=== PATIENT | male | born 1930 | race Caucasian/White ===

== ENCOUNTER 2018-09-15 14:40 | Outpatient (CLI) | payer OTHER | END 2018-09-15 14:41 | disposition home or self-care (01) | LOC: AMBL 14:40 | PROVIDERS: ATTEND Emergency Medicine | DX: R06.02 Shortness of breath (principal); R50.9 Fever, unspecified; R00.0 Tachycardia, unspecified; R09.89 Other specified symptoms and signs involving the circulatory and respiratory systems ==

== ENCOUNTER 2018-09-24 20:18 | Outpatient (CLI) | payer OTHER | END 2018-09-24 20:39 | disposition short-term general hospital (02) | LOC: AMBL 20:18 | PROVIDERS: ATTEND Emergency Medicine | DX: R53.1 Weakness (principal); R41.0 Disorientation, unspecified; Z99.81 Dependence on supplemental oxygen ==

== ENCOUNTER 2019-04-20 15:58 | Outpatient (CLI) | payer OTHER ==
--- NOTE | 2019-04-20 17:01 | DI ---
EXAM: Chest two views HISTORY: Shortness of breath COMPARISON: 08/15/2012 TECHNIQUE: Two views of the chest were performed FINDINGS: Lungs are hyperexpanded with flattening hemidiaphragms. The lungs are clear. There is no pleural effusion or pneumothorax. The heart is normal in size. The mediastinal contour is normal. There are no acute abnormalities of the bones. IMPRESSION: Chronic obstructive pulmonary disease without acute airspace disease.
--- NOTE | 2019-04-20 17:02 | DI ---
EXAM: Three views of the right shoulder. History: Right shoulder pain. Findings: No acute fracture or dislocation. Severe narrowing of the right AC joint and mild narrowi ng of the right glenohumeral joint. There is sclerosis and cystic change within the superior lateral aspect of the humeral head. Impression: 1. No acute osseous abnormality. 2. 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 3. Rotator cuff disease
== END 2019-04-20 15:59 | disposition home or self-care (01) ==
LOC: RAD 15:58
PROVIDERS: ATTEND Internal Medicine
DX: M25.511 Pain in right shoulder (principal); R06.02 Shortness of breath; J44.9 Chronic obstructive pulmonary disease, unspecified

== ENCOUNTER 2019-06-16 19:33 | Inpatient (IN) ==
[2019-06-16] MEDS ORDERED: SOLU-MEDROL 40 MG IVP STA (19:59)
[2019-06-16] MEDS ORDERED: DUONEB NEB STA (20:00)
--- NOTE | 2019-06-16 20:35 | CT ---
Exam: CT chest without contrast Date: 06/16/2019 Comparison: Chest x-ray 04/20/2019 History: COUGH / LEFT CHEST WALL PAIN Started feeling bad approx 3pm this afternoon. Increasingly f eeling worse. Pain left lung. Productive cough, clear phlegm. Hx COPD. Smokes approx 1 pack cigar ettes dly. / TECHNIQUE: Axial CT images through the chest were obtained without IV contrast. MPR images obtained . FINDINGS: No consolidation, pleural effusion, or pneumothorax. There are atheromatous changes of th e thoracic aorta and coronary arteries. No pericardial effusion. No thoracic aortic aneurysm or int ramural hematoma. No mediastinal or hilar lymphadenopathy. There are calcified mediastinal and bila teral hilar lymph nodes. There is bilateral gynecomastia. Impression: 1. No consolidation, pleural effusion, or pneumothorax. 2. No thoracic aortic aneurysm or intramural hematoma. 3. Bilateral gynecomastia.
[2019-06-16] MEDS ORDERED: LEVAQUIN 500 MG/100 ML D5W 500 MG/100 ML BAG IV STA (20:44)
--- NOTE | 2019-06-16 20:54 | ED.PDOC ---
General ED Provider: Dr. MOUNIKA MARTINEZ-ER Chief Complaint: Respiratory Complaint Stated Complaint: hes been sick and coughing Time Seen by Physician: 20:53 Mode of Arrival: Walk-In Information Source: Patient and Other Primary Care Provider: DARY CAROLINA Nursing and Triage Documentation Reviewed and Agree: Yes Does patient meet sepsis criteria?: No System Inflammatory Response Syndrome: Not Applicable Sepsis Protocol: For patient's 13 years and over: Temp is 96.8 and below OR 101 and greater Pulse >90 BPM Resp >20/minute Acutely Altered Mental Status Are patient's symptoms suggestive of a new infection, such as: -Pneumonia -Skin, Soft Tissue -Endocarditis -UTI -Bone, Joint Infection -Implantable Device -Acute Abdominal Infection -Wound Infection -Meningitis -Blood Stream Catheter Infection -Unknown Respiratory Complaint Exam Respiratory Complaint/Exam Onset/Duration: 3-4 days Symptoms Are: Still present Timing: Constant Initial Severity: Mild Current Severity: Mild Location: Chest Character: Reports Productive cough Aggravating: Reports URI Alleviating: Reports Bronchodilators Associated Signs and Symptoms: Reports Wheezing, URI and Nasal congestion History of Healthcare-Acquired Pneumonia: No Related Surgical History: Reports None Pulmonary Embolism Risk Factors: None Home Oxygen Use: Yes Recent Stress Test: No Recent Echo/LV Function: No Current Antibiotic Use: No Current Asthma Medication Use: No Respiratory Distress: None Inadequate Respiratory Effort: No Dysphagia Present: No Stridor Present: No JVD Present: No Accessory Muscle Use: No Retractions: Not Present Diminished Breath Sounds: No Prolonged Respiration: Expiratory phase Sinus Tenderness: None Grunting Respirations: No Kussmaul Respirations: No Differential Diagnoses: COPD Exacerbation and Pneumonia Review of Systems Review Of Systems Constitutional: Reports No symptoms Eyes: Reports No symptoms Ears, Nose, Mouth, Throat: Reports No symptoms Respiratory: Reports Cough, Short of air and Wheezing Cardiac: Reports No symptoms GI: Reports No symptoms : Reports No symptoms Musculoskeletal: Reports No symptoms Skin: Reports No symptoms Neurological: Reports No symptoms Endocrine: Reports No symptoms Hematologic/Lymphatic: Reports No symptoms All Other Systems: Reviewed and Negative Physical Exam Physical Exam Appearance: Well-appearing Ill-appearing: None Pain Distress: Mild Eyes: CLAUDIA, EOMI and Conjunctiva clear ENT: Ears normal, Nose normal and Oropharynx normal Neck: Supple Respiratory: Airway patent, Rhonchi and Wheezes Cardiovascular: RRR GI/: Soft Musculoskeletal: Normal strength Skin: Warm and Dry Psychiatric: Affect appropriate, Mood appropriate and Anxious Interpretation Radiology Interpretation Radiology Interpretation By: Radiologist Radiology Results: Negative Exam Interpreted: CT Scan EKG Interpretation Time of EKG #1: 20:52 Rate: Normal Rhythm: Sinus Ectopy: None [place]: NL ST Segment: Normal Interpretation: nsr Critical Care Note Critical Care Note Total Time (mins): 0 Course Course Hematology/Chemistry: 06/16/19 20:19 06/16/19 20:19 Orders, Labs, Meds: Lab Review 06/16/19 06/16/19 06/16/19 19:57 20:19 20:19 WBC 8.27 RBC 3.83 L Hgb 11.6 L Hct 35.2 L MCV 91.9 MCH 30.3 MCHC 33.0 RDW Coeff of Shira 15.5 H Plt Count 179 Immature Gran % (Auto) 0.2 Neut % (Auto) 55.0 Lymph % (Auto) 30.5 [place] % (Auto) 8.7 Eos % (Auto) 4.6 Baso % (Auto) 1.0 Immature Gran # (Auto) 0.0 Neut # (Auto) 4.6 Lymph # (Auto) 2.5 [place] # (Auto) 0.7 Eos # (Auto) 0.4 Baso # (Auto) 0.1 Puncture Site Lb O2 Saturation 98.0 ABG pH 7.455 H ABG pCO2 36.6 ABG pO2 108.0 H ABG HCO3 25.7 ABG Total CO2 27 ABG Base Excess 2 Anish Test + O2 Delivery Device Bnc Oxygen Liter Flow 2.00 FiO2 % 28.0 Sodium 139.7 Potassium 4.49 Chloride 103.8 Carbon Dioxide 29.3 Anion Gap 11.09 BUN 26.9 H Creatinine 1.73 H Estimated GFR (MDRD) 38.00 BUN/Creatinine Ratio 15.54 Glucose 119.9 H Lactic Acid Calcium 9.36 Total Bilirubin 0.33 AST 27.3 ALT 18.0 Alkaline Phosphatase 67.6 Total Creatine Kinase 148.4 CK-MB (CK-2) Pending CK-MB (CK-2) % Pending Troponin I Pending Total Protein 7.19 Albumin 4.06 Globulin 3.13 Albumin/Globulin Ratio 1.29 06/16/19 20:19 WBC RBC Hgb Hct MCV MCH MCHC RDW Coeff of Shira Plt Count Immature Gran % (Auto) Neut % (Auto) Lymph % (Auto) [place] % (Auto) Eos % (Auto) Baso % (Auto) Immature Gran # (Auto) Neut # (Auto) Lymph # (Auto) [place] # (Auto) Eos # (Auto) Baso # (Auto) Puncture Site O2 Saturation ABG pH ABG pCO2 ABG pO2 ABG HCO3 ABG Total CO2 ABG Base Excess Anish Test O2 Delivery Device Oxygen Liter Flow FiO2 % Sodium Potassium Chloride Carbon Dioxide Anion Gap BUN Creatinine Estimated GFR (MDRD) BUN/Creatinine Ratio Glucose Lactic Acid 1.57 Calcium Total Bilirubin AST ALT Alkaline Phosphatase Total Creatine Kinase CK-MB (CK-2) CK-MB (CK-2) % Troponin I Total Protein Albumin Globulin Albumin/Globulin Ratio Orders Category Date Time Status ABG DRAW REQUEST Routine CARDIO 06/16/19 19:58 Ordered ABG DRAW REQUEST Stat CARDIO 06/16/19 19:57 Ordered EKG-(ED ONLY) Stat CARDIO 06/16/19 19:57 Ordered NEBULIZER TREATMENT Stat CARDIO 06/16/19 20:00 Ordered ED BONDERIZER APPLIED .ONCE EMERGENCY 06/16/19 19:57 Active ED IV/MEDIPORT/POWERPORT .ONCE EMERGENCY 06/16/19 19:59 Active ABG Stat LAB 06/16/19 19:57 Completed BLOOD CULTURE (ED ONLY) Stat LAB 06/16/19 20:19 Received CBC W/ AUTO DIFF Stat LAB 06/16/19 20:19 Completed COMPREHENSIVE METABOLIC PANEL Stat LAB 06/16/19 20:19 Results CREATINE KINASE Stat LAB 06/16/19 20:19 Results LACTIC ACID Stat LAB 06/16/19 20:19 Completed PROCALCITONIN Stat LAB 06/16/19 20:19 Received SPUTUM CULTURE Stat LAB 06/16/19 20:44 Ordered TROPONIN I Stat LAB 06/16/19 20:19 Results 0.9 % Sodium Chloride [Saline Flush] MEDS 06/16/19 19:59 Active 1 syr IVF PRN PRN Ipratropium/Albuterol Neb [Duoneb] MEDS 06/16/19 20:00 Discontinued 3 ml NEB ONCE STA Levofloxacin/D5w [Levaquin 500 mg/100 ml D5w] MEDS 06/16/19 20:44 Active 500 mg in 100 ml IV ONCE Methylprednisolone Sod Succ/Pf [Solu-Medrol 40 mg] MEDS 06/16/19 19:59 Discontinued 40 [address] IVP ONCE STA CT CHEST W/O CONTRAST Stat RADS 06/16/19 19:58 Completed Medications Generic Name Dose Route Start Last Admin Trade Name Freq PRN Reason Stop Dose Admin Levofloxacin/Dextrose 500 mg in 100 mls @ 100 mls/hr 06/16/19 20:44 Levaquin 500 Mg/100 Ml D5w IV 06/16/19 21:43 ONCE STA Sodium Chloride 1 syr 06/16/19 19:59 06/16/19 20:48 Saline Flush IVF 1 syr PRN PRN Administration To flush IV Discontinued Medications Generic Name Dose Route Start Last Admin Trade Name Freq PRN Reason Stop Dose Admin Albuterol/Ipratropium 3 ml 06/16/19 20:00 Duoneb NEB 06/16/19 20:01 ONCE STA Methylprednisolone Sodium Succinate 40 mg 06/16/19 19:59 06/16/19 20:46 Solu-Medrol 40 Mg IVP 06/16/19 20:00 40 mg ONCE STA Administration Vital Signs: Temp Pulse Resp BP Pulse Ox 06/16/19 19:38 98.5 F 88 22 131/80 97 Discharge Plan Discharge Patient Disposition: ADMITTED INPATIENT Discharge Problem: Acute exacerbation of chronic obstructive pulmonary disease (COPD) Prescriptions: No Action gabapentin 600 mg Tablet 600 mg PO DAILY RF: 0 ipratropium-albuterol 0.5 mg-3 mg(2.5 mg base)/3 mL Solution For Nebulization 3 ml INHALATION Q6H PRN (Reason: Shortness Of Breath) RF: 0 tramadol 50 mg Tablet 50 mg PO BID RF: 0 potassium 99 mg Tablet 2.5 meq PO DAILY RF: 0 terazosin 2 mg Capsule 2 mg PO DAILY RF: 0 tamsulosin 0.4 mg Capsule 0.4 mg PO DAILY RF: 0 simvastatin 20 mg Tablet 20 mg PO DAILY RF: 0 allopurinol 300 mg Tablet 300 mg PO DAILY RF: 0 furosemide 20 mg Tablet 20 mg PO DAILY RF: 0 albuterol sulfate [ProAir HFA] 90 mcg/actuation Hfa Aerosol Inhaler 2 puff INHALATION Q4HR PRN (Reason: Shortness Of Breath) RF: 0 fluticasone propionate 50 mcg/actuation [place],Suspension 1 spray INTRANASAL DAILY RF: 0 colestipol 1 gram Tablet 1 g PO DAILY RF: 0 omeprazole 20 mg Tablet,Delayed Release (Dr/Ec) 20 mg PO BID RF: 0 azelastine 0.15 % (205.5 mcg) [place],Non-Aerosol 1 spray INTRANASAL BID RF: 0 Systane Balance 0.6 % Drops 1 drp BOTHEYES BID PRN (Reason: Dry Eye(S)) RF: 0 Daliresp 500 mcg Tablet 500 mcg PO DAILY RF: 0 Dramamine 25 mg Tablet,Chewable 50 mg PO Q4-6H PRN (Reason: Nausea) RF: 0 ED Provider: MOUNIKA MILLER Condition: Stable
[2019-06-16] MEDS ORDERED: PROAIR HFA IH PRN (20:58)
[2019-06-16] MEDS ORDERED: PROPYLENE GLYCOL EACHEYE PRN (20:58)
[2019-06-16] MEDS ORDERED: DIMENHYDRINATE 50 MG PO PRN (20:58)
[2019-06-16] MEDS ORDERED: NORCO 5-325 PO PRN (21:03)
[2019-06-16 22:13] VITALS: BMI 29.4
[2019-06-17] MEDS ORDERED: LEVAQUIN 500 MG/100 ML D5W 500 MG/100 ML BAG IV ONE (00:03)
[2019-06-17] MEDS: PRILOSEC PO SCH ×3 (00:17→20:22)
[2019-06-17] MEDS: LOVENOX SUBCUT SCH ×2 (00:28→09:20)
[2019-06-17] MEDS: NICODERM 14 MG TD SCH ×2 (01:04→09:19)
[2019-06-17] MEDS: ULTRAM PO SCH ×3 (01:05→20:23)
[2019-06-17] MEDS: DUONEB NEB SCH ×4 (04:48→19:33)
[2019-06-17] MEDS: LASIX TAB PO SCH (06:28)
[2019-06-17] MEDS: HYTRIN PO SCH (09:15)
[2019-06-17] MEDS: COLESTID PO SCH (09:15)
[2019-06-17] MEDS: DALIRESP PO SCH (09:16)
[2019-06-17] MEDS: NEURONTIN PO SCH (09:16)
[2019-06-17] MEDS: MUCINEX PO SCH ×2 (09:16→20:22)
[2019-06-17] MEDS: FLOMAX PO SCH (09:17)
[2019-06-17] MEDS: ZYLOPRIM PO SCH (09:17)
[2019-06-17] MEDS: POTASSIUM PO SCH (09:19)
[2019-06-17] MEDS: ZOCOR PO SCH (17:25)
[2019-06-17] MEDS: LEVAQUIN PO SCH (20:23)
[2019-06-18] MEDS: DUONEB NEB SCH ×4 (05:03→19:33)
[2019-06-18] MEDS: LASIX TAB PO SCH (05:43)
[2019-06-18] MEDS: POTASSIUM PO SCH (08:59)
[2019-06-18] MEDS: ZYLOPRIM PO SCH (08:59)
[2019-06-18] MEDS: DALIRESP PO SCH (08:59)
[2019-06-18] MEDS: HYTRIN PO SCH (08:59)
[2019-06-18] MEDS: NEURONTIN PO SCH (09:00)
[2019-06-18] MEDS: ULTRAM PO SCH ×2 (09:00→20:32)
[2019-06-18] MEDS: PRILOSEC PO SCH ×2 (09:00→20:31)
[2019-06-18] MEDS: MUCINEX PO SCH ×2 (09:00→20:31)
[2019-06-18] MEDS: FLOMAX PO SCH (09:00)
[2019-06-18] MEDS: COLESTID PO SCH (09:00)
[2019-06-18] MEDS: NICODERM 14 MG TD SCH (09:01)
[2019-06-18] MEDS: LOVENOX SUBCUT SCH (09:01)
[2019-06-18] MEDS: ZOCOR PO SCH (17:24)
[2019-06-18] MEDS: LEVAQUIN PO SCH (20:30)
[2019-06-19] MEDS: DUONEB NEB SCH ×4 (04:40→19:15)
[2019-06-19] MEDS: LASIX TAB PO SCH (05:43)
[2019-06-19] MEDS: POTASSIUM PO SCH (08:42)
[2019-06-19] MEDS: ULTRAM PO SCH ×2 (08:42→20:56)
[2019-06-19] MEDS: ZYLOPRIM PO SCH (08:42)
[2019-06-19] MEDS: NEURONTIN PO SCH (08:42)
[2019-06-19] MEDS: DALIRESP PO SCH (08:43)
[2019-06-19] MEDS: MUCINEX PO SCH ×2 (08:43→20:56)
[2019-06-19] MEDS: HYTRIN PO SCH (08:43)
[2019-06-19] MEDS: FLOMAX PO SCH (08:43)
[2019-06-19] MEDS: LOVENOX SUBCUT SCH (08:44)
[2019-06-19] MEDS: NICODERM 14 MG TD SCH (08:44)
[2019-06-19] MEDS: PRILOSEC PO SCH ×2 (08:44→20:56)
[2019-06-19] MEDS: COLESTID PO SCH (09:00)
[2019-06-19] MEDS: ZOCOR PO SCH (16:52)
[2019-06-19] MEDS ORDERED: SOLU-CORTEF 250 MG IVP SCH (17:02)
[2019-06-19] MEDS ORDERED: XANAX PO STA (17:06)
[2019-06-19] MEDS: XANAX PO SCH (20:55)
[2019-06-19] MEDS: LEVAQUIN PO SCH (20:55)
[2019-06-19] MEDS: SOLU-CORTEF 250 MG IVP SCH (20:57)
[2019-06-20] MEDS: DUONEB NEB SCH (04:55)
[2019-06-20 04:59] VITALS: BP 149/84; TEMP 97.5
[2019-06-20] MEDS: LASIX TAB PO SCH (05:48)
[2019-06-20] MEDS: SOLU-CORTEF 250 MG IVP SCH (05:51)
[2019-06-20] MEDS: MUCINEX PO SCH (08:02)
[2019-06-20] MEDS: POTASSIUM PO SCH (08:02)
[2019-06-20] MEDS: HYTRIN PO SCH (08:03)
[2019-06-20] MEDS: DALIRESP PO SCH (08:03)
[2019-06-20] MEDS: FLOMAX PO SCH (08:03)
[2019-06-20] MEDS: PRILOSEC PO SCH (08:03)
[2019-06-20] MEDS: XANAX PO SCH (08:03)
[2019-06-20] MEDS: ULTRAM PO SCH (08:03)
[2019-06-20] MEDS: LOVENOX SUBCUT SCH (08:04)
[2019-06-20] MEDS: NEURONTIN PO SCH (08:04)
[2019-06-20] MEDS: ZYLOPRIM PO SCH (08:04)
[2019-06-20] MEDS: NICODERM 14 MG TD SCH (08:05)
--- NOTE | 2019-06-27 09:41 | HP ---
CHIEF COMPLAINT/DISCUSSION: This is an 88-year-old patient of Dr. Donohue with history of COPD presented to the Emergency Department with his family with several days of cough, cough productive of mucoid sputum associated with wheezing, shortness of breath with exertion. He was seen in the Emergency Department with the above symptoms. Chest CT did not confirm any infiltrate. He was thought to have exacerbation of COPD and was admitted for pulmonary updraft and steroids. PAST MEDICAL HISTORY: MEDICATIONS: Gabapentin Ipratropium nebs Tramadol Potassium Terazosin Tamsulosin Simvastatin Allopurinol Lasix Albuterol inhaler Flonase nasal spray Colestipol Omeprazole Azelastine nasal spray Systane eyedrops Daliresp Dramamine ALLERGIES: PENICILLIN AND FLU VACCINE PAST MEDICAL HISTORY: History of COPD History of neuropathy History of BPH Hyperlipidemia SOCIAL HISTORY: He is a one pack per day smoker. Denies any alcohol use. FAMILY HISTORY: Reviewed and thought not to be pertinent to discussion. REVIEW OF SYSTEMS: No headaches, visual changes, tinnitus, chest pain, hemoptysis, abdominal pain, blood in the stool, urinary symptoms or seizures. PHYSICAL EXAMINATION: V/S: Temperature 97.5, pulse 83, respiratory rate 23, blood pressure 149/85, oxygen saturation 91%. HEENT: Pupils are round. NECK: Supple. CHEST: Coarse rhonchi and expiratory wheezes. CARDIOVASCULAR: Regular rate and rhythm. ABDOMEN: Soft, nontender. EXTREMITIES: Distal extremities without cyanosis or edema. ASSESSMENT: 1. EXACERBATION OF COPD. PLAN: 1. IV steroids, antibiotics. 2. Please see orders. MTDD
--- NOTE | 2019-06-27 09:44 | DS ---
PRINCIPAL DIAGNOSIS: 1. EXACERBATION OF COPD DISCUSSION: This is an 88-year-old patient of Dr. Donohue who is a smoker with history of COPD who presented to the Emergency Department with cough, wheezing and shortness of breath with any exertion. He was admitted to my services in Dr. Donohue's absence for treatment of such. CLINICAL COURSE: The patient was admitted with steroids, antibiotics. His wheezing markedly improved. His steroids were weaned. At time of discharge, he felt to be back to baseline in terms of breathing. He was discharged on antibiotics and steroids and will followup with Dr. Donohue in one week. KAYLEY
== END 2019-06-20 08:10 | disposition home or self-care (01) | DRG 192 ==
LOC: ED 19:37 → MEDSURG B 20:54
PROVIDERS: ADMIT Family Medicine; ATTEND Family Medicine
DX: R06.2 Wheezing; R09.81 Nasal congestion; R05 Cough; J06.9 Acute upper respiratory infection, unspecified; J44.1 Chronic obstructive pulmonary disease with (acute) exacerbation; R06.02 Shortness of breath

== ENCOUNTER 2020-03-07 10:42 | Inpatient (IN) ==
--- NOTE | 2020-03-07 11:24 | ED.PDOC ---
General ED Provider: Dr. MOUNIKA COCHRAN Chief Complaint: Fall Stated Complaint: Patients daughter states he has fallen twice in past 2 days, both times being in the eventime after ambulating to bathroom. His niece assisted him yesterday morning but this morning he managed to phone his daughter Time Seen by Physician: 10:55 Mode of Arrival: Ambulance Information Source: Patient Exam Limitations: No limitations Primary Care Provider: DARY CAROLINA Nursing and Triage Documentation Reviewed and Agree: Yes Does patient meet sepsis criteria?: No System Inflammatory Response Syndrome: Not Applicable Sepsis Protocol: For patient's 13 years and over: Temp is 96.8 and below OR 101 and greater Pulse >90 BPM Resp >20/minute Acutely Altered Mental Status Are patient's symptoms suggestive of a new infection, such as: -Pneumonia -Skin, Soft Tissue -Endocarditis -UTI -Bone, Joint Infection -Implantable Device -Acute Abdominal Infection -Wound Infection -Meningitis -Blood Stream Catheter Infection -Unknown Musculoskeletal Complaint Exam Hip/Pelvis Complaint/Exam Location of Pain: Reports Right, Left, Hip and Pelvis Mechanism of Injury: Reports Trauma Onset/Duration: 48 hrs Symptoms Are: Still present Initial Severity: Moderate Current Severity: Mild Location: Reports Diffuse Character: Reports Sharp, Dull and Aching Aggravating: Reports Movement and Weight bearing Alleviating: Reports Rest and Position Associated Signs and Symptoms: Denies Swelling, Redness, Bruising, Fever, Weakness, Dizziness, Syncope, Abdominal pain and Knee pain Related History: Reports Similar episode Able to Bear Weight: Yes Septic Arthritis Risk Factors: Reports None Related Surgical History: Reports None Rotation: External (Lt foot) Pelvis Palpation: Stable Tenderness: Present Right, Left, Greater Trochanter and Pubis Range of Motion Limited In: Present Internal rotation NV Bundle Intact Distal to Injury: No Differential Diagnoses: Arthritis, Bursitis, Fracture and Strain Review of Systems Review Of Systems Constitutional: Reports No symptoms Eyes: Reports No symptoms Ears, Nose, Mouth, Throat: Reports No symptoms Respiratory: Reports No symptoms Cardiac: Reports No symptoms GI: Reports No symptoms : Reports No symptoms Musculoskeletal: Reports Back pain and Joint pain Skin: Reports No symptoms Neurological: Reports No symptoms Endocrine: Reports No symptoms Hematologic/Lymphatic: Reports No symptoms All Other Systems: Reviewed and Negative [facility] Medical History Arthritis Arthritis associated with foreign body Chronic obstructive airway disease Gastro-esophageal reflux Gout History of nephrectomy Hyperlipemia Hypertension Nerve pain Pain Sinusitis Urinary bladder disorder Vertigo Family History FATHER Diabetes Coronary artery arteriosclerosis Social History Smoking and tobacco status: Current every day smoker Tobacco: How many years used: 80 Passive smoking exposure: Yes Quit status: not considering quitting Physical Exam Physical Exam Appearance: Reports Well-appearing Ill-appearing: Mild Pain Distress: Mild Eyes: Reports CLAUDIA, EOMI and Conjunctiva clear ENT: Reports Ears normal, Nose normal and Oropharynx normal Neck: Supple Respiratory: Reports Airway patent, Breath sounds clear, Breath sounds equal and Respirations nonlabored Cardiovascular: Reports RRR, Pulses normal, No rub and No murmur GI/: Reports Soft, Nontender, No masses, Bowel sounds normal and No Organomegaly Musculoskeletal: Reports Normal strength, ROM intact, No edema, No calf tenderness and Limited strength Skin: Reports Warm, Dry and Normal color Neurological: Reports Sensation intact, Motor intact, Reflexes intact, Cranial nerves intact, Alert and Oriented Psychiatric: Reports Affect appropriate and Mood appropriate Interpretation Radiology Interpretation Radiology Interpretation By: Radiologist Exam Interpreted: CT Scan ( Lumbar Spine :Diffuse demineralization and degenerative disc/facet disease. Postop changes of the mid spine. No acute fracture or subluxation is seen. ) and Other (CT PELVIS:No fracture or dislocation. 2. Right lateral thigh subcutaneous hematoma. 3. Degenerative changes as described. 4. Infrarenal abdominal aortic aneurysm, incompletely imaged. Refer to same day lumbar spine CT report for further details. ) Physician Notification Case Discussed Physician Notified: [place]/ wished for patient Time of Notification: 12:57 Critical Care Note Critical Care Note Total Time (mins): 0 Course Course Hematology/Chemistry: 03/07/20 11:25 03/07/20 11:25 Orders, Labs, Meds: Lab Review 03/07/20 03/07/20 03/07/20 11:25 11:25 11:25 WBC 8.33 RBC 3.84 L Hgb 11.5 L Hct 35.6 L MCV 92.7 MCH 29.9 MCHC 32.3 RDW Coeff of Shira 14.7 Plt Count 194 Immature Gran % (Auto) 0.2 Neut % (Auto) 59.1 Lymph % (Auto) 23.9 [place] % (Auto) 11.8 H Eos % (Auto) 4.2 Baso % (Auto) 0.8 Neut # (Auto) 4.9 Lymph # (Auto) 2.0 [place] # (Auto) 1.0 Eos # (Auto) 0.4 Baso # (Auto) 0.1 Immature Gran # (Auto) 0.0 Sodium 139.8 Potassium 4.21 Chloride 102.8 Carbon Dioxide 32.1 H Anion Gap 9.11 BUN 21.2 H Creatinine 1.32 H Estimated GFR (MDRD) 51.00 BUN/Creatinine Ratio 16.06 Glucose 96.8 Calcium 9.30 Total Bilirubin 0.34 AST 49.2 ALT 21.3 Alkaline Phosphatase 73.5 Total Creatine Kinase 942.5 H CK-MB (CK-2) 9.700 H* CK-MB (CK-2) % 1.0200 Troponin I 0.017 Total Protein 6.87 Albumin 3.92 Globulin 2.95 Albumin/Globulin Ratio 1.32 Orders Category Date Time Status EKG-(ED ONLY) Stat CARDIO 03/07/20 11:07 Completed CBC W/ AUTO DIFF Stat LAB 03/07/20 11:25 Completed CMP [COMPREHENSIVE METABOLIC PANEL] Stat LAB 03/07/20 11:25 Completed CPK [CREATINE KINASE] Stat LAB 03/07/20 11:25 Completed TROPONIN I Stat LAB 03/07/20 11:25 Completed UA [URINALYSIS C & S IF INDICATED] Stat LAB 03/07/20 11:18 Uncollected CHEST, 1V AP ONLY Stat RADS 03/07/20 11:[address] HEAD W/O CONTRAST Stat RADS 03/07/20 11:[address] LUMBAR SPINE W/O CONTRAST Stat RADS 03/07/20 11:[address] PELVIS W/O CONTRAST Stat RADS 03/07/20 11:07 Completed Medications Generic Name Dose Route Start Last Admin Trade Name Freq PRN Reason Stop Dose Admin Albuterol Sulfate 2 puff 03/07/20 17:00 Ventolin Hfa (Per Puff-With Spacer) IH Q4HR AR Allopurinol 300 mg 03/08/20 09:00 Zyloprim PO DAILY AR Gabapentin 600 mg 03/07/20 13:30 Neurontin PO DAILY AR Dextrose/Sodium Chloride 1,000 mls @ 125 mls/hr 03/07/20 13:12 Dextrose 5%-Ns Iv Solution IV 03/07/20 21:11 .Q8H STA Non-Formulary Medication 20 mg 03/07/20 21:00 Omeprazole PO BID AR Non-Formulary Medication 99 mg 03/08/20 09:00 Potassium PO DAILY AR Roflumilast 500 mcg 03/08/20 09:00 Daliresp PO DAILY AR Simvastatin 20 mg 03/08/20 09:00 Zocor PO DAILY AR Sodium Chloride 1 syr 03/07/20 13:10 Saline Flush IVF PRN PRN To flush IV Vital Signs: Temp Pulse Resp BP Pulse Ox 03/07/20 10:42 97.6 F 95 H 20 154/74 H 97 Discharge Plan Discharge Patient Disposition: ADMITTED INPATIENT Discharge Problem: Acute bilateral low back pain, Contusion of hip, right, Rhabdomyolysis, Acute kidney injury ED Provider: MOUNIKA COCHRAN Condition: Stable
[2020-03-07 11:33] LABS: HEMATOCRIT 35.6 % (42.0-52.0)
--- NOTE | 2020-03-07 12:18 | DI ---
EXAM: CHEST FRONTAL VIEW HISTORY: Chronic obstructive pulmonary disease. COMPARISON: 09/26/2019 FINDINGS: Heart size is mildly prominent. There is ectasia and atherosclerotic disease of the aorta . There is diffuse, chronic appearing interstitial accentuation. No acute infiltrates are seen. No vascular congestion. There is no consolidation, visible pleural fluid or pneumothorax. Bones revea l no acute fracture. IMPRESSION: No acute cardiopulmonary process.
--- NOTE | 2020-03-07 12:29 | CT ---
EXAM: CT BRAIN HISTORY: Fall, head injury TECHNIQUE: CT brain without intravenous contrast. 5-mm axial sections with Reformations. COMPARISON: 02/28/2020 FINDINGS: There is generalized atrophy. There is moderate periventricular and deep white matter low attenuatio n which although nonspecific is suggestive of chronic microvascular ischemic change. Bilateral basal ganglia calcification. These findings are stable. Brain otherwise was unremarkable without evidence of hemorrhage or large vessel distribution recent i schemic infarction. There is no suggestion of acute hydrocephalus or subdural fluid collection. No mass or mass effect. Cranium has no acute finding. Mastoid processes are poorly aerated. The visualized paranasal sinuse s are clear. IMPRESSION: No acute intracranial process or injury. No skull fracture.
--- NOTE | 2020-03-07 12:31 | CT ---
EXAM: CT Pelvis without contrast. HISTORY: Bilateral hip pain following trauma. COMPARISON: Left hip radiograph 02/28/2020. TECHNIQUE: Multiple axial images of the pelvis were obtained without intravenous contrast. Images w ere reformatted in the coronal and sagittal plane. FINDINGS: Please note that evaluation of the pelvic soft tissue structures is limited due to lack of intravenous contrast. Atherosclerotic calcifications noted. There is some fusiform dilatation of the distal infrarenal aor ta up to 3.4 cm transverse on coronal image 45 although this is incompletely imaged. Visualized syeda l is normal in caliber. Diverticulosis noted. Urinary bladder is normal. No free fluid or free air seen within the pelvis. Laminectomy changes of the lower lumbar spine are incompletely imaged. 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 Mild to moderate bilateral hip joint space narrowing with marginal o steophyte formation noted. No acute fracture or dislocation identified. A 3 x 1.8 x 2.7 cm high density lateral subcutaneous right thigh collection present on axial image 65 and coronal image 54 with some adjacent subcutaneous edema present. Mild lateral left thigh subcuta neous edema noted as well. IMPRESSION: 1. No fracture or dislocation. 2. Right lateral thigh subcutaneous hematoma. 3. Degenerative changes as described. 4. Infrarenal abdominal aortic aneurysm, incompletely imaged. Refer to same day lumbar spine CT repo rt for further details.
--- NOTE | 2020-03-07 12:40 | CT ---
EXAM: CT LUMBAR SPINE HISTORY: Fall, pain TECHNIQUE: CT lumbar spine without contrast. 3-mm axial sections. Coronal and sagittal reformation s. COMPARISON: None FINDINGS: Bones are demineralized. Postop changes are noted at L2/L3 and L3/L4. There is diffuse severe degen erative disc and facet disease. Mild scoliosis is seen convex to the right. Sacroiliac joints are i ntact with moderate arthropathy. There has been laminectomy of the lower spine. The degenerative ch anges lead to multilevel central and neural foraminal stenosis similar to that described on prior MRI . No traumatic central canal stenosis is suggested. There is no paraspinal hematoma. Atherosclerot ic disease is incidentally noted with aneurysmal caliber of the lower aorta. IMPRESSION: Diffuse demineralization and degenerative disc/facet disease. Postop changes of the mid spine. No acute fracture or subluxation is seen.
[2020-03-07] MEDS ORDERED: DEXTROSE 5%-NS IV SOLUTION 1,000 ML IV STA (13:12)
[2020-03-07 14:13] VITALS: BMI 29.5
[2020-03-07] MEDS: VENTOLIN HFA (PER PUFF-WITH SPACER) IH SCH ×3 (14:33→23:15)
[2020-03-07] MEDS: NEURONTIN PO SCH (16:27)
[2020-03-07] MEDS: PRILOSEC PO SCH (16:59)
[2020-03-07] MEDS ORDERED: VENTOLIN HFA (PER PUFF-WITH SPACER) IH SCH (17:00)
[2020-03-07] MEDS ORDERED: NON-FORMULARY MEDICATION (Omeprazole 20 MG) PO SCH (21:00)
[2020-03-08] MEDS: VENTOLIN HFA (PER PUFF-WITH SPACER) IH SCH ×6 (00:38→21:31)
[2020-03-08] MEDS: [UNRECOGNIZED DRUG - OTHER] PO PRN (01:36)
[2020-03-08 03:54] LABS: HEMATOCRIT 34.3 % (42.0-52.0)
[2020-03-08] MEDS: PRILOSEC PO SCH ×2 (05:30→16:47)
--- NOTE | 2020-03-08 08:05 | HP ---
DATE OF SERVICE: 03/07/20 HISTORY OF PRESENT ILLNESS: This is an 89-year-old white male who presented to the Emergency Room after he had fallen at home twice in the past two days. Both times in the evening after getting up and going to the bathroom. He did hit his head. PAST MEDICAL HISTORY: Neuropathy GERD Hypertension COPD, oxygen dependent Chronic respiratory failure - he has refused a pulmonology consultation Smoker, heavy History of pleuritic pains Skin tag on right neck Bilateral shoulder bursitis History of left kidney cancer - he refuses to see urology. He had a nephrectomy 20 years ago Bilateral sciatica Dizziness Hand tremors CHF Dyslipidemia Recurrent gout PAST SURGICAL HISTORY: Cholecystectomy Appendectomy Left nephrectomy Spine surgery times three Noncompliance with medications, diet, lifestyle, followup Most recently on 02/28/20 he had bilateral carotid scan which was normal. His L- spine x-ray showed severe degenerative changes REVIEW OF SYSTEMS: CONSTITUTIONAL: No night sweats. No fatigue, malaise, lethargy. No fever or chills. HEENT: Eyes: No visual changes. No eye pain. No eye discharge. ENT: No runny nose. No epistaxis. No sinus pain. No sore throat. No odynophagia. No ear pain. No congestion. RESPIRATORY: Shortness of breath. No cough, no congestion. No hemoptysis. CARDIOVASCULAR: No angina symptoms. No CHF symptoms. No atypical chest pain for CAD. No palpitations. No PND. No orthopnea. GASTROINTESTINAL: No abdominal pain. No nausea or vomiting. No diarrhea or constipation. No hematemesis. No hematochezia. GENITOURINARY: No urgency. No frequency. No dysuria. No hematuria. No obstructive symptoms. No discharge. No pain. No significant abnormal bleeding. MUSCULOSKELETAL: Back pain, sciatica. NEUROLOGICAL: No headache. No neck pain. No syncope. No seizures. No dizziness. PSYCHIATRIC: Not anxious. No depression. No suicidal thoughts. No homicidal thoughts. SKIN: No rash. No lesions. No wounds. ENDOCRINE: No unexplained weight loss. No weight gain. HEMATOLOGIC/LYMPHATIC: No anemia. No purpura. No petechiae. No prolonged or excessive bleeding. No palpable lymph nodes. PERSONAL/FAMILY/SOCIAL HISTORY: He is a , lives at home by himself. His daughter and neice help take care of him. He is a heavy smoker. No alcohol or ilicit drug use. MEDICATIONS: Systane one drop both eyes b.i.d. p.r.n. Daliresp 500 mcg p.o. daily Potassium 99 mg p.o. daily Ipratropium-albuterol 0.5 mg-3mg 3 mL inhalation q.6h Albuterol Sulfate two puff INH q.4hr Tramadol 50 mg p.o. b.i.d. Allopurinol 300 mg p.o. daily Simvastatin 20 mg p.o. daily Tamsulosin 0.4 mg p.o. daily Omeprazole 20 mg p.o. b.i.d. Dramamine 50 mg p.o. q.4-6hr p.r.n. Azelastine 0.15% one spray intranasal b.i.d. Fluticasone Proprionate 50 mct/actuation spray suspension one spray intranasal daily Terazosin 2 mg p.o. daily Furosemide 20 mg p.o. daily Gabapentin 600 mg p.o. daily Colestipol 1 gm p.o. daily Hydrocodone-acetaminophen 5-325 mg p.o. one tab daily Hemp Gummy Bear 50 - 100 mg p.o. q.i.d. p.r.n. Prevagen Extra Strength one cap p.o. daily Ferrous Sulfate 325 mg p.o. daily [place] Q Plus one cap p.o. daily ALLERGIES: PENICILLINS (FLU VACCINE) PHYSICAL EXAMINATION: VITAL SIGNS: Temperature 97.6, heart rate 95, respirations 20, blood pressure 150/74, pulse ox 97%. HEENT: Head normocephalic, atraumatic. Eyes: Extraocular muscles are intact. Pupils are equal, round and reactive to light and accommodation. Ears: No lesions. Nose appeared normal. Throat: No exudate or erythema. NECK: Supple. No JVD, no carotid bruit. No lymphadenopathy or thyromegaly. LUNGS: Clear to auscultation. Percussion note normal. Chest symmetrical. HEART: S1, S2, no S3. No murmur. No cyanosis or clubbing. No ascites. Pulses: Dorsalis pedis and posterior tibial pulses +1 to +2 bilaterally. ABDOMEN: Soft. Nontender. Bowel sounds active. No CVA tenderness. No mass felt. EXTREMITIES: No edema. Full range of motion of all extremities, equal. NEUROLOGIC: No focal deficit. Cranial nerves II through XII are grossly intact. No headache, no double vision or headache. SKIN: Not dry. Intact. Turgor - normal. LYMPHATIC: No palpable lymph nodes/no lymphedema. MUSCULOSKELETAL: Normal joints with no swelling. Muscle tone is normal. LABS/IMAGING: White count 8.33, hemoglobin 11.5, hematocrit 35.6, platelets 194. Sodium 139, potassium 4.2, BUN 21, creatinine 1.32, glucose 96.8. AST 49, ALT 21.3. Total CK 942. CK-MB 9.7, CK-MB percentage 1.02. Troponin less than 0.02. Total protein 6.87. Chest x-ray shows no acute process. CT of the pelvis shows no fracture or dislocation. Right lateral thigh subcutaneous hematoma, degenerative changes, infrarenal abdominal aortic aneurysm incompletely imaged. CT of the L-spine shows diffuse demineralization, degeneration of disc/facet and disease. No acute fracture or postop changes. Head CT shows no acute intracranial process. No skull fracture. ASSESSMENT: 1. ACUTE BILATERAL LOW BACK PAIN 2. RECENT FALL 3. RIGHT HIP CONTUSION 4. ACUTE KIDNEY INJURY 5. SEVERE COPD, OXYGEN DEPENDENT 6. CHRONIC KIDNEY DISEASE, STAGE 2 TO 3 7. GENERALIZED WEAKNESS PLAN: 1. We will admit. 2. Routine telemetry orders. 3. CBC, CMP daily. 4. Continue home medications. 5. Hold cholesterol medication. 6. NS IV at 75 cc/hr. 7. 1 cc Decadron IM. 8. [place] 5 mg b.i.d. p.r.n. for pain. 9. Toradol 30 mg IV q.8hr p.r.n. for pain. 10. Oxygen at 1 to 2L as needed. 11. Regular diet. 12. Follow closely. TIME SPENT: More than 70 minutes. MTDD
[2020-03-08] MEDS ORDERED: DECADRON 4 MG/ML SDV IM STA (08:10)
[2020-03-08] MEDS: TORADOL IVP STA ×2 (09:08→09:28)
--- NOTE | 2020-03-08 09:51 | PCM.PROG ---
Attending Provider: ATTENDING PROVIDER: Dr. DARY CAROLINA DATE OF SERVICE: 03/08/20 SUBJECTIVE: This 89 year old /WHITE M was hospitalized 03/07/20 with fall. The patient has increased CK level from muscle injury. Troponin is negative. Cardiovascular status is stable. He is feeling better with some pain in left hip. Pain is a 1-2 on scale of 1-10. He knows that family wants him to go to the senior living and he is agreeable. REVIEW OF SYSTEMS: CONSTITUTIONAL: No night sweats. No fatigue, malaise, lethargy. No fever or chills. HEENT: Eyes: No visual changes. No eye pain. No eye discharge. ENT: No runny nose. No epistaxis. No sinus pain. No odynophagia. No congestion. RESPIRATORY: No cough, no congestion. No hemoptysis. No shortness of breath. CARDIOVASCULAR: No angina symptoms. No CHF symptoms. No atypical chest pain for CAD. No palpitations. No orthopnea.. GASTROINTESTINAL: No abdominal pain. No nausea or vomiting. No diarrhea or constipation. No hematemesis. No hematochezia. GENITOURINARY: No urgency. No frequency. No dysuria. No hematuria. No obstructiv e symptoms. No discharge. No pain. No significant abnormal bleeding. MUSCULOSKELETAL: No musculoskeletal pain; no joint swelling. NEUROLOGICAL: Awake, alert, oriented to time, place and person. No headache. No neck pain. No syncope. No seizures. No dizziness. PSYCHIATRIC: Not anxious. No depression. No suicidal thoughts. No homicidal thoughts. SKIN: No rash. No lesions. No wounds. ENDOCRINE: No unexplained weight loss. No weight gain. HEMATOLOGIC/LYMPHATIC: No anemia. No purpura. No petechiae. No prolonged or excessive bleeding. No palpable lymph nodes. PHYSICAL EXAMINATION: GENERAL: The patient is awake, alert and oriented, sitting in bed in no distress. VITAL SIGNS: Temperature 97.9 F, Pulse 73, Respiratory Rate 18, BP 140/73, Pulse Ox 95% HEENT: Head normocephalic, atraumatic. Eyes: Extraocular muscles are intact. Pupils are equal, round and reactive to light and accommodation. Ears: No lesions. Nose appeared normal. Throat: No exudate or erythema. NECK: Supple. No JVD, no carotid bruit. No lymphadenopathy or thyromegaly. LUNGS: Clear to auscultation. Percussion note normal. Chest symmetrical. HEART: S1, S2, no S3. No murmurs. No cyanosis or clubbing. No ascites. Pulses: Dorsalis pedis and posterior tibial pulses +1 to +2 both sides. ABDOMEN: Soft. Non-tender. Bowel sounds active. No CVA tenderness. No mass felt. EXTREMITIES: No edema. Full range of motion of all extremities, equal. NEUROLOGIC: No focal deficit. Cranial nerves II through XII are grossly intact. No headache, no double vision or headache. SKIN: Warm and dry. Intact. Turgor-normal. LYMPHATIC: No palpable lymph nodes/no lymphedema. MUSCULOSKELETAL: Normal joints with no swelling. Muscle tone is normal. LAB REVIEW: 03/08/20 03:47 03/08/20 03:47 03/08/20 03:47: Sodium 138.6, Potassium 4.40, Chloride 105.1, Carbon Dioxide 31.4 H, Anion Gap 6.50, BUN 18.9, Creatinine 1.26 H, Estimated GFR (MDRD) 54.00, BUN/Creatinine Ratio 15.00, Glucose 116.9 H, Calcium 8.86, Total Bilirubin 0.30, AST 46.2, ALT 21.0, Alkaline Phosphatase 66.1, Total Protein 6.11 L, Albumin 3.29 L, Globulin 2.82, Albumin/Globulin Ratio 1.16 03/08/20 03:47: WBC 7.54, RBC 3.65 L, Hgb 11.2 L, Hct 34.3 L, MCV 94.0, MCH 30.7, MCHC 32.7, RDW Coeff of [place] 14.9 H, Plt Count 185, Immature Gran % (Auto) 0.3, Neut % (Auto) 57.9, Lymph % (Auto) 23.5, [place] % (Auto) 11.4 H, Eos % (Auto) 5.8, Baso % (Auto) 1.1, Neut # (Auto) 4.4, Lymph # (Auto) 1.8, [place] # (Auto) 0.9, Eos # (Auto) 0.4, Baso # (Auto) 0.1, Immature Gran # (Auto) 0.0 03/08/20 03:47: Total Creatine Kinase 752.8 H, CK-MB (CK-2) 6.200 H*, CK-MB (CK- 2) % 0.8200 03/07/20 19:40: Total Creatine Kinase 832.8 H, CK-MB (CK-2) 7.830 H*, CK-MB (CK- 2) % 0.9400 03/07/20 17:20: Urine Color Yellow, Urine Clarity Clear, Urine pH 6.0, Ur Specific [place] 1.020, Urine Protein Negative, Urine Glucose (UA) Negative, Urine Ketones Negative, Urine Blood Negative, Urine Nitrite Negative, Urine Bilirubin Negative, Urine Urobilinogen 0.2, Ur Leukocyte Esterase Negative 03/07/20 11:25: Troponin I 0.017 03/07/20 11:25: Sodium 139.8, Potassium 4.21, Chloride 102.8, Carbon Dioxide 32.1 H, Anion Gap 9.11, BUN 21.2 H, Creatinine 1.32 H, Estimated GFR (MDRD) 51.00, BUN/Creatinine Ratio 16.06, Glucose 96.8, Calcium 9.30, Total Bilirubin 0.34, AST 49.2, ALT 21.3, Alkaline Phosphatase 73.5, Total Creatine Kinase 942.5 H, CK-MB (CK-2) 9.700 H*, CK-MB (CK-2) % 1.0200, Total Protein 6.87, Albumin 3.92, Globulin 2.95, Albumin/Globulin Ratio 1.32 03/07/20 11:25: WBC 8.33, RBC 3.84 L, Hgb 11.5 L, Hct 35.6 L, MCV 92.7, MCH 29.9, MCHC 32.3, RDW Coeff of [place] 14.7, Plt Count 194, Immature Gran % (Auto) 0.2, Neut % (Auto) 59.1, Lymph % (Auto) 23.9, [place] % (Auto) 11.8 H, Eos % (Auto) 4.2, Baso % (Auto) 0.8, Neut # (Auto) 4.9, Lymph # (Auto) 2.0, [place] # (Auto) 1.0, Eos # (Auto) 0.4, Baso # (Auto) 0.1, Immature Gran # (Auto) 0.0 ASSESSMENT: Please see below. 1. Dehydration, resolved with improvement in kidney function 2. History of fall with no obvious fracture or acute injury 3. Cardiovascular status is stable. CK level increase because of fall. Troponin is negative. PLAN: 1. Continue home medications 2. IV fluids were given in the beginning 3. Monitor kidney function Plan and coordination of the patient's care discussed in the presence of Automotive Starter Repairer and nurse. CONDITION: STABLE SCRIBED BY: Antonio DUBON scribed while in presence of service performed by Dr. DARY ACROLINA on 03/08/20 ([id number])
--- NOTE | 2020-03-08 10:03 | HP ---
DATE OF SERVICE: 03/07/2020 REASON FOR HOSPITALIZATION/HISTORY OF PRESENT ILLNESS: This 89 year old /WHITE M was hospitalized 03/07/20 with history of fall. The patient laid on the floor all night prior to coming to the ER. The patient was oriented to time, place and person. Family wants the patient to go to the skilled nursing because he is living by himself and high risk for falls. The patient is agreeable. PAST MEDICAL HISTORY/PAST SURGICAL HISTORY: Severe Chronic lung disease GOUT Neuropathy Severe DJD of L spine Dyslipidemia BPH Generalized osteoarthritis Chronic kidney disease. Anemia REVIEW OF SYSTEMS: CONSTITUTIONAL: No night sweats. No fatigue, malaise, lethargy. No fever or chills. HEENT: Eyes: No visual changes. No eye pain. No eye discharge. ENT: No runny nose. No epistaxis. No sinus pain. No sore throat. No odynophagia. No ear pain. No congestion. RESPIRATORY: No cough, no congestion. No hemoptysis. No shortness of breath. CARDIOVASCULAR: No angina symptoms. No CHF symptoms. No atypical chest pain for CAD. No palpitations. No PND. No orthopnea. GASTROINTESTINAL: No abdominal pain. No nausea or vomiting. No diarrhea or constipation. No hematemesis. No hematochezia. GENITOURINARY: No urgency. No frequency. No dysuria. No hematuria. No obstructive symptoms. No discharge. No pain. No significant abnormal bleeding. MUSCULOSKELETAL: No musculoskeletal pain. No joint swelling. No arthritis. Soreness in both hips more on left than right. Back soreness. NEUROLOGICAL: No headache. No neck pain. No syncope. No seizures. No dizziness. PSYCHIATRIC: Not anxious. No depression. No suicidal thoughts. No homicidal thoughts. SKIN: No rash. No lesions. No wounds. ENDOCRINE: No unexplained weight loss. No weight gain. HEMATOLOGIC/LYMPHATIC: No anemia. No purpura. No petechiae. No prolonged or excessive bleeding. No palpable lymph nodes. PERSONAL/FAMILY/SOCIAL HISTORY: The patient is living by himself with help of daughters. He is a heavy smoker. No alcohol abuse. MEDICATIONS: Systane Balance 0.6% one drop both eyes BID PRN Daliresp 500mcg PO daily Potassium 99mg PO daily Ipratropium-albuterol 3ml inhalation Q 6 hours Albuterol sulfate 2 puff inhalation Q4 hours Tramadol 50mg PO BID Allopurinol 300mg PO daily Simvastatin 20mg PO daily Tamsulosin 0.4mg PO daily Omeprazole 20mg PO BID Dramamine 50mg PO Q 4-6 hours PRN Azelastine 0.15% one spray INTRANASAL daily Fluticasone 50mcg one spray INTRANASAL daily Terazosin 2mg PO daily Furosemide 20mg PO daily Gabapentin 600mg PO daily Colestipol 1 gram PO daily [place] 5-325 one tablet PO daily Hemp Gummy bear 50-100mg PO QID PRN Prevagen Extra Strength one capsule PO daily Ferrous sulfate 325mg PO daily [place] Q plus one capsule daily ALLERGIES: Penicillin Flu vaccine PHYSICAL EXAMINATION: GENERAL: The patient is oriented to time, place and person. VITAL SIGNS: Temperature 97.8, Pulse 80, respiratory rate 16, blood pressure 123/72 and pulse ox 95%. HEENT: Head normocephalic, atraumatic. Eyes: Extraocular muscles are intact. Pupils are equal, round and reactive to light and accommodation. Ears: No lesions. Nose appeared normal. Throat: No exudate or erythema. NECK: Supple. No JVD, no carotid bruit. No lymphadenopathy or thyromegaly. LUNGS: Diminished breath sounds bilaterally with mild expiratory wheeze. Clear to auscultation. Percussion note normal. Chest symmetrical. HEART: S1, S2, no S3. No murmur. No cyanosis or clubbing. No ascites. Pulses: Dorsalis pedis and posterior tibial pulses +1 to +2 bilaterally. ABDOMEN: Soft. Nontender. Bowel sounds active. No CVA tenderness. No mass felt. EXTREMITIES: Spine is nontender. No edema. Full range of motion of all extremities, equal. NEUROLOGIC: No focal deficit. Cranial nerves II through XII are grossly intact. No headache, no double vision or headache. SKIN: Not dry. Intact. Turgor - normal. LYMPHATIC: No palpable lymph nodes/no lymphedema. MUSCULOSKELETAL: Normal joints with no swelling. Muscle tone is normal. ASSESSMENT: 1. Frequent falls but patient says he has fallen for first time 2. Sever DJD of spine, sciatica 3. Generalized osteoarthritis 4. Severe chronic lung disease 5. Gouty Arthritis 6. Dyslipidemia 7. Chronic anemia 8. Chronic kidney disease. PLAN: 1. Continue all medications 2. IV fluids were given 3. Monitor kidney functions 4. CK level high because of fall 5. Tropoinin negative 6. Cardiovascular status is stable. CONDITION: Stable. TIME SPENT: More than 70 minutes. MTDD
--- NOTE | 2020-03-08 13:34 | RS.PTINEVL ---
Subjective - Patient information Date of Evaluation: 03/08/20 Date of Arrival on Unit: 03/07/20 Admitted From:: Home Diagnosis: acute LBP, recent fall, and R hip contusion Usual Living Arrangement: Alone Home Environment: House, Stairs (few), Rail Medical History: Hypertension, COPD, CHF, Arthritis (OA and gout), Cancer (kidney) Medical History Comments:: neuropathy, DDD, GERD, B sciatica LATEX ALLERGY?: No Surgical History: Cholecystectomy Surgical History Comments:: L nephrectomy, spine sx x 3 Medications: see chart Subjective Information/ Patient Comments:: pt states that he is not sure how or why he fell. pt states he has falled a few times lately. - Level of function Prior to this admission, the patient could do the following:: Independent ADL's, Independent Ambulation Abilities prior to this admission: pt has had multiple falls recently Current Level of Function: Partially Dependent Current Equipment Used at Home: oxygen, nebulizer, shower chair, walker, scooter Pain Assessement - Location low back pain Description: Sharp, Aching Intensity: 10 Pain Behavior: Rubbing Site, Facial Grimacing Pain Aggravating Factors: Changing Position, Standing, Walking Effects of Pain: pt refused pain meds per nursing, pt also refused ice pack. Interventions - Objective Patient Orientation: Person, Place, Situation Current Interventions: IV's, Oxygen (2 liters), Telemetry Observation: pt with non pitting edema BLE Range of Motion - ROM Right Upper Extremity AROM: WFL's Left Upper Extremity AROM: WFL's Right Lower Extremity AROM: WFL's Left Lower Extremity AROM: WFL's Comments:: pt c/o pain in low back with LE hip ROM Muscle Strength - Muscle Strength Right Upper Extremity Strength: Mild Weakness (grossly 4/5) Left Upper Extremity Strength: Mild Weakness (grossly 4/5) Right Lower Extremity Strength: Mild Weakness (hip flex 4-/5, knee flex/ext 4/5, ankle DF/PF 4/5) Left Lower Extremity Strength: Mild Weakness (hip flex 4-/5, knee flex/ext 4/5, ankle DF/PF 4/5) Sensation - Sensation Right Upper Extremity Sensation: Intact/Normal Left Upper Extremity Sensation: Intact/Normal Right Lower Extremity Sensation: Impaired Left Lower Extremity Sensation: Impaired (n/t in BLE) Palpation Palpation Findings: Tenderness, Muscle Guarding Comments:: in mid lumbar area Balance - Sitting Balance and Reactions Static Sitting Balance: Fair Dynamic Sitting Balance: Fair - Standing Balance and Reactions Static Standing Balance: Poor Dynamic Standing Balance: Poor Standing Equilibrium Reactions: Delayed Left, Delayed Right Standing Protective Reactions: Delayed Left, Delayed Right - Comments Balance Assessment Comments: pt with significant forward flexed posture Functional Mobility - Bed Mobility Rolling R/L: Min Assist Sit to Supine: Min Assist - Transfers Sit to Stand: Min Assist Stand to Sit: Min Assist - Safety Awareness Safety Awareness: Fair AVSILIY INDEX SCORE: n/a Ambulation - Ambulation Assistive Device Used: Rolling Walker Orthotic/Prosthetic Device: No Distance: 12ft x 2 Assistance needed with Ambulation: Min Assist Gait Deviations: Forward posture, Short stride, Deviates from path Ambulation Comments: pt states he is unable to stand tall due to back pain. pt amb with 2 liters O2 Factors Affecting Ambulation: Breathing/O2 Saturation, Pain, Weakness, Decreased Safety, Limited Endurance Treatment time - Time with patient Length of Evaluation: 19 Total treatment time: 24 Patient Education - Education Patient Education: Home Exercise Program, Education of Plan of Care Teaching Recipient: Patient Teaching Methods: Discussion Comments: discussion regarding POC Assessment - Assessment Problem List:: Decreased level of function, Requires training/education, Decreased safety/Risk of falls, Weakness, Pain limits previous level of function Rehab Potential: Good Further Therapy Indicated?: Yes Candidate for Swing Bed for Therapy Services?: would need to assess at a later time to assess if pt able to tolerate amount of therapy required for swing bed. Evaluation Complexity: HISTORY: Medium, EXAM OF BODY SYSTEMS: Medium, CLINICAL PRESENTATION: Medium, CLINICAL DECISION MAKING: Medium Patient's Goal(s): go home Short Term Goals GOAL #1: pt demonstrate rolling/scooting independently Goal to be met by: 03/11/20 GOAL #2: Transfer sup to/from sit CGA Goal to be met by: 03/11/20 GOAL #3: Sit to/from stand CGA Goal to be met by: 03/11/20 GOAL #4: pt amb with rwx 75ft with CGA with O2. Goal to be met by: 03/11/20 GOAL #5: Improve BLE strength to 4 to 4+/5 Goal to be met by: 03/11/20 Radar Technician Goals GOAL #1: pt transfer sup to/from sit to/from stand independently Goal to be met by: 03/13/20 GOAL #2: pt amb with rwx functional household distances independently Goal to be met by: 03/13/20 GOAL #3: Improve dyn stand balance fair+ Plan Plan of Care: Therapeutic EX, Therapeutic Activity Other:: gait training Frequency of Treatment: 1-2 X day, as tolerated Duration of Treatment: 5-6 days Anticipated Discharge Destination: Home Treatment Diagnosis (ICD 10 Codes): impaired balance R 26.81. difficulty walking R 26.2. LBP M54.5 Has the Physician been added for Co-signature?: Yes
--- NOTE | 2020-03-08 14:11 | RS.OTINEVL ---
Subjective - Patient information Date of Evaluation: 03/08/20 Date of Arrival on Unit: 03/07/20 Admitted From:: Home Diagnosis: Low back pain, fall, Right hip contusion PRECAUTIONS: Weakness, falls, Contusions Usual Living Arrangement: Alone Living Arrangement Comments: lives alone Home Environment: House, Stairs (few), Rail Medical History: Hypertension, COPD, CHF, Arthritis (OA and gout), Cancer (kidney) Medical History Comments:: neuropathy, DDD, GERD, B sciatica LATEX ALLERGY?: No Surgical History: Cholecystectomy Surgical History Comments:: L nephrectomy, spine sx x 3 Medications: see chart Subjective Information/ Patient Comments:: "Let me tell you, I do not take pain medication." 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 - Level of function Prior to this admission, the patient could do the following:: Independent ADL's, Independent Ambulation Abilities prior to this admission: Pt lives alone and uses a RW and a Cane when he wants to. Pt Current Level of Function: Partially Dependent Comments: Pt has his own plan during the evaluation. Current Equipment Used at Home: oxygen, nebulizer, shower chair, walker, scooter Pain Assessment - Pain Pain Score: 10 Side: bilateral Pain Location Body Site: Back Pain Aggravating Factors: ADL's, Changing Position, Standing, Sitting, Walking Pain Alleviating Factors: Position Change Interventions - Objective Patient Orientation: Person, Place, Situation Current Interventions: IV's, Oxygen, Telemetry Observation: Pt is Min Assist for sit to stand. Pt is Min Assist for transfers. Pt requires cues to stand up straight. Pt has pain and weakness that is limiting his functional mobility and safety during transfers and ambulation. Interventions - ROM Right Upper Extremity AROM: Slight limitation Left Upper Extremity AROM: Slight limitation - Strength Right Upper Extremity Strength: Mild Weakness Left Upper Extremity Strength: Mild Weakness - Sensation Right Upper Extremity Sensation: Intact/Normal Left Upper Extremity Sensation: Intact/Normal Balance - Sitting Balance Static Sitting Balance: Good Dynamic Sitting Balance: Good - Standing Balance Static Standing Balance: Poor Dynamic Standing Balance: Poor ADL Skills - Self Feeding Self Feeding: Independent - Grooming Grooming: Min Assist - Dressing Dressing UE: CGA Dressing LE: CGA - Toilet Management Toileting Management: Min Assist Functional Mobility - Bed Mobility Sit to Supine: Min Assist - Transfers Sit to Stand: Min Assist Stand to Sit: Min Assist Stand Pivot Transfers: Min Assist - Ambulation Weight Bearing Status: FWB Assistive Device Used: Rolling Walker Assistance needed with Ambulation: Min Assist, 1 person assist - Safety Awareness Safety Awareness: Fair VASILIY INDEX SCORE: . Additional Treatment Performed - Time with patient Length of Evaluation: 23 Total treatment time: 23 Activities Would you enjoy group activities?: No Do you have difficulty with your vision?: Yes (wears glasses) What types of things do you enjoy doing? Any Hobbies?: Television Patient Interests:: Watching Television, Visiting/Socializing Patient Education Patient Education: Education of diagnosis, Home Exercise Program, Home Safety, Education of Plan of Care Teaching Recipient: Patient Teaching Methods: Discussion Assessment Problem List:: Decreased level of function, Requires training/education, Decreased safety/Risk of falls, Weakness, Pain limits previous level of function Rehab Potential: Fair Further Therapy Indicated?: Yes Evaluation Complexity: HISTORY: Medium, EXAM OF BODY SYSTEMS: Medium, CLINICAL DECISION MAKING: Medium Patient's Goal(s): To be able to return home independently. Short Term Goals - Goals GOAL 1: To tolerate 10 minutes of standing activity to increase safety of transfes. Goal to be met by: 03/13/20 GOAL 2: To increase dyn. std. balance to Fair+ to increase sink level ADLS. Goal to be met by: 03/13/20 GOAL 3: To increase BUE strength to 4/5 to increase I of dressing. Goal to be met by: 03/13/20 GOAL 4: To increase I of toilet transfers to CGA. Senior Living Goals GOAL 1: Pt to be Mod-I with sink level ADLS. Goal to be met by: 03/21/20 GOAL 2: Pt to increase BUE strength to 4+/5 to increase function in the home. Goal to be met by: 03/21/20 GOAL 3: To increase [place] of dressing to be Mod-I. Goal to be met by: 03/21/20 Plan Plan of Care: Therapeutic EX, Therapeutic Activity, Self-Care/Home Management Modalities: Cold Pack/Cryotherapy Frequency of Treatment: 1-2 X day, as tolerated Duration of Treatment: 2 Weeks Anticipated Discharge Destination: Home Treatment Diagnosis (ICD 10 Codes): M62.81 Muscle weakness, Z74.1 Need for assistance with personal care Has the Physician been added for Co-signature?: Yes
--- NOTE | 2020-03-08 14:36 | MRI ---
EXAM: Brain MRI with without contrast HISTORY: Dizziness and fall striking head with no loss of consciousness. COMPARISON: Head CT 03/07/[address] 02/28/2020. TECHNIQUE: Multiplanar, multisequence MR images were acquired of the brain without contrast. FINDINGS: The midline structures are central and the craniocervical junction is unremarkable. The v entricles and sulci are mildly enlarged the ventricles and sulci are mild to moderately enlarged. Th ere is a localized 3 cm AP by 2.2 cm TX by 2.2 cm CC extra-axial fluid collection in the main minor p osterior fossa that follows cerebrospinal fluid on all pulse sequences consistent with an arachnoid c yst. The brain parenchyma has no diffusion restriction to suggest acute hypoperfusion or infarction. Ther e is a small ovoid 1.9 cm AP by 1.5 cm TX by 1.0 cm CC cystic lesion with minor peripheral gliosis in the left posterior cerebellum most consistent with a small focal area of post-infarctive cystic ence phalomalacia. There is a band of periventricular T2 hyperintensity and a small T2 hyperintensities a re present in the supratentorial white matter and deep white matter tracts compatible with mild leuko malacia. There are chronic lacunes in the left posterior ross radiata external capsule and mid rig ht basal ganglia. Dilated perivascular spaces are present in both basal ganglia. There is no MR roxei dence of intracranial hemorrhage. After administration of gadolinium, no enhancing lesions are ident ified. The corpus callosum is normal in configuration. The pituitary gland is normal in size and en hancement. There are no intraorbital masses. There has been previous lens surgery bilaterally. Minor leftward nasal septal deviation is present. The paranasal sinuses and middle ear cavities are clear. There i s under pneumatization of the inferior mastoid air cells bilaterally. There is membrane thickening i n the residual left mastoid air cells and on the right, there is mucosal thickening in a majority of the residual air cells which may represent granulation tissue. This extends into the aditus ad antru m and right middle ear cavity. Expected flow voids are present in the major intracranial arteries and dural venous sinuses. There i s hypertrophy of the transverse ligament which mildly effaces the ventral thecal sac without spinal s tenosis. Degenerative spondylosis and bilateral facet arthropathy is present at C2-3. IMPRESSION: 1. No intracranial mass, hemorrhage or acute cerebral infarct. No acute intracranial injury. 2. Mild to moderate diffuse cerebral volume loss and mild chronic ischemic small vessel disease. 3. Chronic lacunes left ross radiata/basal ganglia, mid right basal ganglia and probable small chr onic infarct left cerebellum with cystic encephalomalacia.
[2020-03-08] MEDS: OMEGA Q PLUS PO SCH (14:38)
[2020-03-08] MEDS: NON-FORMULARY MEDICATION (Potassium 99 MG) PO SCH (14:38)
[2020-03-08] MEDS: PREVAGEN EXTRA STRENGTH PO SCH (14:39)
[2020-03-08] MEDS: NEURONTIN PO SCH (14:39)
[2020-03-08] MEDS ORDERED: NICODERM 21 MG TD STA (14:40)
[2020-03-08] MEDS: FLOMAX PO SCH (14:40)
[2020-03-08] MEDS: ZYLOPRIM PO SCH (14:40)
[2020-03-08] MEDS: DALIRESP PO SCH (14:41)
--- NOTE | 2020-03-08 15:14 | US ---
Exam: Gracia-scale and color ultrasonographic evaluation of the aorta with spectral waveform analysis. Comparison: CT of the lumbar spine performed at seven, 23, 20 Reason for exam: Aortic aneurysm. FINDINGS: Proximal portion of the aorta is not seen on the exam secondary to overlying bowel gas. The aorta measures 3.8 x 4.6 cm Distal aorta 2.2 x 2.2 cm The iliacs are not well seen secondary to overlying bowel gas. Impression: Limited evaluation of the abdominal aorta with the mid aorta measuring up to 3.8 x 4.6 cm. Consider f brandon evaluation.
[2020-03-08] MEDS: ZOCOR PO SCH (20:13)
[2020-03-09] MEDS: VENTOLIN HFA (PER PUFF-WITH SPACER) IH SCH ×6 (02:01→21:01)
[2020-03-09 05:09] LABS: HEMATOCRIT 33.9 % (42.0-52.0)
[2020-03-09] MEDS: PRILOSEC PO SCH ×2 (05:42→16:48)
[2020-03-09] MEDS: DALIRESP PO SCH (10:01)
[2020-03-09] MEDS: ZYLOPRIM PO SCH (10:02)
[2020-03-09] MEDS: FLOMAX PO SCH (10:02)
[2020-03-09] MEDS: NEURONTIN PO SCH (10:02)
[2020-03-09] MEDS: OMEGA Q PLUS PO SCH (10:03)
[2020-03-09] MEDS: NON-FORMULARY MEDICATION (Potassium 99 MG) PO SCH (10:04)
[2020-03-09] MEDS: PREVAGEN EXTRA STRENGTH PO SCH (10:04)
[2020-03-09] MEDS ORDERED: XANAX ONE (11:13)
[2020-03-09] MEDS: [UNRECOGNIZED DRUG - OTHER] PO PRN (11:18)
[2020-03-09] MEDS: XANAX PO PRN ×3 (11:18→20:30)
[2020-03-09] MEDS: NICODERM 21 MG TD SCH (16:48)
[2020-03-09] MEDS: ZOCOR PO SCH (20:30)
[2020-03-10] MEDS: VENTOLIN HFA (PER PUFF-WITH SPACER) IH SCH ×6 (02:00→21:21)
[2020-03-10 04:43] LABS: HEMATOCRIT 32.5 % (42.0-52.0)
[2020-03-10] MEDS: PRILOSEC PO SCH ×2 (05:40→17:35)
[2020-03-10] MEDS: ZYLOPRIM PO SCH (09:23)
[2020-03-10] MEDS: OMEGA Q PLUS PO SCH (09:24)
[2020-03-10] MEDS: FLOMAX PO SCH (09:24)
[2020-03-10] MEDS: NEURONTIN PO SCH (09:24)
[2020-03-10] MEDS: DALIRESP PO SCH (09:24)
[2020-03-10] MEDS: NON-FORMULARY MEDICATION (Potassium 99 MG) PO SCH (09:25)
[2020-03-10] MEDS: NICODERM 21 MG TD SCH (09:25)
[2020-03-10] MEDS: PREVAGEN EXTRA STRENGTH PO SCH (09:25)
[2020-03-10] MEDS: ZOCOR PO SCH (20:02)
[2020-03-11] MEDS: VENTOLIN HFA (PER PUFF-WITH SPACER) IH SCH ×3 (02:02→09:45)
[2020-03-11 04:33] LABS: HEMATOCRIT 34.2 % (42.0-52.0)
[2020-03-11] MEDS: PRILOSEC PO SCH (05:33)
[2020-03-11 05:58] VITALS: BP 127/70; TEMP 98.2
[2020-03-11] MEDS ORDERED: ASPIRIN EC PO SCH (08:30)
[2020-03-11] MEDS: OMEGA Q PLUS PO SCH (08:39)
[2020-03-11] MEDS: PREVAGEN EXTRA STRENGTH PO SCH (08:39)
[2020-03-11] MEDS: NON-FORMULARY MEDICATION (Potassium 99 MG) PO SCH (08:40)
[2020-03-11] MEDS: DALIRESP PO SCH (08:40)
[2020-03-11] MEDS: NEURONTIN PO SCH (08:41)
[2020-03-11] MEDS: ZYLOPRIM PO SCH (08:41)
[2020-03-11] MEDS: FLOMAX PO SCH (08:41)
--- NOTE | 2020-03-11 08:44 | PCM.PROG ---
Attending Provider: ATTENDING PROVIDER: Dr. DARY CAROLINA This patient is seen with Winsome Licea, Nurse Practitioner. DATE OF SERVICE: 03/11/20 SUBJECTIVE: This 89 year old /WHITE M was hospitalized 03/07/20. The patient is resting comfortably. he has been up and about. No pain in back or legs. Ready to be discharged. REVIEW OF SYSTEMS: CONSTITUTIONAL: No night sweats. No fatigue, malaise, lethargy. No fever or chills. HEENT: Eyes: No visual changes. No eye pain. No eye discharge. ENT: No runny nose. No epistaxis. No sinus pain. No odynophagia. No congestion. RESPIRATORY: No cough, no congestion. No hemoptysis. No shortness of breath. CARDIOVASCULAR: No angina symptoms. No CHF symptoms. No atypical chest pain for CAD. No palpitations. No orthopnea.. GASTROINTESTINAL: No abdominal pain. No nausea or vomiting. No diarrhea or constipation. No hematemesis. No hematochezia. GENITOURINARY: No urgency. No frequency. No dysuria. No hematuria. No obstructive symptoms. No discharge. No pain. No significant abnormal bleeding. MUSCULOSKELETAL: No musculoskeletal pain; no joint swelling. NEUROLOGICAL: Awake, alert, oriented to time, place and person. No headache. No neck pain. No syncope. No seizures. No dizziness. PSYCHIATRIC: Not anxious. No depression. No suicidal thoughts. No homicidal thoughts. SKIN: No rash. No lesions. No wounds. ENDOCRINE: No unexplained weight loss. No weight gain. HEMATOLOGIC/LYMPHATIC: No anemia. No purpura. No petechiae. No prolonged or excessive bleeding. No palpable lymph nodes. PHYSICAL EXAMINATION: GENERAL: The patient is awake, alert and oriented, sitting in bed in no distress. VITAL SIGNS: Temperature 98.2 F, Pulse 61, Respiratory Rate 18, BP 127/70, Pulse Ox 96% HEENT: Head normocephalic, atraumatic. Eyes: Extraocular muscles are intact. Pupils are equal, round and reactive to light and accommodation. Ears: No lesions. Nose appeared normal. Throat: No exudate or erythema. NECK: Supple. No JVD, no carotid bruit. No lymphadenopathy or thyromegaly. LUNGS: Diminished breath sounds bilaterally. Clear to auscultation. Percussion note normal. Chest symmetrical. HEART: S1, S2, no S3. No murmurs. No cyanosis or clubbing. No ascites. Pulses: Dorsalis pedis and posterior tibial pulses +1 to +2 both sides. ABDOMEN: Soft. Non-tender. Bowel sounds active. No CVA tenderness. No mass felt. EXTREMITIES: No edema. Full range of motion of all extremities, equal. NEUROLOGIC: No focal deficit. Cranial nerves II through XII are grossly intact. No headache, no double vision or headache. SKIN: Not dry. Intact. Turgor-normal. LYMPHATIC: No palpable lymph nodes/no lymphedema. MUSCULOSKELETAL: Normal joints with no swelling. Muscle tone is normal. LAB REVIEW: 03/11/20 04:25 03/11/20 04:25 03/11/20 04:25: Sodium 137.8, Potassium 4.27, Chloride 103.3, Carbon Dioxide 32.1 H, Anion Gap 6.67, BUN 23.1 H, Creatinine 1.30 H, Estimated GFR (MDRD) 52.00, BUN/Creatinine Ratio 17.76, Glucose 108.8 H, Calcium 9.13, Total Bilirubin 0.31, AST 32.3, ALT 22.2, Alkaline Phosphatase 67.5, Total Protein 6.18 L, Albumin 3.33 L, Globulin 2.85, Albumin/Globulin Ratio 1.16 03/11/20 04:25: WBC 8.41, RBC 3.71 L, Hgb 11.2 L, Hct 34.2 L, MCV 92.2, MCH 30.2, MCHC 32.7, RDW Coeff of Shira 15.0 H, Plt Count 198, Immature Gran % (Auto) 0.2, Neut % (Auto) 56.9, Lymph % (Auto) 24.9, [place] % (Auto) 12.1 H, Eos % (Auto) 4.8, Baso % (Auto) 1.1, Neut # (Auto) 4.8, Lymph # (Auto) 2.1, [place] # (Auto) 1.0, Eos # (Auto) 0.4, Baso # (Auto) 0.1, Immature Gran # (Auto) 0.0 ASSESSMENT: Please see below. 1. Dehydration, resolved with improvement in kidney function 2. History of fall with no obvious fracture or acute injury 3. Cardiovascular status is stable. CK level increase because of fall. Troponin is negative. PLAN: 1. Resume Tramadol 2. Discharge home. The patient refuses usp placement. 3. He would benefit from Home Health PT/OT and nursing. 4. Fall precautions discussed. Plan and coordination of the patient's care discussed in the presence of Doorperson and nurse. SCRIBED BY: Farhana DUBONist scribed while in presence of service performed by Dr. Carolina/Winsome Licea APRN on 03/11/20 ([id number])
[2020-03-11] MEDS: NICODERM 21 MG TD SCH (09:29)
--- NOTE | 2020-03-11 11:40 | CM.DICTOOL ---
ADMISSION: 03/07/20 13:09 DISCHARGE: MARCH 11, 2020 DATE OF SERVICE: 03/11/20 FINAL DIAGNOSIS DEHYDRATION, RESOLVED WITH IMPROVEMENT IN KIDNEY FUNCTION RECENT FALL WITH NO OBVIOUS FRACTURE OR ACUTE INJURY CARDIOVASCULAR STATUS IS STABLE. CK LEVEL INCREASE BECAUSE OF FALL. TROPONIN IS NEGATIVE HISTORY: CHF DYSLIPIDEMIA NEUROPATHY GERD COPD, OXYGEN DEPENDENT CHRONIC RESPIRATORY FAILURE HEAVY SMOKER PLEURITIC PAINS BILATERAL SHOULDER BURSITIS LEFT KIDNEY CANCER- REFUSES TO SEE UROLOGY BILATERAL SCIATICA DIZZINESS HAND TREMORS RECURRENT GOUT NON- COMPLIANCE WITH MEDICATIONS, DIET, LIFESTYLKE AND FOLLOW CKD - 2 SURGICAL HISTORY: CHOLECYSTECTOMY APPENDECTOMY LEFT NEPHRECTOMY SPINAL SURGERY X 3 LAST VITALS Temp Pulse Resp BP Pulse Ox 98.2 F 61 18 127/70 96 03/11/20 05:57 03/11/20 05:57 03/11/20 05:57 03/11/20 05:57 03/11/20 05:57 TAKE THESE MEDICATIONS AT HOME Albuterol Sulfate (Ventolin Hfa (Per Puff-With Spacer)) 2 puff IH RTQ4H [facility] Last Admin: 03/11/20 05:32 Dose: 2 puff Documented by: Allopurinol (Zyloprim) 300 mg PO DAILY [facility] Last Admin: 03/11/20 08:41 Dose: 300 mg Documented by: Aspirin (Aspirin Ec) 81 mg PO DAILYWM [facility] --- (NEW) Last Admin: 03/11/20 08:40 Dose: 81 mg Documented by: Gabapentin (Neurontin) 600 mg PO DAILY [facility] Last Admin: 03/11/20 08:41 Dose: 600 mg Documented by: Non-Formulary Medication (Potassium) 99 mg PO DAILY [facility] Last Admin: 03/11/20 08:40 Dose: 99 mg Documented by: (Hemp Gummy Bear 50 (Mg Each)) 50 - 100 mg PO QID PRN PRN Reason: Pain Last Admin: 03/09/20 11:18 Dose: 100 mg Documented by: Non-Formulary Medication (Pearce Q Plus) 1 cap PO DAILY [facility] Last Admin: 03/11/20 08:39 Dose: 1 cap Documented by: Non-Formulary Medication (Prevagen Extra Strength) 1 cap PO DAILY [facility] Last Admin: 03/11/20 08:39 Dose: 1 cap Documented by: Omeprazole (Prilosec) 20 mg PO BIDAC [facility] Last Admin: 03/11/20 05:33 Dose: 20 mg Documented by: Roflumilast (Daliresp) 500 mcg PO DAILY [facility] Last Admin: 03/11/20 08:40 Dose: 500 mcg Documented by: Simvastatin (Zocor) 20 mg PO BEDTIME [facility] Last Admin: 03/10/20 20:02 Dose: 20 mg Documented by: Tamsulosin HCl (Flomax) 0.4 mg PO DAILY [facility] Last Admin: 03/11/20 08:41 Dose: 0.4 mg Documented by: SYSTANE BALANCE EYE DROPS BOTH EYES BID PRN TRAMADOL 50 MG PO BID PRN LASIX 20 MG PO DAILY DUONEB 3 ML INHALATION Q 6 HRS ALLERGIES Penicillins Adverse Reaction (Verified 03/07/20 11:13) flu Vaccine Adverse Reaction (Uncoded 06/16/19 20:05) DISCONTINUED MEDICATIONS FLUTICOZONE PROPROINATE NASAL SPRAY AZELASTINE FERROUS SULFATE NORCO TERAZOSIN COLESTIPOL DRAMAMINE NEW PRESCRIPTIONS: NEW PRESCRIPTIONS ASPIRIN 81 MG PO DAILY SMOKING: SMOKING CESSATION DISEASE SPECIFIC EDUCATION: FALLS SMOKING ASPIRIN COVID OXYGEN LAB REVIEW: 03/11/20 04:25 03/11/20 04:25 03/11/20 04:25: Sodium 137.8, Potassium 4.27, Chloride 103.3, Carbon Dioxide 32.1 H, Anion Gap 6.67, BUN 23.1 H, Creatinine 1.30 H, Estimated GFR (MDRD) 52.00, BUN/Creatinine Ratio 17.76, Glucose 108.8 H, Calcium 9.13, Total Bilirubin 0.31, AST 32.3, ALT 22.2, Alkaline Phosphatase 67.5, Total Protein 6.18 L, Albumin 3.33 L, Globulin 2.85, Albumin/Globulin Ratio 1.16 03/11/20 04:25: WBC 8.41, RBC 3.71 L, Hgb 11.2 L, Hct 34.2 L, MCV 92.2, MCH 30.2, MCHC 32.7, RDW Coeff of Shira 15.0 H, Plt Count 198, Immature Gran % (Auto) 0.2, Neut % (Auto) 56.9, Lymph % (Auto) 24.9, [place] % (Auto) 12.1 H, Eos % (Auto) 4.8, Baso % (Auto) 1.1, Neut # (Auto) 4.8, Lymph # (Auto) 2.1, [place] # (Auto) 1.0, Eos # (Auto) 0.4, Baso # (Auto) 0.1, Immature Gran # (Auto) 0.0 PLAN: DISCHARGE: HOME TODAY ALONE WITH [facility], SN,PT AND OT , February ACTIVITY: UP WITH WALKER IN HOME, STAY IN DOORS AND AWAY FROM CROWDS UP THROUGHOUT THE DAY WITH FREQUENT REST PERIODS CONTINUE OXYGEN AT 2 L/M PER NASAL CANNULA CONTINUOS, AND PROPER PRECAUTIONS, NO SMOKING WHILE USING OXYGEN, RISK OF FIRE AND/OR EXPLOSION ABRASION TO RT KNEE: CLEANSE WITH SOAP AND WATER, PAT DRY, COVER WITH A BANDAID TWICE DAILY UNTIL CLOSED ABRASION TO RT HIP: CLEANSE WITH SOAP AND WATER, PAT DRY, LEAVE OPEN TO AIR, UNTIL HEALED DIET: REGULAR WITH ADEQUATE FLUIDS FOLLOW UP: SEE DR CAROLINA/ ALIA KING APRN / MONICA AVILA APRN IN THE OFFICE ON THURSDAY, MARCH 19, 2020 @ 1115 AM CALL OFFICE IF ANY CONCERNS [phone] [id number] CODE STATUS : FULL CODE MR MACK REMAINS ALERT AND ORIENTED X 4. DOES HAVE SLIGHT FORGETFULNESS AT TIMES. FELL AT HOME AFTER LOSING BALANCE AFTER GETTING UP FROM TOILET. ABRASION TO RT KNEE AND RT HIP FROM FALL. RT KNEE WITH SOME CLEAR DRAINAGE, TOP LAYER SKIN WAS MACERATED WITH SLIGHT PERIMETER REDNESS, NO SHARP PAINS, ONLY SORENESS. RT HIP ABRASION DRY AND NO REDNESS. CHRONIC BACK PAIN WITH NO REPORTS OF PAIN RECENTLY. USES HEMP GUMMIES, AND STATES EFFECTIVE.HAS HAD PT AND OT AND MAKING PROGRESS WITH USE OF WALKER. SN, PT AND OT TO FOLLOW UP AT HOME. NUTRITIONAL AND FLUID INTAKE GOOD. CONTINENT OF BOWEL AND BLADDER. INITIALLY HE WAS DESIRING TO BE ADMITTED TO A ASSISTED NURSING FACILTIY AND HAD DECIDED ON MN AND REFERRAL WAS SENT. NOW HE WANTS TO GO HOME. INSTRUCTED ON RISK OF LIVING ALONE AND EXPERIENCING FALLS AND HE VERBALIZED UNDERSTANDING. LAST BM 03/10. MD ALIA CHARLES, CAROLE AVILA, CAROLE
--- NOTE | 2020-03-11 13:03 | PN ---
DATE OF SERVICE: 03/10/2020 SUBJECTIVE: 89 year old white male hospitalized with fall. The patient's CK was elevated because of the fall and muscle injury. Troponin was negative. He also has the low back pain. Entire survey of the bone from pictures were negative. His MRI of the brain showed chronic lacunar infarct involving the cerebellum. He is confused at times. This morning he was somewhat drowsy from Xanax. REVIEW OF SYSTEMS: CONSTITUTIONAL: No night sweats. No fatigue, malaise, lethargy. No fever or chills. HEENT: Eyes: No visual changes. No eye pain. No eye discharge. ENT: No runny nose. No epistaxis. No sinus pain. No sore throat. No odynophagia. No congestion. RESPIRATORY: No cough, no congestion. No hemoptysis. No shortness of breath. Still wants to smoke. CARDIOVASCULAR: No angina symptoms. No CHF symptoms. No atypical chest pain for CAD. No palpitations. No PND. No orthopnea. GASTROINTESTINAL: No abdominal pain. No nausea or vomiting. No diarrhea or constipation. No hematemesis. No hematochezia. GENITOURINARY: No urgency. No frequency. No dysuria. No hematuria. No obstructive symptoms. No discharge. No pain. No significant abnormal bleeding. MUSCULOSKELETAL: No musculoskeletal pain; no joint swelling. NEUROLOGICAL: No headache. No neck pain. No syncope. No seizures. No dizziness. PSYCHIATRIC: Not anxious. No depression. No suicidal thoughts. No homicidal thoughts. SKIN: No rash. No lesions. No wounds. ENDOCRINE: No unexplained weight loss. No weight gain. HEMATOLOGIC/LYMPHATIC: No anemia. No purpura. No petechiae. No prolonged or excessive bleeding. No palpable lymph nodes. PHYSICAL EXAMINATION: VITAL SIGNS: Temperature 97.5, pulse 60, respiratory rate 16, blood pressure 118/63 and pulse ox 96%. HEENT: Head normocephalic, atraumatic. Eyes: Extraocular muscles are intact. Pupils are equal, round and reactive to light and accommodation. Ears: No lesions. Nose appeared normal. Throat: No exudate or erythema. NECK: Supple. No JVD, no carotid bruit. No lymphadenopathy or thyromegaly. LUNGS:Decreased breath sounds but clear with mild wheeze. Percussion note normal. Chest symmetrical. HEART: S1, S2, no S3. No murmurs. No cyanosis or clubbing. No ascites. Pulses: Dorsalis pedis and posterior tibial pulses +1 to +2 bilaterally. ABDOMEN: Soft. Nontender. Bowel sounds active. No CVA tenderness. No mass felt. EXTREMITIES: No edema. Full range of motion of all extremities, equal. NEUROLOGIC: No focal deficit. Cranial nerves II through XII are grossly intact. No headache, no double vision or headache. SKIN: Not dry. Intact. Turgor - normal. LYMPHATIC: No palpable lymph nodes/no lymphedema. MUSCULOSKELETAL: Normal joints with no swelling. Muscle tone is normal. LABS: hgb 10.4, hct 32, WBC 7,800 normal differential, creatinine 1.4, BUN 23, potassium 4. ASSESSMENT: 1. Frequent falls. The patient is going to be going to the [facility] and he is agreeable. He is oriented to time, place and person still continues to say that the best thing would be to go to [facility] for the family and for himself. 2. Severe DJD of the spine, Back pain under control 3. 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 Ataxia 5. Severe chronic lung disease with heavy smoking 6. Dyslipidemia 7. Anemia, chronic 8. Chronic kidney disease PLAN: 1. Give supportive measure 2. Counseling for smoking done 3. PT/OT will be carried out at the [facility] CONDITION: Stable. PROGNOSIS: Poor TIME SPENT: More than 30 minutes. Plan and coordination of the patient's care discussed in the presence of nurse. ADDENDUM: MRI showed mild to moderate defused cerebellum volume loss, chronic ischemic small vessel disease besides that the patient also shows chronic lacunes left ross radiate/basal ganglia with mid right basal ganglia and probable small chronic infarct left cerebellum with cystic encephalomalacia indicting that patient has this for long time with loss of vein volume and cells. The patient has mild to moderate ataxia and also has confusion with loss of memory for short term. The patient's daughter is present in the room. They all have agreed to go to the [facility]. The patient at the present time is oriented to place and person. All these findings discussed with the family in detail. MTDD
--- NOTE | 2020-03-11 14:23 | PN ---
DATE OF SERVICE: 03/09/2020 SUBJECTIVE: 89 year old white male, heavy smoker hospitalized with acute low back pain which seems to have resolved. He is feeling better and having history of fall which he laid on the floor couldn't get up. He is waiting for the group home placement. His dehydration seems to have resolved. Kidney functions are somewhat better. Yesterday he was found to be smoking in the bathroom. REVIEW OF SYSTEMS: CONSTITUTIONAL: No night sweats. No fatigue, malaise, lethargy. No fever or chills. HEENT: Eyes: No visual changes. No eye pain. No eye discharge. ENT: No runny nose. No epistaxis. No sinus pain. No sore throat. No odynophagia. No congestion. RESPIRATORY: No cough, no congestion. No hemoptysis. Shortness of breath on exertion but less than before. CARDIOVASCULAR: No angina symptoms. No CHF symptoms. No atypical chest pain for CAD. No palpitations. No PND. No orthopnea. GASTROINTESTINAL: No abdominal pain. No nausea or vomiting. No diarrhea or constipation. No hematemesis. No hematochezia. GENITOURINARY: No urgency. No frequency. No dysuria. No hematuria. No obstructive symptoms. No discharge. No pain. No significant abnormal bleeding. MUSCULOSKELETAL: No musculoskeletal pain; no joint swelling. Pain in the back is much less. The patient is up and about with help. NEUROLOGICAL: No headache. No neck pain. No syncope. No seizures. No dizziness. PSYCHIATRIC: Not anxious. No depression. No suicidal thoughts. No homicidal thoughts. SKIN: No rash. No lesions. No wounds. ENDOCRINE: No unexplained weight loss. No weight gain. HEMATOLOGIC/LYMPHATIC: No anemia. No purpura. No petechiae. No prolonged or excessive bleeding. No palpable lymph nodes. PHYSICAL EXAMINATION: VITAL SIGNS: Temperature 97.9, pulse 60, respiratory rate 16, blood pressure 143/77 and pulse ox 97%. HEENT: Head normocephalic, atraumatic. Eyes: Extraocular muscles are intact. Pupils are equal, round and reactive to light and accommodation. Ears: No lesions. Nose appeared normal. Throat: No exudate or erythema. NECK: Supple. No JVD, no carotid bruit. No lymphadenopathy or thyromegaly. LUNGS: Decreased breath sounds but clear to auscultation. Percussion note normal. Chest symmetrical. HEART: S1, S2, no S3. No murmurs. No cyanosis or clubbing. No ascites. Pulses: Dorsalis pedis and posterior tibial pulses +1 to +2 bilaterally. ABDOMEN: Soft. Nontender. Bowel sounds active. No CVA tenderness. No mass felt. EXTREMITIES: No edema. Full range of motion of all extremities, equal. NEUROLOGIC: No focal deficit. Cranial nerves II through XII are grossly intact. No headache, no double vision or headache. SKIN: Not dry. Intact. Turgor - normal. LYMPHATIC: No palpable lymph nodes/no lymphedema. MUSCULOSKELETAL: Normal joints with no swelling. Muscle tone is normal. LABS: Hgb 11, hct 33, WBC 9,100 normal differential, creatinine 1.3, BUN 21, potassium 4.2. T4 TSH normal. ASSESSMENT: 1. Severe chronic lung disease 2. Dehydration 3. History of fall recovering with elevated CK level. Normal Troponin 4. 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 Continue to encourage the patient to get up and walk 2. Advised to quit smoking, counseling done 3. The patient said the would sign out if he is not given a cigarette. 4. Hydration status has improved 5. Mental status stable. TIME SPENT: More than 30 minutes. Plan and coordination of the patient's care discussed in the presence of nurse. KAYLEY
--- NOTE | 2020-03-12 13:12 | PN ---
DATE OF SERVICE: 03/11/2020 SUBJECTIVE: The patient is doing well. He is up and about. Changed his mind. His daughter is in the room. He doesn't want to go to the group home. He is oriented to time, place and person. The patient's cardiovascular and respiratory status stable. The patient is going to be light headed and going to have problem with the balance considering the patient's MRI findings. The patient's prognosis is poor because the patient has continued to smoke, heavy smoker. In fact he wanted to sign out against medical advise because he wanted to smoke that bad. Nobody would allow him to smoke in the hospital. A lot of comorbidities. History of smoking, prognosis is poor. The patient is high risk for fall. Family understands it. Patient understands it. Fall risk prevention discussed with the family. CONDITION: Stable. TIME SPENT: More than 30 minutes. Plan and coordination of the patient's care discussed in the presence of nurse. KAYLEY
--- NOTE | 2020-03-12 13:13 | PN ---
03/07/2020: Level 5 03/08/2020: Intermediate 03/09/2020: Intermediate 03/10/2020: Intermediate 03/11/2020: D as in discharge MTDD
--- NOTE | 2020-03-12 14:11 | DS ---
DATE OF SERVICE: 03/11/2020 FINAL DIAGNOSIS: DEHYDRATION, RESOLVED WITH IMPROVEMENT IN KIDNEY FUNCTION RECENT FALL WITH NO OBVIOUS FRACTURE OR ACUTE INJURY CARDIOVASCULAR STATUS IS STABLE. CK LEVEL INCREASE BECAUSE OF FALL. TROPONIN IS NEGATIVE CHRONIC INFARCTS WITH ENCEPHALOMALACIA PER MRI HISTORY: CHF DYSLIPIDEMIA NEUROPATHY GERD COPD, OXYGEN DEPENDENT CHRONIC RESPIRATORY FAILURE HEAVY SMOKER PLEURITIC PAINS BILATERAL SHOULDER BURSITIS LEFT KIDNEY CANCER- REFUSES TO SEE UROLOGY BILATERAL SCIATICA DIZZINESS HAND TREMORS RECURRENT GOUT NON- COMPLIANCE WITH MEDICATIONS, DIET, LIFESTYLKE AND FOLLOW CKD - 2 SURGICAL HISTORY: CHOLECYSTECTOMY APPENDECTOMY LEFT NEPHRECTOMY SPINAL SURGERY X 3 LAST VITALS: Temp Pulse Resp BP Pulse Ox 98.2 F 61 18 127/70 96 03/11/20 05:57 03/11/20 05:57 03/11/20 05:57 03/11/20 05:57 03/11/20 05:57 DISCHARGE INSTRUCTIONS: DISCHARGE: HOME TODAY ALONE WITH HOME HEALTH, SN,PT AND OT , February. CONTINUE OXYGEN AT 2 L/M PER NASAL CANNULA CONTINUOS, AND PROPER PRECAUTIONS, NO SMOKING WHILE USING OXYGEN, RISK OF FIRE AND/OR EXPLOSION. ABRASION TO RT KNEE: CLEANSE WITH SOAP AND WATER, PAT DRY, COVER WITH A BANDAID TWICE DAILY UNTIL CLOSED. MD FOLLOW UP: SEE DR CAROLINA/ ALIA KING APRN / MONICA AVILA APRN IN THE OFFICE ON THURSDAY, MARCH 19, 2020 @ 1115 AM. CALL OFFICE IF ANY CONCERNS [phone]. CODE STATUS : FULL CODE. ABRASION TO RT HIP: CLEANSE WITH SOAP AND WATER, PAT DRY, LEAVE OPEN TO AIR, UNTIL HEALED. TAKE THESE MEDICATIONS AT HOME: Albuterol Sulfate (Ventolin Hfa (Per Puff-With Spacer)) 2 puff IH RTQ4H [facility] Last Admin: 03/11/20 05:32 Dose: 2 puff Documented by: Allopurinol (Zyloprim) 300 mg PO DAILY [facility] Last Admin: 03/11/20 08:41 Dose: 300 mg Documented by: Aspirin (Aspirin Ec) 81 mg PO DAILYWM [facility] --- (NEW) Last Admin: 03/11/20 08:40 Dose: 81 mg Documented by: Gabapentin (Neurontin) 600 mg PO DAILY [facility] Last Admin: 03/11/20 08:41 Dose: 600 mg Documented by: Non-Formulary Medication (Potassium) 99 mg PO DAILY [facility] Last Admin: 03/11/20 08:40 Dose: 99 mg Documented by: (Hemp Gummy Bear 50 (Mg Each)) 50 - 100 mg PO QID PRN PRN Reason: Pain Last Admin: 03/09/20 11:18 Dose: 100 mg Documented by: Non-Formulary Medication ([place] Q Plus) 1 cap PO DAILY [facility] Last Admin: 03/11/20 08:39 Dose: 1 cap Documented by: Non-Formulary Medication (Prevagen Extra Strength) 1 cap PO DAILY [facility] Last Admin: 03/11/20 08:39 Dose: 1 cap Documented by: Omeprazole (Prilosec) 20 mg PO BIDAC [facility] Last Admin: 03/11/20 05:33 Dose: 20 mg Documented by: Roflumilast (Daliresp) 500 mcg PO DAILY [facility] Last Admin: 03/11/20 08:40 Dose: 500 mcg Documented by: Simvastatin (Zocor) 20 mg PO BEDTIME [facility] Last Admin: 03/10/20 20:02 Dose: 20 mg Documented by: Tamsulosin HCl (Flomax) 0.4 mg PO DAILY [facility] Last Admin: 03/11/20 08:41 Dose: 0.4 mg Documented by: SYSTANE BALANCE EYE DROPS BOTH EYES BID PRN TRAMADOL 50 MG PO BID PRN LASIX 20 MG PO DAILY DUONEB 3 ML INHALATION Q 6 HRS ALLERGIES: Penicillins Adverse Reaction (Verified 03/07/20 11:13) flu Vaccine Adverse Reaction (Uncoded 06/16/19 20:05) DISCONTINUED MEDICATIONS: FLUTICASONE PROPIONATE NASAL SPRAY AZELASTINE FERROUS SULFATE NORCO TERAZOSIN COLESTIPOL DRAMAMINE NEW PRESCRIPTIONS: ASPIRIN 81 MG PO DAILY SMOKING: SMOKING CESSATION DISEASE SPECIFIC EDUCATION: FALLS SMOKING ASPIRIN COVID OXYGEN LAB REVIEW: 03/11/20 04:25 03/11/20 04:25 03/11/20 04:25: Sodium 137.8, Potassium 4.27, Chloride 103.3, Carbon Dioxide 32.1 H, Anion Gap 6.67, BUN 23.1 H, Creatinine 1.30 H, Estimated GFR (MDRD) 52.00, BUN/Creatinine Ratio 17.76, Glucose 108.8 H, Calcium 9.13, Total Bilirubin 0.31, AST 32.3, ALT 22.2, Alkaline Phosphatase 67.5, Total Protein 6.18 L, Albumin 3.33 L, Globulin 2.85, Albumin/Globulin Ratio 1.16 03/11/20 04:25: WBC 8.41, RBC 3.71 L, Hgb 11.2 L, Hct 34.2 L, MCV 92.2, MCH 30.2, MCHC 32.7, RDW Coeff of Shira 15.0 H, Plt Count 198, Immature Gran % (Auto) 0.2, Neut % (Auto) 56.9, Lymph % (Auto) 24.9, [place] % (Auto) 12.1 H, Eos % (Auto) 4.8, Baso % (Auto) 1.1, Neut # (Auto) 4.8, Lymph # (Auto) 2.1, [place]eker # (Auto) 1.0, Eos # (Auto) 0.4, Baso # (Auto) 0.1, Immature Gran # (Auto) 0.0 ACTIVITY: UP WITH WALKER IN HOME, STAY IN DOORS AND AWAY FROM CROWDS. UP THROUGHOUT THE DAY WITH FREQUENT REST PERIODS DIET: REGULAR WITH ADEQUATE FLUIDS HOSPITAL COURSE: THIS IS A WHITE MALE WHO WAS ADMITTED AFTER ARRIVING IN THE EMERGENCY ROOM. HE HAD FALLEN 2-3 TIMES OVER THE PAST SEVERAL DAYS. HIS DAUGHTER BROUGHT HIM TO THE EMERGENCY ROOM. HE WAS HAVING SOME DIZZINESS AND WORSENING WEAKNESS. CK LEVEL AND KIDNEY FUNCTION WAS SLIGHTLY ELEVATED DUE TO DEHYDRATION AND MUSCLE INJURY. X-RAY SHOWED NO ACUTE FRACTURES ALTHOUGH HE DID HAVE A LARGE HEMATOMA ON HIS LEG. HE HAS A HISTORY OF OXYGEN DEPENDENCY, COPD ALONG WITH CHRONIC RESPIRATORY FAILURE. HE CONTINUES TO BE A HEAVY SMOKER. HE DID GO OUT TO SMOKE ON AT LEAST ONE OCCASION WHILE WAS HOSPITALIZED. HE WAS INSTRUCTED REGARDING OUR POLICIES REGARDING SMOKING AN INPATIENT. INITIALLY HE WAS GIVEN PAIN MEDICATION FOR PAIN CONTROL. HE AND HIS DAUGHTER DID DISCUSS HIM POSSIBLY GOING TO THE ASSISTED HOWEVER HE ULTIMATELY DECIDED THAT HE DID NOT WANT TO GO. I HAD DONE A CAROTID SCAN AN OUTPATIENT PRIOR TO HIS FALLING WHICH WILL LESS THAN 50% STENOSIS OF THE CAROTID ARTERIES. HE HAD AN MRI WHICH DID SHOW THAT HE HAD SOME CHRONIC INFARCTS WITH SOME ENCEPHALOMALACIA WHICH THIS HAD BEEN ONGOING FOR SOME TIME. THIS WAS DISCUSSED WITH HIM. HE WAS STARTED ON ASPIRIN A RESULT OF THIS FINDING. HE HAS CONTROLLED DYSLIPIDEMIA. HE HAS A LONG HISTORY OF NONCOMPLIANCE WITH MEDICATIONS AND FOLLOWUP. HE HAS A HISTORY OF LEFT KIDNEY CANCER AND REFUSES TO SEE UROLOGY. ULTIMATELY DESPITE OUR RECOMMENDATION HE DECIDED TO AGAINST GOING TO THE ASSISTED BUT DID AGREE TO HAVE HOME HEALTH COME IN TO HELP WITH PT AND OT SO THEY WILL BE COMING IN HIS HOME. HE DAUGHTER DOES LIVE CLOSE BY. INFORMATION WAS GIVEN REGARDING SMOKING CESSATION. FALL PRECAUTIONS WERE DISCUSSED. KIDNEY FUNCTION HAS IMPROVED. ON DISCHARGE BUN 23, CREATININE 1.30. HIS ZOCOR WAS HELD DUE TO ELEVATED CK LEVEL WHILE HE WAS HERE THIS HAS SINCE RESOLVED. HE HAS NOT HAD ANY PAIN MEDICATION FOR THE PAST 36 HOURS. HE HAS BEEN UP AND ABOUT WALKING DOWN THE HALLWAY. HE HAS WALKER AT HOME. WE WILL FOLLOWUP WITH HIM IN THE OFFICE NEXT WEEK. PROGNOSIS: NOT GOOD CONSIDERING THE CHRONIC NATURE OF HIS INFARCTS, HIS MULTIPLE MEDICAL CONDITION, HIS AGE AND HE CONTINUES TO SMOKE. WE WILL SEE HIM IN THE OFFICE. TIME SPENT: More than 60 minutes. KAYLEY
--- NOTE | 2020-03-13 08:14 | PN ---
DATE OF SERVICE: 03/07/2020 SUBJECTIVE: The patient was hospitalized today through the emergency room, Dr. Dill. He is 89 found on the floor by the respiratory care specialist who comes in the mornings. He laid on the floor all night. The patient had fallen his entire series of x-rays that were done were negative for any fracture. His hips were surveyed along with CT scan of the lumbar spine. CT of the head also negative for anything. His electrolytes are acceptable. All lab tests are acceptable. He has mild anemia. Kidney functions are acceptable. The patient's CK level is elevated because of laying on the floor, muscle injury. Troponin was negative. He is going to be hospitalized for further observation neuro checks. Family desires for the patient to be placed in the [place] [facility]. CONDITION: Stable PROGNOSIS: Guarded. TIME SPENT: More than 30 minutes. Plan and coordination of the patient's care discussed in the presence of nurse. KAYLEY
== END 2020-03-11 11:57 | disposition home or self-care (01) | DRG 604 ==
LOC: ED 10:42 → MEDSURG B 13:09
PROVIDERS: ADMIT Internal Medicine; ATTEND Internal Medicine
DX: I67.82 Cerebral ischemia; M25.50 Pain in unspecified joint; F17.210 Nicotine dependence, cigarettes, uncomplicated; D63.1 Anemia in chronic kidney disease; M75.51 Bursitis of right shoulder; R25.1 Tremor, unspecified; D64.9 Anemia, unspecified; M54.31 Sciatica, right side; M51.36 Other intervertebral disc degeneration, lumbar region; N18.2 Chronic kidney disease, stage 2 (mild); M25.552 Pain in left hip; M75.52 Bursitis of left shoulder; Z91.19 Patient's noncompliance with other medical treatment and regimen; R27.0 Ataxia, unspecified; G93.89 Other specified disorders of brain; E86.0 Dehydration; Z99.81 Dependence on supplemental oxygen; M54.32 Sciatica, left side; Z90.5 Acquired absence of kidney; E78.5 Hyperlipidemia, unspecified; M62.82 Rhabdomyolysis; S09.90XA Unspecified injury of head, initial encounter; I63.9 Cerebral infarction, unspecified; M54.5 Low back pain; J44.9 Chronic obstructive pulmonary disease, unspecified; I50.9 Heart failure, unspecified; G62.9 Polyneuropathy, unspecified; N40.1 Benign prostatic hyperplasia with lower urinary tract symptoms; W19.XXXA Unspecified fall, initial encounter; M10.9 Gout, unspecified; R41.3 Other amnesia; S70.01XA Contusion of right hip, initial encounter; N17.9 Acute kidney failure, unspecified; Z85.528 Personal history of other malignant neoplasm of kidney; R29.6 Repeated falls; M15.0 Primary generalized (osteo)arthritis; Z91.81 History of falling; R74.8 Abnormal levels of other serum enzymes; K21.9 Gastro-esophageal reflux disease without esophagitis

== ENCOUNTER 2020-07-02 11:16 | Inpatient (IN) ==
[2020-07-02 12:57] VITALS: BMI 28.9
[2020-07-02] MEDS ORDERED: TYLENOL PO PRN (13:00)
[2020-07-02] MEDS ORDERED: ATROPINE SULFATE PFS IVP PRN (13:00)
[2020-07-02] MEDS ORDERED: NITROSTAT SL PRN (13:00)
[2020-07-02] MEDS ORDERED: VISTARIL INJ IM PRN (13:00)
[2020-07-02] MEDS ORDERED: LASIX IVP STA (13:06)
[2020-07-02 13:31] LABS: ABG PH 7.49 (7.35-7.45)
[2020-07-02 13:32] LABS: ABG BASE EXCESS 5.7 (-2.0-2.0); ABG OXYGEN SATURATION 96.5 % (95-100); ABG TCO2 30.2 (22.0-28.0)
[2020-07-02] MEDS: SODIUM CHLORIDE 1,000 ML IV SCH (13:39)
[2020-07-02 13:40] LABS: BASOPHILS % (AUTO) 0.2 % (0.0-3.0); EOSINOPHILS # (AUTO) 0.2 K/ul (0.0-0.7); EOSINOPHILS % (AUTO) 1.2 % (0.0-7.0); HEMOGLOBIN 12.5 g/dl (14.0-18.0); IMMATURE GRANULOCYTE # (AUTO) 0.1 (0.0-1.0); IMMATURE GRANULOCYTE % (AUTO) 0.7 % (0.0-5.0); LYMPHOCYTES # (AUTO) 2.4 K/uL (0.60-3.4); LYMPHOCYTES % (AUTO) 19.2 (10.0-50.0); MEAN CORPUSCULAR HEMOGLOBIN 30.3 pg (27.0-31.0); MEAN CORPUSCULAR HGB CONC 33.8 (31.8-35.4); MEAN CORPUSCULAR VOLUME 89.6 fl (80.0-94.0); MONOCYTES # (AUTO) 1.4 K/uL (0.4-2.0); NEUTROPHILS # (AUTO) 8.6 K/ul (2.0-6.9); NEUTROPHILS % (AUTO) 67.7 % (42.2-75.2); PLATELET COUNT 219 10^3/uL (140-440); RDW COEFFICIENT OF VARIATION 15.8 % (11.6-14.8); RED BLOOD COUNT 4.13 10^6/ul (4.70-6.10)
[2020-07-02 13:53] LABS: ALANINE AMINOTRANSFERASE 29.9 U/L (0-50); ALBUMIN 3.56 g/dL (3.5-5.0); ASPARTATE AMINO TRANSFERASE 27.9 U/L (17-59); BILIRUBIN,TOTAL 0.6 mg/dL (0.2-1.3); CALCIUM 8.65 mg/dL (8.4-10.2); CARBON DIOXIDE 30.9 mmol/L (22-30.0); CHLORIDE 98.5 mmol/L (98-107); CREATINE KINASE 31.8 U/L (55-170); CREATININE 1.62 mg/dL (0.60-1.10); GLUCOSE 102.6 mg/dL (74-106); POTASSIUM 3.8 mmol/L (3.5-5.1); SODIUM 134.6 mmol/L (134.5-145); TOTAL PROTEIN 6.45 g/dL (6.3-8.2)
[2020-07-02 14:05] LABS: TROPONIN I 0.018 ng/ml (0.0000-0.120)
[2020-07-02] MEDS ORDERED: VANCOMYCIN 1.5 GRAM/300 ML PREMIX 1.5 GM/300 ML BAG IV ONE (15:00)
--- NOTE | 2020-07-02 17:02 | CT ---
EXAM: CT Chest with and without contrast. HISTORY: Shortness of breath. COMPARISON: Radiograph 03/07/2020. CT 06/16/2019. TECHNIQUE: Multiple axial images of the chest were obtained prior to and following intravenous admin istration of 75 mL of Visipaque 320, low osmolar. Images were reformatted in the sagittal and ross l planes. FINDINGS: Probable sebaceous cyst at the level of the left scapula on series 5 image 12. Calcified mediastinal, hilar lymph nodes noted. No enlarged noncalcified lymph nodes are seen. Ther e is mild bilateral gynecomastia noted. Heart size is normal. Atherosclerotic calcifications are present. Ascending aorta measures approxim ately 4.7 cm maximum diameter. There is no aortic dissection. Mild emphysema noted. Calcified granulomatous changes present. No consolidation, pleural effusion o r pneumothorax detected. No acute abnormalities seen within the upper abdomen. Abdominal aortic aneurysm begins below the coni al arteries and measures at least 5 cm although is incomplete imaged. Degenerative changes seen throughout the spine. There has been previous lumbar spine surgery which i s incompletely imaged. IMPRESSION: 1. No acute cardiopulmonary process. 2. Mild emphysema. 3. Evidence of prior granulomatous disease. 4. Atherosclerosis. Ascending aorta measures up to 4.8 cm diameter. Infrarenal abdominal aortic an eurysm is incompletely imaged although measures at least 5 cm diameter. Refer to abdominal CT report dated 05/24/2020 for details.
[2020-07-02] MEDS ORDERED: NON-FORMULARY MEDICATION (Propylene Glycol [Systane Balance] 0.6 % Drops) EACHEYE PRN (17:29)
[2020-07-02] MEDS ORDERED: DIMENHYDRINATE PO PRN (17:29)
[2020-07-02] MEDS ORDERED: NORCO 5-325 PO PRN (17:29)
[2020-07-02] MEDS: VENTOLIN HFA (PER PUFF-WITH SPACER) IH SCH ×2 (17:38→19:55)
[2020-07-02] MEDS: SYMBICORT 160-4.5 MCG INHALER IH SCH ×2 (17:40→20:22)
[2020-07-02 19:18] LABS: BILIRUBIN,URINE Negative (NEGATIVE); CLARITY,URINE Clear (CLEAR); COLOR,URINE Yellow (YELLOW); GLUCOSE, URINE (UA) Negative (NEGATIVE); KETONES,URINE Negative (NEGATIVE); LEUKOCYTE ESTERASE ,URINE Negative (NEGATIVE); NITRITE,URINE Negative (NEGATIVE); PROTEIN,URINE Negative (NEGATIVE); URINE, BLOOD Negative (NEGATIVE); UROBILINOGEN,URINE 0.2 (0.2)
[2020-07-02] MEDS: ULTRAM PO SCH ×2 (20:16→20:24)
[2020-07-02 21:55] LABS: CREATINE KINASE 40.8 U/L (55-170)
[2020-07-02 22:08] LABS: TROPONIN I 0.025 ng/ml (0.0000-0.120)
[2020-07-03] MEDS: SODIUM CHLORIDE 1,000 ML IV SCH ×2 (04:49→19:12)
[2020-07-03] MEDS: VENTOLIN HFA (PER PUFF-WITH SPACER) IH SCH ×3 (05:00→19:35)
[2020-07-03 05:25] LABS: BASOPHILS % (AUTO) 0.3 % (0.0-3.0); EOSINOPHILS # (AUTO) 0.2 K/ul (0.0-0.7); EOSINOPHILS % (AUTO) 1.9 % (0.0-7.0); HEMATOCRIT 35.3 % (42.0-52.0); HEMOGLOBIN 12.1 g/dl (14.0-18.0); IMMATURE GRANULOCYTE # (AUTO) 0.1 (0.0-1.0); IMMATURE GRANULOCYTE % (AUTO) 0.8 % (0.0-5.0); LYMPHOCYTES # (AUTO) 2.6 K/uL (0.60-3.4); LYMPHOCYTES % (AUTO) 21.7 (10.0-50.0); MEAN CORPUSCULAR HEMOGLOBIN 30.3 pg (27.0-31.0); MEAN CORPUSCULAR HGB CONC 34.3 (31.8-35.4); MEAN CORPUSCULAR VOLUME 88.5 fl (80.0-94.0); MONOCYTES # (AUTO) 1.4 K/uL (0.4-2.0); MONOCYTES % (AUTO) 11.5 (0-10); NEUTROPHILS # (AUTO) 7.5 K/ul (2.0-6.9); NEUTROPHILS % (AUTO) 63.8 % (42.2-75.2); PLATELET COUNT 215 10^3/uL (140-440); RDW COEFFICIENT OF VARIATION 15.5 % (11.6-14.8); RED BLOOD COUNT 3.99 10^6/ul (4.70-6.10); WHITE BLOOD COUNT 11.82 K/ul (4.2-10.2)
[2020-07-03 05:42] LABS: ALANINE AMINOTRANSFERASE 26.1 U/L (0-50); ALBUMIN 3.31 g/dL (3.5-5.0); ALKALINE PHOSPHATASE 65.1 U/L (56-119); ASPARTATE AMINO TRANSFERASE 24.6 U/L (17-59); BILIRUBIN,TOTAL 0.75 mg/dL (0.2-1.3); BLOOD UREA NITROGEN 28.3 mg/dL (9-20); CALCIUM 8.49 mg/dL (8.4-10.2); CARBON DIOXIDE 30.2 mmol/L (22-30.0); CHLORIDE 98.5 mmol/L (98-107); CREATININE 1.58 mg/dL (0.60-1.10); GLUCOSE 99.2 mg/dL (74-106); POTASSIUM 3.82 mmol/L (3.5-5.1); SODIUM 134.7 mmol/L (134.5-145); TOTAL PROTEIN 6.02 g/dL (6.3-8.2)
[2020-07-03] MEDS ORDERED: [UNRECOGNIZED DRUG - OTHER] PO SCH (09:00)
[2020-07-03] MEDS ORDERED: GUM PO SCH (09:00)
[2020-07-03] MEDS: VANCOMYCIN 1 GM in SODIUM CHLORIDE 250 ML IV SCH ×2 (09:18→20:19)
[2020-07-03] MEDS: NICODERM 21 MG TD SCH (09:19)
[2020-07-03] MEDS: ASPIRIN EC PO SCH (09:20)
[2020-07-03] MEDS: DALIRESP PO SCH (09:20)
[2020-07-03] MEDS: PRILOSEC PO SCH ×2 (09:21→17:10)
[2020-07-03] MEDS: ZYLOPRIM PO SCH (09:21)
[2020-07-03] MEDS: ULTRAM PO SCH ×2 (09:21→20:19)
[2020-07-03] MEDS: MULTIVITAMIN TABLET PO SCH (09:21)
[2020-07-03] MEDS: FLOMAX PO SCH (09:21)
[2020-07-03] MEDS: NEURONTIN PO SCH (09:21)
[2020-07-03] MEDS: ZOCOR PO SCH (09:21)
[2020-07-03] MEDS: LASIX TAB PO SCH (09:21)
[2020-07-03] MEDS: SYMBICORT 160-4.5 MCG INHALER IH SCH ×2 (09:22→20:24)
[2020-07-03] MEDS: NON-FORMULARY MEDICATION (Potassium 99 mg Tablet) PO SCH (11:41)
--- NOTE | 2020-07-03 14:12 | HP ---
DATE OF SERVICE: 07/02/2020 REASON FOR HOSPITALIZATION/HISTORY OF PRESENT ILLNESS: Can't hardly walk. He was in [facility] in [place] and was discharged 06/26. The patient is complaining of weakness, fatigue, shortness of air, cough with white/brownish sputum, legs are swelling, blood tinged sputum. Positive blood culture for enterococcus. No signs or symptoms of CHF/CAD/COVID. 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 PAST SURGICAL HISTORY: Left nephrectomy 20 years ago Back times three Gallbladder Appendectomy Bilateral TKR REVIEW OF SYSTEMS: CONSTITUTIONAL: No fever, Fatigue. HEENT: No sinus drainage, no sore throat. RESPIRATORY: Cough, no congestion. CARDIOVASCULAR: No atypical chest pain for coronary artery disease. No angina, CHF symptoms, palpitations. More shortness of breath. GASTROINTESTINAL: No melena or abdominal pain. No GERD. GENITOURINARY: No hematuria, no prostatism, no polyuria. BUSINESS PERFORMANCE SPECIALIST: No blackout, no dizziness, no headache, no double vision. GAIT: Walker MUSCULOSKELETAL: Osteoarthritis pain, no joint swelling. ENDOCRINE: No weight loss, no weight gain. SKIN: Not dry, no rash. PSYCHIATRIC: Not anxious, no depression, no suicidal thoughts, no homicidal thoughts. SOCIAL HISTORY: Marital Status: . Alcohol Usage: No. Tobacco Usage: Yes. FAMILY HISTORY: Father CHF Mother CHF Brother 5 one alive poor health, unsure of health issues Sister none living, 4 , unsure of health issues. MEDICATIONS: DUO NEBS Q 6 hours PRN Levofloxacin 500mg daily Flomax 0.4mg daily Terazosin 2mg PO daily Colestipol HCL 1gram daily Gabapentin 600mg daily Omeprazole 20mg two a day Simvastatin 20mg daily Allopurinol 300mg daily Saliresp 500mg PO daily Lasix 20mg daily Flonase Proair HFA Q 4 hours PRN O2 24 hours Multivitamin CQ10 200mg daily Dramamine 50mg TID PRN Hemp gummy bear 5mg one daily Imodium 2mg PRN Potassium 99mg daily Simethrone 125mg WID Eye drops two daily Tramadol 50mg BID Beattie 5-325 half to one tablet Flagyl TID times 5 days Cipro BID times 5 days ALLERGIES: Penicillin Flu Shot PHYSICAL EXAMINATION: V/S: Pulse 102, blood pressure 128/64, temperature 97.5, oxygen saturation 96%. O2 2 liters nasal canula. GENERAL APPEARANCE: Oriented times three. HEENT: Yellow blood tinged sputum. NECK: No JVP, no bruits. RESPIRATORY: Decreased breath sounds. Bilateral rhonchi with inspiratory and expiratory wheezing. CARDIOVASCULAR: S1, S2, no S3, no murmur. No cyanosis, clubbing. No ascites. GI/ABDOMEN: No tenderness. Bowel sounds are active. EXTREMITIES: +2 bilateral lower extremity edema, pulses +1, equal. BUSINESS PERFORMANCE SPECIALIST: Deep tendon reflexes, sensory, motor and gait all normal. RECTAL: Refused repeat./PELVIC: Colocare refused. LABS: Sodium 134, potassium 3.8, BUN 27, creatinine 1.62, AST 27, ALT 29, Albumin 6.4, WBC 12.7, Hgb 12.5, hct 37.0, plt count 219. ABG on 2 liters pH 7.49, pCo2 38, pO2 79, base excess 5.7, bicarb 29, TCO2 30.2, O2 saturation 96.5. ASSESSMENT: 1. Shortness of breath 2. Generalized weakness 3. Sepsis- positive enterococcus 4. Acute COPD exacerbation 5. Left lower quadrant pain possible diverticulitis per CT 6. Infrarenal aorta 4.6cm CT 06/04 refuses vascular 7. Recurrent Dizziness-carotid MRI 03/04 8. COPD- O2 dependent 9. 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 Admit-Isolation- PUI 2. Routine telemetry orders 3. COVID 19 test [facility] 4. CBC and CMP now and daily 5. Blood cultures times [address] of chest with and without 7. IV Vancomycin to be dosed by pharmacy 8. ABG on 2 liters 9. U/A 10.Regular diet 11.Lasix 40mg IV times one dose 12.Normal saline at 75cc an hour 13.Nicotine patch if wants 14.Albuterol inhaler two puffs TID scheduled 15.Symbicort 160 two puffs BID scheduled. TIME SPENT: More than 70 minutes. MTDD
[2020-07-03] MEDS: [UNRECOGNIZED DRUG - OTHER] PO SCH (17:10)
[2020-07-03] MEDS: GUM PO SCH (17:10)
[2020-07-03] MEDS ORDERED: PRILOSEC PO SCH (17:30)
[2020-07-04] MEDS: VENTOLIN HFA (PER PUFF-WITH SPACER) IH SCH ×3 (04:51→19:20)
[2020-07-04 05:07] LABS: BASOPHILS % (AUTO) 0.4 % (0.0-3.0); EOSINOPHILS # (AUTO) 0.2 K/ul (0.0-0.7); EOSINOPHILS % (AUTO) 2.3 % (0.0-7.0); HEMATOCRIT 33.9 % (42.0-52.0); HEMOGLOBIN 11.4 g/dl (14.0-18.0); IMMATURE GRANULOCYTE # (AUTO) 0.1 (0.0-1.0); IMMATURE GRANULOCYTE % (AUTO) 0.6 % (0.0-5.0); MEAN CORPUSCULAR HEMOGLOBIN 30.2 pg (27.0-31.0); MEAN CORPUSCULAR HGB CONC 33.6 (31.8-35.4); MEAN CORPUSCULAR VOLUME 89.9 fl (80.0-94.0); MONOCYTES # (AUTO) 1.2 K/uL (0.4-2.0); MONOCYTES % (AUTO) 11.4 (0-10); NEUTROPHILS # (AUTO) 6.6 K/ul (2.0-6.9); NEUTROPHILS % (AUTO) 65.3 % (42.2-75.2); PLATELET COUNT 185 10^3/uL (140-440); RDW COEFFICIENT OF VARIATION 15.7 % (11.6-14.8); RED BLOOD COUNT 3.77 10^6/ul (4.70-6.10); WHITE BLOOD COUNT 10.15 K/ul (4.2-10.2)
[2020-07-04 05:18] LABS: ALANINE AMINOTRANSFERASE 24.8 U/L (0-50); ALBUMIN 2.98 g/dL (3.5-5.0); ALKALINE PHOSPHATASE 58.9 U/L (56-119); ASPARTATE AMINO TRANSFERASE 23.1 U/L (17-59); BILIRUBIN,TOTAL 0.42 mg/dL (0.2-1.3); BLOOD UREA NITROGEN 23.4 mg/dL (9-20); CALCIUM 8.12 mg/dL (8.4-10.2); CARBON DIOXIDE 29.3 mmol/L (22-30.0); CHLORIDE 103.7 mmol/L (98-107); CREATININE 1.2 mg/dL (0.60-1.10); GLUCOSE 124.7 mg/dL (74-106); POTASSIUM 3.94 mmol/L (3.5-5.1); SODIUM 135.4 mmol/L (134.5-145); TOTAL PROTEIN 5.67 g/dL (6.3-8.2)
[2020-07-04] MEDS: PRILOSEC PO SCH ×2 (06:29→17:48)
[2020-07-04] MEDS: LASIX TAB PO SCH (06:29)
[2020-07-04] MEDS: VANCOMYCIN 1 GM in SODIUM CHLORIDE 250 ML IV SCH ×2 (08:57→20:31)
[2020-07-04] MEDS: NICODERM 21 MG TD SCH (08:58)
[2020-07-04] MEDS: ZYLOPRIM PO SCH (08:59)
[2020-07-04] MEDS: ZOCOR PO SCH (08:59)
[2020-07-04] MEDS: FLOMAX PO SCH (08:59)
[2020-07-04] MEDS: ASPIRIN EC PO SCH (08:59)
[2020-07-04] MEDS: DALIRESP PO SCH (08:59)
[2020-07-04] MEDS: NEURONTIN PO SCH (08:59)
[2020-07-04] MEDS: ULTRAM PO SCH ×2 (09:00→20:31)
[2020-07-04] MEDS: NON-FORMULARY MEDICATION (Potassium 99 mg Tablet) PO SCH ×2 (09:00→09:27)
[2020-07-04] MEDS: MULTIVITAMIN TABLET PO SCH (09:00)
[2020-07-04] MEDS: GUM PO SCH ×2 (09:06→16:38)
[2020-07-04] MEDS: [UNRECOGNIZED DRUG - OTHER] PO SCH ×2 (09:06→16:38)
[2020-07-04] MEDS: SYMBICORT 160-4.5 MCG INHALER IH SCH ×2 (09:07→20:32)
--- NOTE | 2020-07-04 09:10 | PCM.PROG ---
Attending Provider: ATTENDING PROVIDER: Dr. DARY CAROLINA This patient is seen with Winsome Licea, Nurse Practitioner. DATE OF SERVICE: 07/04/20 SUBJECTIVE: This 89 year old /WHITE M was hospitalized 07/02/20. The patient is resting comfortably. He has been eating well. Still significantly short of breath. Leg edema has improved slightly today, non-pitting. COVID test still pending. REVIEW OF SYSTEMS: CONSTITUTIONAL: No night sweats. No fatigue, malaise, lethargy. No fever or chills. Weakness. HEENT: Eyes: No visual changes. No eye pain. No eye discharge. ENT: No runny nose. No epistaxis. No sinus pain. No odynophagia. No congestion. RESPIRATORY: Cough, no congestion. No hemoptysis. Shortness of breath. CARDIOVASCULAR: No angina symptoms. No CHF symptoms. No atypical chest pain for CAD. No palpitations. No orthopnea.. GASTROINTESTINAL: No abdominal pain. No nausea or vomiting. No diarrhea or constipation. No hematemesis. No hematochezia. GENITOURINARY: No urgency. No frequency. No dysuria. No hematuria. No obstructive symptoms. No discharge. No pain. No significant abnormal bleeding. MUSCULOSKELETAL: No musculoskeletal pain; no joint swelling. Leg edema. NEUROLOGICAL: Awake, alert, oriented to time, place and person. No headache. No neck pain. No syncope. No seizures. No dizziness. PSYCHIATRIC: Not anxious. No depression. No suicidal thoughts. No homicidal thoughts. SKIN: No rash. No lesions. No wounds. ENDOCRINE: No unexplained weight loss. No weight gain. HEMATOLOGIC/LYMPHATIC: No anemia. No purpura. No petechiae. No prolonged or excessive bleeding. No palpable lymph nodes. PHYSICAL EXAMINATION: GENERAL: The patient is awake, alert and oriented, lying in bed in no distress. VITAL SIGNS: Temperature 98.5 F, Pulse 65, Respiratory Rate 20, BP 117/72, Pulse Ox 95% HEENT: Head normocephalic, atraumatic. Eyes: Extraocular muscles are intact. Pupils are equal, round and reactive to light and accommodation. Ears: No lesions. Nose appeared normal. Throat: No exudate or erythema. NECK: Supple. No JVD, no carotid bruit. No lymphadenopathy or thyromegaly. LUNGS: Clear to auscultation. Percussion note normal. Chest symmetrical. HEART: S1, S2, no S3. No murmurs. No cyanosis or clubbing. No ascites. Pulses: Dorsalis pedis and posterior tibial pulses +1 to +2 both sides. ABDOMEN: Soft. Non-tender. Bowel sounds active. No CVA tenderness. No mass felt. EXTREMITIES: No edema. Full range of motion of all extremities, equal. Bilateral rhonchi. Bilateral inspiratory wheezing. NEUROLOGIC: No focal deficit. Cranial nerves II through XII are grossly intact. No headache, no double vision or headache. SKIN: Not dry. Intact. Turgor-normal. LYMPHATIC: No palpable lymph nodes/no lymphedema. MUSCULOSKELETAL: Normal joints with no swelling. Muscle tone is normal. LAB REVIEW: 07/04/20 04:50 07/04/20 04:50 07/04/20 04:50: Sodium 135.4, Potassium 3.94, Chloride 103.7, Carbon Dioxide 29.3, Anion Gap 6.34, BUN 23.4 H, Creatinine 1.20 H, Estimated GFR (MDRD) 57.00, BUN/Creatinine Ratio 19.50, Glucose 124.7 H, Calcium 8.12 L, Total Bilirubin 0.42, AST 23.1, ALT 24.8, Alkaline Phosphatase 58.9, Total Protein 5.67 L, Albumin 2.98 L, Globulin 2.69, Albumin/Globulin Ratio 1.10 07/04/20 04:50: WBC 10.15, RBC 3.77 L, Hgb 11.4 L, Hct 33.9 L, MCV 89.9, MCH 30.2, MCHC 33.6, RDW Coeff of Shira 15.7 H, Plt Count 185, Immature Gran % (Auto) 0.6, Neut % (Auto) 65.3, Lymph % (Auto) 20.0, Brule % (Auto) 11.4 H, Eos % (Auto) 2.3, Baso % (Auto) 0.4, Neut # (Auto) 6.6, Lymph # (Auto) 2.0, Brule # (Auto) 1.2, Eos # (Auto) 0.2, Baso # (Auto) 0.0, Immature Gran # (Auto) 0.1 ASSESSMENT: Please see below. 1. Acute COPD exacerbation 2. COVID test negative 3. Leg edema, improved 4. Chronic kidney disease 5. Recent sepsis 6. Positive blood cultures, preliminary only PLAN: 1. Solu-Cortef Q 8 hours 2. Sputum culture Plan and coordination of the patient's care discussed in the presence of Camera Repairman and nurse. SCRIBED BY: Farhana DUBONist scribed while in presence of service performed by Dr. Carolina/Winsome Licea APRN on 07/04/20 ([id number])
[2020-07-04] MEDS: SOLU-CORTEF 100 MG IVP SCH ×3 (09:12→20:43)
[2020-07-04] MEDS: SODIUM CHLORIDE 1,000 ML IV SCH ×2 (10:18→23:54)
--- NOTE | 2020-07-04 13:32 | PN ---
DATE OF SERVICE: 07/03/2020 SUBJECTIVE: The patient was seen and examined today. The patient's condition seems to be improving. He is doing a lot better. He is able to move around on his own. He was given Lasix so he has been going in and out to go to the bathroom. His COVID test still pending. REVIEW OF SYSTEMS: CONSTITUTIONAL: No night sweats. No fatigue, malaise, lethargy. No fever or chills. HEENT: Eyes: No visual changes. No eye pain. No eye discharge. ENT: No runny nose. No epistaxis. No sinus pain. No sore throat. No odynophagia. No congestion. RESPIRATORY: No cough, no congestion. No hemoptysis. No shortness of breath. CARDIOVASCULAR: No angina symptoms. No CHF symptoms. No atypical chest pain for CAD. No palpitations. No PND. No orthopnea. GASTROINTESTINAL: No abdominal pain. No nausea or vomiting. No diarrhea or constipation. No hematemesis. No hematochezia. GENITOURINARY: No urgency. No frequency. No dysuria. No hematuria. No obstructive symptoms. No discharge. No pain. No significant abnormal bleeding. MUSCULOSKELETAL: No musculoskeletal pain; no joint swelling. NEUROLOGICAL: No headache. No neck pain. No syncope. No seizures. No dizziness. PSYCHIATRIC: Not anxious. No depression. No suicidal thoughts. No homicidal thoughts. SKIN: No rash. No lesions. No wounds. ENDOCRINE: No unexplained weight loss. No weight gain. HEMATOLOGIC/LYMPHATIC: No anemia. No purpura. No petechiae. No prolonged or excessive bleeding. No palpable lymph nodes. PHYSICAL EXAMINATION: VITAL SIGNS: Temperature 97.8, pulse 70, respiratory rate 16, blood pressure 12/68 and pulse ox 95% on 1-2 liters. HEENT: Head normocephalic, atraumatic. Eyes: Extraocular muscles are intact. Pupils are equal, round and reactive to light and accommodation. Ears: No lesions. Nose appeared normal. Throat: No exudate or erythema. NECK: Supple. No JVD, no carotid bruit. No lymphadenopathy or thyromegaly. LUNGS: Decreased breath sounds but clear to auscultation. Percussion note normal. Chest symmetrical. HEART: S1, S2, no S3. No murmurs. No cyanosis or clubbing. No ascites. Pulses: Dorsalis pedis and posterior tibial pulses +1 to +2 bilaterally. ABDOMEN: Soft. Nontender. Bowel sounds active. No CVA tenderness. No mass felt. EXTREMITIES: No edema. Full range of motion of all extremities, equal. NEUROLOGIC: No focal deficit. Cranial nerves II through XII are grossly intact. No headache, no double vision or headache. SKIN: Not dry. Intact. Turgor - normal. LYMPHATIC: No palpable lymph nodes/no lymphedema. MUSCULOSKELETAL: Normal joints with no swelling. Muscle tone is normal. LABS: Hgb 12.1, hct 35, WBC 11,000 normal differential, creatinine 1.5, BUN 28, potassium 3.8 ASSESSMENT: 1. Shortness of breath 2. Generalized weakness 3. Acute COPD exacerbation 4. Severe chronic lung disease 5. Dementia 6. Chronic kidney disease PLAN: 1. Continue steroids, antibiotics and NEBS 2. Awaiting COVID 3. TIME SPENT: More than 30 minutes. Plan and coordination of the patient's care discussed in the presence of nurse. KAYLEY
[2020-07-04] MEDS ORDERED: DUONEB NEB SCH (14:00)
[2020-07-04] MEDS ORDERED: DULCOLAX PO ONE (17:00)
[2020-07-04] MEDS ORDERED: PULMICORT 1 MG/2 ML NEB SCH (18:00)
[2020-07-05] MEDS: VENTOLIN HFA (PER PUFF-WITH SPACER) IH SCH ×2 (04:50→14:11)
[2020-07-05] MEDS: SOLU-CORTEF 100 MG IVP SCH ×2 (05:19→13:14)
[2020-07-05] MEDS: PRILOSEC PO SCH (05:30)
[2020-07-05] MEDS: LASIX TAB PO SCH (05:30)
[2020-07-05 08:41] LABS: BASOPHILS % (AUTO) 0.2 % (0.0-3.0); EOSINOPHILS % (AUTO) 0.1 % (0.0-7.0); HEMATOCRIT 36.6 % (42.0-52.0); HEMOGLOBIN 12.5 g/dl (14.0-18.0); IMMATURE GRANULOCYTE # (AUTO) 0.1 (0.0-1.0); IMMATURE GRANULOCYTE % (AUTO) 0.4 % (0.0-5.0); LYMPHOCYTES % (AUTO) 7.7 (10.0-50.0); MEAN CORPUSCULAR HEMOGLOBIN 30.4 pg (27.0-31.0); MEAN CORPUSCULAR HGB CONC 34.2 (31.8-35.4); MEAN CORPUSCULAR VOLUME 89.1 fl (80.0-94.0); MONOCYTES # (AUTO) 0.5 K/uL (0.4-2.0); MONOCYTES % (AUTO) 3.9 (0-10); NEUTROPHILS # (AUTO) 11.6 K/ul (2.0-6.9); NEUTROPHILS % (AUTO) 87.7 % (42.2-75.2); PLATELET COUNT 210 10^3/uL (140-440); RDW COEFFICIENT OF VARIATION 15.6 % (11.6-14.8); RED BLOOD COUNT 4.11 10^6/ul (4.70-6.10); WHITE BLOOD COUNT 13.15 K/ul (4.2-10.2)
[2020-07-05 08:52] LABS: ALANINE AMINOTRANSFERASE 24.5 U/L (0-50); ALBUMIN 3.39 g/dL (3.5-5.0); ALKALINE PHOSPHATASE 69.4 U/L (56-119); ASPARTATE AMINO TRANSFERASE 20.3 U/L (17-59); BILIRUBIN,TOTAL 0.41 mg/dL (0.2-1.3); BLOOD UREA NITROGEN 19.3 mg/dL (9-20); CALCIUM 8.86 mg/dL (8.4-10.2); CARBON DIOXIDE 27.1 mmol/L (22-30.0); CHLORIDE 104.8 mmol/L (98-107); CREATININE 1.12 mg/dL (0.60-1.10); GLUCOSE 131.2 mg/dL (74-106); POTASSIUM 4.23 mmol/L (3.5-5.1); SODIUM 137.2 mmol/L (134.5-145); TOTAL PROTEIN 6.33 g/dL (6.3-8.2)
[2020-07-05] MEDS: ZYLOPRIM PO SCH (09:20)
[2020-07-05] MEDS: FLOMAX PO SCH (09:20)
[2020-07-05] MEDS: ZOCOR PO SCH (09:20)
[2020-07-05] MEDS: NEURONTIN PO SCH (09:20)
[2020-07-05] MEDS: MULTIVITAMIN TABLET PO SCH (09:20)
[2020-07-05] MEDS: ASPIRIN EC PO SCH (09:20)
[2020-07-05] MEDS: NICODERM 21 MG TD SCH (09:20)
[2020-07-05] MEDS: NON-FORMULARY MEDICATION (Potassium 99 mg Tablet) PO SCH (09:21)
[2020-07-05] MEDS: DALIRESP PO SCH (09:21)
[2020-07-05] MEDS: SYMBICORT 160-4.5 MCG INHALER IH SCH (09:22)
--- NOTE | 2020-07-05 09:32 | PCM.PROG ---
Attending Provider: ATTENDING PROVIDER: Dr. DARY CAROLINA DATE OF SERVICE: 07/05/20 SUBJECTIVE: This 89 year old /WHITE M was hospitalized 07/02/20 with acute bronchitis and COPD. The patient has positive blood culture. Negative COVID. REVIEW OF SYSTEMS: CONSTITUTIONAL: No night sweats. No fatigue, malaise, lethargy. No fever or chills. HEENT: Eyes: No visual changes. No eye pain. No eye discharge. ENT: No runny nose. No epistaxis. No sinus pain. No odynophagia. No congestion. RESPIRATORY: No cough, no congestion. No hemoptysis. No shortness of breath. CARDIOVASCULAR: No angina symptoms. No CHF symptoms. No atypical chest pain for CAD. No palpitations. No orthopnea.. GASTROINTESTINAL: No abdominal pain. No nausea or vomiting. Constipation. No hematemesis. No hematochezia. Appetite improved. GENITOURINARY: No urgency. No frequency. No dysuria. No hematuria. No obstructive symptoms. No discharge. No pain. No significant abnormal bleeding. MUSCULOSKELETAL: No musculoskeletal pain; no joint swelling. NEUROLOGICAL: Awake, alert, oriented to time, place and person. No headache. No neck pain. No syncope. No seizures. No dizziness. PSYCHIATRIC: Not anxious. No depression. No suicidal thoughts. No homicidal thoughts. SKIN: No rash. No lesions. No wounds. ENDOCRINE: No unexplained weight loss. No weight gain. HEMATOLOGIC/LYMPHATIC: No anemia. No purpura. No petechiae. No prolonged or excessive bleeding. No palpable lymph nodes. PHYSICAL EXAMINATION: GENERAL: The patient is awake, alert and oriented, lying in bed in no distress. VITAL SIGNS: Temperature 97.1 F, Pulse 63, Respiratory Rate 17, BP 112/61, Pulse Ox 93% HEENT: Head normocephalic, atraumatic. Eyes: Extraocular muscles are intact. Pupils are equal, round and reactive to light and accommodation. Ears: No lesions. Nose appeared normal. Throat: No exudate or erythema. NECK: Supple. No JVD, no carotid bruit. No lymphadenopathy or thyromegaly. LUNGS: Decreased breath sounds. Clear to auscultation. Percussion note normal. Chest symmetrical. HEART: S1, S2, no S3. No murmurs. No cyanosis or clubbing. No ascites. Pulses: Dorsalis pedis and posterior tibial pulses +1 to +2 both sides. ABDOMEN: Soft. Protuberant. Non-tender. Bowel sounds active. No CVA tenderness. No mass felt. EXTREMITIES: No edema. Full range of motion of all extremities, equal. NEUROLOGIC: No focal deficit. Cranial nerves II through XII are grossly intact. No headache, no double vision or headache. SKIN: Warm and dry. Intact. Turgor-normal. LYMPHATIC: No palpable lymph nodes/no lymphedema. MUSCULOSKELETAL: Normal joints with no swelling. Muscle tone is normal. LAB REVIEW: 07/04/20 04:50 07/04/20 04:50 ASSESSMENT: Please see below. 1. Acute bronchitis with COPD resolving 2. Blood culture positive. PLAN: 1. The patient is being treated with antibiotic Vancomycin. Plan and coordination of the patient's care discussed in the presence of Core Stripper and nurse. CONDITION: IMPROVING. SCRIBED BY: TOBI WADSWORTH Concrete Pipe Maker scribed while in presence of service performed by Dr. DARY CAROLINA on 07/05/20 ([id number])
[2020-07-05] MEDS ORDERED: CITRATE OF MAGNESIA PO ONE (10:14)
[2020-07-05] MEDS: VANCOMYCIN 1 GM in SODIUM CHLORIDE 250 ML IV SCH (10:38)
[2020-07-05] MEDS: ULTRAM PO SCH (10:45)
[2020-07-05] MEDS: GUM PO SCH (10:59)
[2020-07-05] MEDS: [UNRECOGNIZED DRUG - OTHER] PO SCH (10:59)
[2020-07-05] MEDS: SODIUM CHLORIDE 1,000 ML IV SCH (13:14)
[2020-07-05 13:33] VITALS: BP 105/54; TEMP 97
--- NOTE | 2020-07-05 14:08 | RS.PTINEVL ---
Subjective - Patient information Date of Evaluation: 07/05/20 Date of Arrival on Unit: 07/02/20 Admitted From:: Home Diagnosis: acute COPD, falls, impaired balance, gait difficulty Usual Living Arrangement: Alone Home Environment: House, Ramp Medical History: Hypertension, COPD, CHF, Arthritis Medical History Comments:: chronic kidney disease, neuropathy, gout, GERD, infrarenal AAA LATEX ALLERGY?: No Surgical History: Knee Replacement (BTKR), Lumbar Spine, Cholecystectomy Surgical History Comments:: Adrianne taylor nephrectomy, shoulder sx, Medications: see chart Subjective Information/ Patient Comments:: pt states that he feels weak but would like to try to walk. - Level of function Prior to this admission, the patient could do the following:: Independent ADL's, Independent Ambulation Current Level of Function: Partially Dependent Current Equipment Used at Home: Oxygen, rolling walker Interventions - Objective Patient Orientation: Person, Place, Time, Situation Current Interventions: IV's, Oxygen (2 liters), Telemetry Observation: pitting edema BLE Range of Motion - ROM Right Upper Extremity AROM: WFL's Left Upper Extremity AROM: WFL's Right Lower Extremity AROM: WFL's Left Lower Extremity AROM: WFL's Muscle Strength - Muscle Strength Right Upper Extremity Strength: Mild Weakness (shld flex 3+/5, elbow flex/ext 4- /5,) Left Upper Extremity Strength: Mild Weakness (shld flex 3+/5, elbow flex/ext 4- /5) Right Lower Extremity Strength: Mild Weakness (hip flex 4-/5, knee flex/ext 4- /5, ankle DF/PF 4/5) Left Lower Extremity Strength: Mild Weakness (hip flex 4-/5, knee flex/ext 4-/5, ankle DF/PF 4/5) Sensation - Sensation Right Upper Extremity Sensation: Intact/Normal Left Upper Extremity Sensation: Intact/Normal Right Lower Extremity Sensation: Intact/Normal Left Lower Extremity Sensation: Intact/Normal Palpation Palpation Findings: Tenderness Comments:: tenderness to palpation B LE Balance - Sitting Balance and Reactions Static Sitting Balance: Good Dynamic Sitting Balance: Fair Sitting Equilibrium Reactions: Delayed Left, Delayed Right Sitting Protective Reactions: Delayed Left, Delayed Right - Standing Balance and Reactions Static Standing Balance: Poor Dynamic Standing Balance: Poor Standing Equilibrium Reactions: Delayed Left, Delayed Right Standing Protective Reactions: Delayed Left, Delayed Right Functional Mobility - Bed Mobility Comments:: pt seen sitting up in bedside chair - Transfers Sit to Stand: Min Assist Stand to Sit: Min Assist - Safety Awareness Safety Awareness: Fair VASILIY INDEX SCORE: n/a Ambulation - Ambulation Assistive Device Used: Rolling Walker Orthotic/Prosthetic Device: No Distance: 35ft Assistance needed with Ambulation: Min Assist Gait Deviations: Forward posture, Short stride, Deviates from path Factors Affecting Ambulation: Decreased Balance, Breathing/O2 Saturation, Weakness, Decreased Safety, Limited Endurance Treatment time - Time with patient Length of Evaluation: 23 Total treatment time: 29 Patient Education - Education Patient Education: Activity Modification, Education of Plan of Care Teaching Recipient: Patient Teaching Methods: Discussion, Demonstration Comments: discussion regarding POC and safety with transfers and gait. Assessment - Assessment Problem List:: Decreased level of function, Requires training/education, Decreased safety/Risk of falls, Weakness Rehab Potential: Fair Further Therapy Indicated?: Yes Candidate for Swing Bed for Therapy Services?: Feel pt would be a candidate for swing bed for PT/OT. Evaluation Complexity: HISTORY: Medium, EXAM OF BODY SYSTEMS: Medium, CLINICAL PRESENTATION: Medium, CLINICAL DECISION MAKING: Medium Patient's Goal(s): walk better and get stronger Short Term Goals GOAL #1: pt demonstrate rolling/scooting CGA Goal to be met by: 07/09/20 GOAL #2: Transfer sup to/from sit CGA Goal to be met by: 07/09/20 GOAL #3: Sit to/from stand CGA Goal to be met by: 07/09/20 GOAL #4: pt amb with rwx 75ft with CGA with O2. Goal to be met by: 07/09/20 GOAL #5: Improve BLE strength to 4 to 4+/5 Goal to be met by: 07/09/20 Chief Of Staff Doctor Goals GOAL #1: pt transfer sup to/from sit to/from stand independently Goal to be met by: 07/12/20 GOAL #2: pt amb with rwx functional household distances independently Goal to be met by: 07/12/20 GOAL #3: Improve dyn stand balance fair Goal to be met by: 07/12/20 Plan Plan of Care: Therapeutic EX, Therapeutic Activity Other:: gait training Frequency of Treatment: 1-2 X day, as tolerated Duration of Treatment: 1 Week Anticipated Discharge Destination: Home Treatment Diagnosis (ICD 10 Codes): impaired balance R26.81. gait difficulty R 26.2. weakness M62.81 Has the Physician been added for Co-signature?: Yes
--- NOTE | 2020-07-09 08:54 | CM.DICTOOL ---
ADMISSION: 07/02/20 11:16 DISCHARGE: JULY 05, 2020 TO [facility] SWING BED DATE OF SERVICE: 07/05/20 FINAL DIAGNOSIS SHORTNESS OF BREATH GENERALIZED WEAKNESS SEPSIS - POSITIVE ENTEROCCOCUS ACUTE COPD EXACERBATION ACUTE BRONCHITIS WITH COPD RESOLING BLOOD CULTURE POSITIVE GAIT DIFFICULTY IMPAIRED SAFETY AWARENESS HX: LLQ PAIN - POSSIBLE DIVERTICULITIS PER CT INFRARENAL AORTA - 4.6 CM - CT 05/2020 - REFUSES VASCULAR REFERRAL RECURRENT DIZZINESS- CAROTID/MRI 02/2020 COPD - O2 DEPENDENT HEAVY SMOKER CHRONIC RESPIRATORY FAILURE HTN NEUROPATHY GOUT GERD CKD STAGE 2-3 BILATERAL SHOULDER S/P SPINE SURGERY X 3 LT RENAL CA - REFUSES FURTHER CONSULTATION LT SCIATICA HAND TREMORS CHF DYSLIPIDEMIA FALLS NON- COMPLIANCE WITH LIFESTYLE, MEDICATIONS, DIET AND FOLLOW-UP PROCEDURES: BILATERAL TKR LT NEPHRECTOMY BACK SURGERY X 3 APPENDECTOMY CHOLECYSTECTOMY LAST VITALS Temp Pulse Resp BP Pulse Ox 97.1 F L 63 17 112/61 96 07/05/20 06:08 07/05/20 05:34 07/05/20 05:34 07/05/20 05:34 07/05/20 10:00 TAKE THESE MEDICATIONS AT HOME Acetaminophen (Acetaminophen 325 Mg Tablet) 650 mg PO Q4H PRN PRN Reason: Headache Hydrocodone Bitart/Acetaminophen (Hydrocodone Bit/Acetaminophen 5/325 Mg Tablet) 0.5 - 1 tab PO Q6HR PRN PRN Reason: Pain Albuterol Sulfate (Albuterol Sulfate (Ventolin Hfa) 18 Gm 1 Puff With Spacer) 2 puff IH RTTID [facility] Last Admin: 07/05/20 04:50 Dose: 2 puff Documented by: Allopurinol (Allopurinol 100 Mg Tablet) 300 mg PO DAILY [facility] Last Admin: 07/05/20 09:20 Dose: 300 mg Documented by: Aspirin (Aspirin 81 Mg Tablet.) 81 mg PO DAILYWM [facility] Last Admin: 07/05/20 09:20 Dose: 81 mg Documented by: Atropine Sulfate (Atropine Sulfate Inj 1 Mg/10 Ml Disp.Syrin) 0.5 mg IVP ONCE PRN PRN Reason: Symptomatic Bradycardia Budesonide/Formoterol Fumarate (Budesonide/Formoterol Fumarate 160/4.5 Mcg Inhaler) 2 puff IH BID [facility] Last Admin: 07/05/20 09:22 Dose: 2 puff Documented by: Furosemide (Furosemide 20 Mg Tablet) 20 mg PO QDAC [facility] Last Admin: 07/05/20 05:30 Dose: 20 mg Documented by: Gabapentin (Gabapentin 300 Mg Capsule) 600 mg PO DAILY [facility] Last Admin: 07/05/20 09:20 Dose: 600 mg Documented by: Hydrocortisone Sodium Succinate (Hydrocortisone Sod Succ/Pf 100 Mg/2 Ml Vial) 100 mg IVP Q8HR [facility] Last Admin: 07/05/20 13:14 Dose: 100 mg Documented by: Hydroxyzine HCl (Hydroxyzine Hcl 25 Mg/Ml Vial) 25 mg IM Q4H PRN PRN Reason: Nausea/Vomiting/Restlessness Sodium Chloride (Sodium Chloride) 1,000 mls @ 75 mls/hr IV .[id number] [facility] Last Admin: 07/05/20 13:14 Dose: 75 mls/hr Documented by: Vancomycin HCl 1 gm/ Sodium (Chloride) 250 mls @ 250 mls/hr IV Q12HR [facility] Stop: 07/09/20 08:59 Last Admin: 07/05/20 10:38 Dose: 250 mls/hr Documented by: Multivitamins (Multivitamin 1 Tab) 1 tab PO DAILY [facility] Last Admin: 07/05/20 09:20 Dose: 1 tab Documented by: Nicotine (Nicotine 21 Mg Patch.Td24) 1 patch TD DAILY [facility] Last Admin: 07/05/20 09:20 Dose: 1 patch Documented by: Nitroglycerin (Nitroglycerin 0.4 Mg Tab.Subl) 0.4 mg SL Q5MIN X 3 DOSES PRN PRN Reason: Chest Pain Non-Formulary Medication (Dimenhydrinate) 50 mg PO TID PRN PRN Reason: Dizziness Non-Formulary Medication (Potassium) 99 mg PO DAILY [facility] Last Admin: 07/05/20 09:21 Dose: 99 mg Documented by: Non-Formulary Medication (Propylene Glycol [Systane Balance]) 1 drop EACHEYE BID PRN PRN Reason: Dry Eye Non-Formulary Medication (Hemp Gummy Bear) 50 mg PO DAILY [facility] Last Admin: 07/05/20 10:59 Dose: Not Given Documented by: Omeprazole (Omeprazole 20 Mg Capsule.Dr) 20 mg PO BIDAC [facility] Last Admin: 07/05/20 05:30 Dose: 20 mg Documented by: Roflumilast (Roflumilast 500 Mcg Tablet) 500 mcg PO DAILY [facility] Last Admin: 07/05/20 09:21 Dose: 500 mcg Documented by: Simvastatin (Simvastatin 10 Mg Tablet) 20 mg PO DAILY [facility] Last Admin: 07/05/20 09:20 Dose: 20 mg Documented by: Sodium Chloride (0.9% Sodium Chloride 10 Ml Disp.Syrin) 1 syr IVF Q8HR PRN PRN Reason: PATENCY Tamsulosin HCl (Tamsulosin Hcl 0.4 Mg Cap.Er.24h) 0.4 mg PO DAILY [facility] Last Admin: 07/05/20 09:20 Dose: 0.4 mg Documented by: Tramadol HCl (Tramadol Hcl 50 Mg Tablet) 50 mg PO BID [facility] Last Admin: 07/05/20 10:45 Dose: Not Given Documented by: ALLERGIES Penicillins Adverse Reaction (Verified 03/07/20 11:13) flu Vaccine Adverse Reaction (Uncoded 06/16/19 20:05) DISCONTINUED MEDICATIONS NONE NEW PRESCRIPTIONS: CONTINUE SAME INPATIENT MEDICATIONS SMOKING: SMOKING CESSATION LAB REVIEW: 07/05/20 08:33 07/05/20 08:33 07/05/20 08:33: Sodium 137.2, Potassium 4.23, Chloride 104.8, Carbon Dioxide 27.1, Anion Gap 9.53, BUN 19.3, Creatinine 1.12 H, Estimated GFR (MDRD) 62.00, BUN/Creatinine Ratio 17.23, Glucose 131.2 H, Calcium 8.86, Total Bilirubin 0.41, AST 20.3, ALT 24.5, Alkaline Phosphatase 69.4, Total Protein 6.33, Albumin 3.39 L, Globulin 2.94, Albumin/Globulin Ratio 1.15 07/05/20 08:33: WBC 13.15 H, RBC 4.11 L, Hgb 12.5 L, Hct 36.6 L, MCV 89.1, MCH 30.4, MCHC 34.2, RDW Coeff of Shira 15.6 H, Plt Count 210, Immature Gran % (Auto) 0.4, Neut % (Auto) 87.7 H, Lymph % (Auto) 7.7 L, Jack % (Auto) 3.9, Eos % (Auto) 0.1, Baso % (Auto) 0.2, Neut # (Auto) 11.6 H, Lymph # (Auto) 1.0, Jack # (Auto) 0.5, Eos # (Auto) 0.0, Baso # (Auto) 0.0, Immature Gran # (Auto) 0.1 07/05/20 08:33: Vancomycin Trough 13.936 PLAN: DISCHARGE: JULY 05, 2020 FROM INPATIENT TO SWING BED ACTIVITY: UP WITH ASSIST OF ONE AND WALKER. PROGRESS DIRECTED PER THERAPY DEPARTMENT. FALL PRECAUTIONS. DIET: REGULAR DIET AND COFFEE WITH ALL MEALS BOOST PLUS 240 ML BID ( 1000 AND 1400) TC OPERATOR CONSULT - LOW TP AND ALBUMIN MD FOLLOW UP: DR. CAROLINA/ ALIA KING APRN/ MONICA AVILA APRN TO SEE ON ROUNDS. LABS: CBC AND CMP IN THE AM OF 07/06/2020 THEN EVERY 3 DAYS VANCOMYCIN TROUGH 07/08/2020 @ 830 AM VITAL SIGNS: EVERY 12 HOURS AND PRN PT AND OT EVAL CODE STATUS: DO NOT RESUSCITATE MR. MACK IS ALERT AND ORIENTED X 4. HE IS PLEASANT AND TALKATIVE. USUALLY A SMOKER, BUT HAS UTILIZED A NICOTINE PATCH DURING INPATIENT STAY. VERY [facility] AND USES HEARING AIDS THAT ARE EFFECTIVE. LUNG SOUNDS SLIGHTLY COURSE AND DIMINISHED WITH FAINT WHEEZES. SKIN WARM DRY AND INTACT. +2 PITTING EDEMA TO LEGS, CONTINUE TO ELEVATE. NUTRITIONAL AND FLUID INTAKE ARE APPROPRIATE. URGENCY BUT CONTINENT OF BLADDER. CONTINENT OF BOWELS WITH LAST BM TODAY AFTER 1/2 BOTTLE OF MAG CITRATE. HE LIVES AT HOME ALONE WITH DTR LIVING NEARBY. HAS BEEN UNSTEADY AND WEAK ON HIS FEET. UP WITH ASSIST OF ONE AND WALKER. PT EVALUATED FOR SWING BED AND DID QUALIFY. MR. MACK AND DTR, SINDI BROOKS DID DESIRE SING BED FOR CONTINUATION OF IV ANTIBIOTICS FOR SEPSIS AND PT FOR IMPAIRED BALANCE,GAIT DIFFICULTY AND IMPAIRED SAFETY AWARENESS DUE TO PROLONGED MEDICAL ILLNESS. MD ALIA CHARLES APRN ALYCE HANNAN, APRN
--- NOTE | 2020-07-09 11:10 | PN ---
DATE OF SERVICE: 07/04/20 SUBJECTIVE: The patient was seen and examined with the nurse practitioner. The patient's condition has improved. He is feeling better. He is sitting up in the chair. He says his appetite has improved. He is not that short of breath like he was on admission. He has positive blood cultures but negative for Covid. The daughter is in the room. The daughter came out eventually outside, the patient was in the room. The daughter agreed that the patient needs to go to the skilled nursing because he is very difficult to handle at home, requires a lot of help in caring, pushing and pulling. The patient is very stubborn, difficult personality. TIME SPENT: More than 30 minutes. Plan and coordination of the patient's care discussed in the presence of nurse. KAYLEY
--- NOTE | 2020-07-15 09:27 | DS ---
DATE OF SERVICE: 07/05/20 - TO SWING BED FINAL DIAGNOSIS: 1. ACUTE COPD EXACERBATION 2. SEPSIS - POSITIVE ENTEROCCOCUS - IT WAS THE SAME ORGANISMS IN [facility] A FEW WEEKS AGO. 4. ATAXIA - GAIT DIFFICULTY FROM GENERALIZED OSTEOARTHRITIS. 5. IMPAIRED SAFETY AWARENESS. 6. EARLY DEMENTIA. 7. FAIRLY NEW AORTIC ANEURYSM 4.6 CM 05/2020, REFUSES VASCULAR REFERRAL OR ANY OTHER FURTHER EVALUATION 8. C02 DEPENDENCE 9. COPD 10. HEAVY SMOKER 11. CHRONIC RESPIRATORY FAILURE 12. HYPERTENSION 13. NEUROPATHY 14. HISTORY OF GOUT 15. REFLUX DISEASE 16. CHRONIC KIDNEY DISEASE 17. BILATERAL SHOULDER PAIN STATUS POST SHOULDER SURGERY 18. RENAL CELL CARCINOMA - REFUSES CONSULTATION 19. LEFT SCIATICA AND TREMORS 20. CHF 21. DYSLIPIDEMIA 22. HISTORY OF FALLS 23. NONCOMPLIANCE WITH LIFESTYLE, MEDICATIONS, DIET AND FOLLOWUP 24. BILATERAL TOTAL KNEE REPLACEMENT 25. LEFT NEPHRECTOMY 26. STATUS POST BACK SURGERY THREE TIMES 27. THE PATIENT IS DNR. LAST VITALS Temp Pulse Resp BP Pulse Ox 97.1 F L 63 17 112/61 96 07/05/20 06:08 07/05/20 05:34 07/05/20 05:34 07/05/20 05:34 07/05/20 10:00 DISCHARGE INSTRUCTIONS: 1. DISCHARGE: JULY 05, 2020 FROM INPATIENT TO SWING BED 2. MD FOLLOW UP: DR. CAROLINA/ ALIA KING APRN/ MONICA AVILA APRN TO SEE ON ROUNDS. 3. VITAL SIGNS: EVERY 12 HOURS AND PRN 4. PT AND OT EVALUATION 5. CODE STATUS: DO NOT RESUSCITATE 6. LABS: CBC AND CMP IN THE AM OF 07/06/2020 THEN EVERY 3 DAYS; VANCOMYCIN TROUGH 07/08/2020 @ 830 AM. MEDICATIONS AT DISCHARGE: Acetaminophen (Acetaminophen 325 Mg Tablet) 650 mg PO Q4H PRN PRN Reason: Headache Hydrocodone Bitart/Acetaminophen (Hydrocodone Bit/Acetaminophen 5/325 Mg Tablet) 0.5 - 1 tab PO Q6HR PRN PRN Reason: Pain Albuterol Sulfate (Albuterol Sulfate (Ventolin Hfa) 18 Gm 1 Puff With Spacer) 2 puff IH RTTID [facility] Last Admin: 07/05/20 04:50 Dose: 2 puff Documented by: Allopurinol (Allopurinol 100 Mg Tablet) 300 mg PO DAILY [facility] Last Admin: 07/05/20 09:20 Dose: 300 mg Documented by: Aspirin (Aspirin 81 Mg Tablet.Dr) 81 mg PO DAILYWM [facility] Last Admin: 07/05/20 09:20 Dose: 81 mg Documented by: Atropine Sulfate (Atropine Sulfate Inj 1 Mg/10 Ml Disp.Syrin) 0.5 mg IVP ONCE PRN PRN Reason: Symptomatic Bradycardia Budesonide/Formoterol Fumarate (Budesonide/Formoterol Fumarate 160/4.5 Mcg Inhaler) 2 puff IH BID [facility] Last Admin: 07/05/20 09:22 Dose: 2 puff Documented by: Furosemide (Furosemide 20 Mg Tablet) 20 mg PO QDAC [facility] Last Admin: 07/05/20 05:30 Dose: 20 mg Documented by: Gabapentin (Gabapentin 300 Mg Capsule) 600 mg PO DAILY [facility] Last Admin: 07/05/20 09:20 Dose: 600 mg Documented by: Hydrocortisone Sodium Succinate (Hydrocortisone Sod Succ/Pf 100 Mg/2 Ml Vial) 100 mg IVP Q8HR [facility] Last Admin: 07/05/20 13:14 Dose: 100 mg Documented by: Hydroxyzine HCl (Hydroxyzine Hcl 25 Mg/Ml Vial) 25 mg IM Q4H PRN PRN Reason: Nausea/Vomiting/Restlessness Sodium Chloride (Sodium Chloride) 1,000 mls @ 75 mls/hr IV .[id number] [facility] Last Admin: 07/05/20 13:14 Dose: 75 mls/hr Documented by: Vancomycin HCl 1 gm/ Sodium (Chloride) 250 mls @ 250 mls/hr IV Q12HR [facility] Stop: 07/09/20 08:59 Last Admin: 07/05/20 10:38 Dose: 250 mls/hr Documented by: Multivitamins (Multivitamin 1 Tab) 1 tab PO DAILY [facility] Last Admin: 07/05/20 09:20 Dose: 1 tab Documented by: Nicotine (Nicotine 21 Mg Patch.Td24) 1 patch TD DAILY [facility] Last Admin: 07/05/20 09:20 Dose: 1 patch Documented by: Nitroglycerin (Nitroglycerin 0.4 Mg Tab.Subl) 0.4 mg SL Q5MIN X 3 DOSES PRN PRN Reason: Chest Pain Non-Formulary Medication (Dimenhydrinate) 50 mg PO TID PRN PRN Reason: Dizziness Non-Formulary Medication (Potassium) 99 mg PO DAILY [facility] Last Admin: 07/05/20 09:21 Dose: 99 mg Documented by: Non-Formulary Medication (Propylene Glycol ) 1 drop EACHEYE BID PRN PRN Reason: Dry Eye Non-Formulary Medication (Hemp Gummy Bear) 50 mg PO DAILY [facility] Last Admin: 07/05/20 10:59 Dose: Not Given Documented by: Omeprazole (Omeprazole 20 Mg Capsule.) 20 mg PO BIDAC [facility] Last Admin: 07/05/20 05:30 Dose: 20 mg Documented by: Roflumilast (Roflumilast 500 Mcg Tablet) 500 mcg PO DAILY [facility] Last Admin: 07/05/20 09:21 Dose: 500 mcg Documented by: Simvastatin (Simvastatin 10 Mg Tablet) 20 mg PO DAILY [facility] Last Admin: 07/05/20 09:20 Dose: 20 mg Documented by: Sodium Chloride (0.9% Sodium Chloride 10 Ml Disp.Syrin) 1 syr IVF Q8HR PRN PRN Reason: PATENCY Tamsulosin HCl (Tamsulosin Hcl 0.4 Mg Cap.Er.24h) 0.4 mg PO DAILY [facility] Last Admin: 07/05/20 09:20 Dose: 0.4 mg Documented by: Tramadol HCl (Tramadol Hcl 50 Mg Tablet) 50 mg PO BID [facility] Last Admin: 07/05/20 10:45 Dose: Not Given Documented by: NEW PRESCRIPTIONS: CONTINUE SAME INPATIENT MEDICATIONS DISCONTINUED MEDICATIONS: NONE DIET INSTRUCTIONS: REGULAR DIET AND COFFEE WITH ALL MEALS; BOOST PLUS 240 ML BID ( 1000 AND 1400) CONSTRUCTION SAFETY CONSULTANT CONSULT - LOW TP AND ALBUMIN ACTIVITY: UP WITH ASSIST OF ONE AND WALKER. PROGRESS DIRECTED PER THERAPY DEPARTMENT. FALL PRECAUTIONS. SMOKING: SMOKING CESSATION HOSPITAL COURSE: This 89-year-old male patient was hospitalized with shortness of breath, weakness, cough and congestion. The patient was Covid negative. The patient was treated in the hospital with IV antibiotics. Now he is on Vancomycin IV along with steroids and nebs treatment. His overall condition has improved remarkably every day. The daughter was present in the room. He is oriented to time, place and person most of the time with confusion at times regarding the date and the time. The patient has multiple medical problems as listed. He doesn't want any further evaluation of infrarenal aorta or left renal carcinoma. He has generalized osteoarthritis which is severe. He is practically unable to walk. He walks with a walker. Condition [facility] is [facility]. The patient is for physical therapy to improve his strength and for ataxia. TIME SPENT: More than 60 minutes. MTDD
--- NOTE | 2020-07-15 10:17 | PN ---
BILLING 07/02/20 ADMISSION DAY LEVEL 5 07/03/20 INTERMEDIATE 07/04/20 INTERMEDIATE 07/05/20 DISCHARGE MTDD
== END 2020-07-05 15:23 | disposition swing bed (61) | DRG 872 ==
LOC: MEDSURG B 11:16 → SCU 16:35 → MEDSURG A 07-04 09:28
PROVIDERS: ADMIT Internal Medicine; ATTEND Internal Medicine

== ENCOUNTER 2020-09-10 20:01 | Inpatient (IN) ==
--- NOTE | 2020-09-10 20:47 | ED.PDOC ---
General ED Provider: Dr. MICHELLE FRAZIER Chief Complaint: Fall Stated Complaint: Patient is an 89 year old male who lives at home with family comes to the ER by EMS with a fall with no injuries. Family states he has been feeling weak hence fell but was a controlled fall. His only complaint is chronic back pain and bilateral lower extremity pain the later has been going on for two weeks. Time Seen by Physician: 20:30 Mode of Arrival: Ambulance Information Source: Patient and EMT Primary Care Provider: DARY CAROLINA Nursing and Triage Documentation Reviewed and Agree: Yes Does patient meet sepsis criteria?: No System Inflammatory Response Syndrome: Not Applicable Sepsis Protocol: For patient's 13 years and over: Temp is 96.8 and below OR 101 and greater Pulse >90 BPM Resp >20/minute Acutely Altered Mental Status Are patient's symptoms suggestive of a new infection, such as: -Pneumonia -Skin, Soft Tissue -Endocarditis -UTI -Bone, Joint Infection -Implantable Device -Acute Abdominal Infection -Wound Infection -Meningitis -Blood Stream Catheter Infection -Unknown Review of Systems Review Of Systems Constitutional: Reports Weakness Eyes: Reports No symptoms and Other (Hard of hearing ) Ears, Nose, Mouth, Throat: Reports No symptoms Respiratory: Reports Wheezing (Chronic ) Cardiac: Reports Edema; Denies Chest pain GI: Reports No symptoms : Reports No symptoms Musculoskeletal: Reports Back pain and Muscle pain (Bilateral chronic lower extremity swelling ) Skin: Reports No symptoms Neurological: Reports Anxiety All Other Systems: Reviewed and Negative [facility] Medical History (Updated 09/10/20 @ 23:47 by MICHELLE FRAZIER MD) Arthritis Arthritis associated with foreign body Chronic obstructive airway disease Chronic otitis media Dysfunction of both eustachian tubes Gastro-esophageal reflux Gout Hyperlipemia Hypertension Nerve pain Pain Sensorineural hearing loss (SNHL) of both ears Sinusitis Urinary bladder disorder Vertigo Family History FATHER Diabetes Coronary artery arteriosclerosis Social History Smoking and tobacco status: Current every day smoker Tobacco: How many years used: 80 Passive smoking exposure: Yes Quit status: not considering quitting Surgical History History of bilateral knee replacement History of hip replacement History of nephrectomy Physical Exam Physical Exam Appearance: Reports Well-nourished and Other (weak appearing unable to stand without assitance. ) Ill-appearing: Mild Pain Distress: Mild Eyes: Reports Conjunctiva clear ENT: Reports Oropharynx normal Neck: Supple Respiratory: Reports Airway patent and Wheezes ( scattared ) Cardiovascular: Reports RRR and Pulses normal GI/: Reports Soft, Nontender and No masses Musculoskeletal: Reports Normal strength, ROM intact and Edema (3 + pitting edema on the lower extremites bilatearlly ) Skin: Reports Warm and Dry Neurological: Reports Sensation intact and Motor intact Psychiatric: Reports Anxious Interpretation EKG Interpretation Time of EKG #1: 20:56 Rate: Tachy Rhythm: Sinus Ectopy: None [place]: [place] ST Segment: Normal Interpretation: sinus Tachycardia rate 101 Physician Notification Case Discussed Physician Notified: [place] Time of Notification: 23:20 Critical Care Note Critical Care Note Total Critical Care Time (mins): 40 Course Course Hematology/Chemistry: 09/10/20 21:02 09/10/20 21:02 Orders, Labs, Meds: Lab Review 09/10/20 09/10/20 09/10/20 20:40 21:02 21:02 WBC 10.44 H RBC 3.26 L Hgb 9.6 L Hct 28.8 L MCV 88.3 MCH 29.4 MCHC 33.3 RDW Coeff of Shira 14.3 Plt Count 252 Immature Gran % (Auto) 0.4 Neut % (Auto) 82.1 H Lymph % (Auto) 8.2 L Barber % (Auto) 8.4 Eos % (Auto) 0.4 Baso % (Auto) 0.5 Neut # (Auto) 8.6 H Lymph # (Auto) 0.9 Barber # (Auto) 0.9 Eos # (Auto) 0.0 Baso # (Auto) 0.1 Immature Gran # (Auto) 0.0 Puncture Site Rrad Base Excess 10.2 H O2 Saturation 97.9 ABG pH 7.49 H ABG pCO2 44.0 ABG pO2 94.0 ABG HCO3 33.5 H ABG Total CO2 34.9 H Anish Test + Hemoglobin 1.0 Oxyhemoglobin 94.5 L Carboxyhemoglobin 2.4 H Total Hemoglobin 9.8 L O2 Delivery Device Nc Oxygen Liter Flow 2.00 FiO2 % 28.0 Sodium 136.6 Potassium 3.74 Chloride 99.0 Carbon Dioxide 31.8 H Anion Gap 9.54 BUN 19.4 Creatinine 1.59 H Estimated GFR (MDRD) 41.00 BUN/Creatinine Ratio 12.20 Glucose 107.3 H Lactic Acid Calcium 8.77 Total Bilirubin 0.54 AST 45.5 ALT 28.7 Alkaline Phosphatase 80.9 Total Creatine Kinase 265.3 H CK-MB (CK-2) 2.880 H CK-MB (CK-2) % 1.0800 Troponin I 0.356 H Total Protein 7.73 Albumin 3.69 Globulin 4.04 Albumin/Globulin Ratio 0.91 Procalcitonin Adenovirus (PCR) B. pertussis DNA (PCR) B.parapertussis DNA PCR C. pneumoniae DNA (PCR) Coronavirus OC43 (PCR) Coronavirus HKU1 (PCR) Coronavirus 229E (PCR) Coronavirus NL63 (PCR) Human Metapneumovir PCR Influenza Type A (PCR) Influenza B (RT-PCR) M. pneumoniae (PCR) Parainfluenza 1 (PCR) Parainfluenza 2 (PCR) Parainfluenza 3 (PCR) Parainfluenza 4 (PCR) RSV (PCR) Entero/Rhino (PCR) SARS-CoV-2 (PCR) 09/10/20 09/10/20 09/10/20 21:02 21:02 21:02 WBC RBC Hgb Hct MCV MCH MCHC RDW Coeff of Shira Plt Count Immature Gran % (Auto) Neut % (Auto) Lymph % (Auto) Barber % (Auto) Eos % (Auto) Baso % (Auto) Neut # (Auto) Lymph # (Auto) Barber # (Auto) Eos # (Auto) Baso # (Auto) Immature Gran # (Auto) Puncture Site Base Excess O2 Saturation ABG pH ABG pCO2 ABG pO2 ABG HCO3 ABG Total CO2 Anish Test Hemoglobin Oxyhemoglobin Carboxyhemoglobin Total Hemoglobin O2 Delivery Device Oxygen Liter Flow FiO2 % Sodium Potassium Chloride Carbon Dioxide Anion Gap BUN Creatinine Estimated GFR (MDRD) BUN/Creatinine Ratio Glucose Lactic Acid 1.24 Calcium Total Bilirubin AST ALT Alkaline Phosphatase Total Creatine Kinase CK-MB (CK-2) CK-MB (CK-2) % Troponin I Total Protein Albumin Globulin Albumin/Globulin Ratio Procalcitonin 0.30 Adenovirus (PCR) Not detected B. pertussis DNA (PCR) Not detected B.parapertussis DNA PCR Not detected C. pneumoniae DNA (PCR) Not detected Coronavirus OC43 (PCR) Not detected Coronavirus HKU1 (PCR) Not detected Coronavirus 229E (PCR) Not detected Coronavirus NL63 (PCR) Not detected Human Metapneumovir PCR Not detected Influenza Type A (PCR) Not detected Influenza B (RT-PCR) Not detected M. pneumoniae (PCR) Not detected Parainfluenza 1 (PCR) Not detected Parainfluenza 2 (PCR) Not detected Parainfluenza 3 (PCR) Not detected Parainfluenza 4 (PCR) Not detected RSV (PCR) Not detected Entero/Rhino (PCR) Not detected SARS-CoV-2 (PCR) Not detected Orders Category Date Time Status ABG DRAW REQUEST Stat CARDIO 09/10/20 20:36 Ordered EKG-(ED ONLY) Stat CARDIO 09/10/20 20:35 Ordered EKG-(IP & OP ONLY) Routine CARDIO 09/10/20 07:00 Ordered METERED DOSE INHALATION Routine CARDIO 09/10/20 22:16 Ordered OXYGEN Routine CARDIO 09/10/20 23:39 Ordered ACTIVITY .Early Mobilization for VTE Prevention CARE 09/10/20 23:40 Ordered INTAKE & OUTPUT Q8HR CARE 09/10/20 23:39 Ordered VITAL SIGNS Q4HR CARE 09/10/20 23:39 Ordered 2 GRAM SODIUM DIET DIETARY 09/10/20 Breakfast Ordered ED ORTHOSTATIC VITAL SIGNS .ONCE EMERGENCY 09/10/20 20:38 Active ABG COOX Stat LAB 09/10/20 20:40 Completed CBC W/ AUTO DIFF DAILY@0600 LAB 09/11/20 06:00 Ordered CBC W/ AUTO DIFF DAILY@0600 LAB 09/12/20 06:00 Ordered CBC W/ AUTO DIFF Stat LAB 09/10/20 21:02 Completed COMPREHENSIVE METABOLIC PANEL DAILY@0600 LAB 09/11/20 06:00 Ordered COMPREHENSIVE METABOLIC PANEL DAILY@0600 LAB 09/12/20 06:00 Ordered COMPREHENSIVE METABOLIC PANEL Stat LAB 09/10/20 21:02 Completed CREATINE KINASE Q8H LAB 09/11/20 07:00 Ordered CREATINE KINASE Stat LAB 09/10/20 21:02 Completed LACTIC ACID Stat LAB 09/10/20 21:02 Completed PROCALCITONIN Stat LAB 09/10/20 21:02 Completed RESPIRATORY PANEL 2.1 (PCR) Stat LAB 09/10/20 21:02 Completed TROPONIN I Q8H LAB 09/11/20 07:00 Ordered TROPONIN I Stat LAB 09/10/20 21:02 Completed Albuterol Inhaler (Single Pt) [Proair Hfa (Single MEDS 09/10/20 22:16 Discontinued Patient Use)] 2 puff IH ONCE STA Enoxaparin Sodium [Lovenox] MEDS 09/11/20 09:00 Ordered 30 mg SUBCUT DAILY Ipratropium Inhaler(Spacer) [Atrovent Hfa Inhaler (Per MEDS 09/10/20 22:16 Discontinued Puff-with Spacer)] 2 puff IH ONCE STA RESUSCITATION STATUS Routine OTHERS 09/10/20 23:39 Ordered CHEST, 1V AP ONLY Stat RADS 09/10/20 20:35 Completed Medications Generic Name Dose Route Start Last Admin Trade Name Freq PRN Reason Stop Dose Admin Hydrocodone Bitart/Acetaminophen 1 tab 09/11/20 09:00 Hydrocodone Bit/Acetaminophen 5/325 Mg Tablet PO DAILY AR Albuterol Sulfate 2 puff 09/10/20 23:42 Albuterol Sulfate (Ventolin Hfa) 18 Gm 1 Puff With Spacer IH Q4H PRN wheezing Allopurinol 300 mg 09/11/20 09:00 Allopurinol 100 Mg Tablet PO DAILY AR Colestipol HCl 1 gm 09/10/20 23:42 Colestipol Hcl 1 Gm Tablet PO DAILY PRN diarrhea Enoxaparin Sodium 30 mg 09/11/20 09:00 Enoxaparin Sodium 30 Mg/0.3 Ml Syr SUBCUT DAILY AR Furosemide 20 mg 09/11/20 09:00 Furosemide 20 Mg Tablet PO DAILY AR Gabapentin 600 mg 09/11/20 09:00 Gabapentin 300 Mg Capsule PO DAILY AR Non-Formulary Medication 1 spray 09/11/20 09:00 Azelastine-Fluticasone SOPHIA BID AR Non-Formulary Medication 50 mg 09/10/20 23:42 Dimenhydrinate [Dramamine] PO DAILY PRN dizziness or vertigo Non-Formulary Medication 325 mg 09/11/20 09:00 Ferrous Sulfate PO DAILY AR Non-Formulary Medication 50 mg 09/10/20 23:42 Hemp Gummy Bear PO QID PRN Pain Non-Formulary Medication 20 mg 09/11/20 09:00 Omeprazole PO BID AR Non-Formulary Medication 99 mg 09/11/20 09:00 Potassium PO DAILY AR Non-Formulary Medication 1 drop 09/10/20 23:42 Propylene Glycol [Systane Balance] OP BID PRN Dry eyes Roflumilast 500 mcg 09/11/20 09:00 Roflumilast 500 Mcg Tablet PO DAILY AR Simvastatin 20 mg 09/11/20 09:00 Simvastatin 10 Mg Tablet PO DAILY AR Tamsulosin HCl 0.4 mg 09/11/20 09:00 Tamsulosin Hcl 0.4 Mg Cap.Er.24h PO DAILY AR Tramadol HCl 50 mg 09/11/20 09:00 Tramadol Hcl 50 Mg Tablet PO BID AR Discontinued Medications Generic Name Dose Route Start Last Admin Trade Name Freq PRN Reason Stop Dose Admin Albuterol Sulfate 2 puff 09/10/20 22:16 09/10/20 22:35 Albuterol Sulfate 8.5 Gm Inhaler (Single Patient Use) 09/10/20 22:17 2 puff ONCE STA Administration Ipratropium [employer] 2 puff 09/10/20 22:16 09/10/20 22:35 Ipratropium [employer] 12.9 Gm Hfa Inhaler Per Puff With Spacer 09/10/20 22:17 2 puff ONCE STA Administration Vital Signs: Temp Pulse Resp BP Pulse Ox 09/10/20 23:36 96.7 F L 101 H 28 H 106/61 95 09/10/20 20:51 112 H 152/96 H 09/10/20 20:02 97.7 F 98 H 24 132/82 99 Discharge Plan Discharge Patient Disposition: ADMITTED INPATIENT Discharge Problem: Falls, Weakness ED Provider: MICHELLE FRAZIER Condition: Stable Physician Progress Note: []
[2020-09-10 21:09] LABS: BASOPHILS # (AUTO) 0.1 K/uL (0-0.2); BASOPHILS % (AUTO) 0.5 % (0.0-3.0); EOSINOPHILS % (AUTO) 0.4 % (0.0-7.0); HEMATOCRIT 28.8 % (42.0-52.0); HEMOGLOBIN 9.6 g/dl (14.0-18.0); IMMATURE GRANULOCYTE % (AUTO) 0.4 % (0.0-5.0); LYMPHOCYTES # (AUTO) 0.9 K/uL (0.60-3.4); LYMPHOCYTES % (AUTO) 8.2 (10.0-50.0); MEAN CORPUSCULAR HEMOGLOBIN 29.4 pg (27.0-31.0); MEAN CORPUSCULAR HGB CONC 33.3 (31.8-35.4); MEAN CORPUSCULAR VOLUME 88.3 fl (80.0-94.0); MONOCYTES # (AUTO) 0.9 K/uL (0.4-2.0); MONOCYTES % (AUTO) 8.4 (0-10); NEUTROPHILS # (AUTO) 8.6 K/ul (2.0-6.9); NEUTROPHILS % (AUTO) 82.1 % (42.2-75.2); PLATELET COUNT 252 10^3/uL (140-440); RDW COEFFICIENT OF VARIATION 14.3 % (11.6-14.8); RED BLOOD COUNT 3.26 10^6/ul (4.70-6.10); WHITE BLOOD COUNT 10.44 K/ul (4.2-10.2)
[2020-09-10 21:22] LABS: ALANINE AMINOTRANSFERASE 28.7 U/L (0-50); ALBUMIN 3.69 g/dL (3.5-5.0); ALKALINE PHOSPHATASE 80.9 U/L (56-119); ASPARTATE AMINO TRANSFERASE 45.5 U/L (17-59); BILIRUBIN,TOTAL 0.54 mg/dL (0.2-1.3); BLOOD UREA NITROGEN 19.4 mg/dL (9-20); CALCIUM 8.77 mg/dL (8.4-10.2); CARBON DIOXIDE 31.8 mmol/L (22-30.0); CREATINE KINASE 265.3 U/L (55-170); CREATININE 1.59 mg/dL (0.60-1.10); GLUCOSE 107.3 mg/dL (74-106); POTASSIUM 3.74 mmol/L (3.5-5.1); SODIUM 136.6 mmol/L (134.5-145); TOTAL PROTEIN 7.73 g/dL (6.3-8.2)
--- NOTE | 2020-09-10 21:26 | DI ---
EXAM: Chest, single view COMPARISON: Chest radiographs 08/30/2020. CT chest 07/02/2020. HISTORY: Cough. FINDINGS: Images are somewhat limited by patient rotation. There is tortuosity and prominence of th e thoracic aorta at the level of the ascending aorta and aortic arch. 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 Cardiac silhouette is stable i n appearance. Emphysematous changes of the lungs. Patchy airspace opacities left lower lobe may rep resent atelectasis versus evolving infiltrate/pneumonia. No definite pleural effusion or pneumothora x. The final report was faxed to the radiology department and emergency room at 9:20 p.m. on 09/10/2020. IMPRESSION: 1. Increasing airspace opacities left lung base which may represent atelectasis versus early pneumon ia. Consider follow-up radiographs with PA and lateral views. 2. Emphysema. 3. Prominence and tortuosity of the ascending aorta/aortic arch with aneurysmal dilation of the asce nding aorta noted on CT 07/02/2020. Consider follow-up imaging with postcontrast CT as clinically wa rranted.
[2020-09-10 21:31] LABS: ABG PH 7.49 (7.35-7.45)
[2020-09-10 21:34] LABS: TROPONIN I 0.356 ng/ml (0.0000-0.120)
[2020-09-10 21:37] LABS: CREATINE KINASE MB 2.88 ng/ml (0.0-2.38)
[2020-09-10] MEDS ORDERED: PROAIR HFA (SINGLE PATIENT USE) IH STA (22:16)
[2020-09-10] MEDS ORDERED: ATROVENT HFA INHALER (PER PUFF-WITH SPACER) IH STA (22:16)
[2020-09-10] MEDS ORDERED: VENTOLIN HFA (PER PUFF-WITH SPACER) IH ONE (22:35)
[2020-09-10] MEDS ORDERED: DIMENHYDRINATE 50 MG PO PRN (23:42)
[2020-09-10] MEDS ORDERED: COLESTID PO PRN (23:42)
[2020-09-10] MEDS ORDERED: NON-FORMULARY MEDICATION (Propylene Glycol [Systane Balance] 0.6 % Drops) EACHEYE PRN (23:42)
[2020-09-10] MEDS ORDERED: VENTOLIN HFA (PER PUFF-WITH SPACER) IH PRN (23:42)
[2020-09-11 01:22] VITALS: BMI 28.9
[2020-09-11 07:23] LABS: BASOPHILS # (AUTO) 0.1 K/uL (0-0.2); BASOPHILS % (AUTO) 0.6 % (0.0-3.0); EOSINOPHILS # (AUTO) 0.1 K/ul (0.0-0.7); EOSINOPHILS % (AUTO) 0.9 % (0.0-7.0); HEMATOCRIT 26.6 % (42.0-52.0); HEMOGLOBIN 8.9 g/dl (14.0-18.0); IMMATURE GRANULOCYTE % (AUTO) 0.4 % (0.0-5.0); LYMPHOCYTES # (AUTO) 0.9 K/uL (0.60-3.4); MEAN CORPUSCULAR HEMOGLOBIN 29.5 pg (27.0-31.0); MEAN CORPUSCULAR HGB CONC 33.5 (31.8-35.4); MEAN CORPUSCULAR VOLUME 88.1 fl (80.0-94.0); MONOCYTES # (AUTO) 0.9 K/uL (0.4-2.0); MONOCYTES % (AUTO) 9.9 (0-10); NEUTROPHILS # (AUTO) 6.6 K/ul (2.0-6.9); NEUTROPHILS % (AUTO) 77.2 % (42.2-75.2); PLATELET COUNT 244 10^3/uL (140-440); RDW COEFFICIENT OF VARIATION 14.4 % (11.6-14.8); RED BLOOD COUNT 3.02 10^6/ul (4.70-6.10); WHITE BLOOD COUNT 8.55 K/ul (4.2-10.2)
[2020-09-11 07:40] LABS: ALBUMIN 3.16 g/dL (3.5-5.0); ALKALINE PHOSPHATASE 70.8 U/L (56-119); ASPARTATE AMINO TRANSFERASE 61.5 U/L (17-59); BILIRUBIN,TOTAL 0.62 mg/dL (0.2-1.3); BLOOD UREA NITROGEN 17.6 mg/dL (9-20); CALCIUM 8.58 mg/dL (8.4-10.2); CARBON DIOXIDE 31.2 mmol/L (22-30.0); CREATINE KINASE 763.3 U/L (55-170); CREATININE 1.4 mg/dL (0.60-1.10); GLUCOSE 120.6 mg/dL (74-106); POTASSIUM 3.54 mmol/L (3.5-5.1); SODIUM 135.2 mmol/L (134.5-145); TOTAL PROTEIN 6.91 g/dL (6.3-8.2)
[2020-09-11] MEDS: ULTRAM PO SCH ×2 (08:05→20:47)
[2020-09-11] MEDS: NEURONTIN PO SCH (08:05)
[2020-09-11] MEDS: PRILOSEC PO SCH ×2 (08:06→20:48)
[2020-09-11] MEDS: DALIRESP PO SCH (08:06)
[2020-09-11] MEDS: NORCO 5-325 PO SCH (08:06)
[2020-09-11] MEDS: ZYLOPRIM PO SCH (08:06)
[2020-09-11] MEDS: ZOCOR PO SCH (08:07)
[2020-09-11] MEDS: FERROUS SULFATE PO SCH (08:07)
[2020-09-11] MEDS: LASIX TAB PO SCH (08:07)
[2020-09-11] MEDS: FLOMAX PO SCH (08:07)
[2020-09-11] MEDS: LOVENOX SUBCUT SCH (08:08)
[2020-09-11 08:18] LABS: CREATINE KINASE MB 4.37 ng/ml (0.0-2.38); TROPONIN I 0.959 ng/ml (0.0000-0.120)
[2020-09-11] MEDS: ASTELIN 0.1% NAS SCH ×2 (08:26→20:48)
[2020-09-11] MEDS: FLONASE NAS SCH ×2 (08:26→20:48)
[2020-09-11] MEDS ORDERED: NON-FORMULARY MEDICATION (Azelastine-Fluticasone 137-50 mcg/spray Spray,Non-Aerosol) NAS SCH (09:00)
[2020-09-11] MEDS: NON-FORMULARY MEDICATION (Potassium 99 mg Tablet) PO SCH (09:29)
--- NOTE | 2020-09-11 11:26 | RS.OTINEVL ---
Subjective - Patient information Date of Evaluation: 09/11/20 Date of Arrival on Unit: 09/11/20 Admitted From:: Home Diagnosis: weakness and falls PRECAUTIONS: Weakness, falls, pitting edema of BLE Usual Living Arrangement: Alone Living Arrangement Comments: pt has 3 ladies that come in to help him at home. Home Environment: House, Ramp Medical History: Hypertension, COPD, CHF, Arthritis Medical History Comments:: neuropathy, gout, GERD, chronic kidney disease, infrarenal AAA, falls LATEX ALLERGY?: No Surgical History: Knee Replacement (BTKR), Lumbar Spine, Cholecystectomy Surgical History Comments:: Adrianne taylor nephrectomy, shoulder surgery Medications: see chart Subjective Information/ Patient Comments:: Pt reported that he his feet were tangled up in the bathroom which made him fall. The caregiver helped him to the floor. - Level of function Prior to this admission, the patient could do the following:: Independent ADL's, Independent Ambulation Abilities prior to this admission: Pt was living at home with caregivers and family members coming to help him at different times. Pt had help with cooking, cleaning, bathing, and toileting. Current Level of Function: Partially Dependent Current Equipment Used at Home: Rolling Walker Pain Assessment - Pain Pain Score: 7 (Pt moaned when socks were donned.) Side: bilateral Pain Location Body Site: Foot Pain Aggravating Factors: ADL's, Changing Position, Standing, Sitting, Walking Pain Alleviating Factors: Medication, Position Change Interventions - Objective Patient Orientation: Person, Place, Situation Current Interventions: IV's, Oxygen Observation: Pt is weak and in pain. Pt able to scoot to sit EOB independently. Pt then stood from EOB with 2 people minimal assistance. Pt stood to RW minimal assistance and tries to walk in a flexed position and hand placement on the front of the walker. Pt is not always accepting to advice regarding safety of tranfers. Interventions - ROM Right Upper Extremity AROM: Slight limitation Left Upper Extremity AROM: Slight limitation - Strength Right Upper Extremity Strength: Mild Weakness Left Upper Extremity Strength: Mild Weakness - Sensation Right Upper Extremity Sensation: Intact/Normal Left Upper Extremity Sensation: Intact/Normal Balance - Sitting Balance Static Sitting Balance: Fair Dynamic Sitting Balance: Fair - Standing Balance Static Standing Balance: Poor Dynamic Standing Balance: Poor ADL Skills - Self Feeding Self Feeding: Independent - Grooming Grooming: Min Assist - Bathing Bathing UE: Not Tested Bathing LE: Not Tested - Dressing Dressing UE: Min Assist Dressing LE: Max Assist - Toilet Management Toileting Management: Mod Assist Functional Mobility - Bed Mobility Rolling R/L: Independent Scooting: Independent Supine to Sit: Independent Sit to Supine: Independent - Transfers Sit to Stand: Min Assist Stand to Sit: Min Assist Stand Pivot Transfers: Min Assist, 2 person assist - Ambulation Weight Bearing Status: FWB Assistive Device Used: Rolling Walker Assistance needed with Ambulation: Min Assist, 2 person assist - Safety Awareness Safety Awareness: Fair VASILIY INDEX SCORE: . Additional Treatment Performed - Time with patient Length of Evaluation: 19 Total treatment time: 24 Activities Do you enjoy playing games?: No Would you be interested in leaving your room for activities?: Yes Would you enjoy group activities?: Yes Do you have difficulty with your vision?: Yes Patient Interests:: Watching Television Comments:: Watches the news Patient Education Patient Education: Education of diagnosis, Body/Joint mechanics, Home Safety, Education of Plan of Care Teaching Recipient: Patient Teaching Methods: Discussion Assessment Problem List:: Decreased level of function, Requires training/education, Decreased safety/Risk of falls, Weakness, Pain limits previous level of function Rehab Potential: Fair Further Therapy Indicated?: Yes Evaluation Complexity: HISTORY: Medium, EXAM OF BODY SYSTEMS: Medium, CLINICAL DECISION MAKING: Medium Patient's Goal(s): To go back home. Short Term Goals - Goals GOAL 1: Pt to tolerate 10 mins of standing activity to increase safety of TF's Goal to be met by: 09/17/20 GOAL 2: Increase Dyn standing bal to F+ to increase ss ADL's Goal to be met by: 09/17/20 GOAL 3: Increase BUE strength to 4/5 to increase I of drsg Goal to be met by: 09/17/20 GOAL 4: To increase I of toilet transfers to SBA. Goal to be met by: 07/12/20 Integrated Logistics Programs Director Goals GOAL 1: Pt to increase activity tolerance to 15 minutes for ADLS. Goal to be met by: 09/20/20 GOAL 2: Pt to increase independence of ADLS to Mod-I. Goal to be met by: 09/20/20 GOAL 3: Pt to increase strength of BUE to 4+/5. Goal to be met by: 09/20/20 Plan Plan of Care: Therapeutic EX, Therapeutic Activity, Self-Care/Home Management Frequency of Treatment: 1-2 X day, as tolerated Duration of Treatment: 1 Week Anticipated Discharge Destination: [facility] Treatment Diagnosis (ICD 10 Codes): Muscle weakness M62.81, Z74.1 Need for personal care. Has the Physician been added for Co-signature?: Yes
--- NOTE | 2020-09-11 11:55 | RS.PTINEVL ---
Subjective - Patient information Date of Evaluation: 09/11/20 Date of Arrival on Unit: 09/10/20 Admitted From:: Home Diagnosis: weakness, s/p fall at home, difficulty walking Usual Living Arrangement: Alone Home Environment: House, Stairs (few), Rail Medical History: Hypertension, COPD, Arthritis Medical History Comments:: GERD, gout, vertigo, nerve pain, chronic [place] media LATEX ALLERGY?: No Surgical History: Knee Replacement (B TKR), Hip Replacement Surgical History Comments:: nephrectomy Medications: see chart Subjective Information/ Patient Comments:: pt states that he hurts all over. pt gets agitated with instructions. - Level of function Prior to this admission, the patient could do the following:: Independent ADL's, Independent Ambulation Current Level of Function: Partially Dependent Current Equipment Used at Home: Rolling Walker Pain Assessement - Location all over Description: Aching Pain Behavior: Irritability Pain Alleviating Factors: Inactivity Interventions - Objective Patient Orientation: Person, Place, Time Current Interventions: Oxygen (2 liters), Telemetry Observation: pt with pitting edema BLE Range of Motion - ROM Right Upper Extremity AROM: Slight limitation (decreased shld flex) Left Upper Extremity AROM: WFL's Right Lower Extremity AROM: WFL's Left Lower Extremity AROM: WFL's Muscle Strength - Muscle Strength Right Upper Extremity Strength: Mild Weakness (shld flex 3-/5, elbow flex/ext 4/5,) Left Upper Extremity Strength: Mild Weakness (shld flex 4-/5, elbow flex/ext 4/5,) Right Lower Extremity Strength: Mild Weakness (hip flex 3+/5, knee flex/ext 4- /5, ankle DF/PF 4-/5) Left Lower Extremity Strength: Mild Weakness (hip flex 3+/5, knee flex/ext 4-/5, ankle DF/PF 4-/5) Sensation - Sensation Right Upper Extremity Sensation: Intact/Normal Left Upper Extremity Sensation: Intact/Normal Right Lower Extremity Sensation: Intact/Normal Left Lower Extremity Sensation: Intact/Normal Palpation Palpation Findings: Tenderness Comments:: BLE Balance - Sitting Balance and Reactions Static Sitting Balance: Fair (fair+) Dynamic Sitting Balance: Poor Sitting Equilibrium Reactions: Delayed Left, Delayed Right Sitting Protective Reactions: Delayed Left, Delayed Right - Standing Balance and Reactions Static Standing Balance: Poor Dynamic Standing Balance: Poor Standing Equilibrium Reactions: Delayed Left, Delayed Right Standing Protective Reactions: Delayed Left, Delayed Right Functional Mobility - Bed Mobility Rolling R/L: Min Assist Supine to Sit: CGA - Transfers Sit to Stand: Min Assist, Mod Assist, 2 person assist Stand to Sit: Min Assist, Mod Assist, 2 person assist - Safety Awareness Safety Awareness: Fair VASILIY INDEX SCORE: n/a Ambulation - Ambulation Assistive Device Used: Rolling Walker Orthotic/Prosthetic Device: No Distance: 10ft Assistance needed with Ambulation: Min Assist, Mod Assist, 2 person assist Gait Deviations: Forward posture, Short stride Ambulation Comments: pt required cues for hand placement on rwx. pt held on to front of walker, pt became somewhat agitated with cues to put his hand on composition teacher of walker. pt with significantly flexed posture and decreased step length. Factors Affecting Ambulation: Decreased Balance, Breathing/O2 Saturation, Pain, Weakness, Decreased Safety, Cognitive Status, Limited Endurance Treatment time - Time with patient Length of Evaluation: 19 Total treatment time: 32 Patient Education - Education Patient Education: Activity Modification, Education of Plan of Care Teaching Recipient: Patient Teaching Methods: Discussion Comments: pt is not very receptive to education, becomes agitated with instruction Assessment - Assessment Problem List:: Decreased level of function, Requires training/education, Decreased safety/Risk of falls, Weakness, Pain limits previous level of function, Cognitive status limits abilities Rehab Potential: Fair Further Therapy Indicated?: Yes Candidate for Swing Bed for Therapy Services?: pt plan to for senior care placement Evaluation Complexity: HISTORY: Medium (OA, COPD, gout, fall, HTN), EXAM OF BODY SYSTEMS: Medium (posture, strength, balance, gait, transfer), CLINICAL PRESENTATION: Medium, CLINICAL DECISION MAKING: Medium Patient's Goal(s): pt did not express goals. Short Term Goals GOAL #1: pt demonstrate rolling/scooting SBA Goal to be met by: 09/14/20 GOAL #2: Transfer sup to/from sit SBA Goal to be met by: 09/14/20 GOAL #3: Sit to/from stand min x 1 Goal to be met by: 09/14/20 GOAL #4: pt amb with rwx 50ft with min with O2. Goal to be met by: 09/14/20 GOAL #5: Improve BLE strength to 4 to 4+ / 5 Goal to be met by: 09/14/20 Senior Developer Goals GOAL #1: Patient transfer sup to /from sit to /from stand independently Goal to be met by: 09/16/20 GOAL #2: Patient amb. with rwx functional household distances independently Goal to be met by: 09/16/20 GOAL #3: Improve dyn stand balance fair Goal to be met by: 09/16/20 Plan Plan of Care: Therapeutic EX, Therapeutic Activity Other:: gait training Frequency of Treatment: 1-2 X day, as tolerated Duration of Treatment: 5 days Anticipated Discharge Destination: [facility] Treatment Diagnosis (ICD 10 Codes): gait difficulty R 26.2. impaired balance R 26.81. falls z91.81 Has the Physician been added for Co-signature?: Yes
--- NOTE | 2020-09-11 15:23 | CT ---
EXAM: CT Head HISTORY: Dizziness, lightheadedness COMPARISON: 03/07/2020 TECHNIQUE: CT head performed without contrast FINDINGS: There is no mass effect, midline shift, or intracranial hemmorhage. Simmons white differenti ation is preserved. There is no extra-axial collection. The ventricles, sulci, and basal cisterns a re patent and symmetric. There is chronic ischemic disease of the white matter and cerebral volume l oss. There is no depressed calvarial fracture. The mastoid air cells are clear. The visualized para nasal sinuses are clear. There are intracranial atherosclerotic calcifications. IMPRESSION: 1. No acute intracranial abnormality. 2. Chronic ischemic disease of the white matter and cerebral volume loss. All CT scans are performed using dose optimization techniques as appropriate to the performed exam an d include at least one of the following: Automated exposure control, adjustment of the mA and/or kV according t o size, and the use of iterative reconstruction technique.
--- NOTE | 2020-09-11 17:09 | US ---
EXAM: ULTRASOUND CAROTID DUPLEX, BILATERAL HISTORY: Weakness, dizziness, syncope FINDINGS: Gracia-scale ultrasound, color Doppler and spectral analysis was performed. Velocities are in meters per second. By gracia scale and color Doppler imaging, there were regions of heterogeneous plaque formation identif ied within the carotid bulbs and internal carotid arteries. These regions of plaque appeared to paresh in less than 50% vessel diameter. RIGHT: External carotid artery peak systolic velocity: 0.58 Common carotid artery peak systolic velocity/end diastolic velocity: 0.55/0.15 Internal carotid artery peak systolic velocity: 0.46 ICA/CCA peak systolic velocity ratio: 0.8 ICA end diastolic velocity: 0.1 LEFT: External carotid artery peak systolic velocity: 0.92 Common carotid artery peak systolic velocity/end diastolic velocity: 0.44/0.14 Internal carotid artery peak systolic velocity: 0.96 ICA/CCA peak systolic velocity ratio: 2.2 ICA end diastolic velocity: 0.27 The right vertebral artery was patent and antegrade. The left vertebral artery was not seen, possibl y secondary to technical difficulty, small vessel caliber or occlusion. IMPRESSION: 1. By gracia scale and color Doppler imaging, there were regions of heterogeneous plaque formation han ntified within the carotid bulbs and internal carotid arteries. These regions of plaque appeared to remain less than 50% vessel diameter. 2. Internal carotid artery peak systolic velocities and ICA/CCA peak systolic velocity ratios indica te no hemodynamically significant stenosis bilaterally. 3. The right vertebral artery was patent and antegrade. The left vertebral artery was not seen, pos sibly secondary to technical difficulty, small vessel caliber or occlusion.
[2020-09-11] MEDS: TYLENOL PO PRN (22:31)
[2020-09-12 05:51] LABS: BASOPHILS # (AUTO) 0.1 K/uL (0-0.2); BASOPHILS % (AUTO) 0.6 % (0.0-3.0); EOSINOPHILS # (AUTO) 0.1 K/ul (0.0-0.7); EOSINOPHILS % (AUTO) 0.9 % (0.0-7.0); HEMATOCRIT 28.6 % (42.0-52.0); HEMOGLOBIN 9.2 g/dl (14.0-18.0); IMMATURE GRANULOCYTE % (AUTO) 0.4 % (0.0-5.0); LYMPHOCYTES # (AUTO) 1.1 K/uL (0.60-3.4); LYMPHOCYTES % (AUTO) 11.4 (10.0-50.0); MEAN CORPUSCULAR HGB CONC 32.2 (31.8-35.4); MEAN CORPUSCULAR VOLUME 90.2 fl (80.0-94.0); MONOCYTES # (AUTO) 0.8 K/uL (0.4-2.0); MONOCYTES % (AUTO) 8.2 (0-10); NEUTROPHILS # (AUTO) 7.7 K/ul (2.0-6.9); NEUTROPHILS % (AUTO) 78.5 % (42.2-75.2); PLATELET COUNT 262 10^3/uL (140-440); RDW COEFFICIENT OF VARIATION 14.3 % (11.6-14.8); RED BLOOD COUNT 3.17 10^6/ul (4.70-6.10)
[2020-09-12 06:53] LABS: ALANINE AMINOTRANSFERASE 38.9 U/L (0-50); ALBUMIN 3.24 g/dL (3.5-5.0); ALKALINE PHOSPHATASE 72.4 U/L (56-119); ASPARTATE AMINO TRANSFERASE 60.4 U/L (17-59); BILIRUBIN,TOTAL 0.59 mg/dL (0.2-1.3); BLOOD UREA NITROGEN 18.3 mg/dL (9-20); CALCIUM 8.71 mg/dL (8.4-10.2); CARBON DIOXIDE 33.8 mmol/L (22-30.0); CHLORIDE 100.3 mmol/L (98-107); CREATININE 1.41 mg/dL (0.60-1.10); GLUCOSE 112.3 mg/dL (74-106); POTASSIUM 3.77 mmol/L (3.5-5.1); SODIUM 137.7 mmol/L (134.5-145); TOTAL PROTEIN 7.09 g/dL (6.3-8.2)
[2020-09-12] MEDS: PRILOSEC PO SCH ×2 (08:35→20:07)
[2020-09-12] MEDS: NORCO 5-325 PO SCH ×2 (08:35→20:07)
[2020-09-12] MEDS: ULTRAM PO SCH ×3 (08:36→22:05)
[2020-09-12] MEDS: FLOMAX PO SCH (08:36)
[2020-09-12] MEDS: ZYLOPRIM PO SCH (08:36)
[2020-09-12] MEDS: NEURONTIN PO SCH (08:36)
[2020-09-12] MEDS: ZOCOR PO SCH (08:36)
[2020-09-12] MEDS: LASIX TAB PO SCH (08:36)
[2020-09-12] MEDS: FLONASE NAS SCH ×2 (08:37→20:07)
[2020-09-12] MEDS: FERROUS SULFATE PO SCH (08:37)
[2020-09-12] MEDS: ASTELIN 0.1% NAS SCH ×2 (08:37→20:08)
[2020-09-12] MEDS: DALIRESP PO SCH (08:37)
[2020-09-12] MEDS: LOVENOX SUBCUT SCH (08:38)
[2020-09-12] MEDS: NON-FORMULARY MEDICATION (Potassium 99 mg Tablet) PO SCH (08:48)
--- NOTE | 2020-09-12 09:07 | PCM.PROG ---
Attending Provider: ATTENDING PROVIDER: Dr. DARY CAROLINA This patient is seen with Winsome Licea, Nurse Practitioner. DATE OF SERVICE: 09/12/20 SUBJECTIVE: This 89 year old /WHITE M was hospitalized 09/10/20. The patient is lying in bed. He is coughing, has weakness and is short of breath with ambulation. REVIEW OF SYSTEMS: CONSTITUTIONAL: Fever. Weakness. No night sweats. No fatigue, malaise, lethargy. No chills. HEENT: Eyes: No visual changes. No eye pain. No eye discharge. ENT: No runny nose. No epistaxis. No sinus pain. No odynophagia. No congestion. RESPIRATORY: Cough. No hemoptysis. No shortness of breath. CARDIOVASCULAR: No angina symptoms. No CHF symptoms. No atypical chest pain for CAD. No palpitations. No orthopnea.. GASTROINTESTINAL: No abdominal pain. No nausea or vomiting. No diarrhea or constipation. No hematemesis. No hematochezia. GENITOURINARY: No urgency. No frequency. No dysuria. No hematuria. No obstructive symptoms. No discharge. No pain. No significant abnormal bleeding. MUSCULOSKELETAL: No musculoskeletal pain; no joint swelling. NEUROLOGICAL: Awake, alert, oriented to time, place and person. No headache. No neck pain. No syncope. No seizures. No dizziness. PSYCHIATRIC: Not anxious. No depression. No suicidal thoughts. No homicidal thoughts. SKIN: No rash. No lesions. No wounds. ENDOCRINE: No unexplained weight loss. No weight gain. HEMATOLOGIC/LYMPHATIC: No anemia. No purpura. No petechiae. No prolonged or excessive bleeding. No palpable lymph nodes. PHYSICAL EXAMINATION: GENERAL: The patient is awake, alert and oriented, lying/sitting in bed in no distress. VITAL SIGNS: Temperature 98.3 F, Pulse 100, Respiratory Rate 20, BP 142/79, Pulse Ox 96% HEENT: Head normocephalic, atraumatic. Eyes: Extraocular muscles are intact. Pupils are equal, round and reactive to light and accommodation. Ears: No lesions. Nose appeared normal. Throat: No exudate or erythema. NECK: Supple. No JVD, no carotid bruit. No lymphadenopathy or thyromegaly. LUNGS: Severely diminished breath sounds. Clear to auscultation. Percussion note normal. Chest symmetrical. HEART: S1, S2, no S3. No murmurs. No cyanosis or clubbing. No ascites. Pulses: Dorsalis pedis and posterior tibial pulses +1 to +2 both sides. ABDOMEN: Soft. Non-tender. Bowel sounds active. No CVA tenderness. No mass felt. EXTREMITIES: Trace pedal edema. Full range of motion of all extremities, equal. NEUROLOGIC: No focal deficit. Cranial nerves II through XII are grossly intact. No headache, no double vision or headache. SKIN: Not dry. Intact. Turgor-normal. LYMPHATIC: No palpable lymph nodes/no lymphedema. MUSCULOSKELETAL: Normal joints with no swelling. Muscle tone is normal. LAB REVIEW: 09/12/20 04:45 09/12/20 04:45 09/12/20 04:45: Sodium 137.7, Potassium 3.77, Chloride 100.3, Carbon Dioxide 33.8 H, Anion Gap 7.37, BUN 18.3, Creatinine 1.41 H, Estimated GFR (MDRD) 48.00, BUN/Creatinine Ratio 12.97, Glucose 112.3 H, Calcium 8.71, Total Bilirubin 0.59, AST 60.4 H, ALT 38.9, Alkaline Phosphatase 72.4, Total Protein 7.09, Albumin 3.24 L, Globulin 3.85, Albumin/Globulin Ratio 0.84 09/12/20 04:45: WBC 9.80, RBC 3.17 L, Hgb 9.2 L, Hct 28.6 L, MCV 90.2, MCH 29.0, MCHC 32.2, RDW Coeff of Shira 14.3, Plt Count 262, Immature Gran % (Auto) 0.4, Neut % (Auto) 78.5 H, Lymph % (Auto) 11.4, [place] % (Auto) 8.2, Eos % (Auto) 0.9, Baso % (Auto) 0.6, Neut # (Auto) 7.7 H, Lymph # (Auto) 1.1, [place] # (Auto) 0.8, Eos # (Auto) 0.1, Baso # (Auto) 0.1, Immature Gran # (Auto) 0.0 09/11/20 07:04: Sodium 135.2, Potassium 3.54, Chloride 100.0, Carbon Dioxide 31.2 H, Anion Gap 7.54, BUN 17.6, Creatinine 1.40 H, Estimated GFR (MDRD) 48.00, BUN/Creatinine Ratio 12.57, Glucose 120.6 H, Calcium 8.58, Total Bilirubin 0.62, AST 61.5 H, ALT 33.0, Alkaline Phosphatase 70.8, Total Creatine Kinase 763.3 H, CK-MB (CK-2) 4.370 H, CK-MB (CK-2) % 0.5700, Troponin I 0.959 H*, Total Protein 6.91, Albumin 3.16 L, Globulin 3.75, Albumin/Globulin Ratio 0.84 ASSESSMENT: Please see below. 1. Fever 2. Severe COPD 3. Chronic back pain and hip pain 4. Anemia 5. Generalized weakness PLAN: 1. UA (straight cath) 2. Albuterol q.i.d. 3. Increase Hydrocodone to b.i.d. 4. Rocephin 1 gm IV daily 5. Blood cultures 6. X-ray hip and pelvis Plan and coordination of the patient's care discussed in the presence of Parts Clerk and nurse. CONDITION: Stable SCRIBED BY: Farhana WILSONist scribed while in presence of service performed by Dr. Carolina/Winsome Licea APRN on 09/12/20 ([id number])
[2020-09-12 10:22] LABS: BILIRUBIN,URINE Negative (NEGATIVE); CLARITY,URINE Clear (CLEAR); COLOR,URINE Yellow (YELLOW); GLUCOSE, URINE (UA) Negative (NEGATIVE); KETONES,URINE Negative (NEGATIVE); LEUKOCYTE ESTERASE ,URINE Negative (NEGATIVE); NITRITE,URINE Negative (NEGATIVE); PROTEIN,URINE 1+ (NEGATIVE); URINE, BLOOD Trace-intact (NEGATIVE); UROBILINOGEN,URINE 0.2 (0.2)
[2020-09-12 10:29] LABS: SQUAMOUS EPITHELIAL CELL,UR NOT PRESENT (0-5)
[2020-09-12 10:30] LABS: MUCUS,URINE TRACE (NOT PRESENT); URINE RBC, MICROSCOPIC 0-2 (0-2)
[2020-09-12] MEDS: ROCEPHIN 1 GM/50 ML D5W 1 GM/50 ML BAG IV SCH (10:53)
[2020-09-12] MEDS ORDERED: VENTOLIN HFA (PER PUFF-WITH SPACER) IH SCH (14:00)
[2020-09-12] MEDS: VENTOLIN HFA (PER PUFF-WITH SPACER) IH SCH ×2 (14:11→20:15)
--- NOTE | 2020-09-12 14:15 | DI ---
EXAM: Pelvis and bilateral HISTORY: Bilateral hip pain, difficulty walking COMPARISON: None TECHNIQUE: Single view pelvis and single frog-leg view each right left hip were performed FINDINGS: Sacroiliac joints intact. Sacral arcuate intact. Degenerative change in the spine. No f racture or dislocation. Mild osteoarthritis right and left hip with joint space narrowing osteophyte formation. Atherosclerotic vascular calcification. IMPRESSION: Mild osteoarthritis of the hips.
[2020-09-12] MEDS: TYLENOL PO PRN (21:48)
[2020-09-13] MEDS: VENTOLIN HFA (PER PUFF-WITH SPACER) IH SCH ×4 (04:30→19:15)
[2020-09-13 05:30] LABS: BASOPHILS # (AUTO) 0.1 K/uL (0-0.2); BASOPHILS % (AUTO) 0.8 % (0.0-3.0); EOSINOPHILS # (AUTO) 0.2 K/ul (0.0-0.7); EOSINOPHILS % (AUTO) 1.8 % (0.0-7.0); HEMATOCRIT 30.1 % (42.0-52.0); HEMOGLOBIN 9.8 g/dl (14.0-18.0); IMMATURE GRANULOCYTE % (AUTO) 0.3 % (0.0-5.0); LYMPHOCYTES # (AUTO) 1.4 K/uL (0.60-3.4); LYMPHOCYTES % (AUTO) 15.6 (10.0-50.0); MEAN CORPUSCULAR HEMOGLOBIN 29.5 pg (27.0-31.0); MEAN CORPUSCULAR HGB CONC 32.6 (31.8-35.4); MEAN CORPUSCULAR VOLUME 90.7 fl (80.0-94.0); MONOCYTES # (AUTO) 0.7 K/uL (0.4-2.0); MONOCYTES % (AUTO) 8.3 (0-10); NEUTROPHILS # (AUTO) 6.5 K/ul (2.0-6.9); NEUTROPHILS % (AUTO) 73.2 % (42.2-75.2); PLATELET COUNT 264 10^3/uL (140-440); RDW COEFFICIENT OF VARIATION 14.2 % (11.6-14.8); RED BLOOD COUNT 3.32 10^6/ul (4.70-6.10); WHITE BLOOD COUNT 8.92 K/ul (4.2-10.2)
[2020-09-13] MEDS: GUM PO PRN (05:30)
[2020-09-13] MEDS: [UNRECOGNIZED DRUG - OTHER] PO PRN (05:30)
[2020-09-13 05:46] LABS: ALBUMIN 3.3 g/dL (3.5-5.0); ALKALINE PHOSPHATASE 72.9 U/L (56-119); ASPARTATE AMINO TRANSFERASE 50.9 U/L (17-59); BILIRUBIN,TOTAL 0.49 mg/dL (0.2-1.3); BLOOD UREA NITROGEN 19.5 mg/dL (9-20); CALCIUM 8.95 mg/dL (8.4-10.2); CARBON DIOXIDE 34.2 mmol/L (22-30.0); CHLORIDE 101.2 mmol/L (98-107); CREATININE 1.46 mg/dL (0.60-1.10); GLUCOSE 112.9 mg/dL (74-106); POTASSIUM 3.83 mmol/L (3.5-5.1); SODIUM 139.8 mmol/L (134.5-145); TOTAL PROTEIN 7.43 g/dL (6.3-8.2)
[2020-09-13] MEDS ORDERED: VANCOMYCIN 1 GM in SODIUM CHLORIDE 250 ML IV SCH (09:00)
--- NOTE | 2020-09-13 09:10 | PCM.PROG ---
Attending Provider: ATTENDING PROVIDER: Dr. DARY CAROLINA DATE OF SERVICE: 09/13/20 SUBJECTIVE: This 89 year old /WHITE M was hospitalized 09/10/20 with weakness and fall. The patient had spiked a fever yesterday. Blood cultures growing gram positive cocci. He has history of staph epidermidis septicemia by blood culture. Last hospitalization at [facility] it was Enterococcus. In any case, the patient is afebrile and feeling better. Appetite is excellent. REVIEW OF SYSTEMS: CONSTITUTIONAL: No night sweats. No fatigue, malaise, lethargy. No fever or chills. HEENT: Eyes: No visual changes. No eye pain. No eye discharge. ENT: No runny nose. No epistaxis. No sinus pain. No odynophagia. No congestion. RESPIRATORY: No cough, no congestion. No hemoptysis. No shortness of breath. CARDIOVASCULAR: No angina symptoms. No CHF symptoms. No atypical chest pain for CAD. No palpitations. No orthopnea.. GASTROINTESTINAL: Appetite is excellent. No abdominal pain. No nausea or vomiting. No diarrhea or constipation. No hematemesis. No hematochezia. GENITOURINARY: No urgency. No frequency. No dysuria. No hematuria. No obstructive symptoms. No discharge. No pain. No significant abnormal bleeding. MUSCULOSKELETAL: No musculoskeletal pain; no joint swelling. NEUROLOGICAL: Awake, alert, oriented to time, place and person. No headache. No neck pain. No syncope. No seizures. No dizziness. PSYCHIATRIC: Not anxious. No depression. No suicidal thoughts. No homicidal thoughts. SKIN: No rash. No lesions. No wounds. ENDOCRINE: No unexplained weight loss. No weight gain. HEMATOLOGIC/LYMPHATIC: No anemia. No purpura. No petechiae. No prolonged or excessive bleeding. No palpable lymph nodes. PHYSICAL EXAMINATION: GENERAL: The patient is awake, alert and oriented, lying/sitting in bed in no distress. VITAL SIGNS: Temperature 98.0 F, Pulse 84, Respiratory Rate 20, BP 130/66, Pulse Ox 95% HEENT: Head normocephalic, atraumatic. Eyes: Extraocular muscles are intact. Pupils are equal, round and reactive to light and accommodation. Ears: No le sions. Nose appeared normal. Throat: No exudate or erythema. NECK: Supple. No JVD, no carotid bruit. No lymphadenopathy or thyromegaly. LUNGS: Clear to auscultation. Percussion note normal. Chest symmetrical. HEART: S1, S2, no S3. No murmurs. No cyanosis or clubbing. No ascites. Pulses: Dorsalis pedis and posterior tibial pulses +1 to +2 both sides. ABDOMEN: Soft. Non-tender. Bowel sounds active. No CVA tenderness. No mass felt. EXTREMITIES: No edema. Full range of motion of all extremities, equal. NEUROLOGIC: No focal deficit. Cranial nerves II through XII are grossly intact. No headache, no double vision or headache. SKIN: Warm and dry. Intact. Turgor-normal. LYMPHATIC: No palpable lymph nodes/no lymphedema. MUSCULOSKELETAL: Normal joints with no swelling. Muscle tone is normal. LAB REVIEW: 09/13/20 04:45 09/13/20 04:45 09/13/20 04:45: Sodium 139.8, Potassium 3.83, Chloride 101.2, Carbon Dioxide 34.2 H, Anion Gap 8.23, BUN 19.5, Creatinine 1.46 H, Estimated GFR (MDRD) 46.00, BUN/Creatinine Ratio 13.35, Glucose 112.9 H, Calcium 8.95, Total Bilirubin 0.49, AST 50.9, ALT 36.0, Alkaline Phosphatase 72.9, Total Protein 7.43, Albumin 3.30 L, Globulin 4.13, Albumin/Globulin Ratio 0.79 09/13/20 04:45: WBC 8.92, RBC 3.32 L, Hgb 9.8 L, Hct 30.1 L, MCV 90.7, MCH 29.5, MCHC 32.6, RDW Coeff of Shira 14.2, Plt Count 264, Immature Gran % (Auto) 0.3, Neut % (Auto) 73.2, Lymph % (Auto) 15.6, [place] % (Auto) 8.3, Eos % (Auto) 1.8, Baso % (Auto) 0.8, Neut # (Auto) 6.5, Lymph # (Auto) 1.4, [place] # (Auto) 0.7, Eos # (Auto) 0.2, Baso # (Auto) 0.1, Immature Gran # (Auto) 0.0 09/12/20 10:00: Urine Color Yellow, Urine Clarity Clear, Urine pH 6.0, Ur Specific [place] 1.015, Urine Protein 1+ H, Urine Glucose (UA) Negative, Urine Ketones Negative, Urine Blood Trace-intact H, Urine Nitrite Negative, Urine Bilirubin Negative, Urine Urobilinogen 0.2, Ur Leukocyte Esterase Negative, Urine Microscopic RBC 0-2, Urine Microscopic WBC 5-10, Ur Squamous Epith Cells Not present, Urine Mucus Trace ASSESSMENT: Please see below. 1. Weakness with history of fall with negative neurological status. 2. Fever, etiology unknown with positive blood cultures, source unknown. PLAN: 1. Treat with Vancomycin. 2. Continue Rocephin. Plan and coordination of the patient's care discussed in the presence of Manager Medical Affairs and nurse. CONDITION: Stable SCRIBED BY: CHENG TURNER Apprentice Jockey scribed while in presence of service performed by Dr. DARY CAROLINA on 09/13/20 ([id number])
[2020-09-13] MEDS: ZOCOR PO SCH (09:17)
[2020-09-13] MEDS: ZYLOPRIM PO SCH (09:17)
[2020-09-13] MEDS: DALIRESP PO SCH (09:17)
[2020-09-13] MEDS: ROCEPHIN 1 GM/50 ML D5W 1 GM/50 ML BAG IV SCH (09:17)
[2020-09-13] MEDS: NEURONTIN PO SCH (09:17)
[2020-09-13] MEDS: LASIX TAB PO SCH (09:18)
[2020-09-13] MEDS: PRILOSEC PO SCH ×2 (09:18→16:25)
[2020-09-13] MEDS: FERROUS SULFATE PO SCH (09:18)
[2020-09-13] MEDS: NORCO 5-325 PO SCH ×2 (09:18→20:21)
[2020-09-13] MEDS: FLOMAX PO SCH (09:18)
[2020-09-13] MEDS: FLONASE NAS SCH ×2 (09:19→20:21)
[2020-09-13] MEDS: ASTELIN 0.1% NAS SCH ×2 (09:19→20:23)
[2020-09-13] MEDS: DECADRON IM SCH (09:19)
[2020-09-13] MEDS: LOVENOX SUBCUT SCH (09:20)
[2020-09-13] MEDS: NON-FORMULARY MEDICATION (Potassium 99 mg Tablet) PO SCH (09:20)
--- NOTE | 2020-09-13 09:43 | HP ---
DATE OF SERVICE: 09/10/2020 REASON FOR HOSPITALIZATION/HISTORY OF PRESENT ILLNESS: 89 year old white male presents to the emergency room after experiencing a fall at home. He declines any injuries. He states he has been feeling weak but had a controlled fall. He is just getting weaker, he has severe COPD. PAST MEDICAL HISTORY/PAST SURGICAL HISTORY: Chronic respiratory failure Generalized weakness History of sepsis, positive enterococcus COPD, end stage Gait difficulty History of diverticulitis Infrarenal aortic aneurysm 4.6cm 06/04/2020 refuses vascular referral. 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 He currently refuses to see medical claims manager or physiological chemist. Left nephrectomy 20 years ago Appendectomy Gallbladder surgery Bilateral total knee replacement Back surgery times three REVIEW OF SYSTEMS: CONSTITUTIONAL: No night sweats. Fatigue. No fever or chills. Weakness. HEENT: Eyes: No visual changes. No eye pain. No eye discharge. ENT: No runny nose. No epistaxis. No sinus pain. No sore throat. No odynophagia. No ear pain. No congestion. RESPIRATORY: No cough, no congestion. No hemoptysis. Shortness of breath. CARDIOVASCULAR: No angina symptoms. No CHF symptoms. No atypical chest pain for CAD. No palpitations. No PND. No orthopnea. GASTROINTESTINAL: No abdominal pain. No nausea or vomiting. No diarrhea or constipation. No hematemesis. No hematochezia. GENITOURINARY: No urgency. No frequency. No dysuria. No hematuria. No obstructive symptoms. No discharge. No pain. No significant abnormal bleeding. MUSCULOSKELETAL: No musculoskeletal pain. No joint swelling. No arthritis. Back pain. NEUROLOGICAL: No headache. No neck pain. No syncope. No seizures. No dizziness. PSYCHIATRIC: Not anxious. No depression. No suicidal thoughts. No homicidal thoughts. SKIN: No rash. No lesions. No wounds. ENDOCRINE: No unexplained weight loss. No weight gain. HEMATOLOGIC/LYMPHATIC: No anemia. No purpura. No petechiae. No prolonged or excessive bleeding. No palpable lymph nodes. PERSONAL/FAMILY/SOCIAL HISTORY: He is . He is a heavy smoker. He lives at home by himself. He has a positive family history of cardiovascular disease. MEDICATIONS: Systane Balance one drop both eyes BID PRN Daliresp 500mcg PO daily Potassium 99mg PO daily Ipratropium Albuterol 3ml inhalation Q 6 hours Tramadol 50mg BID Allopurinol 300mg PO daily Simvastatin 20mg PO daily Tamsulosin 0.4mg PO daily Omeprazole 20mg PO BID Furosemide 20mg PO daily Gabapentin 600mg PO daily Hemp Gummy bear 50mg PO QID PRN Ferrous sulfate 325mg PO daily [place] 5-325mg PO daily ProAir two puffs inhalation Q 4 hours PRN Dramamine 50mg PO daily PRN Colestipol 1 gram PO daily PRN Azelastine-fluticasone 137-50mcg one spray intranasal BID ALLERGIES: Penicillins Flu Vaccine PHYSICAL EXAMINATION: VITAL SIGNS: Temperature 97.7, heart rate 98, blood pressure 132/82, respiratory rate 24, pulse ox 95%. HEENT: Head normocephalic, atraumatic. Eyes: Extraocular muscles are intact. Pupils are equal, round and reactive to light and accommodation. Ears: No lesions. Nose appeared normal. Throat: No exudate or erythema. NECK: Supple. No JVD, no carotid bruit. No lymphadenopathy or thyromegaly. LUNGS: Diminished breath sounds bilaterally with upper airway rhonchi. Clear to auscultation. Percussion note normal. Chest symmetrical. HEART: S1, S2, no S3. No murmur. No cyanosis or clubbing. No ascites. Pulses: Dorsalis pedis and posterior tibial pulses +1 to +2 bilaterally. ABDOMEN: Soft. Nontender. Bowel sounds active. No CVA tenderness. No mass felt. EXTREMITIES: Trace pedal edema. Full range of motion of all extremities, equal. NEUROLOGIC: No focal deficit. Cranial nerves II through XII are grossly intact. No headache, no double vision or headache. SKIN: Not dry. Intact. Turgor - normal. LYMPHATIC: No palpable lymph nodes/no lymphedema. MUSCULOSKELETAL: Normal joints with no swelling. Muscle tone is normal. LABS: COVID PCR is negative. CT of the brain shows no acute abnormality. Sodium, 135, potassium 3.5, BUN 17, Creatinine 1.40, AST 61, ALT 33. CK 763, CKMB 4.3% 0.5. WBC 10.44, hgb 9.6, hct 28.8, plt count 252, sodium 136, potassium 3.7, BUN 19, creatinine 1.59. Glucose 107. ABG initially O2 saturation 97, pH 7.49. pCO2 44, pO2 94 this was on 2 liters. Chest x-ray shows increase air space opacities, left lung base atelectasis versus pneumonia, emphysema. ASSESSMENT: 1. Generalize weakness 2. Shortness of breath 3. Fall 4. Acute COPD exacerbation 5. Left lobar pneumonia 6. Anemia 7. Chronic kidney disease PLAN: 1. We will admit 2. Routine telemetry orders 3. CBC and CMP daily 4. Continue home medication 5. Rocephine 1 gram IV daily 6. X-ray of bilateral hips and pelvis 7. U/A 8. Normal saline at 75cc an hour 9. We will follow closely. TIME SPENT: More than 70 minutes. MTDD
[2020-09-13] MEDS: VANCOMYCIN 1.5 GRAM/300 ML PREMIX 1.5 GM/300 ML BAG IV SCH (10:42)
[2020-09-13] MEDS: ULTRAM PO SCH ×2 (13:46→22:54)
[2020-09-14] MEDS: VENTOLIN HFA (PER PUFF-WITH SPACER) IH SCH ×4 (05:00→19:20)
[2020-09-14 05:18] LABS: BASOPHILS % (AUTO) 0.3 % (0.0-3.0); EOSINOPHILS % (AUTO) 0.2 % (0.0-7.0); HEMATOCRIT 26.6 % (42.0-52.0); HEMOGLOBIN 8.8 g/dl (14.0-18.0); IMMATURE GRANULOCYTE % (AUTO) 0.3 % (0.0-5.0); LYMPHOCYTES # (AUTO) 0.9 K/uL (0.60-3.4); LYMPHOCYTES % (AUTO) 14.8 (10.0-50.0); MEAN CORPUSCULAR HGB CONC 33.1 (31.8-35.4); MEAN CORPUSCULAR VOLUME 87.8 fl (80.0-94.0); MONOCYTES # (AUTO) 0.4 K/uL (0.4-2.0); MONOCYTES % (AUTO) 6.6 (0-10); NEUTROPHILS # (AUTO) 4.9 K/ul (2.0-6.9); NEUTROPHILS % (AUTO) 77.8 % (42.2-75.2); PLATELET COUNT 238 10^3/uL (140-440); RDW COEFFICIENT OF VARIATION 14.1 % (11.6-14.8); RED BLOOD COUNT 3.03 10^6/ul (4.70-6.10); WHITE BLOOD COUNT 6.33 K/ul (4.2-10.2)
[2020-09-14 05:31] LABS: ALANINE AMINOTRANSFERASE 31.2 U/L (0-50); ALBUMIN 2.81 g/dL (3.5-5.0); ALKALINE PHOSPHATASE 63.9 U/L (56-119); ASPARTATE AMINO TRANSFERASE 43.9 U/L (17-59); BILIRUBIN,TOTAL 0.34 mg/dL (0.2-1.3); BLOOD UREA NITROGEN 20.1 mg/dL (9-20); CALCIUM 8.64 mg/dL (8.4-10.2); CARBON DIOXIDE 32.2 mmol/L (22-30.0); CHLORIDE 101.3 mmol/L (98-107); CREATININE 1.16 mg/dL (0.60-1.10); GLUCOSE 125.7 mg/dL (74-106); POTASSIUM 3.8 mmol/L (3.5-5.1); TOTAL PROTEIN 6.43 g/dL (6.3-8.2)
[2020-09-14] MEDS: PRILOSEC PO SCH ×2 (05:38→16:44)
[2020-09-14] MEDS: LASIX TAB PO SCH (05:38)
[2020-09-14] MEDS: LOVENOX SUBCUT SCH (08:35)
[2020-09-14] MEDS: DECADRON IM SCH (08:35)
[2020-09-14] MEDS: NEURONTIN PO SCH (08:36)
[2020-09-14] MEDS: NORCO 5-325 PO SCH ×2 (08:36→20:15)
[2020-09-14] MEDS: DALIRESP PO SCH (08:36)
[2020-09-14] MEDS: ZYLOPRIM PO SCH (08:36)
[2020-09-14] MEDS: FLOMAX PO SCH (08:37)
[2020-09-14] MEDS: ZOCOR PO SCH (08:37)
[2020-09-14] MEDS: FERROUS SULFATE PO SCH (08:37)
[2020-09-14] MEDS: NON-FORMULARY MEDICATION (Potassium 99 mg Tablet) PO SCH (08:37)
[2020-09-14] MEDS: ASTELIN 0.1% NAS SCH ×2 (09:00→20:16)
[2020-09-14] MEDS: FLONASE NAS SCH ×2 (09:00→20:16)
[2020-09-14] MEDS: ROCEPHIN 1 GM/50 ML D5W 1 GM/50 ML BAG IV SCH (09:00)
[2020-09-14] MEDS: [UNRECOGNIZED DRUG - OTHER] PO PRN (09:30)
[2020-09-14] MEDS: GUM PO PRN (09:30)
[2020-09-14] MEDS: VANCOMYCIN 1.5 GRAM/300 ML PREMIX 1.5 GM/300 ML BAG IV SCH (10:21)
[2020-09-14] MEDS: ULTRAM PO SCH ×2 (13:57→21:01)
[2020-09-15] MEDS: VENTOLIN HFA (PER PUFF-WITH SPACER) IH SCH ×4 (05:05→19:30)
[2020-09-15 05:26] LABS: BASOPHILS % (AUTO) 0.3 % (0.0-3.0); EOSINOPHILS % (AUTO) 0.3 % (0.0-7.0); HEMATOCRIT 27.2 % (42.0-52.0); HEMOGLOBIN 8.9 g/dl (14.0-18.0); IMMATURE GRANULOCYTE % (AUTO) 0.5 % (0.0-5.0); LYMPHOCYTES # (AUTO) 1.6 K/uL (0.60-3.4); LYMPHOCYTES % (AUTO) 20.6 (10.0-50.0); MEAN CORPUSCULAR HEMOGLOBIN 28.6 pg (27.0-31.0); MEAN CORPUSCULAR HGB CONC 32.7 (31.8-35.4); MEAN CORPUSCULAR VOLUME 87.5 fl (80.0-94.0); MONOCYTES # (AUTO) 0.5 K/uL (0.4-2.0); MONOCYTES % (AUTO) 6.1 (0-10); NEUTROPHILS # (AUTO) 5.6 K/ul (2.0-6.9); NEUTROPHILS % (AUTO) 72.2 % (42.2-75.2); PLATELET COUNT 277 10^3/uL (140-440); RDW COEFFICIENT OF VARIATION 14.1 % (11.6-14.8); RED BLOOD COUNT 3.11 10^6/ul (4.70-6.10); WHITE BLOOD COUNT 7.71 K/ul (4.2-10.2)
[2020-09-15] MEDS: LASIX TAB PO SCH (05:35)
[2020-09-15] MEDS: PRILOSEC PO SCH ×2 (05:35→17:13)
[2020-09-15 05:37] LABS: ALANINE AMINOTRANSFERASE 51.5 U/L (0-50); ALBUMIN 2.85 g/dL (3.5-5.0); ALKALINE PHOSPHATASE 60.2 U/L (56-119); ASPARTATE AMINO TRANSFERASE 75.3 U/L (17-59); BILIRUBIN,TOTAL 0.25 mg/dL (0.2-1.3); BLOOD UREA NITROGEN 24.6 mg/dL (9-20); CALCIUM 8.67 mg/dL (8.4-10.2); CARBON DIOXIDE 31.3 mmol/L (22-30.0); CHLORIDE 102.4 mmol/L (98-107); CREATININE 1.22 mg/dL (0.60-1.10); GLUCOSE 126.8 mg/dL (74-106); POTASSIUM 3.87 mmol/L (3.5-5.1); SODIUM 136.7 mmol/L (134.5-145); TOTAL PROTEIN 6.46 g/dL (6.3-8.2)
[2020-09-15] MEDS: DALIRESP PO SCH (08:58)
[2020-09-15] MEDS: FERROUS SULFATE PO SCH (09:00)
[2020-09-15] MEDS: ZYLOPRIM PO SCH (09:00)
[2020-09-15] MEDS: NEURONTIN PO SCH (09:00)
[2020-09-15] MEDS: FLOMAX PO SCH (09:00)
[2020-09-15] MEDS: ZOCOR PO SCH (09:00)
[2020-09-15] MEDS: ROCEPHIN 1 GM/50 ML D5W 1 GM/50 ML BAG IV SCH (09:01)
[2020-09-15] MEDS: DECADRON IM SCH (09:01)
[2020-09-15] MEDS: LOVENOX SUBCUT SCH (09:02)
[2020-09-15] MEDS: NORCO 5-325 PO SCH ×2 (09:09→20:09)
[2020-09-15] MEDS: GUM PO PRN ×2 (09:10→20:08)
[2020-09-15] MEDS: [UNRECOGNIZED DRUG - OTHER] PO PRN ×2 (09:10→20:08)
[2020-09-15] MEDS: ASTELIN 0.1% NAS SCH ×2 (09:10→20:09)
[2020-09-15] MEDS: FLONASE NAS SCH ×2 (09:10→20:09)
[2020-09-15] MEDS: NON-FORMULARY MEDICATION (Potassium 99 mg Tablet) PO SCH (09:39)
[2020-09-15] MEDS: VANCOMYCIN 1.5 GRAM/300 ML PREMIX 1.5 GM/300 ML BAG IV SCH (10:29)
[2020-09-15] MEDS: ULTRAM PO SCH (15:06)
[2020-09-16] MEDS: ULTRAM PO SCH ×3 (00:53→22:16)
[2020-09-16] MEDS: VENTOLIN HFA (PER PUFF-WITH SPACER) IH SCH ×4 (04:35→19:15)
[2020-09-16] MEDS: LASIX TAB PO SCH (05:37)
[2020-09-16] MEDS: PRILOSEC PO SCH ×2 (05:37→16:04)
[2020-09-16 05:41] LABS: BASOPHILS % (AUTO) 0.4 % (0.0-3.0); EOSINOPHILS % (AUTO) 0.4 % (0.0-7.0); HEMATOCRIT 27.1 % (42.0-52.0); HEMOGLOBIN 8.9 g/dl (14.0-18.0); IMMATURE GRANULOCYTE # (AUTO) 0.1 (0.0-1.0); IMMATURE GRANULOCYTE % (AUTO) 0.8 % (0.0-5.0); LYMPHOCYTES # (AUTO) 2.1 K/uL (0.60-3.4); MEAN CORPUSCULAR HGB CONC 32.8 (31.8-35.4); MEAN CORPUSCULAR VOLUME 88.3 fl (80.0-94.0); MONOCYTES # (AUTO) 0.7 K/uL (0.4-2.0); MONOCYTES % (AUTO) 7.7 (0-10); NEUTROPHILS # (AUTO) 5.9 K/ul (2.0-6.9); NEUTROPHILS % (AUTO) 66.7 % (42.2-75.2); PLATELET COUNT 285 10^3/uL (140-440); RDW COEFFICIENT OF VARIATION 14.2 % (11.6-14.8); RED BLOOD COUNT 3.07 10^6/ul (4.70-6.10); WHITE BLOOD COUNT 8.91 K/ul (4.2-10.2)
[2020-09-16 05:55] LABS: ALANINE AMINOTRANSFERASE 67.2 U/L (0-50); ALBUMIN 2.89 g/dL (3.5-5.0); ALKALINE PHOSPHATASE 67.3 U/L (56-119); ASPARTATE AMINO TRANSFERASE 78.2 U/L (17-59); BILIRUBIN,TOTAL 0.33 mg/dL (0.2-1.3); CALCIUM 8.45 mg/dL (8.4-10.2); CARBON DIOXIDE 30.2 mmol/L (22-30.0); CHLORIDE 102.7 mmol/L (98-107); CREATININE 1.16 mg/dL (0.60-1.10); GLUCOSE 110.8 mg/dL (74-106); POTASSIUM 3.77 mmol/L (3.5-5.1); SODIUM 136.6 mmol/L (134.5-145); TOTAL PROTEIN 6.47 g/dL (6.3-8.2)
--- NOTE | 2020-09-16 08:27 | PCM.PROG ---
Attending Provider: ATTENDING PROVIDER: Dr. DARY CAROLINA This patient is seen with Winsome Licea, Nurse Practitioner. DATE OF SERVICE: 09/16/20 SUBJECTIVE: This 89 year old /WHITE M was hospitalized 09/10/20. The patient is resting comfortably. He has been afebrile since the . He is eating well. Still very weak and needing assistance getting up and performing ADL's. REVIEW OF SYSTEMS: CONSTITUTIONAL: No night sweats. No fatigue, malaise, lethargy. No fever or c hills. Weakness. HEENT: Eyes: No visual changes. No eye pain. No eye discharge. ENT: No runny nose. No epistaxis. No sinus pain. No odynophagia. No congestion. RESPIRATORY: No cough, no congestion. No hemoptysis. Shortness of breath. CARDIOVASCULAR: No angina symptoms. No CHF symptoms. No atypical chest pain for CAD. No palpitations. No orthopnea.. GASTROINTESTINAL: No abdominal pain. No nausea or vomiting. No diarrhea or constipation. No hematemesis. No hematochezia. GENITOURINARY: No urgency. No frequency. No dysuria. No hematuria. No obstructive symptoms. No discharge. No pain. No significant abnormal bleeding. MUSCULOSKELETAL: No musculoskeletal pain; no joint swelling. NEUROLOGICAL: Awake, alert, oriented to time, place and person. No headache. No neck pain. No syncope. No seizures. No dizziness. PSYCHIATRIC: Not anxious. No depression. No suicidal thoughts. No homicidal thoughts. SKIN: No rash. No lesions. No wounds. ENDOCRINE: No unexplained weight loss. No weight gain. HEMATOLOGIC/LYMPHATIC: No anemia. No purpura. No petechiae. No prolonged or excessive bleeding. No palpable lymph nodes. PHYSICAL EXAMINATION: GENERAL: The patient is awake, alert and oriented, sitting in bed in no distress. VITAL SIGNS: Temperature 97.4 F, Pulse 62, Respiratory Rate 20, BP 113/66, Pulse Ox 99% HEENT: Head normocephalic, atraumatic. Eyes: Extraocular muscles are intact. Pupils are equal, round and reactive to light and accommodation. Ears: No lesions. Nose appeared normal. Throat: No exudate or erythema. NECK: Supple. No JVD, no carotid bruit. No lymphadenopathy or thyromegaly. LUNGS: Diminished breath sounds. Clear to auscultation. Percussion note normal. Chest symmetrical. HEART: S1, S2, no S3. No murmurs. No cyanosis or clubbing. No ascites. Pulses: Dorsalis pedis and posterior tibial pulses +1 to +2 both sides. ABDOMEN: Soft. Non-tender. Bowel sounds active. No CVA tenderness. No mass felt. EXTREMITIES: No edema. Full range of motion of all extremities, equal. NEUROLOGIC: No focal deficit. Cranial nerves II through XII are grossly intact. No headache, no double vision or headache. SKIN: Not dry. Intact. Turgor-normal. LYMPHATIC: No palpable lymph nodes/no lymphedema. MUSCULOSKELETAL: Normal joints with no swelling. Muscle tone is normal. LAB REVIEW: 09/16/20 05:30 09/16/20 05:30 09/16/20 05:30: Sodium 136.6, Potassium 3.77, Chloride 102.7, Carbon Dioxide 30.2 H, Anion Gap 7.47, BUN 27.0 H, Creatinine 1.16 H, Estimated GFR (MDRD) 60.00, BUN/Creatinine Ratio 23.27, Glucose 110.8 H, Calcium 8.45, Total Bilirubin 0.33, AST 78.2 H, ALT 67.2 H, Alkaline Phosphatase 67.3, Total Protein 6.47, Albumin 2.89 L, Globulin 3.58, Albumin/Globulin Ratio 0.80 09/16/20 05:30: WBC 8.91, RBC 3.07 L, Hgb 8.9 L, Hct 27.1 L, MCV 88.3, MCH 29.0, MCHC 32.8, RDW Coeff of Shira 14.2, Plt Count 285, Immature Gran % (Auto) 0.8, Neut % (Auto) 66.7, Lymph % (Auto) 24.0, [place] % (Auto) 7.7, Eos % (Auto) 0.4, Baso % (Auto) 0.4, Neut # (Auto) 5.9, Lymph # (Auto) 2.1, [place] # (Auto) 0.7, Eos # (Auto) 0.0, Baso # (Auto) 0.0, Immature Gran # (Auto) 0.1 ASSESSMENT: Please see below. 1. Sepsis positive for enterococcus 2. Chronic anemia 3. Generalized weakness 4. Severe COPD 5. History of falls 6. Chronic back pain PLAN: 1. Continue IV antibiotics 2. Long discussion with the patient regarding discharge plan. The patient refuses detention placement and states he would like to go home at discharge. Discussed that he is a high fall risk. Plan and coordination of the patient's care discussed in the presence of Welfare Analyst and nurse. SCRIBED BY: Farhana DUBONist scribed while in presence of service performed by Dr. Carolina/Winsome Licea APRN on 09/16/20 ([id number])
--- NOTE | 2020-09-16 08:37 | PN ---
DATE OF SERVICE: 09/10/20 - ADMIT NOTE SUBJECTIVE: 89-year-old white male who has severe chronic lung disease and lives by himself and has slowly lost the ability to ambulate with weakness with almost a fall at home. He slid down the wall with no history of injury to any other part of the body. The family brought the patient down to the emergency room where they think the patient should be hospitalized because they are thinking of putting the patient in the jail. REVIEW OF SYSTEMS: CONSTITUTIONAL: Low grade fever. No night sweats. No fatigue, malaise, lethargy. No chills. HEENT: Eyes: No visual changes. No eye pain. No eye discharge. ENT: No runny nose. No epistaxis. No sinus pain. No sore throat. No odynophagia. No congestion. RESPIRATORY: No cough, no congestion. No hemoptysis. No shortness of breath. CARDIOVASCULAR: No angina symptoms. No CHF symptoms. No atypical chest pain for CAD. No palpitations. No PND. No orthopnea. GASTROINTESTINAL: No abdominal pain. No nausea or vomiting. No diarrhea or constipation. No hematemesis. No hematochezia. GENITOURINARY: No urgency. No frequency. No dysuria. No hematuria. No obstructive symptoms. No discharge. No pain. No significant abnormal bleeding. MUSCULOSKELETAL: No musculoskeletal pain; no joint swelling. NEUROLOGICAL: No headache. No neck pain. No syncope. No seizures. No dizziness. PSYCHIATRIC: Not anxious. No depression. No suicidal thoughts. No homicidal thoughts. SKIN: No rash. No lesions. No wounds. ENDOCRINE: No unexplained weight loss. No weight gain. HEMATOLOGIC/LYMPHATIC: No anemia. No purpura. No petechiae. No prolonged or excessive bleeding. No palpable lymph nodes. PHYSICAL EXAMINATION: VITAL SIGNS: Temperature 98.9, pulse 80, respiratory rate 15, blood pressure 130/70, pulse ox 94% on 2L. HEENT: Head normocephalic, atraumatic. Eyes: Extraocular muscles are intact. Pupils are equal, round and reactive to light and accommodation. Ears: No lesions. Nose appeared normal. Throat: No exudate or erythema. NECK: Supple. No JVD, no carotid bruit. No lymphadenopathy or thyromegaly. LUNGS: Clear to auscultation. Percussion note normal. Chest symmetrical. HEART: S1, S2, no S3. No murmurs. No cyanosis or clubbing. No ascites. Pulses: Dorsalis pedis and posterior tibial pulses +1 to +2 bilaterally. ABDOMEN: Soft. Nontender. Bowel sounds active. No CVA tenderness. No mass felt. EXTREMITIES: No edema. Full range of motion of all extremities, equal. NEUROLOGIC: No focal deficit. Cranial nerves II through XII are grossly intact. No headache, no double vision or headache. SKIN: Not dry. Intact. Turgor - normal. LYMPHATIC: No palpable lymph nodes/no lymphedema. MUSCULOSKELETAL: Normal joints with no swelling. Muscle tone is normal. LABS: Hemoglobin 9.6, hematocrit 28, WBC 10,000, normal differential. Creatinine 1.5, BUN 19, potassium 3.7. ASSESSMENT: 1. Acute bronchitis. 2. Severe chronic lung disease. 3. Generalized deterioration of his overall health status. The patient is oriented to time, place and person. The patient's other problems are: 4. Chronic anemia. 5. Chronic kidney disease. 6. Dyslipidemia. 7. Neuropathy. PLAN: 1. Continue all the medications as before. 2. I talked to him about jail placement. TIME SPENT: More than 30 minutes. Plan and coordination of the patient's care discussed in the presence of nurse. KAYLEY
[2020-09-16] MEDS: ZOCOR PO SCH (09:00)
[2020-09-16] MEDS: DALIRESP PO SCH (09:00)
[2020-09-16] MEDS: NEURONTIN PO SCH (09:00)
[2020-09-16] MEDS: ZYLOPRIM PO SCH (09:00)
[2020-09-16] MEDS: FERROUS SULFATE PO SCH (09:00)
[2020-09-16] MEDS: FLOMAX PO SCH (09:00)
--- NOTE | 2020-09-16 09:00 | PN ---
DATE OF SERVICE: 09/11/20 SUBJECTIVE: 89-year-old white male hospitalized with weakness and near fall. His family wants him to go to the alf. REVIEW OF SYSTEMS: CONSTITUTIONAL: No night sweats. No fatigue, malaise, lethargy. No fever or chills. HEENT: Eyes: No visual changes. No eye pain. No eye discharge. ENT: No runny nose. No epistaxis. No sinus pain. No sore throat. No odynophagia. No congestion. RESPIRATORY: Mild cough and congestion as usual. No hemoptysis. No shortness of breath. CARDIOVASCULAR: No angina symptoms. No CHF symptoms. No atypical chest pain for CAD. No palpitations. No PND. No orthopnea. GASTROINTESTINAL: No abdominal pain. No nausea or vomiting. No diarrhea or constipation. No hematemesis. No hematochezia. GENITOURINARY: No urgency. No frequency. No dysuria. No hematuria. No obstructive symptoms. No discharge. No pain. No significant abnormal bleeding. MUSCULOSKELETAL: No musculoskeletal pain; no joint swelling. NEUROLOGICAL: No headache. No neck pain. No syncope. No seizures. No dizziness. PSYCHIATRIC: Not anxious. No depression. No suicidal thoughts. No homicidal thoughts. SKIN: No rash. No lesions. No wounds. ENDOCRINE: No unexplained weight loss. No weight gain. HEMATOLOGIC/LYMPHATIC: No anemia. No purpura. No petechiae. No prolonged or excessive bleeding. No palpable lymph nodes. PHYSICAL EXAMINATION: VITAL SIGNS: Temperature 99.5, pulse 87, respiratory rate 18, blood pressure 103/61, pulse ox 97%. HEENT: Head normocephalic, atraumatic. Eyes: Extraocular muscles are intact. Pupils are equal, round and reactive to light and accommodation. Ears: No lesions. Nose appeared normal. Throat: No exudate or erythema. NECK: Supple. No JVD, no carotid bruit. No lymphadenopathy or thyromegaly. LUNGS: Decreased breath sounds. Barrel-shaped chest with increased AP diameter of the chest with diminished air entry but lungs are clear. Percussion note normal. Chest symmetrical. HEART: S1, S2, no S3. No murmurs. No cyanosis or clubbing. No ascites. Pulses: Dorsalis pedis and posterior tibial pulses +1 to +2 bilaterally. ABDOMEN: Soft. Nontender. Bowel sounds active. No CVA tenderness. No mass felt. EXTREMITIES: Trace edema +1 bilaterally. Full range of motion of all extremities, equal. NEUROLOGIC: No focal deficit. Cranial nerves II through XII are grossly intact. No headache, no double vision or headache. SKIN: Not dry. Intact. Turgor - normal. LYMPHATIC: No palpable lymph nodes/no lymphedema. MUSCULOSKELETAL: Normal joints with no swelling. Muscle tone is normal. LABS: Hemoglobin and hematocrit with creatinine and BUN the same done yesterday. PLAN: 1. CT scan of the head without contrast. 2. Carotid scan. I have talked to the patient at length and the nursing staff was present. The patient clearly indicated that he has his own house, he lives by himself and that is what he plans to do. He is not going to the alf. The patient is oriented to time, place and person. Discussed the need at home for him to take care of seeing himself better and he is not willing to have help. CONDITION: Stable. TIME SPENT: More than 30 minutes. Plan and coordination of the patient's care discussed in the presence of nurse. KAYLEY
[2020-09-16] MEDS: ROCEPHIN 1 GM/50 ML D5W 1 GM/50 ML BAG IV SCH (09:01)
[2020-09-16] MEDS: DECADRON IM SCH (09:01)
[2020-09-16] MEDS: ASTELIN 0.1% NAS SCH ×2 (09:01→20:38)
[2020-09-16] MEDS: NORCO 5-325 PO SCH ×2 (09:02→20:38)
[2020-09-16] MEDS: [UNRECOGNIZED DRUG - OTHER] PO PRN ×4 (09:02→20:39)
[2020-09-16] MEDS: FLONASE NAS SCH ×2 (09:02→20:38)
[2020-09-16] MEDS: NON-FORMULARY MEDICATION (Potassium 99 mg Tablet) PO SCH (09:02)
[2020-09-16] MEDS: GUM PO PRN ×4 (09:02→20:39)
[2020-09-16] MEDS: LOVENOX SUBCUT SCH (09:03)
--- NOTE | 2020-09-16 09:38 | PN ---
DATE OF SERVICE: 09/12/20 SUBJECTIVE: The patient was seen and examined with the nurse practitioner. The patient spiked fever so he will have blood cultures and antibiotics. Urine is very difficult to get. The patient had positive cultures 2 to 3 times once at [facility], Enterococcus and [place] he had Staph. The patient was investigated for Endocarditis Faecalis, not suggestive of any echogenic areas consistent with endocarditis. The patient is going to be started on Rocephin. Condition otherwise stable. Prognosis is guarded. The patient is refusing to go to the [facility]. He is oriented to time, place and person. TIME SPENT: More than 30 minutes. Plan and coordination of the patient's care discussed in the presence of nurse. KAYLEY
--- NOTE | 2020-09-16 09:58 | PN ---
DATE OF SERVICE: 09/15/2020 SUBJECTIVE: 89 year old white female hospitalized with fall which was more or less gentle fall. He eased up and went down on the floor. He has weakness. The patient on the following day had fever of 101. Cultures positive for gram positive cocci. The patient's had COVID negative. REVIEW OF SYSTEMS: CONSTITUTIONAL: No night sweats. No fatigue, malaise, lethargy. No fever or chills. Up and about and took showed yesterday. Wants to go home. HEENT: Eyes: No visual changes. No eye pain. No eye discharge. ENT: No runny nose. No epistaxis. No sinus pain. No sore throat. No odynophagia. No congestion. RESPIRATORY: No cough, no congestion. No hemoptysis. No shortness of breath. CARDIOVASCULAR: No angina symptoms. No CHF symptoms. No atypical chest pain for CAD. No palpitations. No PND. No orthopnea. GASTROINTESTINAL: No abdominal pain. No nausea or vomiting. No diarrhea or constipation. No hematemesis. No hematochezia. Appetite is great and feeling better. GENITOURINARY: No urgency. No frequency. No dysuria. No hematuria. No obstructive symptoms. No discharge. No pain. No significant abnormal bleeding. MUSCULOSKELETAL: No musculoskeletal pain; no joint swelling. NEUROLOGICAL: No headache. No neck pain. No syncope. No seizures. No dizziness. PSYCHIATRIC: Not anxious. No depression. No suicidal thoughts. No homicidal thoughts. SKIN: No rash. No lesions. No wounds. ENDOCRINE: No unexplained weight loss. No weight gain. HEMATOLOGIC/LYMPHATIC: No anemia. No purpura. No petechiae. No prolonged or excessive bleeding. No palpable lymph nodes. PHYSICAL EXAMINATION: GENERAL: The patient is oriented to time, place and person. VITAL SIGNS: Temperature 97.7, pulse 64, respiratory rate 20, blood pressure 105/60 and pulse ox 99% on 2 liters. HEENT: Head normocephalic, atraumatic. Eyes: Extraocular muscles are intact. Pupils are equal, round and reactive to light and accommodation. Ears: No lesions. Nose appeared normal. Throat: No exudate or erythema. NECK: Supple. No JVD, no carotid bruit. No lymphadenopathy or thyromegaly. LUNGS: Decreased breath sounds but clear to auscultation. Percussion note normal. Chest symmetrical. HEART: S1, S2, no S3. No murmurs. No cyanosis or clubbing. No ascites. Pulses: Dorsalis pedis and posterior tibial pulses +1 to +2 bilaterally. ABDOMEN: Soft. Nontender. Bowel sounds active. No CVA tenderness. No mass felt. EXTREMITIES: No edema. Full range of motion of all extremities, equal. NEUROLOGIC: No focal deficit. Cranial nerves II through XII are grossly intact. No headache, no double vision or headache. SKIN: Not dry. Intact. Turgor - normal. LYMPHATIC: No palpable lymph nodes/no lymphedema. MUSCULOSKELETAL: Normal joints with no swelling. Muscle tone is normal. ASSESSMENT: 1. Weakness/Fatigue resolved 2. Respiratory failure, under control 3. The patient has history of heavy smoking with COPD 4. Chronic anemia 5. Chronic kidney disease PLAN: 1. The patient is living by himself. He is oriented to time, place and person. He is against going to the shelter. He has clearly indicated that. CONDITION: Stable. TIME SPENT: More than 30 minutes. Plan and coordination of the patient's care discussed in the presence of nurse. KAYLEY
[2020-09-16] MEDS: VANCOMYCIN 1.5 GRAM/300 ML PREMIX 1.5 GM/300 ML BAG IV SCH (10:36)
[2020-09-16 12:55] LABS: ABSOLUTE RETICS # 0.0475; RETICULOCYTE % 1.44 %; RETICULOCYTE HEMOGLOBIN 33.7
--- NOTE | 2020-09-16 12:55 | PN ---
DATE OF SERVICE: 09/14/20 SUBJECTIVE: 89-year-old white male hospitalized with weakness and history of having a fall. The patient lives by himself, oriented to time, place and person. His appetite has improved. He is more alert, is refusing to go to the assisted. REVIEW OF SYSTEMS: CONSTITUTIONAL: No night sweats. No fatigue, malaise, lethargy. No fever or chills. HEENT: Eyes: No visual changes. No eye pain. No eye discharge. ENT: No runny nose. No epistaxis. No sinus pain. No sore throat. No odynophagia. No congestion. RESPIRATORY: No cough, no congestion. No hemoptysis. No shortness of breath. CARDIOVASCULAR: No angina symptoms. No CHF symptoms. No atypical chest pain for CAD. No palpitations. No PND. No orthopnea. GASTROINTESTINAL: No abdominal pain. No nausea or vomiting. No diarrhea or constipation. No hematemesis. No hematochezia. GENITOURINARY: No urgency. No frequency. No dysuria. No hematuria. No obstructive symptoms. No discharge. No pain. No significant abnormal bleeding. MUSCULOSKELETAL: No musculoskeletal pain; no joint swelling. NEUROLOGICAL: No headache. No neck pain. No syncope. No seizures. No dizziness. PSYCHIATRIC: Not anxious. No depression. No suicidal thoughts. No homicidal thoughts. SKIN: No rash. No lesions. No wounds. ENDOCRINE: No unexplained weight loss. No weight gain. HEMATOLOGIC/LYMPHATIC: No anemia. No purpura. No petechiae. No prolonged or excessive bleeding. No palpable lymph nodes. PHYSICAL EXAMINATION: VITAL SIGNS: Temperature 97.5, pulse 66, respiratory rate 7, blood pressure 104/58, pulse ox 93%. HEENT: Head normocephalic, atraumatic. Eyes: Extraocular muscles are intact. Pupils are equal, round and reactive to light and accommodation. Ears: No lesions. Nose appeared normal. Throat: No exudate or erythema. NECK: Supple. No JVD, no carotid bruit. No lymphadenopathy or thyromegaly. LUNGS: Decreased breath sounds but clear to auscultation. Percussion note normal. Chest symmetrical. HEART: S1, S2, no S3. No murmurs. No cyanosis or clubbing. No ascites. Pulses: Dorsalis pedis and posterior tibial pulses +1 to +2 bilaterally. ABDOMEN: Soft. Nontender. Bowel sounds active. No CVA tenderness. No mass felt. EXTREMITIES: No edema. Full range of motion of all extremities, equal. NEUROLOGIC: No focal deficit. Cranial nerves II through XII are grossly intact. No headache, no double vision or headache. SKIN: Not dry. Intact. Turgor - normal. LYMPHATIC: No palpable lymph nodes/no lymphedema. MUSCULOSKELETAL: Normal joints with no swelling. Muscle tone is normal. LABS: Hemoglobin 8.8, hematocrit 26, WBC 6,300, normal differential. Creatinine 1.1, BUN 20, potassium 3.8. ASSESSMENT: The patient has positive blood cultures, positive cocci. The patient is being treated with IV antibiotics. The patient is on Rocephin and Vancomycin. The patient has history of septicemia though his septicemia is practically unknown. The patient is very difficult. The patient has very difficult body habitus and echocardiogram is extremely difficult. The patient is refusing to have transesophageal echocardiogram or any further studies or further referral. The patient has been to [facility] before with septicemia. The patient is refusing to go to the assisted. He wants DNR. He says he feels fine and the best thing is to leave him alone. He wants to go home. CONDITION: Stable. TIME SPENT: More than 30 minutes. Plan and coordination of the patient's care discussed in the presence of nurse. KAYLEY
[2020-09-16 13:12] LABS: IRON 44.5 ug/dL (49-181)
[2020-09-16 14:12] LABS: FOLATE 11.8 ng/mL
--- NOTE | 2020-09-16 15:26 | CT ---
EXAM: CT abdomen pelvis with and without contrast HISTORY: Anemia, hip pain COMPARISON: 05/24/2020 TECHNIQUE: CT abdomen pelvis performed with and without intravenous contrast. Coronal and sagittal reformatted is obtained FINDINGS: Bibasilar atelectasis. No free air. No acute abnormalities of the bones. Degenerative c hange in the spine. Lumbar spinal fusion hardware. Mild osteoarthritis of the hips. Heart mildly e nlarged. Liver unremarkable. Patient status post cholecystectomy. Pancreas unremarkable. Spleen w ith granulomas calcification, otherwise unremarkable. Right adrenal gland unremarkable. Left adrena l gland not visualized and may be surgically absent. Status post left nephrectomy. No right hydrone phrosis or nephrolithiasis. Right renal cyst. No lymphadenopathy or ascites. Small bilateral fat c ontaining inguinal hernias. Mild circumferential wall thickening. Prostate normal in size. Stomach unremarkable. No dilated loops small bowel. Appendix not visualized. Colonic diverticulosis. Ext ensive atherosclerosis. 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 IMPRESSION: 1. Unexpected finding: Infrarenal abdominal aortic aneurysm measures up to 4.9 cm, mildly increased and previously 4.7 cm. Extensive atherosclerosis. Recommend vascular consultation. 2. Mild circumferential bladder wall thickening may relate to changes of chronic outlet obstruction or cystitis. 3. Colonic diverticulosis. 4. Status post left nephrectomy. All CT scans are performed using dose optimization techniques as appropriate to the performed exam an d include at least one of the following: Automated exposure control, adjustment of the mA and/or kV according t o size, and the use of iterative reconstruction technique.
[2020-09-16] MEDS: NICODERM 21 MG TD SCH (16:05)
[2020-09-16 19:25] LABS: OCCULT BLOOD SAMPLE 1 POSITIVE (NEGATIVE)
[2020-09-17] MEDS: VENTOLIN HFA (PER PUFF-WITH SPACER) IH SCH ×4 (04:50→19:19)
[2020-09-17 05:29] LABS: BASOPHILS % (AUTO) 0.4 % (0.0-3.0); EOSINOPHILS # (AUTO) 0.1 K/ul (0.0-0.7); EOSINOPHILS % (AUTO) 0.6 % (0.0-7.0); HEMATOCRIT 28.2 % (42.0-52.0); HEMOGLOBIN 9.4 g/dl (14.0-18.0); IMMATURE GRANULOCYTE # (AUTO) 0.1 (0.0-1.0); IMMATURE GRANULOCYTE % (AUTO) 1.4 % (0.0-5.0); LYMPHOCYTES # (AUTO) 2.5 K/uL (0.60-3.4); LYMPHOCYTES % (AUTO) 25.7 (10.0-50.0); MEAN CORPUSCULAR HEMOGLOBIN 29.4 pg (27.0-31.0); MEAN CORPUSCULAR HGB CONC 33.3 (31.8-35.4); MEAN CORPUSCULAR VOLUME 88.1 fl (80.0-94.0); MONOCYTES # (AUTO) 0.7 K/uL (0.4-2.0); MONOCYTES % (AUTO) 6.7 (0-10); NEUTROPHILS # (AUTO) 6.4 K/ul (2.0-6.9); NEUTROPHILS % (AUTO) 65.2 % (42.2-75.2); PLATELET COUNT 298 10^3/uL (140-440); RDW COEFFICIENT OF VARIATION 14.4 % (11.6-14.8); WHITE BLOOD COUNT 9.85 K/ul (4.2-10.2)
[2020-09-17] MEDS: LASIX TAB PO SCH (05:37)
[2020-09-17] MEDS: PRILOSEC PO SCH ×2 (05:37→16:25)
[2020-09-17 05:41] LABS: ALANINE AMINOTRANSFERASE 68.7 U/L (0-50); ALBUMIN 3.06 g/dL (3.5-5.0); ALKALINE PHOSPHATASE 68.9 U/L (56-119); ASPARTATE AMINO TRANSFERASE 62.6 U/L (17-59); BILIRUBIN,TOTAL 0.31 mg/dL (0.2-1.3); BLOOD UREA NITROGEN 27.7 mg/dL (9-20); CALCIUM 8.84 mg/dL (8.4-10.2); CARBON DIOXIDE 29.4 mmol/L (22-30.0); CHLORIDE 102.4 mmol/L (98-107); CREATININE 1.18 mg/dL (0.60-1.10); GLUCOSE 104.5 mg/dL (74-106); POTASSIUM 3.89 mmol/L (3.5-5.1); TOTAL PROTEIN 6.72 g/dL (6.3-8.2)
--- NOTE | 2020-09-17 08:44 | PCM.PROG ---
Attending Provider: ATTENDING PROVIDER: Dr. DARY CAROLINA This patient is seen with Winsome Licea, Nurse Practitioner. DATE OF SERVICE: 09/17/20 SUBJECTIVE: This 89 year old /WHITE M was hospitalized 09/10/20. The patient is resting comfortably. CT scan showed no acute process yesterday. 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 We are waiting to hear from [facility] regarding possible placement. The patient states he is still somewhat undecided. REVIEW OF SYSTEMS: CONSTITUTIONAL: No night sweats. No fatigue, malaise, lethargy. No fever or chills. Weakness. HEENT: Eyes: No visual changes. No eye pain. No eye discharge. ENT: No runny nose. No epistaxis. No sinus pain. No odynophagia. No congestion. RESPIRATORY: No cough, no congestion. No hemoptysis. Shortness of breath. CARDIOVASCULAR: No angina symptoms. No CHF symptoms. No atypical chest pain for CAD. No palpitations. No orthopnea.. GASTROINTESTINAL: No abdominal pain. No nausea or vomiting. No diarrhea or constipation. No hematemesis. No hematochezia. Incontinence. GENITOURINARY: No urgency. No frequency. No dysuria. No hematuria. No obstructive symptoms. No discharge. No pain. No significant abnormal bleeding. MUSCULOSKELETAL: No musculoskeletal pain; no joint swelling. NEUROLOGICAL: Awake, alert, oriented to time, place and person. No headache. No neck pain. No syncope. No seizures. No dizziness. PSYCHIATRIC: Not anxious. No depression. No suicidal thoughts. No homicidal t houghts. SKIN: No rash. No lesions. No wounds. ENDOCRINE: No unexplained weight loss. No weight gain. HEMATOLOGIC/LYMPHATIC: No anemia. No purpura. No petechiae. No prolonged or excessive bleeding. No palpable lymph nodes. PHYSICAL EXAMINATION: GENERAL: The patient is awake, alert and oriented, Sitting in bed in no distress. VITAL SIGNS: Temperature 97.4 F, Pulse 58, Respiratory Rate 18, BP 106/66, Pulse Ox 99% HEENT: Head normocephalic, atraumatic. Eyes: Extraocular muscles are intact. Pupils are equal, round and reactive to light and accommodation. Ears: No lesions. Nose appeared normal. Throat: No exudate or erythema. NECK: Supple. No JVD, no carotid bruit. No lymphadenopathy or thyromegaly. LUNGS: Diminished breath sounds. Clear to auscultation. Percussion note normal. Chest symmetrical. HEART: S1, S2, no S3. No murmurs. No cyanosis or clubbing. No ascites. Pulses: Dorsalis pedis and posterior tibial pulses +1 to +2 both sides. ABDOMEN: Soft. Non-tender. Bowel sounds active. No CVA tenderness. No mass felt. EXTREMITIES: Trace bilateral leg edema. Full range of motion of all extremities, equal. NEUROLOGIC: No focal deficit. Cranial nerves II through XII are grossly intact. No headache, no double vision or headache. SKIN: Not dry. Intact. Turgor-normal. LYMPHATIC: No palpable lymph nodes/no lymphedema. MUSCULOSKELETAL: Normal joints with no swelling. Muscle tone is normal. LAB REVIEW: 09/17/20 04:46 09/17/20 04:46 09/17/20 04:46: Sodium 136.0, Potassium 3.89, Chloride 102.4, Carbon Dioxide 29.4, Anion Gap 8.09, BUN 27.7 H, Creatinine 1.18 H, Estimated GFR (MDRD) 58.00, BUN/Creatinine Ratio 23.47, Glucose 104.5, Calcium 8.84, Total Bilirubin 0.31, AST 62.6 H, ALT 68.7 H, Alkaline Phosphatase 68.9, Total Protein 6.72, Albumin 3.06 L, Globulin 3.66, Albumin/Globulin Ratio 0.83 09/17/20 04:46: WBC 9.85, RBC 3.20 L, Hgb 9.4 L, Hct 28.2 L, MCV 88.1, MCH 29.4, MCHC 33.3, RDW Coeff of Shira 14.4, Plt Count 298, Immature Gran % (Auto) 1.4, Neut % (Auto) 65.2, Lymph % (Auto) 25.7, Kern % (Auto) 6.7, Eos % (Auto) 0.6, Baso % (Auto) 0.4, Neut # (Auto) 6.4, Lymph # (Auto) 2.5, Kern # (Auto) 0.7, Eos # (Auto) 0.1, Baso # (Auto) 0.0, Immature Gran # (Auto) 0.1 09/16/20 19:15: Stl Occult Blood (IFOB) Positive 09/16/20 12:48: Iron 44.5 L, TIBC 254 L, % Saturation 18, Vitamin B12 873 09/16/20 12:48: Ferritin 135.00, Folate 11.80 09/16/20 12:48: Reticulocyte % (Auto) 1.44, Absolute Retic 0.0475, Retic Hgb Equivalent 33.7 ASSESSMENT: Please see below. 1. Sepsis positive enterococcus 2. Generalized weakness 3. History of falls 4. Anemia 5. Chronic kidney disease. PLAN: 1. Echo 2. Discontinue Lovenox 3. Discontinue Decadron 4. 10mg Prednisone Plan and coordination of the patient's care discussed in the presence of Library Historian and nurse. SCRIBED BY: Antonio DUBON scribed while in presence of service performed by Dr. Carolina/Winsome Licea APRN on 09/17/20 ([id number])
[2020-09-17 09:23] LABS: OCCULT BLOOD SAMPLE 2 NO SPECIMEN RECEIVED (NEGATIVE); OCCULT BLOOD SAMPLE 3 NO SPECIMEN RECEIVED (NEGATIVE)
[2020-09-17] MEDS: NICODERM 21 MG TD SCH (10:56)
[2020-09-17] MEDS: ZYLOPRIM PO SCH (10:56)
[2020-09-17] MEDS: DALIRESP PO SCH (10:56)
[2020-09-17] MEDS: ZOCOR PO SCH (10:57)
[2020-09-17] MEDS: PREDNISONE PO SCH (10:57)
[2020-09-17] MEDS: FLOMAX PO SCH (10:57)
[2020-09-17] MEDS: FERROUS SULFATE PO SCH (10:57)
[2020-09-17] MEDS: NEURONTIN PO SCH (10:57)
[2020-09-17] MEDS: NORCO 5-325 PO SCH ×2 (10:58→20:39)
[2020-09-17] MEDS: ASTELIN 0.1% NAS SCH ×2 (10:58→20:12)
[2020-09-17] MEDS: FLONASE NAS SCH ×2 (10:58→20:12)
[2020-09-17] MEDS: GUM PO PRN ×3 (10:58→21:25)
[2020-09-17] MEDS: [UNRECOGNIZED DRUG - OTHER] PO PRN ×3 (10:58→21:25)
[2020-09-17] MEDS: NON-FORMULARY MEDICATION (Potassium 99 mg Tablet) PO SCH (11:25)
--- NOTE | 2020-09-17 11:25 | PN ---
DATE OF SERVICE: 09/16/20 SUBJECTIVE: The patient was seen and examined with the nurse practitioner. The patient's condition is stable and he is afebrile. He is on Vancomycin. There is no new murmur. No evidence of any emboli. The patient is noted clinically to be a lot better. He is eating better. I don't know the source of his septicemia. Declined any further evaluation by infectious disease specialist or transesophageal echocardiogram. The patient wants to go home. The patient refuses to go to the [facility]. CONDITION: Stable. TIME SPENT: More than 30 minutes. Plan and coordination of the patient's care discussed in the presence of nurse. KAYLEY
--- NOTE | 2020-09-17 11:35 | PN ---
DATE OF SERVICE: 09/17/20 SUBJECTIVE: The patient is seen and examined with the nurse practitioner. The patient's condition is stable, afebrile. Appetite has improved. He refuses to go to the assisted. He is oriented to time, place and person. Refuses any further investigation for his septicemia. Discussed in detail about the blood cultures and having bacteria in the blood and not knowing the source. He said that he doesn't care where it is coming from. As far as he is concerned, according to him, he is much better. He would like to go home and never return to the hospital. He said he would never go to the assisted. TIME SPENT: More than 30 minutes. Plan and coordination of the patient's care discussed in the presence of nurse. KAYLEY
[2020-09-17] MEDS: ROCEPHIN 1 GM/50 ML D5W 1 GM/50 ML BAG IV SCH (15:00)
[2020-09-17] MEDS: ULTRAM PO SCH ×2 (15:04→21:26)
[2020-09-17] MEDS: VANCOMYCIN 1.5 GRAM/300 ML PREMIX 1.5 GM/300 ML BAG IV SCH (16:25)
[2020-09-18] MEDS: VENTOLIN HFA (PER PUFF-WITH SPACER) IH SCH ×3 (04:51→13:48)
[2020-09-18 05:19] LABS: BASOPHILS # (AUTO) 0.1 K/uL (0-0.2); BASOPHILS % (AUTO) 0.6 % (0.0-3.0); EOSINOPHILS # (AUTO) 0.1 K/ul (0.0-0.7); EOSINOPHILS % (AUTO) 1.1 % (0.0-7.0); HEMATOCRIT 26.8 % (42.0-52.0); HEMOGLOBIN 8.8 g/dl (14.0-18.0); IMMATURE GRANULOCYTE # (AUTO) 0.2 (0.0-1.0); IMMATURE GRANULOCYTE % (AUTO) 1.6 % (0.0-5.0); LYMPHOCYTES # (AUTO) 2.5 K/uL (0.60-3.4); LYMPHOCYTES % (AUTO) 23.1 (10.0-50.0); MEAN CORPUSCULAR HEMOGLOBIN 28.9 pg (27.0-31.0); MEAN CORPUSCULAR HGB CONC 32.8 (31.8-35.4); MEAN CORPUSCULAR VOLUME 88.2 fl (80.0-94.0); MONOCYTES # (AUTO) 0.8 K/uL (0.4-2.0); MONOCYTES % (AUTO) 7.8 (0-10); NEUTROPHILS # (AUTO) 7.1 K/ul (2.0-6.9); NEUTROPHILS % (AUTO) 65.8 % (42.2-75.2); PLATELET COUNT 299 10^3/uL (140-440); RDW COEFFICIENT OF VARIATION 14.6 % (11.6-14.8); RED BLOOD COUNT 3.04 10^6/ul (4.70-6.10); WHITE BLOOD COUNT 10.76 K/ul (4.2-10.2)
[2020-09-18 05:29] LABS: ALANINE AMINOTRANSFERASE 70.8 U/L (0-50); ALBUMIN 2.98 g/dL (3.5-5.0); ALKALINE PHOSPHATASE 71.2 U/L (56-119); ASPARTATE AMINO TRANSFERASE 51.7 U/L (17-59); BILIRUBIN,TOTAL 0.3 mg/dL (0.2-1.3); BLOOD UREA NITROGEN 28.5 mg/dL (9-20); CALCIUM 8.49 mg/dL (8.4-10.2); CARBON DIOXIDE 28.8 mmol/L (22-30.0); CREATININE 1.24 mg/dL (0.60-1.10); GLUCOSE 106.1 mg/dL (74-106); POTASSIUM 4.1 mmol/L (3.5-5.1); SODIUM 137.2 mmol/L (134.5-145); TOTAL PROTEIN 6.62 g/dL (6.3-8.2)
[2020-09-18] MEDS: PRILOSEC PO SCH (05:39)
[2020-09-18] MEDS: LASIX TAB PO SCH (05:39)
[2020-09-18] MEDS: [UNRECOGNIZED DRUG - OTHER] PO PRN (08:14)
[2020-09-18] MEDS: GUM PO PRN (08:14)
[2020-09-18] MEDS: NICODERM 21 MG TD SCH (08:16)
[2020-09-18] MEDS: NEURONTIN PO SCH (08:16)
[2020-09-18] MEDS: ZOCOR PO SCH (08:17)
[2020-09-18] MEDS: DALIRESP PO SCH (08:17)
[2020-09-18] MEDS: ZYLOPRIM PO SCH (08:17)
[2020-09-18] MEDS: NORCO 5-325 PO SCH (08:17)
[2020-09-18] MEDS: FERROUS SULFATE PO SCH (08:17)
[2020-09-18] MEDS: PREDNISONE PO SCH (08:23)
[2020-09-18] MEDS: FLOMAX PO SCH (08:23)
[2020-09-18] MEDS: ASTELIN 0.1% NAS SCH (08:23)
[2020-09-18] MEDS: FLONASE NAS SCH (08:24)
[2020-09-18] MEDS: NON-FORMULARY MEDICATION (Potassium 99 mg Tablet) PO SCH (08:24)
[2020-09-18] MEDS: ROCEPHIN 1 GM/50 ML D5W 1 GM/50 ML BAG IV SCH (08:25)
[2020-09-18] MEDS: VANCOMYCIN 1.5 GRAM/300 ML PREMIX 1.5 GM/300 ML BAG IV SCH (09:12)
[2020-09-18] MEDS ORDERED: AMPICILLIN TRIHYDRATE PO ONE (13:00)
[2020-09-18] MEDS: ULTRAM PO SCH (14:16)
[2020-09-18 14:50] VITALS: BP 115/67; TEMP 97.9
[2020-09-18] MEDS ORDERED: PRILOSEC PO SCH (17:00)
--- NOTE | 2020-09-19 08:08 | ECHO2D ---
Date of Exam: 09/17/2020 Ordering Physician: DR. DARY CAROLINA Room #: 103 Reason for Echo: SOA, HX HTN, HX CHF, COPD, FEVER--R/O ENDOCARDITIS M-Mode Normal Adult Results LV Dimensions Normal Adult Results AoV Opening excursions >1.6 >1.6 LVEDD-base- 3.5-5.8 5.7 Ao root dimensions 2.0-3.7 4.0 LVESD-base- 3.1-4.6 L. Atrium dimensions 1.9-3.8 5.4 Post. Wall thickness 0.8-1.1 1.4 IV septum (thickness) 0.7-1.2 1.4 Post. Wall excursion 0.72-1.3 NORMAL Septal motion NORMAL Systolic motion R. 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 LEFT VENTRICULAR HYPERTROPHY WITH ENLARGED LEFT ATRIAL CAVITY 2. ENLARGED RIGHT VENTRICLE CAVITY--BORDERLINE LEFT VENTRICLE CAVITY 3. NORMAL LEFT VENTRICLE CONTRACTILITY 4. NO ECHOGENIC AREAS CONSISTENT WITH VEGETATIONS MTDD
--- NOTE | 2020-09-19 12:08 | CM.DICTOOL ---
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 - CT 05/2020 - REFUSES VASCULAR REFERRAL RECURRENT DIZZINESS- CAROTID/MRI 02/2020 COPD - O2 DEPENDENT HEAVY SMOKER CHRONIC RESPIRATORY FAILURE HTN NEUROPATHY GOUT GERD CKD STAGE 2-3 BILATERAL SHOULDER S/P SPINE SURGERY X 3 LT RENAL CA - REFUSES FURTHER CONSULTATION LT SCIATICA HAND TREMORS CHF DYSLIPIDEMIA FALLS NON- COMPLIANCE WITH LIFESTYLE, MEDICATIONS, DIET AND FOLLOW-UP PROCEDURES: BILATERAL TKR LAST VITALS Temp Pulse Resp BP Pulse Ox 97.2 F L 60 16 107/72 98 09/18/20 05:44 09/18/20 05:44 09/18/20 05:44 09/18/20 05:44 09/18/20 09:56 TAKE THESE MEDICATIONS AT HOME Acetaminophen (Acetaminophen 325 Mg Tablet) 650 mg PO Q4H PRN PRN Reason: Fever >101 Last Admin: 09/12/20 21:48 Dose: 650 mg Documented by: Hydrocodone Bitart/Acetaminophen (Hydrocodone Bit/Acetaminophen 5/325 Mg Tablet) 1 tab PO DAILY [facility] Last Admin: 09/18/20 08:17 Dose: 1 tab Documented by: Albuterol Sulfate (Albuterol Sulfate (Ventolin Hfa) 18 Gm 1 Puff With Spacer) 2 puff IH EVERY 4 HOURS PRN Last Admin: 09/18/20 13:48 Dose: 2 puff Documented by: Allopurinol (Allopurinol 100 Mg Tablet) 300 mg PO DAILY [facility] Last Admin: 09/18/20 08:17 Dose: 300 mg Documented by: Azelastine HCl (Azelastine Hcl 30 Ml Nasal [place]) 1 spray SOPHIA BID [facility] Last Admin: 09/18/20 08:23 Dose: 1 spray Documented by: Colestipol HCl (Colestipol Hcl 1 Gm Tablet) 1 gm PO DAILY PRN PRN Reason: diarrhea Ferrous Sulfate (Ferrous Sulfate 324 Mg Tablet.) 324 mg PO DAILY [facility] Last Admin: 09/18/20 08:17 Dose: 324 mg Documented by: Fluticasone Propionate (Fluticasone Propionate 16 Gm Nasal [place]) 1 spray SOPHIA BID [facility] Last Admin: 09/18/20 08:24 Dose: 1 spray Documented by: Furosemide (Furosemide 20 Mg Tablet) 20 mg PO QDAC [facility] Last Admin: 09/18/20 05:39 Dose: 20 mg Documented by: Gabapentin (Gabapentin 300 Mg Capsule) 600 mg PO DAILY [facility] Last Admin: 09/18/20 08:16 Dose: 600 mg Documented by: Nicotine (Nicotine 21 Mg Patch.Td24) 1 patch TD DAILY [facility] Last Admin: 09/18/20 08:16 Dose: 1 patch Documented by: Non-Formulary Medication (Dimenhydrinate [Dramamine]) 50 mg PO DAILY PRN PRN Reason: dizziness or vertigo Non-Formulary Medication (Hemp Gummy Bear) 50 mg PO QID PRN PRN Reason: Pain Last Admin: 09/18/20 08:14 Dose: 50 mg Documented by: Non-Formulary Medication (Potassium) 99 mg PO DAILY [facility] Last Admin: 09/18/20 08:24 Dose: Not Given Documented by: Non-Formulary Medication (Propylene Glycol [Systane Balance]) 1 drop EACHEYE BID PRN PRN Reason: Dry eyes Omeprazole (Omeprazole 20 Mg Capsule.) 20 mg PO BIDAC [facility] Prednisone (Prednisone 10 Mg Tablet) 5 mg PO DAILYWM [facility] X 5 MORE DAYS THEN STOP. ( NEW) Last Admin: 09/18/20 08:23 Dose: 10 mg Documented by: Roflumilast (Roflumilast 500 Mcg Tablet) 500 mcg PO DAILY [facility] Last Admin: 09/18/20 08:17 Dose: 500 mcg Documented by: Simvastatin (Simvastatin 10 Mg Tablet) 20 mg PO DAILY [facility] Last Admin: 09/18/20 08:17 Dose: 20 mg Documented by: Tamsulosin HCl (Tamsulosin Hcl 0.4 Mg Cap.Er.24h) 0.4 mg PO DAILY [facility] Last Admin: 09/18/20 08:23 Dose: 0.4 mg Documented by: AMPICILLIN 500 MG QID PO X 30 DAYS NICOTINE PATCH 21 MG TOPICAL CHANGE DAILY DUONEB 3 ML EVERY 6 HOURS ALLERGIES Penicillins Adverse Reaction (Severe, Verified 09/18/20 12:29) Unknown ( RASH AND MD APPROVED THE USE OF AMPICILLIN, PER DR. CAROLINA) flu Vaccine Adverse Reaction (Uncoded 09/10/20 21:45) Unknown DISCONTINUED MEDICATIONS 1). TRAMADOL NEW PRESCRIPTIONS: 1). AMPICILLIN 500 MG QID PO X 30 DAYS START THIS PM 2). PREDNISONE 5 MG PO DAILY X 5 DAYS, START 09/19/2020 3). NICOTINE PATCH 21mg TOPICAL, CHANGE DAILY, START 09/19/2020 SMOKING: SMOKING CESSATION DISEASE SPECIFIC EDUCATION: WEAKNESS/ FALL RISK SEPSIS COPD CHRONIC ANEMIA SMOKING COVID 19 LAB REVIEW: 09/18/20 04:31 09/18/20 04:31 09/18/20 04:31: Sodium 137.2, Potassium 4.10, Chloride 104.0, Carbon Dioxide 28.8, Anion Gap 8.50, BUN 28.5 H, Creatinine 1.24 H, Estimated GFR (MDRD) 55.00, BUN/Creatinine Ratio 22.98, Glucose 106.1 H, Calcium 8.49, Total Bilirubin 0.30, AST 51.7, ALT 70.8 H, Alkaline Phosphatase 71.2, Total Protein 6.62, Albumin 2.98 L, Globulin 3.64, Albumin/Globulin Ratio 0.81 09/18/20 04:31: WBC 10.76 H, RBC 3.04 L, Hgb 8.8 L, Hct 26.8 L, MCV 88.2, MCH 28.9, MCHC 32.8, RDW Coeff of Shira 14.6, Plt Count 299, Immature Gran % (Auto) 1.6, Neut % (Auto) 65.8, Lymph % (Auto) 23.1, Wake % (Auto) 7.8, Eos % (Auto) 1.1, Baso % (Auto) 0.6, Neut # (Auto) 7.1 H, Lymph # (Auto) 2.5, Wake # (Auto) 0.8, Eos # (Auto) 0.1, Baso # (Auto) 0.1, Immature Gran # (Auto) 0.2 09/16/20 15:10: SARS-CoV-2 RNA (KEVYN) Not detected PLAN: DISCHARGE: TO [facility] TODAY ACTIVITY: UP WITH ASSIST OF ONE AND WALKER. PROGRESS DIRECTED PER THERAPY DEPARTMENT. FALL PRECAUTIONS. PT AND OT EVAL AND TREAT. DIET: REGULAR DIET AND COFFEE WITH ALL MEALS YOGURT WITH EVERY MEAL MD FOLLOW UP: DR. CAROLINA/ ALIA KING APRN/ MONICA AVILA APRN TO SEE ON ROUNDS. DR. PADILLA ( ENT) AT [facility], 2020 @ [address]. DR. DON( UROLOGY) WILL CALL FROM [facility] WITH DATE, TIME AND LOCATION.(NO LONGER GOING TO BE AT THE [facility]). LABS: CBC AND CMP ON WEDNESDAY THEN EVERY 2 MONTHS LIPIDS, TSH, FREE T4, AND A1C EVERY 6 MONTHS VITAL SIGNS: EVERY 8 HOURS X 3 DAYS, THEN DAILY OXYGEN: 2 L/M PER N/C CONTINUOS, MAY TURN UP TO 3 L/M FOR ACTIVITY AND RECOVERY CAN HOLD NEBULIZERS AT NIGHT WHEN SLEEPING. CODE STATUS: DO NOT RESUSCITATE MR. GREEN IS ALERT AND ORIENTED X 4. HE WAS CONFUSED AND FORGETFUL WITH CERTAIN DETAILS UPON ADMISSION, BUT HAS RESOLVED, OTHER THAT SOME SLIGHT FORGETFULNESS.. HIS LUNGS HAVE SANDIP CLEAR AND SLIGHTLY DIMINISHED. NO COUGH. HE IS DEPENDENT ON OXYGEN. HE IS GETTING UP WITH A WALKER AND SBA AND WITH ENCOURAGEMENTS. NUTRITIONAL AND FLUID INTAKE ARE GOOD. SKIN HAS BEEN WARM AND DRY AND INTACT. INCONTINENT OF URINE AND WEARS BREIFS. CONTINENT OF BOWELS AND LAST BM 09/17/2020. HE DOES HAVE BLACK STOOLS. HE IS ON IRON SUPPLEMENTATION. HE HAS HAD A POSITIVE FOR BLOOD, OCCULT STOOL. HE HAS FALLEN AT HOME SEVERAL TIMES AND DTR CLAIMS HE HAS GOTTEN MORE FORGETFUL AT NIGHT. RECENTLY HIS THOUGHT PROCESSES HAVE IMPROVED. NO CONFUSION NOTED AT NIGHT. MR. MACK HAS DISCUSSED IT IN DEPTH AND SEVERAL TIMES AND HE DECIDED HE SHOULD GO TO [facility] FOR REHAB, PRIOR TO RETURNING TO HOME. HE IS AWARE THE TIME COULD BE EXTEN DED. MD ALIA CHARLES APRN ALYCE HANNAN, APRN
--- NOTE | 2020-09-19 14:03 | PN ---
DATE OF SERVICE: 09/18/20 - DISCHARGE NOTE SUBJECTIVE: 89-year-old white male hospitalized with weakness and fall. The patient also had septicemia Enterococcus. The patient has history of the same kind of septicemia in the past and Ampicillin and discharged home. The patient supposedly has Penicillin allergy but he did not at that time. REVIEW OF SYSTEMS: CONSTITUTIONAL: No night sweats. No fatigue, malaise, lethargy. No fever or chills. HEENT: Eyes: No visual changes. No eye pain. No eye discharge. ENT: No runny nose. No epistaxis. No sinus pain. No sore throat. No odynophagia. No congestion. RESPIRATORY: No cough, no congestion. No hemoptysis. No shortness of breath. CARDIOVASCULAR: No angina symptoms. No CHF symptoms. No atypical chest pain for CAD. No palpitations. No PND. No orthopnea. GASTROINTESTINAL: Appetite has improved. He loves to eat food at the hospital. No abdominal pain. No nausea or vomiting. No diarrhea or constipation. No hematemesis. No hematochezia. GENITOURINARY: No urgency. No frequency. No dysuria. No hematuria. No obstructive symptoms. No discharge. No pain. No significant abnormal bleeding. MUSCULOSKELETAL: No musculoskeletal pain; no joint swelling. NEUROLOGICAL: No headache. No neck pain. No syncope. No seizures. No dizziness. PSYCHIATRIC: Not anxious. No depression. No suicidal thoughts. No homicidal thoughts. SKIN: No rash. No lesions. No wounds. ENDOCRINE: No unexplained weight loss. No weight gain. HEMATOLOGIC/LYMPHATIC: No anemia. No purpura. No petechiae. No prolonged or excessive bleeding. No palpable lymph nodes. PHYSICAL EXAMINATION: VITAL SIGNS: Temperature 97.2, pulse 60, respiratory rate 16, blood pressure 107/72, pulse ox 98% on 2L. HEENT: Head normocephalic, atraumatic. Eyes: Extraocular muscles are intact. Pupils are equal, round and reactive to light and accommodation. Ears: No lesions. Nose appeared normal. Throat: No exudate or erythema. NECK: Supple. No JVD, no carotid bruit. No lymphadenopathy or thyromegaly. LUNGS: Decreased breath sounds but clear to auscultation. Percussion note normal. Chest symmetrical. HEART: S1, S2, no S3. No murmurs. No cyanosis or clubbing. No ascites. Pulses: Dorsalis pedis and posterior tibial pulses +1 to +2 bilaterally. ABDOMEN: Soft. Nontender. Bowel sounds active. No CVA tenderness. No mass felt. EXTREMITIES: No edema. Full range of motion of all extremities, equal. NEUROLOGIC: No focal deficit. Cranial nerves II through XII are grossly intact. No headache, no double vision or headache. SKIN: Not dry. Intact. Turgor - normal. LYMPHATIC: No palpable lymph nodes/no lymphedema. MUSCULOSKELETAL: Normal joints with no swelling. Muscle tone is normal. LABS: Hemoglobin 8.8, hematocrit 26, WBC 10,000, normal differential. Creatinine 1.2, BUN 28, potassium 4.10. ASSESSMENT: Weakness has resolved. Appetite has improved. The patient is living by himself and has been neglecting to eat, was getting weaker. The patient has improved in the strength now he realizes that he needs to be somewhere where he is taken care of. He says now he has a positive attitude and he is feeling better now. He wants to go to the alf and get rehabilitation and what to do after 4 to 6 weeks of staying there. The patient is going to be on Ampicillin 500 mg q.i.d. for 30 days, Prednisone 5 mg p.o. daily for 5 days. He is going to be on 2L of oxygen. Will have regular labs done. TIME SPENT: More than 30 minutes. Plan and coordination of the patient's care discussed in the presence of nurse. KAYLEY
--- NOTE | 2020-09-24 14:09 | DS ---
DATE OF SERVICE: 09/18/20 FINAL DIAGNOSIS: 1. WEAKNESS, HX OF FALL 2. SEVERE COPD, OXYGEN DEPENDENT 3. SEPSIS POSITIVE FOR ENTEROCOCCUS 4. CHRONIC KIDNEY DISEASE - STAGE 3 5. CHRONIC ANEMIA 6. HEAVY SMOKER 7. GENERAL OSTEOARTHRITIS 8. NEUROPATHY 9. DYSLIPIDEMIA 10. GAIT DIFFICULTY 11. IMPAIRED SAFETY AWARENESS HX: 12. SEPSIS - POSITIVE ENTEROCCOCUS- 06/2020 13. LLQ PAIN - POSSIBLE DIVERTICULITIS PER CT 14. 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 RECURRENT DIZZINESS-CAROTID/MRI 02/2020 16. COPD - O2 DEPENDENT 17. HEAVY SMOKER 18. CHRONIC RESPIRATORY FAILURE 19. HTN 20. NEUROPATHY 21. GOUT 22. GERD 23. CKD STAGE 2-3 24. BILATERAL SHOULDER S/P SPINE SURGERY X 3 25. LT RENAL CA - REFUSES FURTHER CONSULTATION 26. LT SCIATICA 27. HAND TREMORS 28. CHF 29. DYSLIPIDEMIA 30. FALLS 31. NON-COMPLIANCE WITH LIFESTYLE, MEDICATIONS, DIET AND FOLLOW-UP PROCEDURES: 32. BILATERAL TKR LAST VITALS Temp Pulse Resp BP Pulse Ox 97.2 F L 60 16 107/72 98 09/18/20 05:44 09/18/20 05:44 09/18/20 05:44 09/18/20 05:44 09/18/20 09:56 DISCHARGE INSTRUCTIONS: 1. DISCHARGE: TO [facility] TODAY 2. MD FOLLOW UP: DR. CAROLINA/ALIA KING APRN/MONICA AVILA APRN TO SEE ON ROUNDS. DR. PADILLA (ENT) AT [facility] OCTOBER 23, 2020 @ [id number] DR. ALBERTO (UROLOGY) WILL CALL FROM [facility] WITH DATE, TIME AND LOCATION.(NO LONGER GOING TO BE AT THE [facility]). 3. LABS: CBC AND CMP ON WEDNESDAY THEN EVERY 2 MONTHS, LIPIDS, TSH, FREE T4, AND A1C EVERY 6 MONTHS 4. VITAL SIGNS: EVERY 8 HOURS X 3 DAYS, THEN DAILY 5. OXYGEN: 2 L/M PER N/C CONTINUOUS, MAY TURN UP TO 3 L/M FOR ACTIVITY AND RECOVERY CAN HOLD NEBULIZERS AT NIGHT WHEN SLEEPING. MEDICATIONS AT DISCHARGE: Acetaminophen (Acetaminophen 325 Mg Tablet) 650 mg PO Q4H PRN PRN Reason: Fever >101 Last Admin: 09/12/20 21:48 Dose: 650 mg Documented by: Hydrocodone Bitart/Acetaminophen (Hydrocodone Bit/Acetaminophen 5/325 Mg Tablet) 1 tab PO DAILY [facility] Last Admin: 09/18/20 08:17 Dose: 1 tab Documented by: Albuterol Sulfate (Albuterol Sulfate (Ventolin Hfa) 18 Gm 1 Puff With Spacer) 2 puff IH EVERY 4 HOURS PRN Last Admin: 09/18/20 13:48 Dose: 2 puff Documented by: Allopurinol (Allopurinol 100 Mg Tablet) 300 mg PO DAILY [facility] Last Admin: 09/18/20 08:17 Dose: 300 mg Documented by: Azelastine HCl (Azelastine Hcl 30 Ml Nasal Outing) 1 spray SOPHIA BID [facility] Last Admin: 09/18/20 08:23 Dose: 1 spray Documented by: Colestipol HCl (Colestipol Hcl 1 Gm Tablet) 1 gm PO DAILY PRN PRN Reason: diarrhea Ferrous Sulfate (Ferrous Sulfate 324 Mg Tablet.) 324 mg PO DAILY [facility] Last Admin: 09/18/20 08:17 Dose: 324 mg Documented by: Fluticasone Propionate (Fluticasone Propionate 16 Gm Nasal Outing) 1 spray SOPHIA BID [facility] Last Admin: 09/18/20 08:24 Dose: 1 spray Documented by: Furosemide (Furosemide 20 Mg Tablet) 20 mg PO QDAC [facility] Last Admin: 09/18/20 05:39 Dose: 20 mg Documented by: Gabapentin (Gabapentin 300 Mg Capsule) 600 mg PO DAILY [facility] Last Admin: 09/18/20 08:16 Dose: 600 mg Documented by: Nicotine (Nicotine 21 Mg Patch.Td24) 1 patch TD DAILY [facility] Last Admin: 09/18/20 08:16 Dose: 1 patch Documented by: Non-Formulary Medication (Dimenhydrinate ) 50 mg PO DAILY PRN PRN Reason: dizziness or vertigo Non-Formulary Medication (Hemp Gummy Bear) 50 mg PO QID PRN PRN Reason: Pain Last Admin: 09/18/20 08:14 Dose: 50 mg Documented by: Non-Formulary Medication (Potassium) 99 mg PO DAILY [facility] Last Admin: 09/18/20 08:24 Dose: Not Given Documented by: Non-Formulary Medication (Propylene Glycol ) 1 drop EACHEYE BID PRN PRN Reason: Dry eyes Omeprazole (Omeprazole 20 Mg Capsule.) 20 mg PO BIDAC [facility] Prednisone (Prednisone 10 Mg Tablet) 5 mg PO DAILYWM [facility] X 5 MORE DAYS THEN STOP. ( NEW) Last Admin: 09/18/20 08:23 Dose: 10 mg Documented by: Roflumilast (Roflumilast 500 Mcg Tablet) 500 mcg PO DAILY [facility] Last Admin: 09/18/20 08:17 Dose: 500 mcg Documented by: Simvastatin (Simvastatin 10 Mg Tablet) 20 mg PO DAILY [facility] Last Admin: 09/18/20 08:17 Dose: 20 mg Documented by: Tamsulosin HCl (Tamsulosin Hcl 0.4 Mg Cap.Er.24h) 0.4 mg PO DAILY [facility] Last Admin: 09/18/20 08:23 Dose: 0.4 mg Documented by: AMPICILLIN 500 MG QID PO X 30 DAYS NICOTINE PATCH 21 MG TOPICAL CHANGE DAILY DUONEB 3 ML EVERY 6 HOURS NEW PRESCRIPTIONS: AMPICILLIN 500 MG QID PO X 30 DAYS START THIS PM PREDNISONE 5 MG PO DAILY X 5 DAYS, START 09/19/2020 NICOTINE PATCH 21mg TOPICAL, CHANGE DAILY, START 09/19/2020 DISCONTINUED MEDICATIONS: TRAMADOL DIET INSTRUCTIONS: REGULAR DIET AND COFFEE WITH ALL MEALS, YOGURT WITH EVERY MEAL ACTIVITY: UP WITH ASSIST OF ONE AND WALKER. PROGRESS DIRECTED PER THERAPY DEPARTMENT. FALL PRECAUTIONS. PT AND OT EVAL AND TREAT. SMOKING: SMOKING CESSATION DISEASE SPECIFIC EDUCATION: WEAKNESS/FALL RISK SEPSIS COPD CHRONIC ANEMIA SMOKING COVID 19 HOSPITAL COURSE: 89-year-old white male hospitalized with weakness and fall. The patient actually did not have a fall but just slid down. Family members were present at that time. He usually lives by himself. The patient was brought to the emergency room with weakness. The patient has been neglecting to eat. The patient has been taken care of by the kids and usually they come around and help him out through activity of daily living. The patient is able to manage by himself but lately has been neglecting himself to some extent as far as the eating part is concerned. In any case, the patient during the stay in the hospital also had fever of 101 the following day and lasted off and on for 36 hours. Cultures came back enterococcus. The patient's urine cultures have been negative. The patient again underwent echocardiogram to rule out any endocarditis. During this time he also didn't show any evidence of echogenic areas 2D and 'M' Mode consistent with vegetations. The patient was advised transesophageal echo and further evaluation by infectious disease specialist for his enterococcus septicemia which he completely and flatly declined to go to any other [facility] specialist. The patient's cardiovascular status is stable. His echo showed normal LV contractility. He does not have any evidence of any endocarditis clinically and did not have any evidence of septicemia. This patient, during the stay in the hospital, was treated with Vancomycin and Rocephin. At the time of discharge, the patient was put on Ampicillin 500 mg q.i.d. for 30 days. He was continued on the rest of the medications. He is going to take Ferrous Sulfate one a day. Continue the rest of the medication like Daliresp, Allopurinol, Furosemide, Gabapentin, Simvastatin, Tamsulosin. Discontinued Tramadol. He will be put on Hydrocodone one at night, Ferrous Sulfate, Intranasal spray twice a day, Colestipol 1 gm p.r.n for diarrhea. The patient's ABG, FI02 28% on 09/10/20 on admission showed pH 7.49 with p02 of 94, pc02 of 44 with 94% saturation. The patient, on admission was Covid negative. On the day prior to discharge, the patient was Covid negative. LABS (ON DISCHARGE): Hemoglobin 8.8, hematocrit 26, WBC 10,000, normal differential. Creatinine 1.2, BUN 28, potassium 4.1, glucose 106, GFR 55 cc/min. Condition at the time of discharge is stable. The patient is DNR. TIME SPENT: More than 60 minutes. [facility]
--- NOTE | 2020-09-24 14:12 | PN ---
BILLING 09/10/20 ADMISSION DAY LEVEL 5 09/11/20 INTERMEDIATE 09/12/20 INTERMEDIATE 09/13/20 INTERMEDIATE 09/14/20 INTERMEDIATE 09/15/20 INTERMEDIATE 09/16/20 INTERMEDIATE 09/17/20 INTERMEDIATE 09/18/20 D IN DISCHARGE MTDD
== END 2020-09-18 15:58 | DRG 551 ==
LOC: ED 20:01 → MEDSURG A 23:39
PROVIDERS: ADMIT Internal Medicine; ATTEND Internal Medicine
DX: J96.90 Respiratory failure, unspecified, unspecified whether with hypoxia or hypercapnia; J44.1 Chronic obstructive pulmonary disease with (acute) exacerbation; J20.9 Acute bronchitis, unspecified; M79.604 Pain in right leg; M19.90 Unspecified osteoarthritis, unspecified site; G62.9 Polyneuropathy, unspecified; R50.9 Fever, unspecified; D64.9 Anemia, unspecified; J18.9 Pneumonia, unspecified organism; E78.5 Hyperlipidemia, unspecified; F41.9 Anxiety disorder, unspecified; R53.1 Weakness; A41.81 Sepsis due to Enterococcus; M79.605 Pain in left leg; R60.0 Localized edema; Z20.822 Contact with and (suspected) exposure to COVID-19; N18.30 Chronic kidney disease, stage 3 unspecified; R53.83 Other fatigue; M54.9 Dorsalgia, unspecified

== ENCOUNTER 2020-11-15 13:53 | Inpatient (IN) ==
[2020-11-15] MEDS ORDERED: TYLENOL PO PRN (14:14)
[2020-11-15] MEDS ORDERED: NITROSTAT SL PRN (14:14)
[2020-11-15] MEDS ORDERED: ATROPINE SULFATE PFS IVP PRN (14:14)
[2020-11-15] MEDS ORDERED: LOMOTIL PO STA (14:24)
[2020-11-15] MEDS ORDERED: DEXTROSE 5%-1/2NS IV SOLUTION 1,000 ML IV SCH (14:30)
[2020-11-15 14:35] LABS: BASOPHILS # (AUTO) 0.1 K/uL (0-0.2); BASOPHILS % (AUTO) 0.8 % (0.0-3.0); EOSINOPHILS # (AUTO) 0.2 K/ul (0.0-0.7); EOSINOPHILS % (AUTO) 3.4 % (0.0-7.0); HEMATOCRIT 34.2 % (42.0-52.0); HEMOGLOBIN 11.2 g/dl (14.0-18.0); LYMPHOCYTES # (AUTO) 1.3 K/uL (0.60-3.4); LYMPHOCYTES % (AUTO) 21.1 (10.0-50.0); MEAN CORPUSCULAR HEMOGLOBIN 28.9 pg (27.0-31.0); MEAN CORPUSCULAR HGB CONC 32.7 (31.8-35.4); MEAN CORPUSCULAR VOLUME 88.4 fl (80.0-94.0); MONOCYTES # (AUTO) 0.6 K/uL (0.4-2.0); MONOCYTES % (AUTO) 9.9 (0-10); NEUTROPHILS % (AUTO) 64.8 % (42.2-75.2); PLATELET COUNT 207 10^3/uL (140-440); RDW COEFFICIENT OF VARIATION 15.3 % (11.6-14.8); RED BLOOD COUNT 3.87 10^6/ul (4.70-6.10); WHITE BLOOD COUNT 6.15 K/ul (4.2-10.2)
[2020-11-15 14:38] VITALS: BMI 27.1
[2020-11-15 14:48] LABS: ALANINE AMINOTRANSFERASE 12.6 U/L (0-50); ALBUMIN 3.77 g/dL (3.5-5.0); ALKALINE PHOSPHATASE 81.2 U/L (56-119); ASPARTATE AMINO TRANSFERASE 25.5 U/L (17-59); BILIRUBIN,TOTAL 0.48 mg/dL (0.2-1.3); BLOOD UREA NITROGEN 16.8 mg/dL (9-20); CALCIUM 9.07 mg/dL (8.4-10.2); CARBON DIOXIDE 34.7 mmol/L (22-30.0); CHLORIDE 100.3 mmol/L (98-107); CREATINE KINASE 34.3 U/L (55-170); CREATININE 1.45 mg/dL (0.60-1.10); POTASSIUM 4.28 mmol/L (3.5-5.1); SODIUM 138.7 mmol/L (134.5-145); TOTAL PROTEIN 8.04 g/dL (6.3-8.2)
[2020-11-15 14:50] LABS: ABG PH 7.46 (7.35-7.45)
[2020-11-15 15:02] LABS: TROPONIN I < 0.012 ng/ml (0.0000-0.120)
[2020-11-15] MEDS ORDERED: GUM PO PRN (15:35)
[2020-11-15] MEDS ORDERED: [UNRECOGNIZED DRUG - OTHER] PO PRN (15:35)
[2020-11-15] MEDS: FLAGYL 500 MG/100 ML 500 MG/100 ML BAG IV SCH ×2 (15:41→20:23)
--- NOTE | 2020-11-15 15:52 | DI ---
Exam: Single view of the chest. Comparison: 09/10/2020. Reason for exam: Shortness of breath. FINDINGS: Similar appearing tortuosity of the thoracic aorta. No pneumothorax or pleural effusion. Impression: No acute cardiopulmonary process. Similar appearing tortuosity of the thoracic aorta in the setting of suspected chronic lung disease.
[2020-11-15] MEDS ORDERED: DIMENHYDRINATE 50 MG PO PRN (16:23)
[2020-11-15 16:58] LABS: BILIRUBIN,URINE Negative (NEGATIVE); CLARITY,URINE Clear (CLEAR); COLOR,URINE Yellow (YELLOW); GLUCOSE, URINE (UA) Negative (NEGATIVE); KETONES,URINE Negative (NEGATIVE); LEUKOCYTE ESTERASE ,URINE Negative (NEGATIVE); NITRITE,URINE Negative (NEGATIVE); PROTEIN,URINE Negative (NEGATIVE); URINE, BLOOD Negative (NEGATIVE); UROBILINOGEN,URINE 0.2 (0.2)
[2020-11-15] MEDS ORDERED: DUONEB NEB STA (17:17)
[2020-11-15] MEDS: PRILOSEC PO SCH (17:19)
[2020-11-15] MEDS ORDERED: DUONEB NEB SCH (17:30)
[2020-11-15] MEDS: DUONEB NEB SCH (19:00)
[2020-11-15] MEDS ORDERED: LOMOTIL PO PRN (19:58)
[2020-11-15] MEDS: ULTRAM PO SCH (20:23)
[2020-11-15] MEDS ORDERED: LOMOTIL PO SCH (21:00)
[2020-11-15 22:37] LABS: CREATINE KINASE 31.9 U/L (55-170)
[2020-11-15 22:50] LABS: TROPONIN I 0.013 ng/ml (0.0000-0.120)
[2020-11-16] MEDS: DUONEB NEB SCH ×4 (05:03→19:17)
[2020-11-16] MEDS: PRILOSEC PO SCH ×2 (05:42→17:24)
[2020-11-16] MEDS: LASIX TAB PO SCH (05:42)
[2020-11-16] MEDS: FLAGYL 500 MG/100 ML 500 MG/100 ML BAG IV SCH ×3 (05:42→21:13)
[2020-11-16 08:20] LABS: BASOPHILS % (AUTO) 0.6 % (0.0-3.0); EOSINOPHILS # (AUTO) 0.2 K/ul (0.0-0.7); EOSINOPHILS % (AUTO) 3.4 % (0.0-7.0); HEMATOCRIT 32.1 % (42.0-52.0); HEMOGLOBIN 10.4 g/dl (14.0-18.0); IMMATURE GRANULOCYTE % (AUTO) 0.1 % (0.0-5.0); LYMPHOCYTES # (AUTO) 1.3 K/uL (0.60-3.4); MEAN CORPUSCULAR HEMOGLOBIN 28.9 pg (27.0-31.0); MEAN CORPUSCULAR HGB CONC 32.4 (31.8-35.4); MEAN CORPUSCULAR VOLUME 89.2 fl (80.0-94.0); MONOCYTES # (AUTO) 0.8 K/uL (0.4-2.0); MONOCYTES % (AUTO) 12.1 (0-10); NEUTROPHILS # (AUTO) 4.4 K/ul (2.0-6.9); NEUTROPHILS % (AUTO) 64.8 % (42.2-75.2); PLATELET COUNT 172 10^3/uL (140-440); RDW COEFFICIENT OF VARIATION 15.3 % (11.6-14.8)
[2020-11-16 08:32] LABS: ALANINE AMINOTRANSFERASE 11.4 U/L (0-50); ALBUMIN 3.48 g/dL (3.5-5.0); ALKALINE PHOSPHATASE 77.7 U/L (56-119); ASPARTATE AMINO TRANSFERASE 23.6 U/L (17-59); BILIRUBIN,TOTAL 0.4 mg/dL (0.2-1.3); BLOOD UREA NITROGEN 16.9 mg/dL (9-20); CALCIUM 8.69 mg/dL (8.4-10.2); CARBON DIOXIDE 31.7 mmol/L (22-30.0); CHLORIDE 100.6 mmol/L (98-107); CREATININE 1.24 mg/dL (0.60-1.10); GLUCOSE 125.4 mg/dL (74-106); POTASSIUM 4.23 mmol/L (3.5-5.1); TOTAL PROTEIN 7.52 g/dL (6.3-8.2)
[2020-11-16] MEDS ORDERED: NORCO 5-325 PO PRN (09:00)
[2020-11-16] MEDS ORDERED: NON-FORMULARY MEDICATION (Propylene Glycol [Systane Balance] 0.6 % Drops) OP SCH (09:00)
[2020-11-16] MEDS ORDERED: NON-FORMULARY MEDICATION (Multivitamin Tablet) PO SCH (09:00)
[2020-11-16] MEDS: ARTIFICIAL TEARS DROPS EACHEYE SCH (09:04)
[2020-11-16] MEDS: MULTIVITAMIN TABLET PO SCH (09:05)
[2020-11-16] MEDS: ZYLOPRIM PO SCH (09:05)
[2020-11-16] MEDS: NEURONTIN PO SCH (09:05)
[2020-11-16] MEDS: DALIRESP PO SCH (09:05)
[2020-11-16] MEDS: FLOMAX PO SCH (09:06)
[2020-11-16] MEDS: ULTRAM PO SCH ×3 (09:06→21:20)
[2020-11-16] MEDS: COLESTID PO SCH (09:06)
[2020-11-16] MEDS: NON-FORMULARY MEDICATION (Potassium 99 mg Tablet) PO SCH (09:07)
[2020-11-16] MEDS ORDERED: ZOCOR PO SCH (17:00)
[2020-11-17] MEDS: DUONEB NEB SCH ×2 (04:30→09:51)
[2020-11-17] MEDS: FLAGYL 500 MG/100 ML 500 MG/100 ML BAG IV SCH (05:29)
[2020-11-17] MEDS: PRILOSEC PO SCH (05:30)
[2020-11-17] MEDS: LASIX TAB PO SCH (05:30)
[2020-11-17 05:58] VITALS: BP 107/60; TEMP 98.5
[2020-11-17 06:12] LABS: BASOPHILS % (AUTO) 0.6 % (0.0-3.0); EOSINOPHILS # (AUTO) 0.3 K/ul (0.0-0.7); EOSINOPHILS % (AUTO) 4.5 % (0.0-7.0); HEMATOCRIT 30.5 % (42.0-52.0); IMMATURE GRANULOCYTE % (AUTO) 0.2 % (0.0-5.0); LYMPHOCYTES # (AUTO) 1.3 K/uL (0.60-3.4); LYMPHOCYTES % (AUTO) 20.6 (10.0-50.0); MEAN CORPUSCULAR HEMOGLOBIN 28.8 pg (27.0-31.0); MEAN CORPUSCULAR HGB CONC 32.8 (31.8-35.4); MEAN CORPUSCULAR VOLUME 87.9 fl (80.0-94.0); MONOCYTES # (AUTO) 0.7 K/uL (0.4-2.0); MONOCYTES % (AUTO) 11.5 (0-10); NEUTROPHILS # (AUTO) 4.1 K/ul (2.0-6.9); NEUTROPHILS % (AUTO) 62.6 % (42.2-75.2); PLATELET COUNT 192 10^3/uL (140-440); RDW COEFFICIENT OF VARIATION 15.7 % (11.6-14.8); RED BLOOD COUNT 3.47 10^6/ul (4.70-6.10); WHITE BLOOD COUNT 6.46 K/ul (4.2-10.2)
[2020-11-17 06:26] LABS: ALANINE AMINOTRANSFERASE 10.1 U/L (0-50); ALBUMIN 3.29 g/dL (3.5-5.0); ALKALINE PHOSPHATASE 71.5 U/L (56-119); ASPARTATE AMINO TRANSFERASE 21.7 U/L (17-59); BILIRUBIN,TOTAL 0.28 mg/dL (0.2-1.3); BLOOD UREA NITROGEN 20.5 mg/dL (9-20); CALCIUM 8.4 mg/dL (8.4-10.2); CARBON DIOXIDE 29.3 mmol/L (22-30.0); CHLORIDE 103.5 mmol/L (98-107); CREATININE 1.16 mg/dL (0.60-1.10); GLUCOSE 125.7 mg/dL (74-106); POTASSIUM 3.99 mmol/L (3.5-5.1); SODIUM 136.9 mmol/L (134.5-145); TOTAL PROTEIN 7.13 g/dL (6.3-8.2)
[2020-11-17] MEDS: DALIRESP PO SCH (09:24)
[2020-11-17] MEDS: MULTIVITAMIN TABLET PO SCH (09:25)
[2020-11-17] MEDS: ZYLOPRIM PO SCH (09:25)
[2020-11-17] MEDS: FLOMAX PO SCH (09:25)
[2020-11-17] MEDS: ULTRAM PO SCH (09:25)
[2020-11-17] MEDS: NEURONTIN PO SCH (09:25)
[2020-11-17] MEDS: ARTIFICIAL TEARS DROPS EACHEYE SCH (09:26)
[2020-11-17] MEDS: NON-FORMULARY MEDICATION (Potassium 99 mg Tablet) PO SCH (09:27)
[2020-11-17] MEDS: COLESTID PO SCH (10:55)
--- NOTE | 2020-11-18 10:29 | HP ---
DATE OF SERVICE: 11/15/2020 REASON FOR HOSPITALIZATION/HISTORY OF PRESENT ILLNESS: Diarrhea times 30+ days, weak and weight loss. Liquid, brownish/smells bad times three days. Living at [facility] now. Weakness. NO symptoms of CHF/CAD/COVID. PAST MEDICAL HISTORY: Status post left Cancer, kidney Does not see urology, pulmonology or Nephrology. PAST SURGICAL HISTORY: Left nephrectomy 20 years ago Bilateral total knee replacement Back times three Gallbladder Appendectomy REVIEW OF SYSTEMS: CONSTITUTIONAL: No fever, Fatigue. HEENT: No sinus drainage, no sore throat. RESPIRATORY: No cough, no congestion. CARDIOVASCULAR: No atypical chest pain for coronary artery disease. No angina, CHF symptoms, palpitations. Shortness of breath. GASTROINTESTINAL: No melena or abdominal pain. No GERD. Diarrhea. No cramping. Mild discomfort. GENITOURINARY: No hematuria, no prostatism, no polyuria. GUEST SERVICES: No blackout, no dizziness, no headache, no double vision. MUSCULOSKELETAL: Osteoarthritis pain, no joint swelling. ENDOCRINE: No weight loss, no weight gain. SKIN: Not dry, no rash. PSYCHIATRIC: Not anxious, no depression, no suicidal thoughts, no homicidal thoughts. SOCIAL HISTORY: Marital Status: . Alcohol Usage: No. Tobacco Usage: Yes. FAMILY HISTORY: Father CHF Mother CHF Brother 5- one alive poor health. Unsure of health issues Sister 4 . Unsure of health issues MEDICATIONS: DUO NEBS Q 6 hours PRN Flomax 0.4mg daily Gabapentin 600mg daily Omeprazole 30mg two a day Simvastatin 20mg PO daily Allopurinol 300mg daily Daliresp 500mg PO daily Lasix 20mg daily O2 Multivitamin daily Dramamine 50mg TID PRN Hemp gummy bear 5mg daily Potassium 99mg daily Eye drops two daily B12 Tramadol 50mg BID [place] 5-325 ALLERGIES: Penicillin Flu Shot PHYSICAL EXAMINATION: V/S: Pulse 72, blood pressure 108/68, temperature 98.1, oxygen saturation 98%. GENERAL APPEARANCE: Oriented times three. HEENT: Normal. NECK: No JVP, no bruits. RESPIRATORY: Diminished breath sounds. CARDIOVASCULAR: S1, S2, no S3, no murmur. No cyanosis, clubbing. No ascites. GI/ABDOMEN: No tenderness. Bowel sounds are active. EXTREMITIES: edema, pulses +1, equal. GUEST SERVICES: Deep tendon reflexes, sensory, motor and gait all normal. RECTAL: Refused/PELVIC: Refused. ASSESSMENT: 1. Diarrhea 2. Colitis 3. Dehydration 4. Increase in urinary urgency 5. Left quadrant pain, possible diverticulitis per CT 6. Infrarenal aorta 4.6cm CT 06/04 refuses vascular 7. Recurrent gout 8. Dizziness, carotid MRI 03/04 9. Severe COPD, O2 dependent 10.Heavy smoker 11.Chronic respiratory failure 12.Hypertension 13.Neuropathy 14.GERD 15.CKD stage 2-3 16.Bilateral shoulder 17.Status post spine surgery times three 18.Left renal Cancer, refused 19.Left nephrectomy 20.Left sciatica 21.Hand tremors 22.Bilateral total knee replacement 23.CHF 24.Dyslipidemia PLAN: 1. Admit 2. Routine telemetry 3. TSH, T4 4. 1000cc D5 1/2 normal saline 12 hourly 5. Stat PCR 6. Stool for C-Diff 7. Flagyl 500mg IV and 8 hourly 8. Lantil 2.5mg PO now and BID daily 9. DNR 10.ABG with oxygen TIME SPENT: More than 70 minutes. ADDENDUM: The patient's arterial blood gasses on 2 liters showed pO2 of 75, pCO2 44, pH 7.46 with 92% saturation. Hgb 11.2, hct 34, WBC 6,500 normal differential, creatinine 1.45 with BUN 60 with GFR of 46. Potassium 4.2, CK 34, Troponin negative. T4 TSH normal. The other blood tests done on 11/15/20. MTDD
--- NOTE | 2020-11-18 13:28 | PN ---
DATE OF SERVICE: 11/17/2020 SUBJECTIVE: 89 year old white male hospitalized with diarrhea of one months duration with dehydration. The patient's condition has improved. His kidney functions are improved from GFR of 44 to GFR of 60cc per minute now. He is still somewhat confused. REVIEW OF SYSTEMS: CONSTITUTIONAL: No night sweats. No fatigue, malaise, lethargy. No fever or chills. HEENT: Eyes: No visual changes. No eye pain. No eye discharge. ENT: No runny nose. No epistaxis. No sinus pain. No sore throat. No odynophagia. No congestion. RESPIRATORY: No cough, no congestion. No hemoptysis. No shortness of breath. CARDIOVASCULAR: No angina symptoms. No CHF symptoms. No atypical chest pain for CAD. No palpitations. No PND. No orthopnea. GASTROINTESTINAL: No abdominal pain. No nausea or vomiting. No diarrhea or constipation. No hematemesis. No hematochezia. GENITOURINARY: No urgency. No frequency. No dysuria. No hematuria. No obstructive symptoms. No discharge. No pain. No significant abnormal bleeding. MUSCULOSKELETAL: No musculoskeletal pain; no joint swelling. NEUROLOGICAL: No headache. No neck pain. No syncope. No seizures. No dizziness. PSYCHIATRIC: Not anxious. No depression. No suicidal thoughts. No homicidal thoughts. SKIN: No rash. No lesions. No wounds. ENDOCRINE: No unexplained weight loss. No weight gain. HEMATOLOGIC/LYMPHATIC: No anemia. No purpura. No petechiae. No prolonged or excessive bleeding. No palpable lymph nodes. PHYSICAL EXAMINATION: VITAL SIGNS: Temperature 98.5, pulse 71, respiratory rate 20, blood pressure 107/60 and pulse 94% with 2 liters. HEENT: Head normocephalic, atraumatic. Eyes: Extraocular muscles are intact. Pupils are equal, round and reactive to light and accommodation. Ears: No lesions. Nose appeared normal. Throat: No exudate or erythema. NECK: Supple. No JVD, no carotid bruit. No lymphadenopathy or thyromegaly. LUNGS: Decreased breath sounds but clear to auscultation. Percussion note normal. Chest symmetrical. HEART: S1, S2, no S3. No murmurs. No cyanosis or clubbing. No ascites. Pulses: Dorsalis pedis and posterior tibial pulses +1 to +2 bilaterally. ABDOMEN: Soft. Nontender. Bowel sounds active. No CVA tenderness. No mass felt. EXTREMITIES: No edema. Full range of motion of all extremities, equal. NEUROLOGIC: No focal deficit. Cranial nerves II through XII are grossly intact. No headache. No double vision. SKIN: Not dry. Intact. Turgor - normal. LYMPHATIC: No palpable lymph nodes/no lymphedema. MUSCULOSKELETAL: Normal joints with no swelling. Muscle tone is normal. LABS: Hgb 10, hct 30, WBC 6,400 normal differential,creatinine 1.1, BUN 20, potassium 3.96 ASSESSMENT: 1. Acute colitis seems to have resolved 2. Dehydration with renal azotemia, resolved 3. Dementia persists PLAN: 1. Discharge the patient home on Flagyl 2. The rest of the medications to be continued 3. Instructed to come back in 7 -10 days. 4. The patient is to go to Assisted Living 5. As far as I am concerned the patient is DNR. The patient had signed full code resuscitation note while he was in the hospital for previous hospitalization. The patient was DNR. The whole status was discussed with who is the daughter, presumed the Power of Public Relations Sales Marketing for Health. Talked to the patient on the second day and daughter and third day explained to him and he did not want any extraordinary measures incase of cardiopulmonary arrest. TIME SPENT: More than 30 minutes. Plan and coordination of the patient's care discussed in the presence of nurse. KAYLEY
--- NOTE | 2020-11-18 13:43 | PN ---
DATE OF SERVICE: 11/16/2020 SUBJECTIVE: 89 year old white male hospitalized with acute gastroenteritis especially colitis type of symptoms. The patient does not have any diarrhea during the stay in the hospital but he has more what looks like more along the constipation side. He is dehydrated as he had diarrhea for past one month. In any case the patient's stools were not appropriate for C-Diff so it wasn't done. Nothing has else has been found positive so far. He has been given a couple of Lomotil and he is on Flagyl. The patient's diarrhea subsided. REVIEW OF SYSTEMS: CONSTITUTIONAL: No night sweats. No fatigue, malaise, lethargy. No fever or chills. HEENT: Eyes: No visual changes. No eye pain. No eye discharge. ENT: No runny nose. No epistaxis. No sinus pain. No sore throat. No odynophagia. No congestion. RESPIRATORY: No cough, no congestion. No hemoptysis. Shortness of breath as usual on minimal exertion. CARDIOVASCULAR: No angina symptoms. No CHF symptoms. No atypical chest pain for CAD. No palpitations. No PND. No orthopnea. GASTROINTESTINAL: No abdominal pain. No nausea or vomiting. No diarrhea or constipation. No hematemesis. No hematochezia. GENITOURINARY: No urgency. No frequency. No dysuria. No hematuria. No obstructive symptoms. No discharge. No pain. No significant abnormal bleeding. MUSCULOSKELETAL: No musculoskeletal pain; no joint swelling. NEUROLOGICAL: No headache. No neck pain. No syncope. No seizures. No dizziness. PSYCHIATRIC: Not anxious. No depression. No suicidal thoughts. No homicidal thoughts. SKIN: No rash. No lesions. No wounds. ENDOCRINE: No unexplained weight loss. No weight gain. HEMATOLOGIC/LYMPHATIC: No anemia. No purpura. No petechiae. No prolonged or excessive bleeding. No palpable lymph nodes. PHYSICAL EXAMINATION: VITAL SIGNS: Temperature 97.7, pulse 70, respiratory rate 18, blood pressure 137/74 and pulse ox 98%. HEENT: Head normocephalic, atraumatic. Eyes: Extraocular muscles are intact. Pupils are equal, round and reactive to light and accommodation. Ears: No lesions. Nose appeared normal. Throat: No exudate or erythema. NECK: Supple. No JVD, no carotid bruit. No lymphadenopathy or thyromegaly. LUNGS:Decreased breath sounds but Clear to auscultation. Percussion note normal. Chest symmetrical. HEART: S1, S2, no S3. No murmurs. No cyanosis or clubbing. No ascites. Pulses: Dorsalis pedis and posterior tibial pulses +1 to +2 bilaterally. ABDOMEN: Soft. Nontender. Bowel sounds active. No CVA tenderness. No mass felt. EXTREMITIES: No edema. Full range of motion of all extremities, equal. NEUROLOGIC: No focal deficit. Cranial nerves II through XII are grossly intact. No headache. No double vision. SKIN: Not dry. Intact. Turgor - normal. LYMPHATIC: No palpable lymph nodes/no lymphedema. MUSCULOSKELETAL: Normal joints with no swelling. Muscle tone is normal. LABS: Hgb 10.4, hct 32, WBC 6,800 normal differential, creatinine 1.2, BUN 16, potassium 4.2. ASSESSMENT: 1. Acute colitis/gastroenteritis seems to have resolved PLAN: 1. Continue IV fluids stop it after the present bag is over 2. The patient's initial kidney functions had GFR of around 40-45 now it is 55%. 3. Status has improved and he is looking a lot better. No evidence of fluid overload 4. We will discontinue IV fluids after the present bag is over. 5. No Flagyl for now. 6. There is little controversy. The patient was full DNR last hospitalization. This time the patient was asked by the nursing staff yesterday about the DNR and he wants full code. The patient has difficulty understanding the full extent of it but I explained to him in detail about the intubation, respirator and what could happen following if he is really intubated what are his chances of getting off the breathing machine and all that. After fully explaining to him he said that he never was explained anything like this before. He would not like to have a tube and respiratory. In any case we will continue to talk further but as far as I am concerned the patient is DNR. Last time the patient was DNR. Sarai who seems to be power of validation analyst for health also wants him to be DNR because that is what he wanted. TIME SPENT: More than 30 minutes. Plan and coordination of the patient's care discussed in the presence of nurse. KAYLEY
--- NOTE | 2020-11-22 14:52 | DS ---
DATE OF SERVICE: 11/17/20 FINAL DIAGNOSIS: 1. ACUTE COLITIS WITH DEHYDRATION 2. ACUTE RENAL AZOTEMIA 3. DEMENTIA 4. SEVERE CHRONIC LUNG DISEASE, END-STAGE WITH HOME OXYGEN. 5. DIARRHEA 6. INCREASE IN URINARY URGENCY 7. LEFT QUADRANT PAIN, POSSIBLE DIVERTICULITIS PER CT 8. INFRARENAL AORTA 4.[address] 06/04 REFUSES VASCULAR 9. RECURRENT GOUT 10. DIZZINESS CAROTID MRI 03/04 11. SEVERE COPD, 02 DEPENDENT 12. HEAVY SMOKER 13. CHRONIC RESPIRATORY FAILURE 14. HYPERTENSION 15. NEUROPATHY 16. GERD 17. CHRONIC KIDNEY DISEASE, STAGE 2-3 18. BILATERAL SHOULDER 19. STATUS POST SPINE SURGERY TIMES THREE 20. LEFT RENAL CANCER, REFUSED 21. LEFT NEPHRECTOMY 22. LEFT SCIATICA 23. HAND TREMORS 24. BILATERAL TOTAL KNEE REPLACEMENT 25. CHF 26. DYSLIPIDEMIA CODE STATUS: DNR DISCHARGE INSTRUCTIONS: 1. Discharge to Assisted Living. MEDICATIONS AT DISCHARGE: The patient is advised to continue the same medication as before: Systane Balance 0.6% drops one drop both eyes daily Daliresp 500 mcg p.o. daily Potassium 99 mg p.o. daily Ipratropium-Albuterol 0.5 mg-3 mg (2.5 mg base)/3 mL solution for nebulization 3 mL INH q.6h p.r.n. Simvastatin 20 mg p.o. daily Tamsulosin 0.4 mg p.o. daily Omeprazole 20 mg p.o. b.i.d. Furosemide 20 mg p.o. daily Gabapentin 600 mg p.o. daily Hemp Gummy bear 5 mg p.o. daily p.r.n. Dimenhydrinate 50 mg p.o. t.i.d. p.r.n. Multivitamin one tab p.o. daily Tramadol 50 mg p.o. b.i.d. Allopurinol 300 mg p.o. daily Hydrocodone-acetaminophen ([place]) Colestipol 1 gm p.o. daily NEW PRESCRIPTIONS: Flagyl 250 mg p.o. t.i.d. 5 days DIET INSTRUCTIONS: Resume diet as tolerated. ACTIVITY: Resume activity as tolerated. HOSPITAL COURSE: The patient was seen in the office as he was brought to the office by his daughter because of having diarrhea for the past four weeks. The patient has been residing in assisted living. He was dehydrated. His skin was dry. Mucous membranes were dry, renal azotemia. He was hospitalized with IV fluids for nearly two days with no fluid overload and also was put on Flagyl. Negative for any pathogens. PCR was negative. The patient's stool specimen didn't qualify for C. Diff. In any case the patient's diarrhea had almost stopped by the time he came to the hospital. The patient was advised to avoid milk and milk products. He was continued on the list of medications. The patient had been DNR in the past. At this time, the nursing staff asked the patient about it and didn't think that the patient really understood, answered the question and the document of code status was signed by him. In any case, I talked to the patient in detail and explained to him. He said he understood and doesn't want any intubation or respirator. Sarai, who is the daughter, also is of the same opinion. He expressed before hospitalization while we were in the office. Condition at the time of discharge stable. Prognosis is guarded. TIME SPENT: More than 60 minutes. KAYLEY
--- NOTE | 2020-11-25 12:46 | PN ---
BILLING 11/15/20 ADMISSION DAY LEVEL 5 11/16/20 INTERMEDIATE 11/17/20 D IN DISCHARGE MTDD
--- NOTE | 2020-11-25 13:01 | PN ---
DATE OF SERVICE: 11/15/2020 SUBJECTIVE: The patient was examined in the office and plan was discussed with the daughter and the patient. The patient was DNR. The patient was hospitalized with acute gastroenteritis, dehydration and treatment for colitis which could be C-Diff. TIME SPENT: More than 30 minutes. Plan and coordination of the patient's care discussed in the presence of nurse. KAYLEY
== END 2020-11-17 12:30 | disposition home or self-care (01) | DRG 392 ==
LOC: MEDSURG A 13:53
PROVIDERS: ADMIT Internal Medicine; ATTEND Internal Medicine

== ENCOUNTER 2020-12-20 11:22 | Inpatient (IN) ==
[2020-12-20] MEDS ORDERED: VENTOLIN HFA (PER PUFF-WITH SPACER) IH ONE (11:39)
[2020-12-20] MEDS ORDERED: LASIX IVP ONE (11:39)
[2020-12-20] MEDS ORDERED: ATROVENT HFA INHALER (PER PUFF-WITH SPACER) IH ONE (11:39)
[2020-12-20] MEDS ORDERED: SOLU-MEDROL 125 MG IVP ONE (11:39)
--- NOTE | 2020-12-20 12:07 | ED.PDOC ---
General ED Provider: Dr. JAMES PICHARDO MD Chief Complaint: Shortness of Air Stated Complaint: Pulse ox was 70s. Pt denied any acute SOB, he wheezes all the time, and is a smoker. Time Seen by Provider: 12/20/20 11:23 Mode of Arrival: Ambulance Information Source: Patient and EMT Exam Limitations: No limitations Primary Care Provider: DARY CAROLINA Nursing and Triage Documentation Reviewed and Agree: Yes Does patient meet sepsis criteria?: No System Inflammatory Response Syndrome: Not Applicable Sepsis Protocol: For patient's 13 years and over: Temp is 96.8 and below OR 101 and greater Pulse >90 BPM Resp >20/minute Acutely Altered Mental Status Are patient's symptoms suggestive of a new infection, such as: -Pneumonia -Skin, Soft Tissue -Endocarditis -UTI -Bone, Joint Infection -Implantable Device -Acute Abdominal Infection -Wound Infection -Meningitis -Blood Stream Catheter Infection -Unknown Respiratory Complaint Exam Shortness of Air Complaint/Exam Onset/Duration: this am, pt was hypoxic. Symptoms Are: Resolved Initial Severity: Mild Current Severity: None Character: Reports Dyspnea on exertion Aggravating: Reports Movement Alleviating: Reports Oxygen Associated Signs and Symptoms: Reports Cough, Wheezing and Edema Related History: Reports Similar episode History of Healthcare-Acquired Pneumonia: Lives at group home Cardiac Risk Factors: Reports CHF Tuberculosis Risk Factors: Reports Smoking Home Oxygen Use: No Recent Stress Test: No Recent Echo/LV Function: No Respiratory Distress: Mild Stridor Present: No Tracheal Deviation: No Subcutaneous Emphysema: No Accessory Muscle Use: No Retractions: Not Present Unable to Speak Full Sentences: No Fatigue: No Leg Swelling: Yes Royce's Sign Present: No Grunting Respirations: No Kussmaul Respirations: No Differential Diagnoses: CHF, Pulmonary Edema, COPD Exacerbation, Pneumonia, Bronchitis, Bronchospasm and URI Review of Systems Review Of Systems Constitutional: Reports No symptoms Eyes: Reports No symptoms Ears, Nose, Mouth, Throat: Reports No symptoms Respiratory: Reports Cough and Wheezing Cardiac: Reports No symptoms GI: Reports No symptoms : Reports No symptoms Musculoskeletal: Reports No symptoms Skin: Reports No symptoms Neurological: Reports No symptoms Endocrine: Reports No symptoms Hematologic/Lymphatic: Reports No symptoms All Other Systems: Reviewed and Negative [facility] Medical History (Updated 12/20/20 @ 15:23 by JAMES PICHARDO MD) Arthritis Arthritis associated with foreign body Chronic obstructive airway disease Chronic otitis media Dysfunction of both eustachian tubes Gastro-esophageal reflux Gout Hyperlipemia Hypertension Nerve pain Pain Sensorineural hearing loss (SNHL) of both ears Sinusitis Urinary bladder disorder Vertigo Family History FATHER Diabetes Coronary artery arteriosclerosis Social History Smoking and tobacco status: Current every day smoker Tobacco: How many years used: 80 Passive smoking exposure: Yes Quit status: not considering quitting Surgical History History of bilateral knee replacement History of hip replacement History of nephrectomy Physical Exam Physical Exam Appearance: Reports No pain distress and Well-nourished Ill-appearing: None Pain Distress: None Eyes: Reports CLAUDIA, EOMI and Conjunctiva clear ENT: Reports Ears normal (pt has hearing device) and Nose normal Neck: Supple Respiratory: Reports Airway patent, Rhonchi and Wheezes Cardiovascular: Reports RRR, Pulses normal, No rub and No murmur GI/: Reports Soft, Nontender, No masses and Bowel sounds normal Musculoskeletal: Reports Normal strength, ROM intact and No calf tenderness Skin: Reports Warm, Dry and Normal color Neurological: Reports Sensation intact, Motor intact, Reflexes intact and Not Examined (hearing impaired.) Psychiatric: Reports Affect appropriate and Mood appropriate Interpretation Radiology Interpretation Radiology Interpretation By: Radiologist Exam Interpreted: CT Scan Re-Evaluation Re-Evaluation Time of Re-Evaluation: 12:21 Status: Improved Vital Signs Stable: Yes Pain Level: 0 Lungs: Other (whhezes and rhonchi) Skin: Warm and Dry Neuro: Alert and Oriented X3 CV: RRR Critical Care Note Critical Care Note Total Critical Care Time (mins): 0 Course Course Hematology/Chemistry: 12/20/20 12:06 12/20/20 12:06 Orders, Labs, Meds: Lab Review 12/20/20 12/20/20 12/20/20 12:06 12:06 12:06 WBC 8.99 RBC 3.88 L Hgb 10.9 L Hct 33.4 L MCV 86.1 MCH 28.1 MCHC 32.6 RDW Coeff of Shira 14.8 Plt Count 281 Immature Gran % (Auto) 0.3 Neut % (Auto) 79.9 H Lymph % (Auto) 12.0 Lee % (Auto) 6.5 Eos % (Auto) 0.9 Baso % (Auto) 0.4 Neut # (Auto) 7.2 H Lymph # (Auto) 1.1 Lee # (Auto) 0.6 Eos # (Auto) 0.1 Baso # (Auto) 0.0 Immature Gran # (Auto) 0.0 Puncture Site Base Excess O2 Saturation ABG pH ABG pCO2 ABG pO2 ABG HCO3 ABG Total CO2 Anish Test Hemoglobin Oxyhemoglobin Carboxyhemoglobin Total Hemoglobin O2 Delivery Device Oxygen Liter Flow Sodium 135.6 Potassium 3.93 Chloride 99.0 Carbon Dioxide 31.8 H Anion Gap 8.73 BUN 17.1 Creatinine 1.19 H Estimated GFR (MDRD) 58.00 BUN/Creatinine Ratio 14.36 Glucose 185.8 H Lactic Acid 1.68 Calcium 8.68 Total Bilirubin 0.49 AST 25.1 ALT 19.0 Alkaline Phosphatase 74.2 Troponin I < 0.012 NT-Pro-B Natriuret Pep Total Protein 8.16 Albumin 3.65 Globulin 4.51 Albumin/Globulin Ratio 0.80 SARS-CoV-2 Ag (Rapid) 12/20/20 12/20/20 12/20/20 12:06 12:06 12:13 WBC RBC Hgb Hct MCV MCH MCHC RDW Coeff of Shira Plt Count Immature Gran % (Auto) Neut % (Auto) Lymph % (Auto) Lee % (Auto) Eos % (Auto) Baso % (Auto) Neut # (Auto) Lymph # (Auto) Lee # (Auto) Eos # (Auto) Baso # (Auto) Immature Gran # (Auto) Puncture Site R rad Base Excess 9.5 H O2 Saturation 95.5 ABG pH 7.49 H ABG pCO2 43.0 ABG pO2 72.0 L ABG HCO3 32.8 H ABG Total CO2 34.1 H Anish Test Y Hemoglobin 1.0 Oxyhemoglobin 93.4 L Carboxyhemoglobin 2.4 H Total Hemoglobin 10.9 L O2 Delivery Device Cannula Oxygen Liter Flow 2.00 Sodium Potassium Chloride Carbon Dioxide Anion Gap BUN Creatinine Estimated GFR (MDRD) BUN/Creatinine Ratio Glucose Lactic Acid Calcium Total Bilirubin AST ALT Alkaline Phosphatase Troponin I NT-Pro-B Natriuret Pep 1180.000 H Total Protein Albumin Globulin Albumin/Globulin Ratio SARS-CoV-2 Ag (Rapid) Negative Orders Category Date Time Status ABG DRAW REQUEST Stat CARDIO 12/20/20 11:39 Completed EKG-(ED ONLY) Stat CARDIO 12/20/20 11:39 Completed METERED DOSE INHALATION Routine CARDIO 12/20/20 11:42 Completed ABG COOX Stat LAB 12/20/20 12:13 Completed CBC W/ AUTO DIFF Stat LAB 12/20/20 12:06 Completed COMPREHENSIVE METABOLIC PANEL Stat LAB 12/20/20 12:06 Completed COVID-19 ANTIGEN TEST Stat LAB 12/20/20 12:06 Completed LACTIC ACID Stat LAB 12/20/20 12:06 Completed NT-PROBNP Stat LAB 12/20/20 12:06 Completed TROPONIN I Stat LAB 12/20/20 12:06 Completed URINALYSIS C & S IF INDICATED Stat LAB 12/20/20 12:44 Ordered Albuterol Inhaler(with Spacer) [Ventolin Hfa (Per Puff- MEDS 12/20/20 11:39 Discontinued with Spacer)] 2 puff IH ONCE ONE Furosemide [Lasix] MEDS 12/20/20 11:39 Discontinued 80 mg IVP ONCE ONE Ipratropium Inhaler(Spacer) [Atrovent Hfa Inhaler (Per MEDS 12/20/20 11:39 Discontinued Puff-with Spacer)] 2 puff IH ONCE ONE Methylprednisolone Sod Succ/Pf [Solu-Medrol 125 mg] MEDS 12/20/20 11:39 Discontinued [address]P [address] CHEST W/O CONTRAST Stat RADS 12/20/20 11:39 Completed Medications Generic Name Dose Route Start Last Admin Trade Name Freq PRN Reason Stop Dose Admin Albuterol Sulfate 2 puff 12/20/20 15:29 Albuterol Sulfate (Ventolin Hfa) 18 Gm 1 Puff With Spacer IH Q6H PRN Wheezing Allopurinol 300 mg 12/21/20 09:00 Allopurinol 100 Mg Tablet PO DAILY AR Azithromycin 500 mg 12/20/20 15:30 Azithromycin 250 Mg Tablet PO 12/23/20 15:29 DAILY AR Furosemide 40 mg 12/20/20 17:00 Furosemide Inj 40 Mg/4 Ml Vial IVP BIDAC AR Gabapentin 600 mg 12/20/20 21:00 Gabapentin 300 Mg Capsule PO TID AR CEFTRIAXONE/D5W 1 GM PREMIX 1 gm in 50 mls @ 75 mls/hr 12/20/20 15:30 Rocephin 1 Gm/50 Ml D5w IV 12/23/20 15:29 DAILY AR Ipratropium [place] 2 puff 12/20/20 18:00 Ipratropium [place] 12.9 Gm Hfa Inhaler Per Puff With Spacer IH RTQ6H [facility], [facility] Non-Formulary Medication 50 mg 12/20/20 15:33 Dimenhydrinate [Dramamine] PO TID PRN Dizziness Non-Formulary Medication 1 tab 12/21/20 09:00 Multivitamin PO DAILY AR Non-Formulary Medication 20 mg 12/20/20 21:00 Omeprazole PO BID AR Non-Formulary Medication 1 drop 12/21/20 09:00 Propylene Glycol [Systane Balance] OP DAILY [facility] Roflumilast 500 mcg 12/21/20 09:00 Roflumilast 500 Mcg Tablet PO DAILY [facility] Simvastatin 20 mg 12/21/20 09:00 Simvastatin 10 Mg Tablet PO DAILY AR Tamsulosin HCl 0.4 mg 12/21/20 09:00 Tamsulosin Hcl 0.4 Mg Cap.Er.24h PO DAILY [facility] Discontinued Medications Generic Name Dose Route Start Last Admin Trade Name Freq PRN Reason Stop Dose Admin Albuterol Sulfate 2 puff 12/20/20 11:39 12/20/20 12:13 Albuterol Sulfate (Ventolin Hfa) 18 Gm 1 Puff With Spacer IH 12/20/20 11:40 2 puff ONCE ONE Administration Furosemide 80 mg 12/20/20 11:39 12/20/20 12:45 Furosemide Inj 100 Mg/10 Ml Vial IVP 12/20/20 11:40 80 mg ONCE ONE Administration Ipratropium [place] 2 puff 12/20/20 11:39 12/20/20 12:13 Ipratropium [place] 12.9 Gm Hfa Inhaler Per Puff With Spacer IH 12/20/20 11:40 2 puff ONCE ONE Administration Methylprednisolone Sodium Succinate 125 mg 12/20/20 11:39 12/20/20 12:45 Methylprednisolone Sod Succ/Pf 125 Mg/2 Ml Vial IVP 12/20/20 11:40 125 mg ONCE ONE Administration Vital Signs: Temp Pulse Resp BP Pulse Ox 12/20/20 11:24 98.3 F 89 20 139/68 99 Discharge Plan Discharge Patient Disposition: ADMITTED INPATIENT Discharge Problem: Acute exacerbation of chronic obstructive pulmonary disease (COPD), Bronchitis CHF (congestive heart failure) Qualifiers: Heart failure type: combined systolic and diastolic Heart failure chronicity: chronic Qualified Code(s): I50.42 - Chronic combined systolic (congestive) and diastolic (congestive) heart failure ED Provider: JAMES PICHARDO Condition: Serious Physician Progress Note: []Pt was d/w Dr Carolina and agreed to being admitted.
[2020-12-20 12:15] LABS: BASOPHILS % (AUTO) 0.4 % (0.0-3.0); EOSINOPHILS # (AUTO) 0.1 K/ul (0.0-0.7); EOSINOPHILS % (AUTO) 0.9 % (0.0-7.0); HEMATOCRIT 33.4 % (42.0-52.0); HEMOGLOBIN 10.9 g/dl (14.0-18.0); IMMATURE GRANULOCYTE % (AUTO) 0.3 % (0.0-5.0); LYMPHOCYTES # (AUTO) 1.1 K/uL (0.60-3.4); MEAN CORPUSCULAR HEMOGLOBIN 28.1 pg (27.0-31.0); MEAN CORPUSCULAR HGB CONC 32.6 (31.8-35.4); MEAN CORPUSCULAR VOLUME 86.1 fl (80.0-94.0); MONOCYTES # (AUTO) 0.6 K/uL (0.4-2.0); MONOCYTES % (AUTO) 6.5 (0-10); NEUTROPHILS # (AUTO) 7.2 K/ul (2.0-6.9); NEUTROPHILS % (AUTO) 79.9 % (42.2-75.2); PLATELET COUNT 281 10^3/uL (140-440); RDW COEFFICIENT OF VARIATION 14.8 % (11.6-14.8); RED BLOOD COUNT 3.88 10^6/ul (4.70-6.10); WHITE BLOOD COUNT 8.99 K/ul (4.2-10.2)
[2020-12-20 12:16] LABS: ABG O2 HGB 93.4 % (95-100); ABG PH 7.49 (7.35-7.45); BEecf 9.5 (-2.0-3.0); COHb 2.4 (0.5-1.5); HCO3 32.8 (21-28); TCO2 34.1 (19-24); sO2 95.5 % (94-98); tHb 10.9 g/dl (11.7-17.4)
[2020-12-20 12:28] LABS: ALBUMIN 3.65 g/dL (3.5-5.0); ALKALINE PHOSPHATASE 74.2 U/L (56-119); ASPARTATE AMINO TRANSFERASE 25.1 U/L (17-59); BILIRUBIN,TOTAL 0.49 mg/dL (0.2-1.3); BLOOD UREA NITROGEN 17.1 mg/dL (9-20); CALCIUM 8.68 mg/dL (8.4-10.2); CARBON DIOXIDE 31.8 mmol/L (22-30.0); CREATININE 1.19 mg/dL (0.60-1.10); GLUCOSE 185.8 mg/dL (74-106); POTASSIUM 3.93 mmol/L (3.5-5.1); SODIUM 135.6 mmol/L (134.5-145); TOTAL PROTEIN 8.16 g/dL (6.3-8.2)
[2020-12-20 12:39] LABS: TROPONIN I < 0.012 ng/ml (0.0000-0.120)
--- NOTE | 2020-12-20 13:16 | CT ---
Exam: CT of the chest without intravenous contrast. Comparison: Chest x-ray performed 11/15/2020. Reason for exam: Hypoxia with shortness of breath. FINDINGS: Image interpretation is limited by the lack of intravenous contrast. Mild bronchiectasis in the perihilar region. No pneumothorax or pleural effusion. No focal airspace consolidation. Granulomas disease is seen within the lung parenchyma. The aortic arch measures up to 4.7 cm as seen on axial image 37. No suspicious appearing osteoblastic or osteolytic lesions. Parenchymal changes consistent with chronic lung disease. Partially imaged abdominal aorta measures up to 5.3 cm. Dense atherosclerotic disease is seen within the aorta and distal arterial vasculature. Heart is not enlarged. Nodularity in the partially imaged right adrenal gland. Impression: 1. No pneumothorax, pleural effusion, or focal airspace consolidation. 2. Mild bronchiectasis. 3. Dilatation of the aorta at the arch measuring up to 4.7 cm and within the upper abdomen measuring up to 5.3 cm. Finding appears similar to slightly increased when compared to the previous exam. Ev aluation is limited by the lack of intravenous contrast. All CT scans are performed using dose optimization techniques as appropriate to the performed exam an d include at least one of the following: Automated exposure control, adjustment of the mA and/or kV according t o size, and the use of iterative reconstruction technique.
[2020-12-20] MEDS ORDERED: VENTOLIN HFA (PER PUFF-WITH SPACER) IH PRN (15:29)
[2020-12-20] MEDS ORDERED: DIMENHYDRINATE 50 MG PO PRN (15:33)
[2020-12-20] MEDS ORDERED: VENTOLIN HFA (PER PUFF-WITH SPACER) IH SCH ×2 (16:30→18:00)
[2020-12-20 16:58] VITALS: BMI 25.8
[2020-12-20] MEDS: PRILOSEC PO SCH (17:16)
[2020-12-20] MEDS: ZITHROMAX PO SCH (17:17)
[2020-12-20] MEDS: ROCEPHIN 1 GM/50 ML D5W 1 GM/50 ML BAG IV SCH (17:18)
[2020-12-20] MEDS: LASIX IVP SCH (17:18)
[2020-12-20] MEDS ORDERED: ATROPINE SULFATE PFS IVP PRN (17:58)
[2020-12-20] MEDS ORDERED: TYLENOL PO PRN (17:58)
[2020-12-20] MEDS ORDERED: NITROSTAT SL PRN (17:58)
[2020-12-20] MEDS ORDERED: ATROVENT HFA INHALER (PER PUFF-WITH SPACER) IH SCH (18:00)
[2020-12-20 18:40] LABS: CREATINE KINASE 27.5 U/L (55-170)
[2020-12-20 18:52] LABS: TROPONIN I 0.022 ng/ml (0.0000-0.120)
[2020-12-20] MEDS: SOLU-MEDROL 125 MG IVP SCH (18:55)
[2020-12-20 19:13] LABS: BILIRUBIN,URINE Negative (NEGATIVE); CLARITY,URINE Clear (CLEAR); COLOR,URINE Yellow (YELLOW); GLUCOSE, URINE (UA) Negative (NEGATIVE); KETONES,URINE Negative (NEGATIVE); LEUKOCYTE ESTERASE ,URINE Negative (NEGATIVE); NITRITE,URINE Negative (NEGATIVE); PH,URINE 5.5 (5-9); PROTEIN,URINE Negative (NEGATIVE); URINE, BLOOD Trace-intact (NEGATIVE); UROBILINOGEN,URINE 0.2 (0.2)
[2020-12-20 19:16] LABS: SQUAMOUS EPITHELIAL CELL,UR NOT PRESENT (0-5)
[2020-12-20 19:17] LABS: URINE RBC, MICROSCOPIC 0-2 (0-2)
[2020-12-20] MEDS: NEURONTIN PO SCH (20:25)
[2020-12-20] MEDS: ATROVENT HFA INHALER (PER PUFF-WITH SPACER) IH SCH (20:35)
[2020-12-20] MEDS: VENTOLIN HFA (PER PUFF-WITH SPACER) IH SCH (20:35)
[2020-12-21] MEDS: SOLU-MEDROL 125 MG IVP SCH ×4 (00:25→18:09)
[2020-12-21 02:33] LABS: CREATINE KINASE < 20.0 U/L (55-170)
[2020-12-21 02:40] LABS: TROPONIN I 0.051 ng/ml (0.0000-0.120)
[2020-12-21 05:06] LABS: BASOPHILS % (AUTO) 0.3 % (0.0-3.0); HEMATOCRIT 30.8 % (42.0-52.0); HEMOGLOBIN 10.3 g/dl (14.0-18.0); IMMATURE GRANULOCYTE % (AUTO) 0.4 % (0.0-5.0); LYMPHOCYTES # (AUTO) 0.6 K/uL (0.60-3.4); LYMPHOCYTES % (AUTO) 7.9 (10.0-50.0); MEAN CORPUSCULAR HEMOGLOBIN 28.3 pg (27.0-31.0); MEAN CORPUSCULAR HGB CONC 33.4 (31.8-35.4); MEAN CORPUSCULAR VOLUME 84.6 fl (80.0-94.0); MONOCYTES # (AUTO) 0.1 K/uL (0.4-2.0); MONOCYTES % (AUTO) 0.9 (0-10); NEUTROPHILS # (AUTO) 7.1 K/ul (2.0-6.9); NEUTROPHILS % (AUTO) 90.5 % (42.2-75.2); PLATELET COUNT 287 10^3/uL (140-440); RDW COEFFICIENT OF VARIATION 14.6 % (11.6-14.8); RED BLOOD COUNT 3.64 10^6/ul (4.70-6.10); WHITE BLOOD COUNT 7.84 K/ul (4.2-10.2)
[2020-12-21 05:12] LABS: ALANINE AMINOTRANSFERASE 17.5 U/L (0-50); ALBUMIN 3.32 g/dL (3.5-5.0); ALKALINE PHOSPHATASE 69.9 U/L (56-119); ASPARTATE AMINO TRANSFERASE 26.5 U/L (17-59); BILIRUBIN,TOTAL 0.33 mg/dL (0.2-1.3); BLOOD UREA NITROGEN 23.4 mg/dL (9-20); CALCIUM 8.58 mg/dL (8.4-10.2); CARBON DIOXIDE 30.3 mmol/L (22-30.0); CHLORIDE 97.9 mmol/L (98-107); CREATININE 1.17 mg/dL (0.60-1.10); GLUCOSE 179.6 mg/dL (74-106); POTASSIUM 4.32 mmol/L (3.5-5.1); SODIUM 134.3 mmol/L (134.5-145); TOTAL PROTEIN 7.61 g/dL (6.3-8.2)
[2020-12-21] MEDS: VENTOLIN HFA (PER PUFF-WITH SPACER) IH SCH ×4 (05:15→20:00)
[2020-12-21] MEDS: ATROVENT HFA INHALER (PER PUFF-WITH SPACER) IH SCH ×4 (05:15→20:00)
[2020-12-21] MEDS: PRILOSEC PO SCH ×2 (05:36→17:31)
[2020-12-21] MEDS: LASIX IVP SCH ×2 (05:37→16:49)
[2020-12-21] MEDS ORDERED: NON-FORMULARY MEDICATION (Propylene Glycol [Systane Balance] 0.6 % Drops) OP SCH (09:00)
[2020-12-21] MEDS ORDERED: NON-FORMULARY MEDICATION (Multivitamin Tablet) PO SCH (09:00)
[2020-12-21] MEDS: ARTIFICIAL TEARS DROPS EACHEYE SCH (10:12)
[2020-12-21] MEDS: DALIRESP PO SCH (10:12)
[2020-12-21] MEDS: ROCEPHIN 1 GM/50 ML D5W 1 GM/50 ML BAG IV SCH (10:12)
[2020-12-21] MEDS: NEURONTIN PO SCH ×3 (10:12→20:55)
[2020-12-21] MEDS: ZYLOPRIM PO SCH (10:12)
[2020-12-21] MEDS: FLOMAX PO SCH (10:12)
[2020-12-21] MEDS: ZOCOR PO SCH (10:12)
[2020-12-21] MEDS: ZITHROMAX PO SCH (10:12)
[2020-12-21] MEDS: MULTIVITAMIN TABLET PO SCH (10:13)
[2020-12-22] MEDS: SOLU-MEDROL 125 MG IVP SCH ×4 (01:31→17:38)
[2020-12-22] MEDS: ATROVENT HFA INHALER (PER PUFF-WITH SPACER) IH SCH ×4 (04:55→20:05)
[2020-12-22] MEDS: VENTOLIN HFA (PER PUFF-WITH SPACER) IH SCH ×4 (04:55→20:05)
[2020-12-22] MEDS: PRILOSEC PO SCH ×2 (05:30→16:22)
[2020-12-22 05:54] LABS: BASOPHILS % (AUTO) 0.1 % (0.0-3.0); HEMATOCRIT 33.2 % (42.0-52.0); IMMATURE GRANULOCYTE # (AUTO) 0.1 (0.0-1.0); IMMATURE GRANULOCYTE % (AUTO) 0.5 % (0.0-5.0); LYMPHOCYTES # (AUTO) 0.8 K/uL (0.60-3.4); MEAN CORPUSCULAR HEMOGLOBIN 28.1 pg (27.0-31.0); MEAN CORPUSCULAR HGB CONC 33.1 (31.8-35.4); MEAN CORPUSCULAR VOLUME 84.7 fl (80.0-94.0); MONOCYTES # (AUTO) 0.3 K/uL (0.4-2.0); MONOCYTES % (AUTO) 1.7 (0-10); NEUTROPHILS # (AUTO) 15.5 K/ul (2.0-6.9); NEUTROPHILS % (AUTO) 92.7 % (42.2-75.2); PLATELET COUNT 314 10^3/uL (140-440); RDW COEFFICIENT OF VARIATION 14.9 % (11.6-14.8); RED BLOOD COUNT 3.92 10^6/ul (4.70-6.10); WHITE BLOOD COUNT 16.69 K/ul (4.2-10.2)
[2020-12-22 06:06] LABS: ALANINE AMINOTRANSFERASE 21.2 U/L (0-50); ALBUMIN 3.54 g/dL (3.5-5.0); ALKALINE PHOSPHATASE 66.8 U/L (56-119); ASPARTATE AMINO TRANSFERASE 25.5 U/L (17-59); BILIRUBIN,TOTAL 0.27 mg/dL (0.2-1.3); BLOOD UREA NITROGEN 40.5 mg/dL (9-20); CALCIUM 8.43 mg/dL (8.4-10.2); CARBON DIOXIDE 28.3 mmol/L (22-30.0); CHLORIDE 99.8 mmol/L (98-107); CREATININE 1.49 mg/dL (0.60-1.10); GLUCOSE 151.2 mg/dL (74-106); POTASSIUM 4.19 mmol/L (3.5-5.1); SODIUM 136.6 mmol/L (134.5-145); TOTAL PROTEIN 7.9 g/dL (6.3-8.2)
[2020-12-22] MEDS: LASIX IVP SCH (06:35)
[2020-12-22] MEDS: ARTIFICIAL TEARS DROPS EACHEYE SCH (08:07)
[2020-12-22] MEDS: ZITHROMAX PO SCH (08:08)
[2020-12-22] MEDS: ZYLOPRIM PO SCH (08:08)
[2020-12-22] MEDS: ZOCOR PO SCH (08:08)
[2020-12-22] MEDS: NEURONTIN PO SCH ×3 (08:08→21:27)
[2020-12-22] MEDS: MULTIVITAMIN TABLET PO SCH (08:08)
[2020-12-22] MEDS: FLOMAX PO SCH (08:08)
[2020-12-22] MEDS: DALIRESP PO SCH (08:08)
[2020-12-22] MEDS: ROCEPHIN 1 GM/50 ML D5W 1 GM/50 ML BAG IV SCH (08:10)
[2020-12-22] MEDS: NICODERM 21 MG TD SCH (11:45)
[2020-12-22] MEDS ORDERED: DEXTROSE 5%-1/2NS IV SOLUTION 1,000 ML IV SCH (12:30)
[2020-12-23] MEDS: SOLU-MEDROL 125 MG IVP SCH ×2 (00:55→07:05)
[2020-12-23] MEDS: ATROVENT HFA INHALER (PER PUFF-WITH SPACER) IH SCH ×4 (05:00→20:05)
[2020-12-23] MEDS: VENTOLIN HFA (PER PUFF-WITH SPACER) IH SCH ×4 (05:00→20:05)
[2020-12-23] MEDS: PRILOSEC PO SCH ×2 (05:54→17:41)
[2020-12-23] MEDS: LASIX TAB PO SCH (05:55)
[2020-12-23 07:08] LABS: BASOPHILS % (AUTO) 0.1 % (0.0-3.0); HEMATOCRIT 31.9 % (42.0-52.0); HEMOGLOBIN 10.5 g/dl (14.0-18.0); IMMATURE GRANULOCYTE # (AUTO) 0.1 (0.0-1.0); LYMPHOCYTES # (AUTO) 0.8 K/uL (0.60-3.4); LYMPHOCYTES % (AUTO) 6.3 (10.0-50.0); MEAN CORPUSCULAR HEMOGLOBIN 27.9 pg (27.0-31.0); MEAN CORPUSCULAR HGB CONC 32.9 (31.8-35.4); MEAN CORPUSCULAR VOLUME 84.6 fl (80.0-94.0); MONOCYTES # (AUTO) 0.2 K/uL (0.4-2.0); MONOCYTES % (AUTO) 1.4 (0-10); NEUTROPHILS # (AUTO) 11.8 K/ul (2.0-6.9); NEUTROPHILS % (AUTO) 91.2 % (42.2-75.2); PLATELET COUNT 311 10^3/uL (140-440); RDW COEFFICIENT OF VARIATION 14.7 % (11.6-14.8); RED BLOOD COUNT 3.77 10^6/ul (4.70-6.10); WHITE BLOOD COUNT 12.94 K/ul (4.2-10.2)
[2020-12-23 07:42] LABS: ALANINE AMINOTRANSFERASE 37.3 U/L (0-50); ALBUMIN 3.22 g/dL (3.5-5.0); ASPARTATE AMINO TRANSFERASE 42.9 U/L (17-59); BILIRUBIN,TOTAL 0.27 mg/dL (0.2-1.3); CALCIUM 8.39 mg/dL (8.4-10.2); CARBON DIOXIDE 31.4 mmol/L (22-30.0); CHLORIDE 98.4 mmol/L (98-107); CREATININE 1.33 mg/dL (0.60-1.10); GLUCOSE 147.9 mg/dL (74-106); POTASSIUM 3.96 mmol/L (3.5-5.1); SODIUM 135.2 mmol/L (134.5-145); TOTAL PROTEIN 7.27 g/dL (6.3-8.2)
--- NOTE | 2020-12-23 09:04 | PCM.PROG ---
Attending Provider: ATTENDING PROVIDER: Dr. DARY CAROLINA This patient is seen with Winsome Licea, Nurse Practitioner. DATE OF SERVICE: 12/23/20 SUBJECTIVE: This 89 year old /WHITE M was hospitalized 12/20/20. The patient is resting comfortably. He is pleasantly confused. Oxygen saturation has been below 90. He will recheck ABG this morning. REVIEW OF SYSTEMS: CONSTITUTIONAL: No night sweats. No fatigue, malaise, lethargy. No fever or chills. Weakness. HEENT: Eyes: No visual changes. No eye pain. No eye discharge. ENT: No runny nose. No epistaxis. No sinus pain. No odynophagia. No congestion. RESPIRATORY: Cough, no congestion. No hemoptysis. No shortness of breath. CARDIOVASCULAR: No angina symptoms. No CHF symptoms. No atypical chest pain for CAD. No palpitations. No orthopnea.. GASTROINTESTINAL: No abdominal pain. No nausea or vomiting. No diarrhea or co nstipation. No hematemesis. No hematochezia. GENITOURINARY: No urgency. No frequency. No dysuria. No hematuria. No obstructive symptoms. No discharge. No pain. No significant abnormal bleeding. MUSCULOSKELETAL: No musculoskeletal pain; no joint swelling. NEUROLOGICAL: Awake, alert, confusion. No headache. No neck pain. No syncope. No seizures. No dizziness. PSYCHIATRIC: Not anxious. No depression. No suicidal thoughts. No homicidal thoughts. SKIN: No rash. No lesions. No wounds. ENDOCRINE: No unexplained weight loss. No weight gain. HEMATOLOGIC/LYMPHATIC: No anemia. No purpura. No petechiae. No prolonged or excessive bleeding. No palpable lymph nodes. PHYSICAL EXAMINATION: GENERAL: The patient is awake, alert and oriented, lying in bed in no distress. VITAL SIGNS: Temperature 97.7 F, Pulse 72, Respiratory Rate 18, BP 112/64, Pulse Ox 88% HEENT: Head normocephalic, atraumatic. Eyes: Extraocular muscles are intact. Pupils are equal, round and reactive to light and accommodation. Ears: No lesions. Nose appeared normal. Throat: No exudate or erythema. NECK: Supple. No JVD, no carotid bruit. No lymphadenopathy or thyromegaly. LUNGS: Diminished breath sounds. Clear to auscultation. Percussion note normal. Chest symmetrical. HEART: S1, S2, no S3. No murmurs. No cyanosis or clubbing. No ascites. Pulses: Dorsalis pedis and posterior tibial pulses +1 to +2 both sides. ABDOMEN: Soft. Non-tender. Bowel sounds active. No CVA tenderness. No mass felt. EXTREMITIES: No edema. Full range of motion of all extremities, equal. NEUROLOGIC: No focal deficit. Cranial nerves II through XII are grossly intact. No headache. No double vision. SKIN: Not dry. Intact. Turgor-normal. LYMPHATIC: No palpable lymph nodes/no lymphedema. MUSCULOSKELETAL: Normal joints with no swelling. Muscle tone is normal. LAB REVIEW: 12/23/20 07:03 12/23/20 07:03 12/23/20 07:03: Sodium 135.2, Potassium 3.96, Chloride 98.4, Carbon Dioxide 31.4 H, Anion Gap 9.36, BUN 51.0 H, Creatinine 1.33 H, Estimated GFR (MDRD) 51.00, BUN/Creatinine Ratio 38.34, Glucose 147.9 H, Calcium 8.39 L, Total Bilirubin 0.27, AST 42.9, ALT 37.3, Alkaline Phosphatase 62.0, Total Protein 7.27, Albumin 3.22 L, Globulin 4.05, Albumin/Globulin Ratio 0.79 12/23/20 07:03: WBC 12.94 H, RBC 3.77 L, Hgb 10.5 L, Hct 31.9 L, MCV 84.6, MCH 27.9, MCHC 32.9, RDW Coeff of Shira 14.7, Plt Count 311, Immature Gran % (Auto) 1.0, Neut % (Auto) 91.2 H, Lymph % (Auto) 6.3 L, [place] % (Auto) 1.4, Eos % (Auto) 0.0, Baso % (Auto) 0.1, Neut # (Auto) 11.8 H, Lymph # (Auto) 0.8, [place] # (Auto) 0.2 L, Eos # (Auto) 0.0, Baso # (Auto) 0.0, Immature Gran # (Auto) 0.1 ASSESSMENT: Please see below. 1. Acute COPD exacerbation 2. Chronic CHF 3. Chronic kidney disease 4. Chronic respiratory failure. PLAN: 1. Symbicort 160mg two puffs daily 2. Discontinue Solu-Medrol 3. Prednisone 20mg daily 4. Repeat ABG on 2 liters this morning. Plan and coordination of the patient's care discussed in the presence of Commissary Superintendent and nurse. SCRIBED BY: Antonio DUBON scribed while in presence of service performed by Dr. Carolina/Winsome Licea APRN on 12/23/20 ([id number])
[2020-12-23 09:06] LABS: ABG O2 HGB 89.7 % (95-100); BEecf 8.1 (-2.0-3.0); COHb 2.3 (0.5-1.5); MetHb 0.7 (0-1.5); TCO2 32.2 (19-24); sO2 92.2 % (94-98); tHb 10.7 g/dl (11.7-17.4)
[2020-12-23 09:11] LABS: ABG PH 7.52 (7.35-7.45)
[2020-12-23] MEDS: SYMBICORT 160-4.5 MCG INHALER IH SCH (09:30)
[2020-12-23] MEDS: NICODERM 21 MG TD SCH (09:30)
[2020-12-23] MEDS: ZYLOPRIM PO SCH (09:31)
[2020-12-23] MEDS: NEURONTIN PO SCH ×3 (09:31→20:49)
[2020-12-23] MEDS: MULTIVITAMIN TABLET PO SCH (09:31)
[2020-12-23] MEDS: ZOCOR PO SCH (09:32)
[2020-12-23] MEDS: FLOMAX PO SCH (09:32)
[2020-12-23] MEDS: DALIRESP PO SCH (09:32)
[2020-12-23] MEDS: ROCEPHIN 1 GM/50 ML D5W 1 GM/50 ML BAG IV SCH (09:33)
[2020-12-23] MEDS: ARTIFICIAL TEARS DROPS EACHEYE SCH (09:33)
--- NOTE | 2020-12-23 12:34 | DI ---
EXAM: Chest one view HISTORY: Shortness of breath COMPARISON: 11/15/2020 TECHNIQUE: Single view of the chest was performed FINDINGS: Bibasilar atelectasis. No definite consolidation. There is no pleural effusion or pneumo thorax. The heart is normal in size. The mediastinal contour is unchanged, noting atherosclerosis. There are no acute abnormalities of the bones. IMPRESSION: Mild bibasilar atelectasis. No definite consolidation.
[2020-12-23 14:53] LABS: BORDETELLA PARAPERTUSSIS (PCR) NOT DETECTED (NOT DETECT); BORDETELLA PERTUSSIS (PCR) NOT DETECTED (NOT DETECT); CHLAMYDIA PNEUMONIAE (PCR) NOT DETECTED (NOT DETECT); CORONAVIRUS 229E (PCR) NOT DETECTED (NOT DETECT); CORONAVIRUS HKU1 (PCR) NOT DETECTED (NOT DETECT); CORONAVIRUS NL63 (PCR) NOT DETECTED (NOT DETECT); CORONAVIRUS OC43 (PCR) NOT DETECTED (NOT DETECT); HUMAN METAPNEUMOVIRUS (PCR) NOT DETECTED (NOT DETECT); HUMAN RHINOVIRUS/ENTEROV (PCR) NOT DETECTED (NOT DETECT); INFLUENZA B (PCR) NOT DETECTED (NOT DETECT); MYCOPLASMA PNEUMONIAE (PCR) NOT DETECTED (NOT DETECT); PARAINFLUENZA VIRUS 1 (PCR) NOT DETECTED (NOT DETECT); PARAINFLUENZA VIRUS 2 (PCR) NOT DETECTED (NOT DETECT); PARAINFLUENZA VIRUS 3 (PCR) NOT DETECTED (NOT DETECT); PARAINFLUENZA VIRUS 4 (PCR) NOT DETECTED (NOT DETECT); RESPIRATORY SYNCYTIAL V (PCR) NOT DETECTED (NOT DETECT); SARS_COV_2 (PCR) NOT DETECTED (NOT DETECT)
[2020-12-23 16:17] LABS: ADENOVIRUS (PCR) NOT DETECTED (NOT DETECT)
[2020-12-24] MEDS: ATROVENT HFA INHALER (PER PUFF-WITH SPACER) IH SCH ×2 (04:25→10:04)
[2020-12-24] MEDS: VENTOLIN HFA (PER PUFF-WITH SPACER) IH SCH ×2 (04:25→10:02)
[2020-12-24 04:53] LABS: BASOPHILS % (AUTO) 0.2 % (0.0-3.0); HEMATOCRIT 31.9 % (42.0-52.0); HEMOGLOBIN 10.5 g/dl (14.0-18.0); IMMATURE GRANULOCYTE # (AUTO) 0.2 (0.0-1.0); IMMATURE GRANULOCYTE % (AUTO) 1.5 % (0.0-5.0); LYMPHOCYTES # (AUTO) 1.3 K/uL (0.60-3.4); LYMPHOCYTES % (AUTO) 12.5 (10.0-50.0); MEAN CORPUSCULAR HEMOGLOBIN 27.9 pg (27.0-31.0); MEAN CORPUSCULAR HGB CONC 32.9 (31.8-35.4); MEAN CORPUSCULAR VOLUME 84.8 fl (80.0-94.0); MONOCYTES # (AUTO) 0.8 K/uL (0.4-2.0); MONOCYTES % (AUTO) 7.8 (0-10); NEUTROPHILS # (AUTO) 8.4 K/ul (2.0-6.9); PLATELET COUNT 315 10^3/uL (140-440); RDW COEFFICIENT OF VARIATION 15.2 % (11.6-14.8); RED BLOOD COUNT 3.76 10^6/ul (4.70-6.10); WHITE BLOOD COUNT 10.76 K/ul (4.2-10.2)
[2020-12-24 05:11] LABS: ALANINE AMINOTRANSFERASE 59.7 U/L (0-50); ALBUMIN 3.15 g/dL (3.5-5.0); ALKALINE PHOSPHATASE 59.4 U/L (56-119); ASPARTATE AMINO TRANSFERASE 42.6 U/L (17-59); BILIRUBIN,TOTAL 0.25 mg/dL (0.2-1.3); BLOOD UREA NITROGEN 52.3 mg/dL (9-20); CALCIUM 8.29 mg/dL (8.4-10.2); CARBON DIOXIDE 33.9 mmol/L (22-30.0); CHLORIDE 99.6 mmol/L (98-107); CREATININE 1.32 mg/dL (0.60-1.10); GLUCOSE 113.6 mg/dL (74-106); POTASSIUM 3.87 mmol/L (3.5-5.1); SODIUM 136.6 mmol/L (134.5-145); TOTAL PROTEIN 6.88 g/dL (6.3-8.2)
[2020-12-24] MEDS: PRILOSEC PO SCH (05:45)
[2020-12-24] MEDS: LASIX TAB PO SCH (05:45)
[2020-12-24 06:11] VITALS: BP 113/59; TEMP 97.6
[2020-12-24] MEDS ORDERED: PREDNISONE PO SCH (08:30)
[2020-12-24] MEDS: ROCEPHIN 1 GM/50 ML D5W 1 GM/50 ML BAG IV SCH (08:58)
[2020-12-24] MEDS: NICODERM 21 MG TD SCH (08:59)
[2020-12-24] MEDS: ZOCOR PO SCH (08:59)
[2020-12-24] MEDS: FLOMAX PO SCH (09:00)
[2020-12-24] MEDS: ZYLOPRIM PO SCH (09:00)
[2020-12-24] MEDS: NEURONTIN PO SCH (09:00)
[2020-12-24] MEDS: MULTIVITAMIN TABLET PO SCH (09:01)
[2020-12-24] MEDS: DALIRESP PO SCH (09:01)
[2020-12-24] MEDS: SYMBICORT 160-4.5 MCG INHALER IH SCH (09:01)
[2020-12-24] MEDS: ARTIFICIAL TEARS DROPS EACHEYE SCH (09:02)
--- NOTE | 2020-12-24 09:04 | PCM.PROG ---
Attending Provider: ATTENDING PROVIDER: Dr. DARY CAROLINA This patient is seen with Winsome Licea, Nurse Practitioner. DATE OF SERVICE: 12/24/20 SUBJECTIVE: This 89 year old /WHITE M was hospitalized 12/20/20. The patient is resting comfortably. States he is feeling great this morning. He has been eating well. On 2.5-3 liters nasal canula. REVIEW OF SYSTEMS: CONSTITUTIONAL: No night sweats. No fatigue, malaise, lethargy. No fever or chills. HEENT: Eyes: No visual changes. No eye pain. No eye discharge. ENT: No runny nose. No epistaxis. No sinus pain. No odynophagia. No congestion. RESPIRATORY: Cough, no congestion. No hemoptysis. Shortness of breath. CARDIOVASCULAR: No angina symptoms. No CHF symptoms. No atypical chest pain for CAD. No palpitations. No orthopnea.. GASTROINTESTINAL: No abdominal pain. No nausea or vomiting. No diarrhea or constipation. No hematemesis. No hematochezia. GENITOURINARY: No urgency. No frequency. No dysuria. No hematuria. No ob structive symptoms. No discharge. No pain. No significant abnormal bleeding. MUSCULOSKELETAL: No musculoskeletal pain; no joint swelling. NEUROLOGICAL: Awake, alert, oriented to time, place and person. No headache. No neck pain. No syncope. No seizures. No dizziness. PSYCHIATRIC: Not anxious. No depression. No suicidal thoughts. No homicidal thoughts. SKIN: No rash. No lesions. No wounds. ENDOCRINE: No unexplained weight loss. No weight gain. HEMATOLOGIC/LYMPHATIC: No anemia. No purpura. No petechiae. No prolonged or excessive bleeding. No palpable lymph nodes. PHYSICAL EXAMINATION: GENERAL: The patient is awake, alert and oriented, lying in bed in no distress. VITAL SIGNS: Temperature 97.6 F, Pulse 68, Respiratory Rate 18, BP 113/59, Pulse Ox 93% HEENT: Head normocephalic, atraumatic. Eyes: Extraocular muscles are intact. Pupils are equal, round and reactive to light and accommodation. Ears: No lesions. Nose appeared normal. Throat: No exudate or erythema. NECK: Supple. No JVD, no carotid bruit. No lymphadenopathy or thyromegaly. LUNGS: Diminished breath sounds. Clear to auscultation. Percussion note normal. Chest symmetrical. HEART: S1, S2, no S3. No murmurs. No cyanosis or clubbing. No ascites. Pulses: Dorsalis pedis and posterior tibial pulses +1 to +2 both sides. ABDOMEN: Soft. Non-tender. Bowel sounds active. No CVA tenderness. No mass felt. EXTREMITIES: No edema. Full range of motion of all extremities, equal. NEUROLOGIC: No focal deficit. Cranial nerves II through XII are grossly intact. No headache. No double vision. SKIN: Not dry. Intact. Turgor-normal. LYMPHATIC: No palpable lymph nodes/no lymphedema. MUSCULOSKELETAL: Normal joints with no swelling. Muscle tone is normal. LAB REVIEW: 12/24/20 04:35 12/24/20 04:35 12/24/20 04:35: Sodium 136.6, Potassium 3.87, Chloride 99.6, Carbon Dioxide 33.9 H, Anion Gap 6.97, BUN 52.3 H, Creatinine 1.32 H, Estimated GFR (MDRD) 51.00, BUN/Creatinine Ratio 39.62, Glucose 113.6 H, Calcium 8.29 L, Total Bilirubin 0.25, AST 42.6, ALT 59.7 H, Alkaline Phosphatase 59.4, Total Protein 6.88, Albumin 3.15 L, Globulin 3.73, Albumin/Globulin Ratio 0.84 12/24/20 04:35: WBC 10.76 H, RBC 3.76 L, Hgb 10.5 L, Hct 31.9 L, MCV 84.8, MCH 27.9, MCHC 32.9, RDW Coeff of Shira 15.2 H, Plt Count 315, Immature Gran % (Auto) 1.5, Neut % (Auto) 78.0 H, Lymph % (Auto) 12.5, [place] % (Auto) 7.8, Eos % (Auto) 0.0, Baso % (Auto) 0.2, Neut # (Auto) 8.4 H, Lymph # (Auto) 1.3, [place] # (Auto) 0.8, Eos # (Auto) 0.0, Baso # (Auto) 0.0, Immature Gran # (Auto) 0.2 12/23/20 14:27: Adenovirus (PCR) Not detected, B. pertussis DNA (PCR) Not detected, B.parapertussis DNA PCR Not detected, C. pneumoniae DNA (PCR) Not detected, Coronavirus OC43 (PCR) Not detected, Coronavirus HKU1 (PCR) Not detected, Coronavirus 229E (PCR) Not detected, Coronavirus NL63 (PCR) Not detected, Human Metapneumovir PCR Not detected, Influenza Type A (PCR) Not detected, Influenza B (RT-PCR) Not detected, M. pneumoniae (PCR) Not detected, Parainfluenza 1 (PCR) Not detected, Parainfluenza 2 (PCR) Not detected, Parainfluenza 3 (PCR) Not detected, Parainfluenza 4 (PCR) Not detected, RSV (PCR) Not detected, Entero/Rhino (PCR) Not detected, SARS-CoV-2 (PCR) Not detected 12/23/20 08:55: Puncture Site Rb, Base Excess 8.1 H, O2 Saturation 92.2 L, ABG pH 7.52 H*, ABG pCO2 38.0, ABG pO2 57.0 L*, ABG HCO3 31.0 H, ABG Total CO2 32.2 H, Anish Test Y, Hemoglobin 0.7, Oxyhemoglobin 89.7 L, Carboxyhemoglobin 2.3 H, Total Hemoglobin 10.7 L, O2 Delivery Device Cannula, Oxygen Liter Flow 2.00 ASSESSMENT: Please see below. 1. Acute COPD exacerbation 2. Chronic respiratory failure 3. 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 Order PFT 1. Possible discharge home today 3. Chest x-ray showed slight improvement. Plan and coordination of the patient's care discussed in the presence of Bank Advisor and nurse. SCRIBED BY: Antonio DUBON scribed while in presence of service performed by Dr. Carolina/Winsome Licea APRN on 12/24/20 ([id number])
--- NOTE | 2020-12-24 11:34 | CM.DICTOOL ---
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 - CT 05/2020 - REFUSES VASCULAR REFERRAL RECURRENT DIZZINESS- CAROTID/MRI 02/2020 COPD - O2 DEPENDENT HEAVY SMOKER CHRONIC RESPIRATORY FAILURE HTN NEUROPATHY GOUT GERD CKD STAGE 2-3 SEPSIS - POSITIVE ENTEROCCOCUS- 06/2020 BILATERAL SHOULDER S/P SPINE SURGERY X 3 LT RENAL CA - REFUSES FURTHER CONSULTATION LLQ PAIN - POSSIBLE DIVERTICULITIS PER CT LT SCIATICA GENERAL OSTEOARTHRITIS HAND TREMORS FALLS NON- COMPLIANCE WITH LIFESTYLE, MEDICATIONS, DIET AND FOLLOW-UP SURGICAL HISTORY: 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 BILATERAL TOTAL KNEE REPLACEMENT BACK SURGERY X 3 GALLBLADDER APPENDECTOMY LAST VITALS Temp Pulse Resp BP Pulse Ox 97.6 F 68 18 113/59 L 93 L 12/24/20 06:00 12/24/20 06:00 12/24/20 06:00 12/24/20 06:00 12/24/20 10:00 TAKE THESE MEDICATIONS AT HOME Allopurinol (Allopurinol 100 Mg Tablet) 300 mg PO DAILY [facility] Last Admin: 12/24/20 09:00 Dose: 300 mg Documented by: Budesonide/Formoterol Fumarate (Budesonide/Formoterol Fumarate 160/4.5 Mcg Inhaler) 2 puff IH DAILY [facility] -- (NEW) Last Admin: 12/24/20 09:01 Dose: 2 puff Documented by: Furosemide (Furosemide 20 Mg Tablet) 20 mg PO QDAC [facility] Last Admin: 12/24/20 05:45 Dose: 20 mg Documented by: Gabapentin (Gabapentin 300 Mg Capsule) 600 mg PO TID [facility] Last Admin: 12/24/20 09:00 Dose: 600 mg Documented by: Multivitamins (Multivitamin 1 Tab) 1 tab PO DAILY [facility] Last Admin: 12/24/20 09:01 Dose: 1 tab Documented by: Non-Formulary Medication (Dimenhydrinate [Dramamine]) 50 mg PO TID PRN PRN Reason: Dizziness Omeprazole (Omeprazole 20 Mg Capsule.) 20 mg PO BIDAC [facility] Last Admin: 12/24/20 05:45 Dose: 20 mg Documented by: Prednisone (Prednisone 20 Mg Tablet) 20 mg PO DAILYWM [facility] X 5 MORE DAYS -- ( NEW) Last Admin: 12/24/20 09:01 Dose: 20 mg Documented by: Roflumilast (Roflumilast 500 Mcg Tablet) 500 mcg PO DAILY [facility] Last Admin: 12/24/20 09:01 Dose: 500 mcg Documented by: Simvastatin (Simvastatin 10 Mg Tablet) 20 mg PO DAILY [facility] Last Admin: 12/24/20 08:59 Dose: 20 mg Documented by: Tamsulosin HCl (Tamsulosin Hcl 0.4 Mg Cap.Er.24h) 0.4 mg PO DAILY [facility] Last Admin: 12/24/20 09:00 Dose: 0.4 mg Documented by: KEFLEX 500 MG PO TID X 5 DAYS -- ( NEW) DUONEBS EVERY 6 HOURS NEEDED COLESTID 1 GRAM PO DAILY HEMP GUMMY BEAR 5 MG PO DAILY PRN POTASSIUM 99 MG PO DAILY SYSTANE BALANCE EYE DROPS ONE DROP BOTH EYES DAILY ALLERGIES Penicillins Adverse Reaction (Severe, Verified 12/20/20 11:35) Unknown flu Vaccine Adverse Reaction (Uncoded 11/12/20 09:46) Unknown DISCONTINUED MEDICATIONS NONE NEW PRESCRIPTIONS: 1). KEFLEX 500 MG PO THREE TIMES DAILY FOR 5 DAYS (START 12/25/2020) 2). PREDNISONE 10 MG PO DAILY IN THE AM WITH FOOD FOR 5 DAYS (START 12/25/2020) 3). SYMBICORT METER DOSE INHALER 2 PUFFS DAILY ( START 12/25/2020) SMOKING: SMOKING CESSATION DISEASE SPECIFIC EDUCATION: COPD CHF BRONCHITIS COVID OXYGEN DOSE AND SAFETY LAB REVIEW: 12/24/20 04:35 12/24/20 04:35 12/24/20 04:35: Sodium 136.6, Potassium 3.87, Chloride 99.6, Carbon Dioxide 33.9 H, Anion Gap 6.97, BUN 52.3 H, Creatinine 1.32 H, Estimated GFR (MDRD) 51.00, BUN/Creatinine Ratio 39.62, Glucose 113.6 H, Calcium 8.29 L, Total Bilirubin 0.25, AST 42.6, ALT 59.7 H, Alkaline Phosphatase 59.4, Total Protein 6.88, Albumin 3.15 L, Globulin 3.73, Albumin/Globulin Ratio 0.84 12/24/20 04:35: WBC 10.76 H, RBC 3.76 L, Hgb 10.5 L, Hct 31.9 L, MCV 84.8, MCH 27.9, MCHC 32.9, RDW Coeff of Shira 15.2 H, Plt Count 315, Immature Gran % (Auto) 1.5, Neut % (Auto) 78.0 H, Lymph % (Auto) 12.5, Mariposa % (Auto) 7.8, Eos % (Auto) 0.0, Baso % (Auto) 0.2, Neut # (Auto) 8.4 H, Lymph # (Auto) 1.3, Mariposa # (Auto) 0.8, Eos # (Auto) 0.0, Baso # (Auto) 0.0, Immature Gran # (Auto) 0.2 12/23/20 14:27: Adenovirus (PCR) Not detected, B. pertussis DNA (PCR) Not detected, B.parapertussis DNA PCR Not detected, C. pneumoniae DNA (PCR) Not detected, Coronavirus OC43 (PCR) Not detected, Coronavirus HKU1 (PCR) Not detected, Coronavirus 229E (PCR) Not detected, Coronavirus NL63 (PCR) Not detected, Human Metapneumovir PCR Not detected, Influenza Type A (PCR) Not detected, Influenza B (RT-PCR) Not detected, M. pneumoniae (PCR) Not detected, Parainfluenza 1 (PCR) Not detected, Parainfluenza 2 (PCR) Not detected, Parainfluenza 3 (PCR) Not detected, Parainfluenza 4 (PCR) Not detected, RSV (PCR) Not detected, Entero/Rhino (PCR) Not detected, SARS-CoV-2 (PCR) Not detected PLAN: ACTIVITY: PT AND OT TO EVAL AND TREAT AT THE FACILITY UP TOLERATED WITH WALKER AND DIRECTED PER THERAPY DEPARTMENT OXYGEN SAFETY NO STRENUOUS ACTIVITY FOLLOW PANDEMIC GUIDELINES DIET: REGULAR MD FOLLOW -UP: SEE DR CAROLINA/ ALIA KING APRN/ MONICA AVILA APRN IN THE OFFICE ON December, @ 1115 OXYGEN: CHANGE TO 2.5 LITERS A MINUTE PER NASAL CANNULA CODE STATUS: DO NOT RESUSCITATE MR. MACK IS ALERT AND ORIENTED X 3 WITH FORGETFULNESS REGARDING CERTAIN DETAILS, HOWEVER ORIENTATES WELL WHEN HE DOES NOT HAVE ANY ACUTE DISEASE PROCESS. HE IS UP WITH A WALKER WITH SLIGHT WEAKNESS. HE HAS NO ACUTE COUGH WITH SLIGHT OCCASIONAL CLEAR SPUTUM. SLIGHT EDEMA TO LEGS. SKIN WARM AND DRY TO TOUCH. FEEDS SELF AND WITH 100% OF MEAL INTAKE. FLUID INTAKE IS SUBSTANTIAL. HE IS CONTINENT OF BOWEL AND BLADDER. HE USES THE URINAL WITH SLIGHT DRIBBLING. LAST BM 12/22/2020. HE LIVES AT AN [facility]ISTED [facility] AND HE IS READY TO GO BACK. THERAPY WILL SEE HIM THERE AND HIS FAMILY WILL SUPERVISE HIS MEDICATIONS. HE DID VERBALIZE HIS OXYGEN BEING INCREASED TO 2.5 L/M. MD ALIA CHARLES, CAROLE AVILA APRN
--- NOTE | 2020-12-24 11:47 | PN ---
DATE OF SERVICE: 12/23/2020 SUBJECTIVE: The patient was seen and examined with the Nurse Practitioner. The patient's condition seems to have improved. His kidney functions are still abnormal. He is asymptomatic from CHF or pneumonitis. Continue to follow his kidney functions. Maybe discharge him tomorrow. TIME SPENT: More than 30 minutes. Plan and coordination of the patient's care discussed in the presence of nurse. KAYLEY
--- NOTE | 2020-12-24 13:31 | PN ---
DATE OF SERVICE: 12/22/2020 SUBJECTIVE: 82 year old white male with hospitalized with CHF and COPD exacerbation. The patient's condition has improved remarkably with steroids, antibiotics, IV Lasix. New problem is renal azotemia from aggressive diuretic therapy which was Lasix IV 40mg twice a day. Creatinine now is 140 with BUN of 40. REVIEW OF SYSTEMS: CONSTITUTIONAL: No night sweats. No fatigue, malaise, lethargy. No fever or chills. HEENT: Eyes: No visual changes. No eye pain. No eye discharge. ENT: No runny nose. No epistaxis. No sinus pain. No sore throat. No odynophagia. No congestion. RESPIRATORY: No cough, no congestion. No hemoptysis. No shortness of breath. CARDIOVASCULAR: No angina symptoms. No CHF symptoms. No atypical chest pain for CAD. No palpitations. No PND. No orthopnea. GASTROINTESTINAL: No abdominal pain. No nausea or vomiting. No diarrhea or constipation. No hematemesis. No hematochezia. Appetite has improved. The patient wants to go home. GENITOURINARY: No urgency. No frequency. No dysuria. No hematuria. No obstructive symptoms. No discharge. No pain. No significant abnormal bleeding. MUSCULOSKELETAL: No musculoskeletal pain; no joint swelling. NEUROLOGICAL: No headache. No neck pain. No syncope. No seizures. No dizziness. PSYCHIATRIC: Not anxious. No depression. No suicidal thoughts. No homicidal thoughts. SKIN: No rash. No lesions. No wounds. ENDOCRINE: No unexplained weight loss. No weight gain. HEMATOLOGIC/LYMPHATIC: No anemia. No purpura. No petechiae. No prolonged or excessive bleeding. No palpable lymph nodes. PHYSICAL EXAMINATION: VITAL SIGNS: Temperature 97.6, pulse 90, respiratory rate 20, blood pressure 105/54 and pulse ox 92%. HEENT: Head normocephalic, atraumatic. Eyes: Extraocular muscles are intact. Pupils are equal, round and reactive to light and accommodation. Ears: No lesions. Nose appeared normal. Throat: No exudate or erythema. NECK: Supple. No JVD, no carotid bruit. No lymphadenopathy or thyromegaly. LUNGS: Decreased breath sounds but clear to auscultation. Percussion note normal. Chest symmetrical. HEART: S1, S2, no S3. No murmurs. No cyanosis or clubbing. No ascites. Pulses: Dorsalis pedis and posterior tibial pulses +1 to +2 bilaterally. ABDOMEN: Soft. Nontender. Bowel sounds active. No CVA tenderness. No mass felt. EXTREMITIES: No edema. Full range of motion of all extremities, equal. NEUROLOGIC: No focal deficit. Cranial nerves II through XII are grossly intact. No headache. No double vision. SKIN: Not dry. Intact. Turgor - normal. LYMPHATIC: No palpable lymph nodes/no lymphedema. MUSCULOSKELETAL: Normal joints with no swelling. Muscle tone is normal. LABS: hgb 11, hct 33, WBC 16,000 normal differential, creatinine 1.4, BUN 40, potassium 4.3 ASSESSMENT: 1. CHF 2. Acute bronchitis 3. COPD exacerbation seems to be under control with steroids, NEBS, antibiotics PLAN: 1. Given 500cc of 1/2 normal saline for 12 hours 2. Discontinue the IV Lasix 3. Lasix 20mg PO to treat renal azotemia The patient's sputum growing gram negative rods. The patient is on Rocephin. TIME SPENT: More than 30 minutes. Plan and coordination of the patient's care discussed in the presence of nurse. KAYLEY
--- NOTE | 2020-12-24 14:46 | HP ---
DATE OF SERVICE: 12/20/2020 REASON FOR HOSPITALIZATION/HISTORY OF PRESENT ILLNESS: 89 year old white male who presents to the emergency room with shortness of breath. He stated at home his pulse ox was in the 70's. He is a current smoker. 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 Chronic respiratory failure Hypertension Gout GERD Left sciatica Hand tremors CHF Dyslipidemia PAST SURGICAL HISTORY: Spine surgery Bilateral shoulder surgery History of left renal cancer with removal Bilateral total knee replacement REVIEW OF SYSTEMS: CONSTITUTIONAL: No night sweats. No fatigue, malaise, lethargy. No fever or chills. Weakness. HEENT: Eyes: No visual changes. No eye pain. No eye discharge. ENT: No runny nose. No epistaxis. No sinus pain. No sore throat. No odynophagia. No ear pain. No congestion. RESPIRATORY: No cough, no congestion. No hemoptysis. Shortness of breath. CARDIOVASCULAR: No angina symptoms. No CHF symptoms. No atypical chest pain for CAD. No palpitations. No PND. No orthopnea. GASTROINTESTINAL: No abdominal pain. No nausea or vomiting. No diarrhea or constipation. No hematemesis. No hematochezia. GENITOURINARY: No urgency. No frequency. No dysuria. No hematuria. No obstructive symptoms. No discharge. No pain. No significant abnormal bleeding. MUSCULOSKELETAL: No musculoskeletal pain. No joint swelling. No arthritis. NEUROLOGICAL: No headache. No neck pain. No syncope. No seizures. No dizziness. PSYCHIATRIC: Not anxious. No depression. No suicidal thoughts. No homicidal thoughts. SKIN: No rash. No lesions. No wounds. ENDOCRINE: No unexplained weight loss. No weight gain. HEMATOLOGIC/LYMPHATIC: No anemia. No purpura. No petechiae. No prolonged or excessive bleeding. No palpable lymph nodes. PERSONAL/FAMILY/SOCIAL HISTORY: Smoker. . He is currently at [facility]isted [facility]. MEDICATIONS: Systane 0.6% one drop both eyes daily Daliresp 500mcg PO daily Potassium 99mg PO daily Ipratropium albuterol 3ml inhalation Q 6 hours PRN Simvastatin 20mg PO daily Tamsulosin 0.4mg PO daily Omeprazole 20mg PO BID Furosemide 20mg PO daily Gabapentin 600mg PO TID Hemp Gummy Bears 5mg PO daily PRN Dramamine 50mg PO TID PRN Multivitamin 1 tablet PO daily Allopurinol 300mg Po daily Colestid 1 gram PO daily ALLERGIES: Penicillin PHYSICAL EXAMINATION: GENERAL: The patient is , lying/sitting in bed in no distress. VITAL SIGNS: Temperature 98.3, heart rate 89, respiratory rate 20, blood pressure 139/68 and pulse ox 95% on 2 liters. HEENT: Head normocephalic, atraumatic. Eyes: Extraocular muscles are intact. Pupils are equal, round and reactive to light and accommodation. Ears: No lesions. Nose appeared normal. Throat: No exudate or erythema. NECK: Supple. No JVD, no carotid bruit. No lymphadenopathy or thyromegaly. LUNGS: Diminished breath sounds bilaterally with bilateral inspiratory wheezing. Clear to auscultation. Percussion note normal. Chest symmetrical. HEART: S1, S2, no S3. No murmur. No cyanosis or clubbing. No ascites. Pulses: Dorsalis pedis and posterior tibial pulses +1 to +2 bilaterally. ABDOMEN: Soft. Nontender. Bowel sounds active. No CVA tenderness. No mass felt. EXTREMITIES: No edema. Full range of motion of all extremities, equal. NEUROLOGIC: No focal deficit. Cranial nerves II through XII are grossly intact. No headache, no double vision or headache. SKIN: Not dry. Intact. Turgor - normal. LYMPHATIC: No palpable lymph nodes/no lymphedema. MUSCULOSKELETAL: Normal joints with no swelling. Muscle tone is normal. LABS: WBC 8.99, hgb 10.9, hct 33.4, plt count 281, sodium 135, potassium 3.9, BUN 17, creatinine 1.19, glucose 185. Troponin less than 0.01, ABG on 2 liters O2 saturation 95, pH 7.49, pCO2 43, PO2 72, bicarb 32.8. NT PRO BNP 1,180, rapid COVID is negative. Ct of the chest shows dilatation of aortic at the arch measuring up to 4.7cm and in the upper abdomen measuring 5.3. ASSESSMENT: 1. Acute COPD exacerbation 2. Chronic respiratory failure 3. Acute on chronic CHF 4. Chronic kidney disease stage III PLAN: 1. Will Admit 2. Routine telemetry orders 3. CBC and CMP daily 4. Continue home medications 5. Elevate legs 6. Rocephin 1 gram IV daily 7. Zithromax 500mg daily PO times three days 8. Solu-Medrol 125mg IV Q 8 hours 9. Oxygen 1-2 liters via nasal canula. 10. Regular diet We will follow closely. TIME SPENT: More than 70 minutes. MTDD
--- NOTE | 2020-12-25 09:46 | PN ---
DATE OF SERVICE: 12/21/2020 SUBJECTIVE: 89 year old white male hospitalized with CHF, bronchitis less bronchitis type of symptoms. The patient has severe chronic lung disease on home oxygen. The patient has dementia. He recognized me but he isn't oriented to time and date. REVIEW OF SYSTEMS: CONSTITUTIONAL: No night sweats. No fatigue, malaise, lethargy. No fever or chills. HEENT: Eyes: No visual changes. No eye pain. No eye discharge. ENT: No runny nose. No epistaxis. No sinus pain. No sore throat. No odynophagia. No congestion. RESPIRATORY: No cough, no congestion. No hemoptysis. No shortness of breath. CARDIOVASCULAR: No angina symptoms. No CHF symptoms. No atypical chest pain for CAD. No palpitations. No PND. No orthopnea. GASTROINTESTINAL: No abdominal pain. No nausea or vomiting. No diarrhea or constipation. No hematemesis. No hematochezia. GENITOURINARY: No urgency. No frequency. No dysuria. No hematuria. No obstructive symptoms. No discharge. No pain. No significant abnormal bleeding. MUSCULOSKELETAL: No musculoskeletal pain; no joint swelling. NEUROLOGICAL: No headache. No neck pain. No syncope. No seizures. No dizziness. PSYCHIATRIC: Not anxious. No depression. No suicidal thoughts. No homicidal thoughts. SKIN: No rash. No lesions. No wounds. ENDOCRINE: No unexplained weight loss. No weight gain. HEMATOLOGIC/LYMPHATIC: No anemia. No purpura. No petechiae. No prolonged or excessive bleeding. No palpable lymph nodes. PHYSICAL EXAMINATION: VITAL SIGNS: Temperature 97.5, pulse 71, respiratory rate 18, blood pressure 96/41 and pulse ox 96%. HEENT: Head normocephalic, atraumatic. Eyes: Extraocular muscles are intact. Pupils are equal, round and reactive to light and accommodation. Ears: No lesions. Nose appeared normal. Throat: No exudate or erythema. NECK: Supple. No JVD, no carotid bruit. No lymphadenopathy or thyromegaly. LUNGS: Decreased breath sounds but clear to auscultation. Percussion note normal. Chest symmetrical. HEART: S1, S2, no S3. No murmurs. No cyanosis or clubbing. No ascites. Pulses: Dorsalis pedis and posterior tibial pulses +1 to +2 bilaterally. ABDOMEN: Soft. Nontender. Bowel sounds active. No CVA tenderness. No mass felt. EXTREMITIES: No edema. Full range of motion of all extremities, equal. NEUROLOGIC: No focal deficit. Cranial nerves II through XII are grossly intact. No headache. No double vision. SKIN: Not dry. Intact. Turgor - normal. LYMPHATIC: No palpable lymph nodes/no lymphedema. MUSCULOSKELETAL: Normal joints with no swelling. Muscle tone is normal. LABS: Hgb 10.3, hct 30, WBC 7,800 normal differential, creatinine 1.1, BUN 23, potassium 4.3 ASSESSMENT: 1. CHF seems to have resolved 2. Chronic bronchitis, under control 3. Severe Chronic lung disease PLAN: 1. Continue NEBS, steroids and antibiotics 2. Telemetry CONDITION: Stable. TIME SPENT: More than 30 minutes. Plan and coordination of the patient's care discussed in the presence of nurse. KAYLEY
--- NOTE | 2020-12-25 10:13 | PN ---
DATE OF SERVICE: 12/20/2020 ADMIT NOTE SUBJECTIVE: 82 year old white male hospitalized with complaint of having shortness of breath. The patient has bronchitis type of symptoms along with compensated CHF. He has had both problems for a number of years. The patient is noncompliant of medications. He is confused but alert. REVIEW OF SYSTEMS: CONSTITUTIONAL: No night sweats. No fatigue, malaise, lethargy. No fever or chills. HEENT: Eyes: No visual changes. No eye pain. No eye discharge. ENT: No runny nose. No epistaxis. No sinus pain. No sore throat. No odynophagia. No congestion. RESPIRATORY: No cough, no congestion. No hemoptysis. Shortness of breath on minimal exertion. CARDIOVASCULAR: No angina symptoms. No CHF symptoms. No atypical chest pain for CAD. No palpitations. No PND. No orthopnea. GASTROINTESTINAL: No abdominal pain. No nausea or vomiting. No diarrhea or constipation. No hematemesis. No hematochezia. GENITOURINARY: No urgency. No frequency. No dysuria. No hematuria. No obstructive symptoms. No discharge. No pain. No significant abnormal bleeding. MUSCULOSKELETAL: No musculoskeletal pain; no joint swelling. NEUROLOGICAL: No headache. No neck pain. No syncope. No seizures. No dizziness. PSYCHIATRIC: Not anxious. No depression. No suicidal thoughts. No homicidal thoughts. SKIN: No rash. No lesions. No wounds. ENDOCRINE: No unexplained weight loss. No weight gain. HEMATOLOGIC/LYMPHATIC: No anemia. No purpura. No petechiae. No prolonged or excessive bleeding. No palpable lymph nodes. PHYSICAL EXAMINATION: VITAL SIGNS: Temperature 98, pulse 75, respiratory rate 18, blood pressure 118/80, pulse ox 98% with 2 liters. HEENT: Head normocephalic, atraumatic. Eyes: Extraocular muscles are intact. Pupils are equal, round and reactive to light and accommodation. Ears: No lesions. Nose appeared normal. Throat: No exudate or erythema. NECK: Supple. No JVD, no carotid bruit. No lymphadenopathy or thyromegaly. LUNGS: Decreased breath sounds but clear to auscultation. Percussion note normal. Chest symmetrical. HEART: S1, S2, no S3. No murmurs. No cyanosis or clubbing. No ascites. Pulses: Dorsalis pedis and posterior tibial pulses +1 to +2 bilaterally. ABDOMEN: Soft. Nontender. Bowel sounds active. No CVA tenderness. No mass felt. EXTREMITIES: No edema. Full range of motion of all extremities, equal. NEUROLOGIC: No focal deficit. Cranial nerves II through XII are grossly intact. No headache. No double vision. SKIN: Not dry. Intact. Turgor - normal. LYMPHATIC: No palpable lymph nodes/no lymphedema. MUSCULOSKELETAL: Normal joints with no swelling. Muscle tone is normal. LABS: ABG pO2 72, pCO2 43, pH 7.49 with 95% saturation on 2 liters. ProBNP 1180 which is highly elevated from kidney function, COPD, chronic CHF ASSESSMENT: 1. CHF 2. COPD exacerbation 3. Dementia 4. Chronic anemia 5. Chronic kidney disease PLAN: 1. Treat patient with steroids 2. Antibiotics 3. IV Lasix 4. Resume all his medications CONDITION: Stable The patient is DNI. TIME SPENT: More than 30 minutes. Plan and coordination of the patient's care discussed in the presence of nurse. KAYLEY
--- NOTE | 2020-12-27 13:26 | PN ---
DATE OF SERVICE: 12/24/2020 SUBJECTIVE: The patient was seen and examined with the Nurse Practitioner. The patient's condition is stable. Clinically he is a lot better. No CHF. Bronchitis symptoms under control. He has been wanting to go home for last two days. He is not really in any distress. Blood gasses fluctuate depending upon his respiratory status which seems to be mild bronchospasm. The patient had ABG now . Oxygen saturation is 94-95% on 2liters. CONDITION: Stable. The patient is going to be discharged home with antibiotics and steroids. TIME SPENT: More than 30 minutes. Plan and coordination of the patient's care discussed in the presence of nurse. KAYLEY
--- NOTE | 2020-12-27 13:27 | PN ---
12/20/2020: Level 5 12/21/2020: Intermediate 12/22/2020: Intermediate 12/23/2020: Intermediate 12/24/2020: D as in discharge MTDD
--- NOTE | 2020-12-30 11:07 | PN ---
DATE OF SERVICE: 12/24/2020 SUBJECTIVE: The patient was seen and examined with Nurse Practitioner. The patient's condition has improved. He is stable.The patient is to be discharged home on antibiotics and steroids. PHYSICAL EXAMINATION: HEENT: Head normocephalic, atraumatic. Eyes: Extraocular muscles are intact. Pupils are equal, round and reactive to light and accommodation. Ears: No lesions. Nose appeared normal. Throat: No exudate or erythema. NECK: Supple. No JVD, no carotid bruit. No lymphadenopathy or thyromegaly. LUNGS: Decreased but clear to auscultation. Percussion note normal. Chest symmetrical. HEART: S1, S2, no S3. No murmurs. No cyanosis or clubbing. No ascites. Pulses: Dorsalis pedis and posterior tibial pulses +1 to +2 bilaterally. ABDOMEN: Soft. Nontender. Bowel sounds active. No CVA tenderness. No mass felt. EXTREMITIES: No edema. Full range of motion of all extremities, equal. NEUROLOGIC: No focal deficit. Cranial nerves II through XII are grossly intact. No headache. No double vision. SKIN: Not dry. Intact. Turgor - normal. LYMPHATIC: No palpable lymph nodes/no lymphedema. MUSCULOSKELETAL: Normal joints with no swelling. Muscle tone is normal. TIME SPENT: More than 30 minutes. Plan and coordination of the patient's care discussed in the presence of nurse. KAYLEY
--- NOTE | 2020-12-30 11:08 | PN ---
12/20/2020: Level 5 12/21/2020: Intermediate 12/22/2020: Intermediate 12/23/2020: Intermediate 12/24/2020: Intermediate 12/25/2020: Intermediate 12/26/2020: D as in discharge MTDD
--- NOTE | 2021-01-02 08:59 | DS ---
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 - CT 05/2020 - REFUSES VASCULAR REFERRAL RECURRENT DIZZINESS- CAROTID/MRI 02/2020 COPD - O2 DEPENDENT HEAVY SMOKER CHRONIC RESPIRATORY FAILURE HYPERTENSION NEUROPATHY GOUT GERD CHRONIC KIDNEY DISEASE STAGE 2-3 SEPSIS - POSITIVE ENTEROCCOCUS- 06/2020 BILATERAL SHOULDER S/P SPINE SURGERY X 3 LT RENAL CA - REFUSES FURTHER CONSULTATION LLQ PAIN - POSSIBLE DIVERTICULITIS PER CT LT SCIATICA GENERAL OSTEOARTHRITIS HAND TREMORS FALLS NON- COMPLIANCE WITH LIFESTYLE, MEDICATIONS, DIET AND FOLLOW-UP SURGICAL HISTORY: 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 BILATERAL TOTAL KNEE REPLACEMENT BACK SURGERY X 3 GALLBLADDER APPENDECTOMY LAST VITALS: Temp Pulse Resp BP Pulse Ox 97.6 F 68 18 113/59 L 93 L 12/24/20 06:00 12/24/20 06:00 12/24/20 06:00 12/24/20 06:00 12/24/20 10:00 DISCHARGE INSTRUCTIONS: MD FOLLOW -UP: SEE DR CAROLINA/ ALIA KING APRN/ MONICA AVILA APRN IN THE OFFICE ON WEDNESDAY, December, @ 1115. OXYGEN: CHANGE TO 2.5 LITERS A MINUTE PER NASAL CANNULA TAKE THESE MEDICATIONS AT HOME: Allopurinol (Allopurinol 100 Mg Tablet) 300 mg PO DAILY [facility] Last Admin: 12/24/20 09:00 Dose: 300 mg Documented by: Budesonide/Formoterol Fumarate (Budesonide/Formoterol Fumarate 160/4.5 Mcg Inhaler) 2 puff IH DAILY [facility] -- (NEW) Last Admin: 12/24/20 09:01 Dose: 2 puff Documented by: Furosemide (Furosemide 20 Mg Tablet) 20 mg PO QDAC [facility] Last Admin: 12/24/20 05:45 Dose: 20 mg Documented by: Gabapentin (Gabapentin 300 Mg Capsule) 600 mg PO TID [facility] Last Admin: 12/24/20 09:00 Dose: 600 mg Documented by: Multivitamins (Multivitamin 1 Tab) 1 tab PO DAILY [facility] Last Admin: 12/24/20 09:01 Dose: 1 tab Documented by: Non-Formulary Medication (Dimenhydrinate [Dramamine]) 50 mg PO TID PRN PRN Reason: Dizziness Omeprazole (Omeprazole 20 Mg Capsule.) 20 mg PO BIDAC [facility] Last Admin: 12/24/20 05:45 Dose: 20 mg Documented by: Prednisone (Prednisone 20 Mg Tablet) 20 mg PO DAILYWM [facility] X 5 MORE DAYS -- ( NEW) Last Admin: 12/24/20 09:01 Dose: 20 mg Documented by: Roflumilast (Roflumilast 500 Mcg Tablet) 500 mcg PO DAILY [facility] Last Admin: 12/24/20 09:01 Dose: 500 mcg Documented by: Simvastatin (Simvastatin 10 Mg Tablet) 20 mg PO DAILY [facility] Last Admin: 12/24/20 08:59 Dose: 20 mg Documented by: Tamsulosin HCl (Tamsulosin Hcl 0.4 Mg Cap.Er.24h) 0.4 mg PO DAILY [facility] Last Admin: 12/24/20 09:00 Dose: 0.4 mg Documented by: KEFLEX 500 MG PO TID X 5 DAYS -- ( NEW) DUONEBS EVERY 6 HOURS NEEDED COLESTID 1 GRAM PO DAILY HEMP GUMMY BEAR 5 MG PO DAILY PRN POTASSIUM 99 MG PO DAILY [facility] BALANCE EYE DROPS ONE DROP BOTH EYES DAILY ALLERGIES: Penicillins Adverse Reaction (Severe, Verified 12/20/20 11:35) Unknown flu Vaccine Adverse Reaction (Uncoded 11/12/20 09:46) Unknown DISCONTINUED MEDICATIONS: NONE NEW PRESCRIPTIONS: 1). KEFLEX 500 MG PO THREE TIMES DAILY FOR 5 DAYS (START 12/25/2020) 2). PREDNISONE 10 MG PO DAILY IN THE AM WITH FOOD FOR 5 DAYS (START 12/25/2020) 3). SYMBICORT METER DOSE INHALER 2 PUFFS DAILY ( START 12/25/2020) SMOKING: SMOKING CESSATION DISEASE SPECIFIC EDUCATION: COPD CHF BRONCHITIS COVID OXYGEN DOSE AND SAFETY LAB REVIEW: 12/24/20 04:35 12/24/20 04:35 12/24/20 04:35: Sodium 136.6, Potassium 3.87, Chloride 99.6, Carbon Dioxide 33.9 H, Anion Gap 6.97, BUN 52.3 H, Creatinine 1.32 H, Estimated GFR (MDRD) 51.00, BUN/Creatinine Ratio 39.62, Glucose 113.6 H, Calcium 8.29 L, Total Bilirubin 0.25, AST 42.6, ALT 59.7 H, Alkaline Phosphatase 59.4, Total Protein 6.88, Albumin 3.15 L, Globulin 3.73, Albumin/Globulin Ratio 0.84 12/24/20 04:35: WBC 10.76 H, RBC 3.76 L, Hgb 10.5 L, Hct 31.9 L, MCV 84.8, MCH 27.9, MCHC 32.9, RDW Coeff of Shira 15.2 H, Plt Count 315, Immature Gran % (Auto) 1.5, Neut % (Auto) 78.0 H, Lymph % (Auto) 12.5, Harris % (Auto) 7.8, Eos % (Auto) 0.0, Baso % (Auto) 0.2, Neut # (Auto) 8.4 H, Lymph # (Auto) 1.3, Harris # (Auto) 0.8, Eos # (Auto) 0.0, Baso # (Auto) 0.0, Immature Gran # (Auto) 0.2 12/23/20 14:27: Adenovirus (PCR) Not detected, B. pertussis DNA (PCR) Not detected, B.parapertussis DNA PCR Not detected, C. pneumoniae DNA (PCR) Not detected, Coronavirus OC43 (PCR) Not detected, Coronavirus HKU1 (PCR) Not detected, Coronavirus 229E (PCR) Not detected, Coronavirus NL63 (PCR) Not detected, Human Metapneumovir PCR Not detected, Influenza Type A (PCR) Not detected, Influenza B (RT-PCR) Not detected, M. pneumoniae (PCR) Not detected, Parainfluenza 1 (PCR) Not detected, Parainfluenza 2 (PCR) Not detected, Parainfluenza 3 (PCR) Not detected, Parainfluenza 4 (PCR) Not detected, RSV (PCR) Not detected, Entero/Rhino (PCR) Not detected, SARS-CoV-2 (PCR) Not detected ACTIVITY: PT AND OT TO EVAL AND TREAT AT THE FACILITY UP TOLERATED WITH WALKER AND DIRECTED PER THERAPY DEPARTMENT OXYGEN SAFETY NO STRENUOUS ACTIVITY FOLLOW PANDEMIC GUIDELINES DIET: REGULAR CODE STATUS: DO NOT RESUSCITATE HOSPITAL COURSE: This is a white male who was admitted on 12/20/2020 after coming to the emergency room with shortness of breath. CT of the chest revealed that he had changes associated with COPD, no pneumonia. He does have chronic respiratory failure. He is on oxygen at all times. Oxygen saturation initially was in the 80's. He was admitted and placed on Rocephin 1 gram IV daily along with Solu- Medrol 125mg IV Q 6 hours, oxygen at 2-3 liters via nasal canula. He was started on Albuterol NEBS along with Pulmicort NEB BID. Respiratory panel was negative for COVID. Initially BNP was elevated at 1,000. ER physician ordered IV Lasix twice daily. He received this for two doses this was then discontinued. Leg edema has since resolved. Kidney function increased due IV diuretics but has since stabilized. He has been up and about with his walker. He states that he is feeling great. Shortness of breath has improved. Yesterday I discontinued IV steroids and placed him on PO. He has tolerated this well. We send him home with Keflex 500mg TID for the next 5 days. He is to continued DUO NEBS TID. [facility]. Also to be noted he did have an aneurysm noted to be slightly increased in size on the CAT scan. This is known he has previous refused vascular referral and continues to do so at this time. We will continue to see him at the office. TIME SPENT: More than 60 minutes. MTDD
== END 2020-12-24 13:30 | disposition home or self-care (01) | DRG 292 ==
LOC: ED 11:22 → MEDSURG A 14:43
PROVIDERS: ADMIT Internal Medicine; ATTEND Internal Medicine
DX: R42 Dizziness and giddiness; F03.90 Unspecified dementia, unspecified severity, without behavioral disturbance, psychotic disturbance, mood disturbance, and anxiety; I50.42 Chronic combined systolic (congestive) and diastolic (congestive) heart failure; R06.02 Shortness of breath; G62.9 Polyneuropathy, unspecified; E78.5 Hyperlipidemia, unspecified; I10 Essential (primary) hypertension; J40 Bronchitis, not specified as acute or chronic; N18.30 Chronic kidney disease, stage 3 unspecified; R60.0 Localized edema; K21.9 Gastro-esophageal reflux disease without esophagitis; R06.2 Wheezing; Z99.81 Dependence on supplemental oxygen; R05 Cough; J44.1 Chronic obstructive pulmonary disease with (acute) exacerbation; Z20.822 Contact with and (suspected) exposure to COVID-19; J96.11 Chronic respiratory failure with hypoxia; D64.9 Anemia, unspecified

== ENCOUNTER 2021-01-15 10:53 | Inpatient (IN) ==
[2021-01-15] MEDS ORDERED: ATROVENT HFA INHALER (PER PUFF-WITH SPACER) IH ONE (11:25)
[2021-01-15] MEDS ORDERED: SOLU-MEDROL 125 MG IVP ONE (11:25)
[2021-01-15] MEDS ORDERED: VENTOLIN HFA (PER PUFF-WITH SPACER) IH ONE ×2 (11:25→14:51)
[2021-01-15 11:45] LABS: BASOPHILS % (AUTO) 0.3 % (0.0-3.0); EOSINOPHILS # (AUTO) 0.1 K/ul (0.0-0.7); EOSINOPHILS % (AUTO) 1.8 % (0.0-7.0); HEMATOCRIT 31.7 % (42.0-52.0); HEMOGLOBIN 10.3 g/dl (14.0-18.0); IMMATURE GRANULOCYTE % (AUTO) 0.3 % (0.0-5.0); LYMPHOCYTES # (AUTO) 0.8 K/uL (0.60-3.4); LYMPHOCYTES % (AUTO) 13.3 (10.0-50.0); MEAN CORPUSCULAR HEMOGLOBIN 27.8 pg (27.0-31.0); MEAN CORPUSCULAR HGB CONC 32.5 (31.8-35.4); MEAN CORPUSCULAR VOLUME 85.4 fl (80.0-94.0); MONOCYTES # (AUTO) 0.8 K/uL (0.4-2.0); MONOCYTES % (AUTO) 12.5 (0-10); NEUTROPHILS # (AUTO) 4.5 K/ul (2.0-6.9); NEUTROPHILS % (AUTO) 71.8 % (42.2-75.2); PLATELET COUNT 202 10^3/uL (140-440); RDW COEFFICIENT OF VARIATION 15.9 % (11.6-14.8); RED BLOOD COUNT 3.71 10^6/ul (4.70-6.10); WHITE BLOOD COUNT 6.25 K/ul (4.2-10.2)
[2021-01-15 11:51] LABS: ABG O2 HGB 94.9 % (95-100); ABG PH 7.45 (7.35-7.45); BEecf 6.6 (-2.0-3.0); COHb 2.2 (0.5-1.5); HCO3 30.6 (21-28); MetHb 1.3 (0-1.5); tHb 10.2 g/dl (11.7-17.4)
[2021-01-15 11:57] LABS: ALBUMIN 3.41 g/dL (3.5-5.0); ALKALINE PHOSPHATASE 79.2 U/L (56-119); ASPARTATE AMINO TRANSFERASE 60.2 U/L (17-59); BILIRUBIN,TOTAL 0.55 mg/dL (0.2-1.3); BLOOD UREA NITROGEN 28.3 mg/dL (9-20); CALCIUM 8.47 mg/dL (8.4-10.2); CARBON DIOXIDE 33.2 mmol/L (22-30.0); CHLORIDE 100.8 mmol/L (98-107); CREATININE 1.41 mg/dL (0.60-1.10); GLUCOSE 102.2 mg/dL (74-106); POTASSIUM 4.3 mmol/L (3.5-5.1); TOTAL PROTEIN 7.64 g/dL (6.3-8.2)
[2021-01-15 12:09] LABS: TROPONIN I 0.02 ng/ml (0.0000-0.120)
[2021-01-15] MEDS ORDERED: SOLU-MEDROL 125 MG IM ONE (12:09)
--- NOTE | 2021-01-15 13:12 | CT ---
EXAM: CT chest without contrast. HISTORY: Shortness of breath. COMPARISON: Radiograph 12/23/2020. CT 12/20/2020, 07/02/2020. TECHNIQUE: Multiple axial images of the chest were obtained without intravenous contrast. Images we re reformatted in the sagittal and coronal planes. FINDINGS: Evaluation for lymphadenopathy is limited by lack of intravenous contrast. Calcified node s are present. Probable epidermal inclusion cyst in the posterior left shoulder region on axial image 14. The heart is at the upper limits of normal size. Atherosclerotic calcifications are present. Ascending aorta measures up to 4.7 cm diameter although assessment limited without contrast. Stable emphysema and calcified granulomatous changes. No consolidation, pleural effusion or pneumoth orax identified. Limited images of the upper abdomen demonstrate no acute abnormality. Infrarenal abdominal aortic an eurysm is incompletely imaged. Degenerative changes seen throughout the spine. IMPRESSION: 1. No acute cardiopulmonary process. 2. Stable emphysema. 3. Stable atherosclerosis and dilated ascending aorta measuring to 4.[address] scans are performed using dose optimization techniques as appropriate to the performed exam an d include at least one of the following: Automated exposure control, adjustment of the mA and/or kV according t o size, and the use of iterative reconstruction technique.
[2021-01-15 14:36] LABS: BORDETELLA PARAPERTUSSIS (PCR) NOT DETECTED (NOT DETECT); BORDETELLA PERTUSSIS (PCR) NOT DETECTED (NOT DETECT); CHLAMYDIA PNEUMONIAE (PCR) NOT DETECTED (NOT DETECT); CORONAVIRUS 229E (PCR) NOT DETECTED (NOT DETECT); CORONAVIRUS HKU1 (PCR) NOT DETECTED (NOT DETECT); CORONAVIRUS NL63 (PCR) NOT DETECTED (NOT DETECT); CORONAVIRUS OC43 (PCR) NOT DETECTED (NOT DETECT); HUMAN METAPNEUMOVIRUS (PCR) NOT DETECTED (NOT DETECT); HUMAN RHINOVIRUS/ENTEROV (PCR) NOT DETECTED (NOT DETECT); INFLUENZA B (PCR) NOT DETECTED (NOT DETECT); MYCOPLASMA PNEUMONIAE (PCR) NOT DETECTED (NOT DETECT); PARAINFLUENZA VIRUS 1 (PCR) NOT DETECTED (NOT DETECT); PARAINFLUENZA VIRUS 2 (PCR) NOT DETECTED (NOT DETECT); PARAINFLUENZA VIRUS 3 (PCR) NOT DETECTED (NOT DETECT); PARAINFLUENZA VIRUS 4 (PCR) NOT DETECTED (NOT DETECT); RESPIRATORY SYNCYTIAL V (PCR) NOT DETECTED (NOT DETECT); SARS_COV_2 (PCR) NOT DETECTED (NOT DETECT)
--- NOTE | 2021-01-15 14:43 | ED.PDOC ---
General ED Provider: Dr. JAMES PICHARDO MD Chief Complaint: Shortness of Air Stated Complaint: coughing and wheezing x worse this am Time Seen by Provider: 01/15/21 10:57 Mode of Arrival: Ambulance Information Source: Patient Exam Limitations: No limitations Primary Care Provider: DARY CAROLINA Nursing and Triage Documentation Reviewed and Agree: Yes Does patient meet sepsis criteria?: No System Inflammatory Response Syndrome: Not Applicable Sepsis Protocol: For patient's 13 years and over: Temp is 96.8 and below OR 101 and greater Pulse >90 BPM Resp >20/minute Acutely Altered Mental Status Are patient's symptoms suggestive of a new infection, such as: -Pneumonia -Skin, Soft Tissue -Endocarditis -UTI -Bone, Joint Infection -Implantable Device -Acute Abdominal Infection -Wound Infection -Meningitis -Blood Stream Catheter Infection -Unknown Respiratory Complaint Exam Respiratory Complaint/Exam Onset/Duration: 12 hrs worse Symptoms Are: Still present Timing: Constant Initial Severity: Mild Current Severity: Moderate Location: Chest Character: Reports Non-productive cough Aggravating: Reports None Alleviating: Reports Bronchodilators Associated Signs and Symptoms: Reports Dyspnea, Wheezing, URI, Nasal congestion and Hoarseness Home Oxygen Use: No Recent Echo/LV Function: No Current Antibiotic Use: No Current Asthma Medication Use: Yes Respiratory Distress: Mild Inadequate Respiratory Effort: No Dysphagia Present: No Stridor Present: No JVD Present: No Accessory Muscle Use: No Retractions: Intercostal Grunting Respirations: No Kussmaul Respirations: No Differential Diagnoses: Asthma, COPD Exacerbation, Pneumonia, SARS, Bronchitis, URI and Lower Resp. Infection Review of Systems Review Of Systems Constitutional: Reports No symptoms Eyes: Reports No symptoms Ears, Nose, Mouth, Throat: Reports No symptoms Respiratory: Reports Cough, Short of air and Wheezing Cardiac: Reports No symptoms GI: Reports No symptoms : Reports No symptoms Musculoskeletal: Reports No symptoms Skin: Reports No symptoms Neurological: Reports No symptoms Endocrine: Reports No symptoms Hematologic/Lymphatic: Reports No symptoms All Other Systems: Reviewed and Negative [facility] Medical History Arthritis Arthritis associated with foreign body Chronic obstructive airway disease Chronic otitis media Dysfunction of both eustachian tubes Gastro-esophageal reflux Gout History of kidney cancer Hyperlipemia Hypertension Nerve pain Pain Sensorineural hearing loss (SNHL) of both ears Sinusitis Urinary bladder disorder Vertigo Family History FATHER Diabetes Coronary artery arteriosclerosis Social History Smoking and tobacco status: Current every day smoker Tobacco: How many years used: 80 Passive smoking exposure: Yes Quit status: not considering quitting Surgical History History of bilateral knee replacement History of hip replacement History of nephrectomy Physical Exam Physical Exam Appearance: Reports No pain distress Ill-appearing: None Pain Distress: None Eyes: Reports CLAUDIA, EOMI and Conjunctiva clear ENT: Reports Ears normal, Nose normal and Oropharynx normal Neck: Supple Respiratory: Reports Airway patent and Breath sounds clear Cardiovascular: Reports RRR, Pulses normal, No rub and No murmur GI/: Reports Soft and Nontender Musculoskeletal: Reports Normal strength, ROM intact, No edema and No calf tenderness Skin: Reports Warm, Dry and Normal color Neurological: Reports Sensation intact, Motor intact, Reflexes intact, Cranial nerves intact, Alert and Oriented Psychiatric: Reports Affect appropriate and Mood appropriate Interpretation Radiology Interpretation Radiology Interpretation By: Radiologist Exam Interpreted: CT Scan Re-Evaluation Re-Evaluation Time of Re-Evaluation: 11:55 Status: Improved Vital Signs Stable: Yes Pain Level: 0 Appearance: NAD Lungs: Other (rhonchi, wheezes and mild crackles.) Skin: Warm and Dry Neuro: Alert and Oriented X3 CV: RRR Critical Care Note Critical Care Note Total Critical Care Time (mins): 0 Course Course Hematology/Chemistry: 01/15/21 11:42 01/15/21 11:42 Orders, Labs, Meds: Lab Review 01/15/21 01/15/21 01/15/21 11:35 11:42 11:42 WBC 6.25 RBC 3.71 L Hgb 10.3 L Hct 31.7 L MCV 85.4 MCH 27.8 MCHC 32.5 RDW Coeff of Shira 15.9 H Plt Count 202 Immature Gran % (Auto) 0.3 Neut % (Auto) 71.8 Lymph % (Auto) 13.3 [place] % (Auto) 12.5 H Eos % (Auto) 1.8 Baso % (Auto) 0.3 Neut # (Auto) 4.5 Lymph # (Auto) 0.8 [place] # (Auto) 0.8 Eos # (Auto) 0.1 Baso # (Auto) 0.0 Immature Gran # (Auto) 0.0 Puncture Site L rad Base Excess 6.6 H O2 Saturation 98.0 ABG pH 7.45 ABG pCO2 44.0 ABG pO2 99.0 ABG HCO3 30.6 H ABG Total CO2 32.0 H Anish Test Y Hemoglobin 1.3 Oxyhemoglobin 94.9 L Carboxyhemoglobin 2.2 H Total Hemoglobin 10.2 L O2 Delivery Device Cannula Oxygen Liter Flow 3.00 Sodium 138.0 Potassium 4.30 Chloride 100.8 Carbon Dioxide 33.2 H Anion Gap 8.30 BUN 28.3 H Creatinine 1.41 H Estimated GFR (MDRD) 47.00 BUN/Creatinine Ratio 20.07 Glucose 102.2 Calcium 8.47 Total Bilirubin 0.55 AST 60.2 H ALT 31.0 Alkaline Phosphatase 79.2 Troponin I 0.020 NT-Pro-B Natriuret Pep 808.000 H Total Protein 7.64 Albumin 3.41 L Globulin 4.23 Albumin/Globulin Ratio 0.80 Adenovirus (PCR) B. pertussis DNA (PCR) B.parapertussis DNA PCR C. pneumoniae DNA (PCR) Coronavirus OC43 (PCR) Coronavirus HKU1 (PCR) Coronavirus 229E (PCR) Coronavirus NL63 (PCR) Human Metapneumovir PCR Influenza Type A (PCR) Influenza B (RT-PCR) M. pneumoniae (PCR) Parainfluenza 1 (PCR) Parainfluenza 2 (PCR) Parainfluenza 3 (PCR) Parainfluenza 4 (PCR) RSV (PCR) Entero/Rhino (PCR) SARS-CoV-2 (PCR) 01/15/21 14:33 WBC RBC Hgb Hct MCV MCH MCHC RDW Coeff of Shira Plt Count Immature Gran % (Auto) Neut % (Auto) Lymph % (Auto) [place] % (Auto) Eos % (Auto) Baso % (Auto) Neut # (Auto) Lymph # (Auto) [place] # (Auto) Eos # (Auto) Baso # (Auto) Immature Gran # (Auto) Puncture Site Base Excess O2 Saturation ABG pH ABG pCO2 ABG pO2 ABG HCO3 ABG Total CO2 Anish Test Hemoglobin Oxyhemoglobin Carboxyhemoglobin Total Hemoglobin O2 Delivery Device Oxygen Liter Flow Sodium Potassium Chloride Carbon Dioxide Anion Gap BUN Creatinine Estimated GFR (MDRD) BUN/Creatinine Ratio Glucose Calcium Total Bilirubin AST ALT Alkaline Phosphatase Troponin I NT-Pro-B Natriuret Pep Total Protein Albumin Globulin Albumin/Globulin Ratio Adenovirus (PCR) Not detected B. pertussis DNA (PCR) Not detected B.parapertussis DNA PCR Not detected C. pneumoniae DNA (PCR) Not detected Coronavirus OC43 (PCR) Not detected Coronavirus HKU1 (PCR) Not detected Coronavirus 229E (PCR) Not detected Coronavirus NL63 (PCR) Not detected Human Metapneumovir PCR Not detected Influenza Type A (PCR) Not detected Influenza B (RT-PCR) Not detected M. pneumoniae (PCR) Not detected Parainfluenza 1 (PCR) Not detected Parainfluenza 2 (PCR) Not detected Parainfluenza 3 (PCR) Not detected Parainfluenza 4 (PCR) Not detected RSV (PCR) Not detected Entero/Rhino (PCR) Not detected SARS-CoV-2 (PCR) Not detected Orders Category Date Time Status ABG DRAW REQUEST Stat CARDIO 01/15/21 11:26 Completed EKG-(ED ONLY) Stat CARDIO 01/15/21 11:25 Completed METERED DOSE INHALATION Routine CARDIO 01/15/21 11:29 Completed METERED DOSE INHALATION Routine CARDIO 01/15/21 14:52 Completed OXYGEN Routine CARDIO 01/15/21 14:44 Active ACTIVITY .Up With Assistance CARE 01/15/21 14:44 Active INTAKE & OUTPUT Q8HR CARE 01/15/21 14:46 Active VITAL SIGNS Q8HR CARE 01/15/21 14:46 Active REGULAR DIET DIETARY 01/15/21 Dinner Ordered ED IV/MEDIPORT/POWERPORT .ONCE EMERGENCY 01/15/21 11:25 Active ABG COOX Stat LAB 01/15/21 11:35 Completed CBC W/ AUTO DIFF Stat LAB 01/15/21 11:42 Completed COMPREHENSIVE METABOLIC PANEL Stat LAB 01/15/21 11:42 Completed NT-PROBNP Stat LAB 01/15/21 11:42 Completed RESPIRATORY PANEL 2.1 (PCR) Stat LAB 01/15/21 14:33 Completed TROPONIN I Stat LAB 01/15/21 11:42 Completed URINALYSIS C & S IF INDICATED Stat LAB 01/15/21 11:30 Uncollected 0.9 % Sodium Chloride [Saline Flush] MEDS 01/15/21 11:25 Active 1 syr IVF PRN PRN Albuterol Inhaler(with Spacer) [Ventolin Hfa (Per Puff- MEDS 01/15/21 11:25 Discontinued with Spacer)] 2 puff IH ONCE ONE Albuterol Inhaler(with Spacer) [Ventolin Hfa (Per Puff- MEDS 01/15/21 14:51 Discontinued with Spacer)] 2 puff IH ONCE ONE Azithromycin [Zithromax] MEDS 01/15/21 15:00 Active 500 mg PO DAILY Ceftriaxone/D5w 1 gm Premix [Rocephin 1 gm/50 ml D5w] MEDS 01/15/21 14:51 Discontinued 1 gm in 50 ml IV ONCE Ipratropium Inhaler(Spacer) [Atrovent Hfa Inhaler (Per MEDS 01/15/21 11:25 Discontinued Puff-with Spacer)] 2 puff IH ONCE ONE Ipratropium Inhaler(Spacer) [Atrovent Hfa Inhaler (Per MEDS 01/15/21 18:00 Active Puff-with Spacer)] 2 puff IH RTQ6H Methylprednisolone Sod Succ/Pf [Solu-Medrol 125 mg] MEDS 01/15/21 12:09 Discontinued 125 mg IM ONCE ONE Methylprednisolone Sod Succ/Pf [Solu-Medrol 125 mg] MEDS 01/15/21 18:00 Active 125 mg IVP Q6HR RESUSCITATION STATUS Routine OTHERS 01/15/21 14:[address] CHEST W/O CONTRAST Stat RADS 01/15/21 11:25 Completed Medications Generic Name Dose Route Start Last Admin Trade Name Freq PRN Reason Stop Dose Admin Acetaminophen 650 mg 01/15/21 17:31 Acetaminophen 325 Mg Tablet PO Q4H PRN Headache Albuterol Sulfate 2 puff 01/15/21 18:00 01/15/21 18:00 Albuterol Sulfate (Ventolin Hfa) 18 Gm 1 Puff With Spacer IH Not Given Q6HR AR Allopurinol 300 mg 01/16/21 09:00 Allopurinol 100 Mg Tablet PO DAILY AR Atropine Sulfate 0.5 mg 01/15/21 17:31 Atropine Sulfate Inj 1 Mg/10 Ml Disp.Syrin IVP ONCE PRN Symptomatic Bradycardia Azithromycin 500 mg 01/15/21 15:00 01/15/21 15:26 Azithromycin 250 Mg Tablet PO 01/18/21 08:59 500 mg DAILY AR Administration Colestipol HCl 1 gm 01/16/21 09:00 Colestipol Hcl 1 Gm Tablet PO DAILY [facility] Furosemide 20 mg 01/16/21 09:00 Furosemide 20 Mg Tablet PO DAILY [facility] Gabapentin 600 mg 01/15/21 21:00 Gabapentin 300 Mg Capsule PO TID AR CEFTRIAXONE/D5W 1 GM PREMIX 1 gm in 50 mls @ 75 mls/hr 01/16/21 09:00 Rocephin 1 Gm/50 Ml D5w IV 01/19/21 08:59 DAILY [facility] Ipratropium Katy 2 puff 01/15/21 18:00 01/15/21 16:58 Ipratropium [place] 12.9 Gm Hfa Inhaler Per Puff With Spacer IH 2 puff RTQ6H [facility] Administration Methylprednisolone Sodium Succinate 125 mg 01/15/21 18:00 01/15/21 18:38 Methylprednisolone Sod Succ/Pf 125 Mg/2 Ml Vial IVP 125 mg Q6HR [facility] Administration Multivitamins 1 tab 01/16/21 09:00 Multivitamin 1 Tab PO DAILY [facility] Nitroglycerin 0.4 mg 01/15/21 17:31 Nitroglycerin 0.4 Mg Tab.Subl SL Q5MIN X 3 DOSES PRN Chest Pain Omeprazole 20 mg 01/15/21 21:00 Omeprazole 20 Mg Capsule.Dr PO BID [facility] Roflumilast 500 mcg 01/16/21 09:00 Roflumilast 500 Mcg Tablet PO DAILY [facility] Simvastatin 20 mg 01/16/21 09:00 Simvastatin 10 Mg Tablet PO DAILY [facility] Sodium Chloride 1 syr 01/15/21 11:25 01/15/21 18:39 0.9% Sodium Chloride 10 Ml Disp.Syrin IVF 1 syr PRN PRN Administration To flush IV Sodium Chloride 1 syr 01/15/21 21:00 0.9% Sodium Chloride 10 Ml Disp.Syrin IVF Q8HR [facility] Tamsulosin HCl 0.4 mg 01/16/21 09:00 Tamsulosin Hcl 0.4 Mg Cap.Er.24h PO DAILY [facility] Discontinued Medications Generic Name Dose Route Start Last Admin Trade Name Freq PRN Reason Stop Dose Admin Albuterol Sulfate 2 puff 01/15/21 11:25 01/15/21 11:51 Albuterol Sulfate (Ventolin Hfa) 18 Gm 1 Puff With Spacer IH 01/15/21 11:26 2 puff ONCE ONE Administration Albuterol Sulfate 2 puff 01/15/21 14:51 01/15/21 16:56 Albuterol Sulfate (Ventolin Hfa) 18 Gm 1 Puff With Spacer IH 01/15/21 14:52 2 puff ONCE ONE Administration Albuterol Sulfate 1 puff 01/15/21 18:00 01/15/21 17:42 Albuterol Sulfate (Ventolin Hfa) 18 Gm 1 Puff With Spacer IH Not Given Q6HR AR CEFTRIAXONE/D5W 1 GM PREMIX 1 gm in 50 mls @ 75 mls/hr 01/15/21 14:51 01/15/21 15:27 Rocephin 1 Gm/50 Ml D5w IV 01/15/21 15:30 75 mls/hr ONCE ONE Administration Ipratropium [place] 2 puff 01/15/21 11:25 01/15/21 11:53 Ipratropium [place] 12.9 Gm Hfa Inhaler Per Puff With Spacer IH 01/15/21 11:26 2 puff ONCE ONE Administration Methylprednisolone Sodium Succinate 125 mg 01/15/21 12:09 01/15/21 12:14 Methylprednisolone Sod Succ/Pf 125 Mg/2 Ml Vial IM 01/15/21 12:10 125 mg ONCE ONE Administration Vital Signs: Temp Pulse Resp BP Pulse Ox 01/15/21 15:52 97.3 F L 79 20 149/79 H 95 01/15/21 10:54 97.6 F 84 18 137/65 98 Discharge Plan Discharge Patient Disposition: ADMITTED INPATIENT Discharge Problem: Acute exacerbation of chronic obstructive pulmonary disease (COPD), Bronchitis ED Provider: JAMES PICHARDO Condition: Serious Physician Progress Note: []
[2021-01-15] MEDS ORDERED: ROCEPHIN 1 GM/50 ML D5W 1 GM/50 ML BAG IV ONE (14:51)
[2021-01-15 15:25] LABS: ADENOVIRUS (PCR) NOT DETECTED (NOT DETECT)
[2021-01-15] MEDS: ZITHROMAX PO SCH (15:26)
[2021-01-15] MEDS: ATROVENT HFA INHALER (PER PUFF-WITH SPACER) IH SCH ×2 (16:58→23:10)
[2021-01-15 17:09] VITALS: BMI 26.5
[2021-01-15] MEDS ORDERED: TYLENOL PO PRN (17:31)
[2021-01-15] MEDS ORDERED: NITROSTAT SL PRN (17:31)
[2021-01-15] MEDS ORDERED: ATROPINE SULFATE PFS IVP PRN (17:31)
[2021-01-15] MEDS ORDERED: VENTOLIN HFA (PER PUFF-WITH SPACER) IH SCH (18:00)
[2021-01-15] MEDS: VENTOLIN HFA (PER PUFF-WITH SPACER) IH SCH ×2 (18:00→23:10)
[2021-01-15 18:10] LABS: CREATINE KINASE 264.3 U/L (55-170)
[2021-01-15 18:23] LABS: TROPONIN I 0.014 ng/ml (0.0000-0.120)
[2021-01-15 18:38] LABS: CREATINE KINASE MB 2.72 ng/ml (0.0-2.38)
[2021-01-15] MEDS: SOLU-MEDROL 125 MG IVP SCH (18:38)
[2021-01-15] MEDS: NEURONTIN PO SCH (20:58)
[2021-01-15] MEDS ORDERED: PRILOSEC PO SCH (21:00)
[2021-01-16] MEDS: SOLU-MEDROL 125 MG IVP SCH ×2 (00:20→05:35)
[2021-01-16 01:04] LABS: BILIRUBIN,URINE Negative (NEGATIVE); CLARITY,URINE Clear (CLEAR); COLOR,URINE Yellow (YELLOW); GLUCOSE, URINE (UA) Negative (NEGATIVE); KETONES,URINE Negative (NEGATIVE); LEUKOCYTE ESTERASE ,URINE Negative (NEGATIVE); NITRITE,URINE Negative (NEGATIVE); PH,URINE 5.5 (5-9); PROTEIN,URINE 1+ (NEGATIVE); URINE, BLOOD Trace-intact (NEGATIVE); UROBILINOGEN,URINE 0.2 (0.2)
[2021-01-16 01:08] LABS: SQUAMOUS EPITHELIAL CELL,UR NOT PRESENT (0-5); URINE RBC, MICROSCOPIC 0-2 (0-2)
[2021-01-16 01:39] LABS: BASOPHILS % (AUTO) 0.2 % (0.0-3.0); HEMATOCRIT 30.1 % (42.0-52.0); IMMATURE GRANULOCYTE % (AUTO) 0.4 % (0.0-5.0); LYMPHOCYTES # (AUTO) 0.5 K/uL (0.60-3.4); MEAN CORPUSCULAR HEMOGLOBIN 28.1 pg (27.0-31.0); MEAN CORPUSCULAR HGB CONC 33.2 (31.8-35.4); MEAN CORPUSCULAR VOLUME 84.6 fl (80.0-94.0); MONOCYTES # (AUTO) 0.1 K/uL (0.4-2.0); MONOCYTES % (AUTO) 1.5 (0-10); NEUTROPHILS # (AUTO) 4.2 K/ul (2.0-6.9); NEUTROPHILS % (AUTO) 86.9 % (42.2-75.2); PLATELET COUNT 219 10^3/uL (140-440); RDW COEFFICIENT OF VARIATION 15.4 % (11.6-14.8); RED BLOOD COUNT 3.56 10^6/ul (4.70-6.10)
[2021-01-16 01:55] LABS: ALANINE AMINOTRANSFERASE 25.6 U/L (0-50); ALBUMIN 3.22 g/dL (3.5-5.0); ALKALINE PHOSPHATASE 71.9 U/L (56-119); ASPARTATE AMINO TRANSFERASE 43.1 U/L (17-59); BLOOD UREA NITROGEN 33.4 mg/dL (9-20); CALCIUM 8.33 mg/dL (8.4-10.2); CARBON DIOXIDE 27.6 mmol/L (22-30.0); CHLORIDE 103.8 mmol/L (98-107); CREATINE KINASE 167.6 U/L (55-170); POTASSIUM 4.47 mmol/L (3.5-5.1); SODIUM 136.4 mmol/L (134.5-145); TOTAL PROTEIN 7.02 g/dL (6.3-8.2)
[2021-01-16 02:06] LABS: TROPONIN I < 0.012 ng/ml (0.0000-0.120)
[2021-01-16] MEDS: ATROVENT HFA INHALER (PER PUFF-WITH SPACER) IH SCH ×3 (04:55→18:01)
[2021-01-16] MEDS: VENTOLIN HFA (PER PUFF-WITH SPACER) IH SCH ×3 (04:55→18:00)
[2021-01-16] MEDS: LASIX TAB PO SCH (06:00)
[2021-01-16] MEDS: ZOCOR PO SCH (08:41)
[2021-01-16] MEDS: DALIRESP PO SCH (08:41)
[2021-01-16] MEDS: ZITHROMAX PO SCH (08:41)
[2021-01-16] MEDS: COLESTID PO SCH (08:41)
[2021-01-16] MEDS: FLOMAX PO SCH (08:41)
[2021-01-16] MEDS: NEURONTIN PO SCH ×3 (08:42→20:16)
[2021-01-16] MEDS: PRILOSEC PO SCH ×2 (08:42→16:48)
[2021-01-16] MEDS: MULTIVITAMIN TABLET PO SCH (08:42)
[2021-01-16] MEDS: ZYLOPRIM PO SCH (08:42)
[2021-01-16] MEDS ORDERED: LASIX TAB PO SCH (09:00)
[2021-01-16] MEDS ORDERED: ROCEPHIN 1 GM/50 ML D5W 1 GM/50 ML BAG IV SCH (09:00)
--- NOTE | 2021-01-16 09:16 | PCM.PROG ---
Attending Provider: ATTENDING PROVIDER: Dr. DARY CAROLINA This patient is seen with Winsome Licea, Nurse Practitioner. DATE OF SERVICE: 01/16/21 SUBJECTIVE: This 89 year old /WHITE M was hospitalized 01/15/21. The patient is sitting in chair resting comfortably. Breathing has improved. REVIEW OF SYSTEMS: CONSTITUTIONAL: No night sweats. No fatigue, malaise, lethargy. No fever or chills. HEENT: Eyes: No visual changes. No eye pain. No eye discharge. ENT: No runny no se. No epistaxis. No sinus pain. No odynophagia. No congestion. RESPIRATORY: Cough. No congestion. No hemoptysis. Shortness of breath. CARDIOVASCULAR: No angina symptoms. No CHF symptoms. No atypical chest pain for CAD. No palpitations. No orthopnea. GASTROINTESTINAL: No abdominal pain. No nausea or vomiting. No diarrhea or constipation. No hematemesis. No hematochezia. GENITOURINARY: No urgency. No frequency. No dysuria. No hematuria. No obstructive symptoms. No discharge. No pain. No significant abnormal bleeding. MUSCULOSKELETAL: No musculoskeletal pain; no joint swelling. NEUROLOGICAL: Awake, alert, confused. No headache. No neck pain. No syncope. No seizures. No dizziness. PSYCHIATRIC: Not anxious. No depression. No suicidal thoughts. No homicidal thoughts. SKIN: No rash. No lesions. No wounds. ENDOCRINE: No unexplained weight loss. No weight gain. HEMATOLOGIC/LYMPHATIC: No anemia. No purpura. No petechiae. No prolonged or excessive bleeding. No palpable lymph nodes. PHYSICAL EXAMINATION: GENERAL: The patient is awake, alert and oriented, lying/sitting in chair in no distress. VITAL SIGNS: Temperature 97.0 F, Pulse 59, Respiratory Rate 18, BP 97/49, Pulse Ox 93% HEENT: Head normocephalic, atraumatic. Eyes: Extraocular muscles are intact. Pupils are equal, round and reactive to light and accommodation. Ears: No lesions. Nose appeared normal. Throat: No exudate or erythema. NECK: Supple. No JVD, no carotid bruit. No lymphadenopathy or thyromegaly. LUNGS: Severely diminished breath sounds. Clear to auscultation. Percussion note normal. Chest symmetrical. HEART: S1, S2, no S3. No murmurs. No cyanosis or clubbing. No ascites. Pulses: Dorsalis pedis and posterior tibial pulses +1 to +2 both sides. ABDOMEN: Soft. Non-tender. Bowel sounds active. No CVA tenderness. No mass felt. EXTREMITIES: No edema. Full range of motion of all extremities, equal. NEUROLOGIC: No focal deficit. Cranial nerves II through XII are grossly intact. No headache. No double vision. SKIN: Not dry. Intact. Turgor-normal. LYMPHATIC: No palpable lymph nodes/no lymphedema. MUSCULOSKELETAL: Normal joints with no swelling. Muscle tone is normal. LAB REVIEW: 01/16/21 01:33 01/16/21 01:33 01/16/21 01:33: WBC 4.80, RBC 3.56 L, Hgb 10.0 L, Hct 30.1 L, MCV 84.6, MCH 28.1, MCHC 33.2, RDW Coeff of Shira 15.4 H, Plt Count 219, Immature Gran % (Auto) 0.4, Neut % (Auto) 86.9 H, Lymph % (Auto) 11.0, [place] % (Auto) 1.5, Eos % (Auto) 0.0, Baso % (Auto) 0.2, Neut # (Auto) 4.2, Lymph # (Auto) 0.5 L, [place] # (Auto) 0.1 L, Eos # (Auto) 0.0, Baso # (Auto) 0.0, Immature Gran # (Auto) 0.0 01/16/21 01:33: Sodium 136.4, Potassium 4.47, Chloride 103.8, Carbon Dioxide 27.6, Anion Gap 9.47, BUN 33.4 H, Creatinine 1.20 H, Estimated GFR (MDRD) 57.00, BUN/Creatinine Ratio 27.83, Glucose 192.0 H D, Calcium 8.33 L, Total Bilirubin 0.30, AST 43.1, ALT 25.6, Alkaline Phosphatase 71.9, Total Creatine Kinase 167.6, CK-MB (CK-2) 2.350, CK-MB (CK-2) % 1.4000, Troponin I < 0.012, Total Protein 7.02, Albumin 3.22 L, Globulin 3.80, Albumin/Globulin Ratio 0.84 01/16/21 00:54: Urine Color Yellow, Urine Clarity Clear, Urine pH 5.5, Ur Specific [place] 1.025, Urine Protein 1+ H, Urine Glucose (UA) Negative, Urine Ketones Negative, Urine Blood Trace-intact H, Urine Nitrite Negative, Urine Bilirubin Negative, Urine Urobilinogen 0.2, Ur Leukocyte Esterase Negative, Urine Microscopic RBC 0-2, Ur Squamous Epith Cells Not present 01/15/21 17:45: Total Creatine Kinase 264.3 H, CK-MB (CK-2) 2.720 H, CK-MB (CK- 2) % 1.0200, Troponin I 0.014 01/15/21 14:33: Adenovirus (PCR) Not detected, B. pertussis DNA (PCR) Not detected, B.parapertussis DNA PCR Not detected, C. pneumoniae DNA (PCR) Not detected, Coronavirus OC43 (PCR) Not detected, Coronavirus HKU1 (PCR) Not detected, Coronavirus 229E (PCR) Not detected, Coronavirus NL63 (PCR) Not detected, Human Metapneumovir PCR Not detected, Influenza Type A (PCR) Not detected, Influenza B (RT-PCR) Not detected, M. pneumoniae (PCR) Not detected, Parainfluenza 1 (PCR) Not detected, Parainfluenza 2 (PCR) Not detected, Parainfluenza 3 (PCR) Not detected, Parainfluenza 4 (PCR) Not detected, RSV (PCR) Not detected, Entero/Rhino (PCR) Not detected, SARS-CoV-2 (PCR) Not detected 01/15/21 11:42: Sodium 138.0, Potassium 4.30, Chloride 100.8, Carbon Dioxide 33.2 H, Anion Gap 8.30, BUN 28.3 H, Creatinine 1.41 H, Estimated GFR (MDRD) 47.00, BUN/Creatinine Ratio 20.07, Glucose 102.2, Calcium 8.47, Total Bilirubin 0.55, AST 60.2 H, ALT 31.0, Alkaline Phosphatase 79.2, Troponin I 0.020, NT-Pro-B Natriuret Pep 808.000 H, Total Protein 7.64, Albumin 3.41 L, Globulin 4.23, Albumin/Globulin Ratio 0.80 01/15/21 11:42: WBC 6.25, RBC 3.71 L, Hgb 10.3 L, Hct 31.7 L, MCV 85.4, MCH 27.8, MCHC 32.5, RDW Coeff of Shira 15.9 H, Plt Count 202, Immature Gran % (Auto) 0.3, Neut % (Auto) 71.8, Lymph % (Auto) 13.3, [place] % (Auto) 12.5 H, Eos % (Auto) 1.8, Baso % (Auto) 0.3, Neut # (Auto) 4.5, Lymph # (Auto) 0.8, [place] # (Auto) 0.8, Eos # (Auto) 0.1, Baso # (Auto) 0.0, Immature Gran # (Auto) 0.0 01/15/21 11:35: Puncture Site L rad, Base Excess 6.6 H, O2 Saturation 98.0, ABG pH 7.45, ABG pCO2 44.0, ABG pO2 99.0, ABG HCO3 30.6 H, ABG Total CO2 32.0 H, Anish Test Y, Hemoglobin 1.3, Oxyhemoglobin 94.9 L, Carboxyhemoglobin 2.2 H, Total Hemoglobin 10.2 L, O2 Delivery Device Cannula, Oxygen Liter Flow 3.00 ASSESSMENT: Please see below. 1. Acute COPD exacerbation. 2. Chronic respiratory failure. 3. Chronic kidney disease, Stage 3. PLAN: 1. Continue IV antibiotics and steroids. 2. PT/OT consult. Plan and coordination of the patient's care discussed in the presence of Target Developer and nurse. CONDITION: STABLE SCRIBED BY: CHENG TURNER Lay Out Worker scribed while in presence of service performed by Dr. Carolina/Winsome Licea APRN on 01/16/21 ([id number])
[2021-01-16] MEDS: NICODERM 21 MG TD SCH (10:13)
[2021-01-16] MEDS: ROCEPHIN 1 GM VIAL IM SCH (11:26)
[2021-01-16] MEDS: DECADRON IM SCH (11:26)
[2021-01-16] MEDS: LIDOCAINE HCL 1% SDV IM SCH (11:27)
--- NOTE | 2021-01-16 11:36 | PN ---
DATE OF SERVICE: 01/15/21 SUBJECTIVE: The patient was seen and examined in the emergency room. The patient was hospitalized after seen by the ER physician and was diagnosed to have COPD exacerbation. He is going to be on steroids, antibiotics, nebs treatment and inhalers. The patient is DNR. The patient will have routine telemetry orders which will require cardiac markers, EKGs, telemetry. Overall condition is stable. TIME SPENT: More than 30 minutes. Plan and coordination of the patient's care discussed in the presence of nurse. KAYLEY
[2021-01-16] MEDS ORDERED: SOLU-MEDROL 125 MG IVP SCH (13:00)
[2021-01-17] MEDS: ATROVENT HFA INHALER (PER PUFF-WITH SPACER) IH SCH ×3 (00:30→11:22)
[2021-01-17] MEDS: VENTOLIN HFA (PER PUFF-WITH SPACER) IH SCH ×3 (00:30→11:24)
[2021-01-17 05:26] LABS: BASOPHILS % (AUTO) 0.1 % (0.0-3.0); HEMATOCRIT 27.8 % (42.0-52.0); HEMOGLOBIN 9.3 g/dl (14.0-18.0); IMMATURE GRANULOCYTE # (AUTO) 0.1 (0.0-1.0); IMMATURE GRANULOCYTE % (AUTO) 0.6 % (0.0-5.0); LYMPHOCYTES % (AUTO) 8.2 (10.0-50.0); MEAN CORPUSCULAR HEMOGLOBIN 28.1 pg (27.0-31.0); MEAN CORPUSCULAR HGB CONC 33.5 (31.8-35.4); MONOCYTES # (AUTO) 0.9 K/uL (0.4-2.0); MONOCYTES % (AUTO) 7.7 (0-10); NEUTROPHILS # (AUTO) 10.1 K/ul (2.0-6.9); NEUTROPHILS % (AUTO) 83.4 % (42.2-75.2); PLATELET COUNT 243 10^3/uL (140-440); RDW COEFFICIENT OF VARIATION 15.5 % (11.6-14.8); RED BLOOD COUNT 3.31 10^6/ul (4.70-6.10); WHITE BLOOD COUNT 12.13 K/ul (4.2-10.2)
[2021-01-17] MEDS: PRILOSEC PO SCH (05:30)
[2021-01-17] MEDS: LASIX TAB PO SCH (05:30)
[2021-01-17 05:43] LABS: ALANINE AMINOTRANSFERASE 24.3 U/L (0-50); ALBUMIN 3.06 g/dL (3.5-5.0); ALKALINE PHOSPHATASE 67.5 U/L (56-119); ASPARTATE AMINO TRANSFERASE 30.4 U/L (17-59); BILIRUBIN,TOTAL 0.26 mg/dL (0.2-1.3); BLOOD UREA NITROGEN 38.4 mg/dL (9-20); CALCIUM 8.36 mg/dL (8.4-10.2); CARBON DIOXIDE 29.6 mmol/L (22-30.0); CHLORIDE 101.6 mmol/L (98-107); CREATININE 1.33 mg/dL (0.60-1.10); GLUCOSE 142.3 mg/dL (74-106); POTASSIUM 4.3 mmol/L (3.5-5.1); SODIUM 135.5 mmol/L (134.5-145); TOTAL PROTEIN 6.66 g/dL (6.3-8.2)
--- NOTE | 2021-01-17 08:28 | RS.PTINEVL ---
Subjective - Patient information Date of Evaluation: 01/16/21 Date of Arrival on Unit: 01/15/21 Admitted From:: Home Diagnosis: acute exacerbation of COPD, chronic respiratory failure Usual Living Arrangement: Personal Care Facility Living Arrangement Comments: lives at [facility] (assisted living) Home Environment: Apartment, Level/No stairs Medical History: Hypertension, COPD, CHF, Arthritis Medical History Comments:: CKD, neuropathy, GERD, gout, falls LATEX ALLERGY?: No Surgical History: Knee Replacement (BTKR), Lumbar Spine Surgical History Comments:: B shld sx Medications: see chart Subjective Information/ Patient Comments:: pt states "My daughter thinks I am not safe in my apartment. She says I fall. I don't fall." "I just want to go back to my apartment. I have help there." - Level of function Abilities prior to this admission: pt had assist with ADL's, and walked short distances with rollator. Current Level of Function: Partially Dependent Current Equipment Used at Home: Oxygen; W/C; Walker; Cane; Nebulizer QID Interventions - Objective Patient Orientation: Person, Place, Time, Situation Current Interventions: Oxygen, Telemetry Range of Motion - ROM Right Upper Extremity AROM: Moderate limitation (limited shld ROM otherwise elbow/wrist/hand WFL's) Left Upper Extremity AROM: Moderate limitation (limited shld ROM otherwise elbow/wrist/hand WFL's) Right Lower Extremity AROM: Slight limitation (slight limitation in B hip and knee ext) Left Lower Extremity AROM: Slight limitation (slight limitation in B hip and knee ext) Muscle Strength - Muscle Strength Right Upper Extremity Strength: Mild Weakness (shld flex 3-/5 elbow/wrist 4/5) Left Upper Extremity Strength: Mild Weakness (shld flex 3-/5 elbow/wrist 4/5) Right Lower Extremity Strength: Mild Weakness (hip flex 4-/5, knee flex/ext 4/5, ankle DF/PF 4/5) Left Lower Extremity Strength: Mild Weakness (hip flex 4-/5, knee flex/ext 4/5, ankle DF/PF 4/5) Sensation - Sensation Right Upper Extremity Sensation: Intact/Normal Left Upper Extremity Sensation: Intact/Normal Right Lower Extremity Sensation: Impaired Left Lower Extremity Sensation: Impaired (pt with n/t in BLE) Palpation Palpation Findings: None/Normal Balance - Sitting Balance and Reactions Static Sitting Balance: Good Dynamic Sitting Balance: Fair - Standing Balance and Reactions Static Standing Balance: Poor Dynamic Standing Balance: Poor Standing Equilibrium Reactions: Delayed Left, Delayed Right Standing Protective Reactions: Delayed Left, Delayed Right Functional Mobility - Transfers Sit to Stand: CGA Stand to Sit: CGA Stand Pivot Transfers: Min Assist - Safety Awareness Safety Awareness: Fair VASILIY INDEX SCORE: n/a Ambulation - Ambulation Assistive Device Used: Rolling Walker Orthotic/Prosthetic Device: No Distance: 25ft Assistance needed with Ambulation: CGA, Min Assist Gait Deviations: Wide Based gait, Forward posture, Short stride, Deviates from path Factors Affecting Ambulation: Decreased Balance, Breathing/O2 Saturation, Weakness, Decreased Safety, Limited Endurance Treatment time - Units charged ADL: 1 (TA) - Time with patient Length of Evaluation: 18 Total treatment time: 49 Patient Education - Education Patient Education: Activity Modification, Education of Plan of Care Teaching Recipient: Patient Teaching Methods: Discussion (discussion regarding POC) Assessment - Assessment Problem List:: Decreased level of function, Requires training/education, Decreased safety/Risk of falls, Weakness Rehab Potential: Fair Further Therapy Indicated?: Yes Candidate for Swing Bed for Therapy Services?: Would have to reassess at a later date if pt is appropriate for swing bed Evaluation Complexity: HISTORY: Medium, EXAM OF BODY SYSTEMS: Medium, CLINICAL PRESENTATION: Medium, CLINICAL DECISION MAKING: Medium Patient's Goal(s): be able to go back to my apartment Short Term Goals GOAL #1: pt demonstrate rolling and scooting in bed independently Goal to be met by: 01/19/21 GOAL #2: Transfer sup to/from sit with CGA Goal to be met by: 01/19/21 GOAL #3: Sit to/from stand CGA to SBA Goal to be met by: 01/19/21 GOAL #4: pt amb with rwx 75ft with CGA and O2 Goal to be met by: 01/19/21 GOAL #5: Improve BLE strength to 4 to 4+ / 5 Goal to be met by: 01/19/21 Tube Building Machine Operator Goals GOAL #1: Pt. transfer sup to/from sit independently. Goal to be met by: 01/21/21 GOAL #2: Pt. amb. with rwx. functional household distances independently Goal to be met by: 01/21/21 GOAL #3: Improve dynamic balance to fair Goal to be met by: 01/21/21 Plan Plan of Care: Therapeutic EX, Therapeutic Activity Other:: gait training Frequency of Treatment: 1-2 X day, as tolerated Duration of Treatment: 5 days Anticipated Discharge Destination: undetermined if back to assisted living or LTC Treatment Diagnosis (ICD 10 Codes): gait difficulty R 26.2. balance impaired R 26.81. weakness M62.81. falls R29.6 Has the Physician been added for Co-signature?: Yes
--- NOTE | 2021-01-17 09:17 | PCM.PROG ---
Attending Provider: ATTENDING PROVIDER: Dr. DARY CAROLINA DATE OF SERVICE: 01/17/21 SUBJECTIVE: This 89 year old /WHITE M was hospitalized 01/15/21 with COPD exacerbation. The patient's condition has improved. He doesn't sound congested, talks really well and wants to go home. Appetite is normal. REVIEW OF SYSTEMS: CONSTITUTIONAL: No night sweats. No fatigue, malaise, lethargy. No fever or chills. HEENT: Eyes: No visual changes. No eye pain. No eye discharge. ENT: No runny nose. No epistaxis. No sinus pain. No odynophagia. No congestion. RESPIRATORY: No cough, no congestion. No hemoptysis. No shortness of breath. CARDIOVASCULAR: No angina symptoms. No CHF symptoms. No atypical chest pain for CAD. No palpitations. No orthopnea.. GASTROINTESTINAL: No abdominal pain. No nausea or vomiting. No diarrhea or constipation. No hematemesis. No hematochezia. GENITOURINARY: No urgency. No frequency. No dysuria. No hematuria. No obstructive symptoms. No discharge. No pain. No significant abnormal bleeding. MUSCULOSKELETAL: No musculoskeletal pain; no joint swelling. NEUROLOGICAL: Awake, alert, oriented to time, place and person. No headache. No neck pain. No syncope. No seizures. No dizziness. PSYCHIATRIC: Not anxious. No depression. No suicidal thoughts. No homicidal thoughts. SKIN: No rash. No lesions. No wounds. ENDOCRINE: No unexplained weight loss. No weight gain. HEMATOLOGIC/LYMPHATIC: No anemia. No purpura. No petechiae. No prolonged or excessive bleeding. No palpable lymph nodes. PHYSICAL EXAMINATION: GENERAL: The patient is awake, alert and oriented, lying/sitting in bed in no distress. VITAL SIGNS: Temperature 97.8 F, Pulse 66, Respiratory Rate 18, BP 120/63, Pulse Ox 98% HEENT: Head normocephalic, atraumatic. Eyes: Extraocular muscles are intact. Pupils are equal, round and reactive to light and accommodation. Ears: No lesions. Nose appeared normal. Throat: No exudate or erythema. NECK: Supple. No JVD, no carotid bruit. No lymphadenopathy or thyromegaly. LUNGS: Good air entry. No wheeze. Clear to auscultation. Percussion note normal. Chest symmetrical. HEART: S1, S2, no S3. No murmurs. No cyanosis or clubbing. No ascites. Pulses: Dorsalis pedis and posterior tibial pulses +1 to +2 both sides. ABDOMEN: Soft. Non-tender. Bowel sounds active. No CVA tenderness. No mass felt. EXTREMITIES: No edema. Full range of motion of all extremities, equal. NEUROLOGIC: No focal deficit. Cranial nerves II through XII are grossly intact. No headache, no double vision or headache. SKIN: Warm and dry. Intact. Turgor-normal. LYMPHATIC: No palpable lymph nodes/no lymphedema. MUSCULOSKELETAL: Normal joints with no swelling. Muscle tone is normal. LAB REVIEW: 01/17/21 05:00 01/17/21 05:00 01/17/21 05:00: Sodium 135.5, Potassium 4.30, Chloride 101.6, Carbon Dioxide 29.6, Anion Gap 8.60, BUN 38.4 H, Creatinine 1.33 H, Estimated GFR (MDRD) 51.00, BUN/Creatinine Ratio 28.87, Glucose 142.3 H, Calcium 8.36 L, Total Bilirubin 0.26, AST 30.4, ALT 24.3, Alkaline Phosphatase 67.5, Total Protein 6.66, Albumin 3.06 L, Globulin 3.60, Albumin/Globulin Ratio 0.85 01/17/21 05:00: WBC 12.13 H D, RBC 3.31 L, Hgb 9.3 L, Hct 27.8 L, MCV 84.0, MCH 28.1, MCHC 33.5, RDW Coeff of Shira 15.5 H, Plt Count 243, Immature Gran % (Auto) 0.6, Neut % (Auto) 83.4 H, Lymph % (Auto) 8.2 L, [place] % (Auto) 7.7, Eos % (Auto) 0.0, Baso % (Auto) 0.1, Neut # (Auto) 10.1 H, Lymph # (Auto) 1.0, [place] # (Auto) 0.9, Eos # (Auto) 0.0, Baso # (Auto) 0.0, Immature Gran # (Auto) 0.1 ASSESSMENT: Please see below. 1. Acute exacerbation of COPD seems to have resolved. 2. The patient has severe chronic lung disease. PLAN: 1. Discharge the patient home on steroids, Prednisone 10 mg b.i.d. for 5 days. 2. Will put on Keflex 500 mg b.i.d. times 5 days. 3. Will see back in 5 to 7 days. 4. The patient is going to be transferred to [facility], family has decided and patient has agreed. Plan and coordination of the patient's care discussed in the presence of Fine Grade Bulldozer Operator and nurse. CONDITION: Stable SCRIBED BY: Antonio WILSON scribed while in presence of service performed by Dr. DARY CAROLINA on 01/17/21 ([id number])
[2021-01-17] MEDS: DALIRESP PO SCH (09:53)
[2021-01-17] MEDS: NEURONTIN PO SCH (09:53)
[2021-01-17] MEDS: ZYLOPRIM PO SCH (09:53)
[2021-01-17] MEDS: COLESTID PO SCH (09:54)
[2021-01-17] MEDS: ZOCOR PO SCH (09:54)
[2021-01-17] MEDS: FLOMAX PO SCH (09:54)
[2021-01-17] MEDS: MULTIVITAMIN TABLET PO SCH (09:54)
[2021-01-17] MEDS: ZITHROMAX PO SCH (09:54)
[2021-01-17] MEDS: DECADRON IM SCH (09:58)
[2021-01-17] MEDS: ROCEPHIN 1 GM VIAL IM SCH (09:59)
[2021-01-17] MEDS: LIDOCAINE HCL 1% SDV IM SCH (09:59)
[2021-01-17] MEDS: NICODERM 21 MG TD SCH (10:03)
--- NOTE | 2021-01-17 13:21 | CM.DICTOOL ---
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 DIZZINESS- CAROTID/MRI 02/2020 COPD - O2 DEPENDENT HEAVY SMOKER CHRONIC RESPIRATORY FAILURE HTN NEUROPATHY GOUT GERD CKD STAGE 2-3 SEPSIS - POSITIVE ENTEROCCOCUS- 06/2020 BILATERAL SHOULDER S/P SPINE SURGERY X 3 LT RENAL CA - REFUSES FURTHER CONSULTATION LLQ PAIN - POSSIBLE DIVERTICULITIS PER CT LT SCIATICA GENERAL OSTEOARTHRITIS HAND TREMORS FALLS NON- COMPLIANCE WITH LIFESTYLE, MEDICATIONS, DIET AND FOLLOW-UP SURGICAL HISTORY: 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 BILATERAL TOTAL KNEE REPLACEMENT BACK SURGERY X LAST VITALS Temp Pulse Resp BP Pulse Ox 97.8 F 84 20 120/63 98 01/17/21 05:39 01/17/21 08:00 01/17/21 08:00 01/17/21 05:39 01/17/21 05:39 TAKE THESE MEDICATIONS AT HOME Acetaminophen (Acetaminophen 325 Mg Tablet) 650 mg PO Q4H PRN PRN Reason: Headache Allopurinol (Allopurinol 100 Mg Tablet) 300 mg PO DAILY [facility] Last Admin: 01/17/21 09:53 Dose: 300 mg Colestipol HCl (Colestipol Hcl 1 Gm Tablet) 1 gm PO DAILY [facility] Last Admin: 01/17/21 09:54 Dose: 1 gm Furosemide (Furosemide 20 Mg Tablet) 20 mg PO QDAC [facility] Last Admin: 01/17/21 05:30 Dose: 20 mg Gabapentin (Gabapentin 300 Mg Capsule) 600 mg PO TID [facility] Last Admin: 01/17/21 09:53 Dose: 600 mg Multivitamins (Multivitamin 1 Tab) 1 tab PO DAILY [facility] Last Admin: 01/17/21 09:54 Dose: 1 tab Nicotine (Nicotine 21 Mg Patch.Td24) 1 patch TD DAILY PRN IF NOT SMOKING Last Admin: 01/17/21 10:03 Dose: 1 patch Omeprazole (Omeprazole 20 Mg Capsule.Dr) 20 mg PO BIDAC [facility] Last Admin: 01/17/21 05:30 Dose: 20 mg Roflumilast (Roflumilast 500 Mcg Tablet) 500 mcg PO DAILY [facility] Last Admin: 01/17/21 09:53 Dose: 500 mcg Simvastatin (Simvastatin 10 Mg Tablet) 20 mg PO DAILY [facility] Last Admin: 01/17/21 09:54 Dose: 20 mG Tamsulosin HCl (Tamsulosin Hcl 0.4 Mg Cap.Er.24h) 0.4 mg PO DAILY [facility] Last Admin: 01/17/21 09:54 Dose: 0.4 mg KEFLEX 500 MG PO BID X 5 DAYS START 01/18/2021 PREDNISONE 10MG PO BID X 5 DAYS START 01/18/2021 DOUNEB QID SCHEDULED GUMMY BEARS 5 MG PO DAILY PRN FOR PAIN - - - - - - - - - - - - - - - - - - - - - - - - - - - - - - - - - - - - - - - - - CODE STATUS: FULL CODE ALLERGIES Penicillins Adverse Reaction (Severe, Verified 12/20/20 11:35) Unknown flu Vaccine Adverse Reaction (Uncoded 11/12/20 09:46) Unknown DISCONTINUED MEDICATIONS NONE NEW PRESCRIPTIONS: Acetaminophen (Acetaminophen 325 Mg Tablet) 650 mg PO Q4H PRN PRN Reason: Headache Nicotine (Nicotine 21 Mg Patch.Td24) 1 patch TD DAILY PRN IF NOT SMOKING KEFLEX 500 MG PO BID X 5 DAYS START 01/18/2021 PREDNISONE 10MG PO BID X 5 DAYS START 01/18/2021 SMOKING: SMOKING CESSATION DISEASE SPECIFIC EDUCATION: COPD DEMENTIA WEAKNESS COVID LAB REVIEW: 01/17/21 05:00 01/17/21 05:00 01/17/21 05:00: Sodium 135.5, Potassium 4.30, Chloride 101.6, Carbon Dioxide 29.6, Anion Gap 8.60, BUN 38.4 H, Creatinine 1.33 H, Estimated GFR (MDRD) 51.00, BUN/Creatinine Ratio 28.87, Glucose 142.3 H, Calcium 8.36 L, Total Bilirubin 0.26, AST 30.4, ALT 24.3, Alkaline Phosphatase 67.5, Total Protein 6.66, Albumin 3.06 L, Globulin 3.60, Albumin/Globulin Ratio 0.85 01/17/21 05:00: WBC 12.13 H D, RBC 3.31 L, Hgb 9.3 L, Hct 27.8 L, MCV 84.0, MCH 28.1, MCHC 33.5, RDW Coeff of Shira 15.5 H, Plt Count 243, Immature Gran % (Auto) 0.6, Neut % (Auto) 83.4 H, Lymph % (Auto) 8.2 L, [place] % (Auto) 7.7, Eos % (Auto) 0.0, Baso % (Auto) 0.1, Neut # (Auto) 10.1 H, Lymph # (Auto) 1.0, [place] # (Auto) 0.9, Eos # (Auto) 0.0, Baso # (Auto) 0.0, Immature Gran # (Auto) 0.1 PLAN: DISCHARGE : TODAY 01/17/2021 TO [facility] ACTIVITY: PT AND OT TO EVAL AND TREAT AT THE FACILITY UP TOLERATED WITH WALKER AND DIRECTED PER THERAPY DEPARTMENT NO STRENUOUS ACTIVITY FOLLOW PANDEMIC GUIDELINES FALL RISK AND OXYGEN SAFETY SMOKING SAFETY AND CESSATION IF POSSIBLE INCONTINENT CARE, DECUBITIS PREVENTION DIET: REGULAR WITH ADEQUATE FLUIDS REHABILITATION AIDE CONSULTS, MAY NEED/WANT DOUBLE PORTIONS MD FOLLOW -UP: DR CAROLINA/ ALIA KING APRN/ MONICA AVILA APRN WILL SEE ON ROUNDS OXYGEN: 2-3 LITERS A MINUTE PER NASAL CANNULA CONTINUOUS TO KEEP SATURATIONS BETWEEN 90 - 95% DUE TO CO2 RETAINER VITAL SIGNS, O2 SATS PER PULS OX AND WEIGHTS DAILY X ONE WEEK THEN PER FACILITY PROTOCOL LABS: CBC AND CMP ON WEDNESDAY AND THEN EVERY 3 MONTHS LIPIDS, TSH, FREE T4 AND AIC EVERY 6 MONTHS CODE STATUS: FULL CODE MR. MACK HAS BEEN ALERT AND ORIENTED X 4 AND FORGETFUL WITH PERIODS OF INCREASED FORGETFULNESS, CONFUSION AND AGITATION. HE IS DETERMINED HE IS GOING TO SMOKE WHERE EVER HE IS AT. WAS FOUND SMOKING IN HIS HOSPITAL ROOM. CIGARETTE WAS EXTINGUISHED AND HE WAS INSTRUCTED ON HOSPITAL POLICY AGAIN. SKIN IS WARM, DRY AND INTACT. SLIGHT BLANCHABLE REDNESS TO SACRUM, BUTTOCKS AND COCCYX. HE HAS BEEN INCONTINENT OF URINE ON SEVERAL OCCASIONS. HE STILL USES THE URINAL AT TIMES. CONTINENT OF BOWELS. LAST BM 01/16/2021. HE FEEDS SELF AND HAS AN EXCELLENT NUTRITIONAL INTAKE AT 100% OF TRAYS AND SNACKS ADDED. HE IS AMBULATORY WITH ASSIST OF ONE AND ROLLING WALKER. HE IS ON OXYGEN AND 2-3 L/M TO KEEP SATS BETWEEN 90- 95 %. WAS LIVING AT AN [facility], HOWEVER HE WAS NOT FOLLOWING THEIR POLICIES AND CAN NOT RETURN. DISCHARGE TO [facility]. MD ALIA CHARLES APRN ALYCE HANNAN, APRN
[2021-01-17 13:27] VITALS: BP 104/61; TEMP 97.2
--- NOTE | 2021-01-20 11:13 | PN ---
DATE OF SERVICE: 01/16/21 SUBJECTIVE: The patient was seen and examined with the nurse practitioner. The patient's condition has improved. His breathing is a lot better. At times he is confused. No symptoms of CHF or coronary insufficiency. TIME SPENT: More than 30 minutes. Plan and coordination of the patient's care discussed in the presence of nurse. KAYLEY
--- NOTE | 2021-01-20 11:50 | DS ---
DATE OF SERVICE: 01/17/21 FINAL DIAGNOSIS: 1. ACUTE COPD EXACERBATION 2. CHRONIC RESPIRATORY FAILURE 3. CHRONIC KIDNEY DISEASE STAGE 3 4. SENILE DEMENTIA HX: 5. CHF 6. DYSLIPIDEMIA 7. CHRONIC ANEMIA 8. 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 RECURRENT DIZZINESS- CAROTID/MRI 02/2020 10. COPD - O2 DEPENDENT 11. HEAVY SMOKER 12, CHRONIC RESPIRATORY FAILURE 13. HTN 14. NEUROPATHY 15. GOUT 16. GERD 17. CKD STAGE 2-3 18. SEPSIS - POSITIVE ENTEROCCOCUS- 06/2020 19. BILATERAL SHOULDER S/P SPINE SURGERY X 3 20. LT RENAL CA - REFUSES FURTHER CONSULTATION 21. LLQ PAIN - POSSIBLE DIVERTICULITIS PER CT 22. LT SCIATICA 23. GENERAL OSTEOARTHRITIS 24. HAND TREMORS 25. FALLS 26. NON-COMPLIANCE WITH LIFESTYLE, MEDICATIONS, DIET AND FOLLOW-UP SURGICAL HISTORY: 27. 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 28. BILATERAL TOTAL KNEE REPLACEMENT 29. BACK SURGERY LAST VITALS Temp Pulse Resp BP Pulse Ox 97.8 F 84 20 120/63 98 01/17/21 05:39 01/17/21 08:00 01/17/21 08:00 01/17/21 05:39 01/17/21 05:39 DISCHARGE INSTRUCTIONS: 1. DISCHARGE : TODAY 01/17/2021 TO [facility] 2. MD FOLLOW -UP: DR CAROLINA/ALIA KING APRN/MONICA AVILA APRN WILL SEE ON ROUNDS. 3. OXYGEN: 2-3 LITERS A MINUTE PER NASAL CANNULA CONTINUOUS TO KEEP SATURATIONS BETWEEN 90 - 95% DUE TO CO2 RETAINER. 4. VITAL SIGNS, O2 SATS PER PULSE OX AND WEIGHTS DAILY X ONE WEEK THEN PER FACILITY PROTOCOL. 5. LABS: CBC AND CMP ON WEDNESDAY AND THEN EVERY 3 MONTHS; LIPIDS, TSH, FREE T4 AND AIC EVERY 6 MONTHS MEDICATIONS AT DISCHARGE: Acetaminophen (Acetaminophen 325 Mg Tablet) 650 mg PO Q4H PRN PRN Reason: Headache Allopurinol (Allopurinol 100 Mg Tablet) 300 mg PO DAILY [facility] Last Admin: 01/17/21 09:53 Dose: 300 mg Colestipol HCl (Colestipol Hcl 1 Gm Tablet) 1 gm PO DAILY AR Last Admin: 01/17/21 09:54 Dose: 1 gm Furosemide (Furosemide 20 Mg Tablet) 20 mg PO QDAC [facility] Last Admin: 01/17/21 05:30 Dose: 20 mg Gabapentin (Gabapentin 300 Mg Capsule) 600 mg PO TID [facility] Last Admin: 01/17/21 09:53 Dose: 600 mg Multivitamins (Multivitamin 1 Tab) 1 tab PO DAILY [facility] Last Admin: 01/17/21 09:54 Dose: 1 tab Nicotine (Nicotine 21 Mg Patch.Td24) 1 patch TD DAILY PRN IF NOT SMOKING Last Admin: 01/17/21 10:03 Dose: 1 patch Omeprazole (Omeprazole 20 Mg Capsule.) 20 mg PO BIDAC [facility] Last Admin: 01/17/21 05:30 Dose: 20 mg Roflumilast (Roflumilast 500 Mcg Tablet) 500 mcg PO DAILY [facility] Last Admin: 01/17/21 09:53 Dose: 500 mcg Simvastatin (Simvastatin 10 Mg Tablet) 20 mg PO DAILY [facility] Last Admin: 01/17/21 09:54 Dose: 20 mG Tamsulosin HCl (Tamsulosin Hcl 0.4 Mg Cap.Er.24h) 0.4 mg PO DAILY [facility] Last Admin: 01/17/21 09:54 Dose: 0.4 mg KEFLEX 500 MG PO BID X 5 DAYS START 01/18/2021 PREDNISONE 10MG PO BID X 5 DAYS START 01/18/2021 DOUNEB QID SCHEDULED GUMMY BEARS 5 MG PO DAILY PRN FOR PAIN CODE STATUS: FULL CODE NEW PRESCRIPTIONS: Acetaminophen (Acetaminophen 325 Mg Tablet) 650 mg PO Q4H PRN PRN Reason: Headache Nicotine (Nicotine 21 Mg Patch.Td24) 1 patch TD DAILY PRN IF NOT SMOKING KEFLEX 500 MG PO BID X 5 DAYS START 01/18/2021 PREDNISONE 10MG PO BID X 5 DAYS START 01/18/2021 DISCONTINUED MEDICATIONS: NONE DIET INSTRUCTIONS: REGULAR WITH ADEQUATE FLUIDS LITHOGRAPHIC PRESS OPERATOR CONSULTS, MAY NEED/WANT DOUBLE PORTIONS ACTIVITY: PT AND OT TO EVAL AND TREAT AT THE FACILITY UP TOLERATED WITH WALKER AND DIRECTED PER THERAPY DEPARTMENT NO STRENUOUS ACTIVITY FOLLOW PANDEMIC GUIDELINES FALL RISK AND OXYGEN SAFETY SMOKING SAFETY AND CESSATION IF POSSIBLE INCONTINENT CARE, DECUBITIS PREVENTION SMOKING: SMOKING CESSATION DISEASE SPECIFIC EDUCATION: COPD DEMENTIA WEAKNESS [facility] COURSE: The patient was hospitalized with acute exacerbation of COPD. The patient's main complaint was shortness of breath, cough and congestion. He was treated with IV antibiotics, steroids, nebs. His condition improved. The patient on discharge was put on Keflex and Prednisone. Duonebs q.i.d. was continued. The patient has multiple medical problems. Most of them are end-stage. He has chronic respiratory failure with history of heavy smoking. The patient was discharged to the retirement. The family and patient agreed. The patient has dementia. He is alert but not oriented to place, time and person. Condition at time of discharge is stable. TIME SPENT: More than 60 minutes. ANTONYD
--- NOTE | 2021-01-20 11:52 | PN ---
BILLING 01/15/21 ADMISSION DAY LEVEL 5 01/16/21 INTERMEDIATE 01/17/21 D IN DISCHARGE MTDD
--- NOTE | 2021-02-21 11:43 | HP ---
DATE OF SERVICE: 01/15/21 HISTORY OF PRESENT ILLNESS: 89-year-old white male who is short of breath, coughing and wheezing. He was just in the office and refused to go to the emergency room. PAST MEDICAL HISTORY: Chronic respiratory failure Chronic kidney disease, Stage 3 Dementia CHF Dyslipidemia Chronic anemia Infrarenal aortic aneurysm 4.6 cm on 06/04, refuses vascular referral Chronic dizziness End-stage COPD, oxygen dependent, continues to be a heavy smoker Hypotension Polyneuropathy Recurrent gout GERD History of sepsis 07/05 with enterococcus Left sciatica History of left renal carcinoma. He refuses to followup with urology or oncology Recurrent falls Noncompliance with medications, diet, lifestyle and followup PAST SURGICAL HISTORY: Bilateral shoulder surgery L-spine surgery times three Left nephrectomy Bilateral total knee replacement REVIEW OF SYSTEMS: CONSTITUTIONAL: Positive for weakness, cough. No night sweats. No fatigue, malaise, lethargy. No fever or chills. HEENT: Eyes: No visual changes. No eye pain. No eye discharge. ENT: No runny nose. No epistaxis. No sinus pain. No sore throat. No odynophagia. No ear pain. No congestion. RESPIRATORY: No cough, no congestion. No hemoptysis. Shortness of breath. CARDIOVASCULAR: No angina symptoms. No CHF symptoms. No atypical chest pain for CAD. No palpitations. No PND. No orthopnea. GASTROINTESTINAL: No abdominal pain. No nausea or vomiting. No diarrhea or constipation. No hematemesis. No hematochezia. GENITOURINARY: No urgency. No frequency. No dysuria. No hematuria. No obstructive symptoms. No discharge. No pain. No significant abnormal bleeding. MUSCULOSKELETAL: No musculoskeletal pain. No joint swelling. No arthritis. NEUROLOGICAL: No headache. No neck pain. No syncope. No seizures. No dizziness. PSYCHIATRIC: Not anxious. No depression. No suicidal thoughts. No homicidal thoughts. SKIN: No rash. No lesions. No wounds. ENDOCRINE: No unexplained weight loss. No weight gain. HEMATOLOGIC/LYMPHATIC: No anemia. No purpura. No petechiae. No prolonged or excessive bleeding. No palpable lymph nodes. PERSONAL/FAMILY/SOCIAL HISTORY: He has been at assisted living, continues to smoke. No alcohol or ilicit drug use. He has a daughter and granddaughter that assists with his medical care. MEDICATIONS: Daliresp 500 mcg p.o. daily Ipratropium-Albuterol 3 mL INH q.6h p.r.n. Simvastatin 20 mg p.o. daily Tamsulosin 0.4 mg p.o. daily Omeprazole 20 mg p.o. b.i.d. Furosemide 20 mg p.o. daily Gabapentin 600 mg p.o. t.i.d. Hemp Gummy Bear 5 mg p.o. daily p.r.n. Multivitamin tablet one tab p.o. daily Allopurinol 300 mg p.o. daily Colestid 1 gm p.o. daily ALLERGIES: PENICILLINS, FLU VACCINE PHYSICAL EXAMINATION: GENERAL: Alert and oriented to person and place, not time. VITAL SIGNS: Temperature 97.3, heart rate 79, respirations 20, blood pressure 149/79, pulse ox 95% on 3L. HEENT: Head normocephalic, atraumatic. Eyes: Extraocular muscles are intact. Pupils are equal, round and reactive to light and accommodation. Ears: No lesions. Nose appeared normal. Throat: No exudate or erythema. NECK: Supple. No JVD, no carotid bruit. No lymphadenopathy or thyromegaly. LUNGS: Severely diminished breath sounds with inspiratory and expiratory wheezing. Percussion note normal. Chest symmetrical. HEART: S1, S2, no S3. No murmur. No cyanosis or clubbing. No ascites. Pulses: Dorsalis pedis and posterior tibial pulses +1 to +2 bilaterally. ABDOMEN: Soft. Nontender. Bowel sounds active. No CVA tenderness. No mass felt. EXTREMITIES: No leg edema. Full range of motion of all extremities, equal. NEUROLOGIC: No focal deficit. Cranial nerves II through XII are grossly intact. No headache, no double vision or headache. SKIN: Not dry. Intact. Turgor - normal. LYMPHATIC: No palpable lymph nodes/no lymphedema. MUSCULOSKELETAL: Normal joints with no swelling. Muscle tone is normal. White count 6.2, hemoglobin 10.3, hematocrit 31.7, platelets 202. Sodium 138, potassium 4.3, carbon dioxide 33.2, BUN 28, creatinine 1.4, glucose 102. ABGs on 3L 02 sat 98, pH 7.45, pc02 44, p02 99, bicarb 30.6, total c02 32. AST 60, ALT 31, NT Pro-BNP 808, respiratory panel by PCR is negative. CT showed no acute process, changes associated with emphysema, COPD, chronic respiratory failure. ASSESSMENT: 1. ACUTE COPD EXACERBATION 2. CHRONIC RESPIRATORY FAILURE 3. END-STAGE COPD 4. CHRONIC KIDNEY DISEASE, STAGE 3 5. CHRONIC ANEMIA 6. DEMENTIA PLAN: 1. We will admit. 2. Routine telemetry orders. 3. CBC, CMP daily. 4. Rocephin 1 gm IV daily. 5. Solu-Cortef 125 IV q.hr. 6. Oxygen at 1 to 3L via nasal cannula. 7. Start nebulizer, Pulmicort 1 mg b.i.d., Albuterol nebulizer t.i.d. 8. Continue all home medications. 9. UA. 10. Sliding scale for insulin. 11. Will follow closely. TIME SPENT: More than 70 minutes. MTDD
== END 2021-01-17 14:20 | DRG 189 ==
LOC: ED 10:53 → MEDSURG A 10:53 → OBSVTOIN 16:00 → MEDSURG A 16:42
PROVIDERS: ADMIT Internal Medicine; ATTEND Internal Medicine
DX: J06.9 Acute upper respiratory infection, unspecified; R06.2 Wheezing; Z20.822 Contact with and (suspected) exposure to COVID-19; F03.90 Unspecified dementia, unspecified severity, without behavioral disturbance, psychotic disturbance, mood disturbance, and anxiety; R05 Cough; N18.30 Chronic kidney disease, stage 3 unspecified; J96.10 Chronic respiratory failure, unspecified whether with hypoxia or hypercapnia; R09.81 Nasal congestion; J40 Bronchitis, not specified as acute or chronic; R06.02 Shortness of breath

== ENCOUNTER 2021-01-24 11:26 | Inpatient (IN) ==
--- NOTE | 2021-01-24 11:30 | ED.PDOC ---
General ED Provider: Dr. ROSIO ESCOBAR Chief Complaint: Weakness Stated Complaint: 89 year old male sent to ED for mental status changes and incontinence. Normally incontinent with decreased mental status but now worse than baseline. No fever, chills or sweats, n/v/d, chest pains or SOB. PMH + for COPD, HTN, multiple falls, CHF, chronic OM. Time Seen by Provider: 01/24/21 11:29 Mode of Arrival: Ambulance Information Source: [facility] Exam Limitations: Clinical condition, Dementia, Altered mental status and Physical impairment Primary Care Provider: DARY DONOHUE Referred to ED by: Clinic Nursing and Triage Documentation Reviewed and Agree: Yes Does patient meet sepsis criteria?: Yes If yes, has appropriate treatment been initiated?: Yes System Inflammatory Response Syndrome: Acutely Altered Mental Status Sepsis Protocol: For patient's 13 years and over: Temp is 96.8 and below OR 101 and greater Pulse >90 BPM Resp >20/minute Acutely Altered Mental Status Are patient's symptoms suggestive of a new infection, such as: -Pneumonia -Skin, Soft Tissue -Endocarditis -UTI -Bone, Joint Infection -Implantable Device -Acute Abdominal Infection -Wound Infection -Meningitis -Blood Stream Catheter Infection -Unknown Miscellaneous Complaint Exam Complex/Multi-System Complaint/Exam Onset/Duration: 2-3 hours Symptoms Are: Still present Episodes Lasting: Hours Initial Severity: Moderate Current Severity: Moderate Associated Signs and Symptoms: Reports Decreased responsiveness Related History: Similar Episode/Dx Recent Echo/LV Function: No Respiratory Distress: Mild JVD Present: No Tachypnea Present: Yes Stridor Present: No Glascow Coma Scale (see protocol): 14 Meningeal Signs Positive: No Focal Weakness: Present None Focal Sensory Loss: Present None Gait: Unable Gag Reflex Present: Yes Babinski Sign: Negative Right and Negative Left Skin Findings: Present Normal findings Joint Swelling Present: No In-Dwelling Device Present: No Differential Diagnosis: Sepsis and UTI Quality Indicators for Cardiac Chest Pain: EKG in 10min. Quality Indicators For Pneumonia/CAP: Blood Cultures-SCU admit, SpO2 assessed, Empiric Antibiotic Rx, Vital signs and Mental status assessed Quality Indicator For Non-Traumatic Chest Pain/Syncope: EKG Performed Review of Systems Review Of Systems Constitutional: Reports Malaise and Other (increasing lethargy) Eyes: Reports No symptoms Ears, Nose, Mouth, Throat: Reports No symptoms Respiratory: Reports No symptoms Cardiac: Reports No symptoms GI: Reports No symptoms : Reports No symptoms Musculoskeletal: Reports No symptoms Skin: Reports No symptoms Neurological: Reports No symptoms Endocrine: Reports No symptoms Hematologic/Lymphatic: Reports No symptoms All Other Systems: Reviewed and Negative [facility] Medical History Arthritis Arthritis associated with foreign body Chronic obstructive airway disease Chronic otitis media Dysfunction of both eustachian tubes Gastro-esophageal reflux Gout History of kidney cancer Hyperlipemia Hypertension Nerve pain Pain Sensorineural hearing loss (SNHL) of both ears Sinusitis Urinary bladder disorder Vertigo Family History FATHER Diabetes Coronary artery arteriosclerosis Social History Smoking and tobacco status: Current every day smoker Tobacco: How many years used: 80 Passive smoking exposure: Yes Quit status: not considering quitting Surgical History History of bilateral knee replacement History of hip replacement History of nephrectomy Physical Exam Physical Exam Appearance: Reports Ill-appearing, No pain distress and Thin Ill-appearing: Moderate Pain Distress: Moderate Eyes: Reports CLAUDIA, EOMI and Conjunctiva clear ENT: Reports Ears normal, Nose normal and Oropharynx normal Neck: Supple Respiratory: Reports Airway patent and Breath sounds diminished Cardiovascular: Reports RRR, Pulses normal, No rub and No murmur GI/: Reports Soft, Nontender, No masses, Bowel sounds normal and No Organomegaly Musculoskeletal: Reports Normal strength, ROM intact, No edema and No calf tenderness Skin: Reports Warm, Dry and Normal color Neurological: Reports Reflexes intact, Disoriented, Alert to pain and Other (Lethargic) Psychiatric: Reports Other (lethargic) Interpretation Radiology Interpretation Radiology Interpretation By: Radiologist Radiology Results: Positive Xray Comments: bilat LL infiltrated EKG Interpretation Time of EKG #1: 12:54 Rate: Normal Rhythm: Sinus Ectopy: None Hills: Left ST Segment: Other Interpretation: Non specific St-T wave changes Re-Evaluation Re-Evaluation Time of Re-Evaluation: 14:00 Status: Unchanged Vital Signs Stable: Yes Pain Level: 0 Appearance: NAD Lungs: Other (diminshed BS, unchanged) Skin: Warm and Dry Neuro: Other (lethargic) CV: RRR Additional Comments: will admit for sepsis Physician Notification Case Discussed Physician Notified: Donohue Time of Notification: 13:30 Critical Care Note Critical Care Note Total Critical Care Time (mins): 60 Course Course Hematology/Chemistry: 01/24/21 13:10 01/24/21 13:10 Orders, Labs, Meds: Lab Review 01/24/21 01/24/21 01/24/21 11:59 12:08 12:08 WBC 19.44 H RBC 3.14 L Hgb 8.8 L Hct 26.0 L MCV 82.8 MCH 28.0 MCHC 33.8 RDW Coeff of Shira 16.4 H Plt Count 152 Immature Gran % (Auto) 0.6 Neut % (Auto) 87.5 H Lymph % (Auto) 5.1 L [place] % (Auto) 6.6 Eos % (Auto) 0.0 Baso % (Auto) 0.2 Neut # (Auto) 17.0 H Lymph # (Auto) 1.0 [place] # (Auto) 1.3 Eos # (Auto) 0.0 Baso # (Auto) 0.0 Immature Gran # (Auto) 0.1 Puncture Site Base Excess O2 Saturation ABG pH ABG pCO2 ABG pO2 ABG HCO3 ABG Total CO2 Anish Test Hemoglobin Oxyhemoglobin Carboxyhemoglobin Total Hemoglobin O2 Delivery Device Oxygen Liter Flow Sodium 135.5 Potassium 3.72 Chloride 103.6 Carbon Dioxide 27.4 Anion Gap 8.22 BUN 33.1 H Creatinine 1.63 H Estimated GFR (MDRD) 40.00 BUN/Creatinine Ratio 20.30 Glucose 175.5 H Lactic Acid Calcium 7.73 L Total Bilirubin 0.87 AST 41.8 ALT 35.1 Alkaline Phosphatase 65.6 Total Creatine Kinase 91.5 Troponin I 0.440 H Total Protein 6.03 L Albumin 2.64 L Globulin 3.39 Albumin/Globulin Ratio 0.77 Amylase 40.9 Lipase 40.9 Procalcitonin Urine Color Yellow Urine Clarity Clear Urine pH 5.5 Ur Specific [place] 1.010 Urine Protein 1+ H Urine Glucose (UA) Negative Urine Ketones Negative Urine Blood 2+ H Urine Nitrite Negative Urine Bilirubin Negative Urine Urobilinogen 0.2 Ur Leukocyte Esterase Negative Urine Microscopic RBC 2-5 Urine Microscopic WBC 0-2 Ur Squamous Epith Cells Not present Urine Bacteria Trace Blood Type 01/24/21 01/24/21 01/24/21 12:08 12:25 13:05 WBC RBC Hgb Hct MCV MCH MCHC RDW Coeff of Shira Plt Count Immature Gran % (Auto) Neut % (Auto) Lymph % (Auto) [place] % (Auto) Eos % (Auto) Baso % (Auto) Neut # (Auto) Lymph # (Auto) [place] # (Auto) Eos # (Auto) Baso # (Auto) Immature Gran # (Auto) Puncture Site Lb Base Excess 5.7 H O2 Saturation 97.6 ABG pH 7.51 H* ABG pCO2 36.0 ABG pO2 88.0 ABG HCO3 28.7 H ABG Total CO2 29.8 H Anish Test Y Hemoglobin 1.2 Oxyhemoglobin 94.1 L Carboxyhemoglobin 3.2 H Total Hemoglobin 8.5 L O2 Delivery Device Cannula Oxygen Liter Flow 2.00 Sodium Potassium Chloride Carbon Dioxide Anion Gap BUN Creatinine Estimated GFR (MDRD) BUN/Creatinine Ratio Glucose Lactic Acid Calcium Total Bilirubin AST ALT Alkaline Phosphatase Total Creatine Kinase Troponin I Total Protein Albumin Globulin Albumin/Globulin Ratio Amylase Lipase Procalcitonin Urine Color Cancelled Urine Clarity Cancelled Urine pH Cancelled Ur Specific [place] Cancelled Urine Protein Cancelled Urine Glucose (UA) Cancelled Urine Ketones Cancelled Urine Blood Cancelled Urine Nitrite Cancelled Urine Bilirubin Cancelled Urine Urobilinogen Cancelled Ur Leukocyte Esterase Cancelled Urine Microscopic RBC Urine Microscopic WBC Ur Squamous Epith Cells Urine Bacteria Blood Type O POSITIVE 01/24/21 01/24/21 01/24/21 13:10 13:10 13:10 WBC 18.60 H RBC 2.88 L Hgb 8.2 L Hct 23.9 L MCV 83.0 MCH 28.5 MCHC 34.3 RDW Coeff of Shira 16.1 H Plt Count 138 L Immature Gran % (Auto) 0.6 Neut % (Auto) 86.9 H Lymph % (Auto) 6.3 L [place] % (Auto) 6.1 Eos % (Auto) 0.0 Baso % (Auto) 0.1 Neut # (Auto) 16.2 H Lymph # (Auto) 1.2 [place] # (Auto) 1.1 Eos # (Auto) 0.0 Baso # (Auto) 0.0 Immature Gran # (Auto) 0.1 Puncture Site Base Excess O2 Saturation ABG pH ABG pCO2 ABG pO2 ABG HCO3 ABG Total CO2 Anish Test Hemoglobin Oxyhemoglobin Carboxyhemoglobin Total Hemoglobin O2 Delivery Device Oxygen Liter Flow Sodium 135.3 Potassium 3.78 Chloride 104.2 Carbon Dioxide 27.3 Anion Gap 7.58 BUN 32.9 H Creatinine 1.55 H Estimated GFR (MDRD) 43.00 BUN/Creatinine Ratio 21.22 Glucose 183.3 H Lactic Acid Calcium 7.56 L Total Bilirubin 0.76 AST 43.5 ALT 33.5 Alkaline Phosphatase 60.5 Total Creatine Kinase Troponin I Total Protein 5.50 L Albumin 2.41 L Globulin 3.09 Albumin/Globulin Ratio 0.77 Amylase Lipase Procalcitonin 0.86 Urine Color Urine Clarity Urine pH Ur Specific [place] Urine Protein Urine Glucose (UA) Urine Ketones Urine Blood Urine Nitrite Urine Bilirubin Urine Urobilinogen Ur Leukocyte Esterase Urine Microscopic RBC Urine Microscopic WBC Ur Squamous Epith Cells Urine Bacteria Blood Type 01/24/21 13:10 WBC RBC Hgb Hct MCV MCH MCHC RDW Coeff of Shira Plt Count Immature Gran % (Auto) Neut % (Auto) Lymph % (Auto) [place] % (Auto) Eos % (Auto) Baso % (Auto) Neut # (Auto) Lymph # (Auto) [place] # (Auto) Eos # (Auto) Baso # (Auto) Immature Gran # (Auto) Puncture Site Base Excess O2 Saturation ABG pH ABG pCO2 ABG pO2 ABG HCO3 ABG Total CO2 Anish Test Hemoglobin Oxyhemoglobin Carboxyhemoglobin Total Hemoglobin O2 Delivery Device Oxygen Liter Flow Sodium Potassium Chloride Carbon Dioxide Anion Gap BUN Creatinine Estimated GFR (MDRD) BUN/Creatinine Ratio Glucose Lactic Acid 1.17 Calcium Total Bilirubin AST ALT Alkaline Phosphatase Total Creatine Kinase Troponin I Total Protein Albumin Globulin Albumin/Globulin Ratio Amylase Lipase Procalcitonin Urine Color Urine Clarity Urine pH Ur Specific [place] Urine Protein Urine Glucose (UA) Urine Ketones Urine Blood Urine Nitrite Urine Bilirubin Urine Urobilinogen Ur Leukocyte Esterase Urine Microscopic RBC Urine Microscopic WBC Ur Squamous Epith Cells Urine Bacteria Blood Type Orders Category Date Time Status ABG DRAW REQUEST Stat CARDIO 01/24/21 12:39 Completed EKG-(ED ONLY) Stat CARDIO 01/24/21 12:40 Completed ED APPLY O2 .ONCE EMERGENCY 01/24/21 12:52 Active ED [facility] APPLIED .ONCE EMERGENCY 01/24/21 12:52 Active ED CATHETER INSERTION AND CARE .ONCE EMERGENCY 01/24/21 12:20 Active ED IV/MEDIPORT/POWERPORT .ONCE EMERGENCY 01/24/21 11:58 Active ABG COOX Stat LAB 01/24/21 13:05 Completed AMYLASE Stat LAB 01/24/21 12:08 Completed BLOOD CULTURE Stat LAB 01/24/21 13:25 Received CBC W/ AUTO DIFF Stat LAB 01/24/21 12:08 Completed CBC W/ AUTO DIFF Stat LAB 01/24/21 13:10 Completed COMPREHENSIVE METABOLIC PANEL Stat LAB 01/24/21 12:08 Completed COMPREHENSIVE METABOLIC PANEL Stat LAB 01/24/21 13:10 Completed CREATINE KINASE Stat LAB 01/24/21 12:08 Completed LACTIC ACID Stat LAB 01/24/21 13:10 Completed LIPASE Stat LAB 01/24/21 12:08 Completed PROCALCITONIN Stat LAB 01/24/21 13:10 Completed RESPIRATORY PANEL 2.1 (PCR) Stat LAB 01/24/21 13:30 Received TROPONIN I Stat LAB 01/24/21 12:08 Completed URINALYSIS C & S IF INDICATED Routine LAB 01/24/21 11:59 Completed 0.9 % Sodium Chloride [Saline Flush] MEDS 01/24/21 11:58 Active 1 syr IVF PRN PRN Ceftriaxone/D5w 1 gm Premix [Rocephin 1 gm/50 ml D5w] MEDS 01/24/21 12:50 Discontinued 1 gm in 50 ml IV ONCE Lidocaine (Uro-Jet) [Uro-Jet] MEDS 01/24/21 12:20 Discontinued 10 ml MUCOUSMEMB ONCE STA Ringers Lactated Solution [Lactated Ringers] 1,000 ml MEDS 01/24/21 11:58 Discontinued IV BOLUS Vancomycin 1 gm MEDS 01/24/21 12:50 Discontinued 0.9 % Sodium Chloride [Sodium Chloride] 250 ml IV ONCE CHEST, 1V AP ONLY Stat RADS 01/24/21 12:40 Completed Medications Generic Name Dose Route Start Last Admin Trade Name Freq PRN Reason Stop Dose Admin Sodium Chloride 1 syr 01/24/21 11:58 01/24/21 12:11 0.9% Sodium Chloride 10 Ml Disp.Syrin IVF 1 syr PRN PRN Administration To flush IV Discontinued Medications Generic Name Dose Route Start Last Admin Trade Name Freq PRN Reason Stop Dose Admin Lactated Ringer's 1,000 mls @ 500 mls/hr 01/24/21 11:58 01/24/21 12:13 Lactated Ringers IV 01/24/21 13:57 500 mls/hr BOLUS STA Administration CEFTRIAXONE/D5W 1 GM PREMIX 1 gm in 50 mls @ 75 mls/hr 01/24/21 12:50 01/24/21 13:02 Rocephin 1 Gm/50 Ml D5w IV 01/24/21 13:29 75 mls/hr ONCE ONE Administration Vancomycin HCl 1 gm/ Sodium 250 mls @ 250 mls/hr 01/24/21 12:50 01/24/21 13:00 Chloride IV 01/24/21 13:49 250 mls/hr ONCE ONE Administration Lidocaine HCl 10 ml 01/24/21 12:20 01/24/21 12:25 Lidocaine 10 Ml Jel.Pf.Nate (Urojet) MUCOUSMEMB 01/24/21 12:21 10 [place] [address] Diagnostic ImagingDiagnostic Imaging Report : [id number] Patient: ROSIO MACK SRAcct:[id number] Record: [id number]: 1930Loc: EDRoom/Bed:Age/Sex: 89 / MADM Status: REG ERDate of Service: 01/24/21 Ordering Physician: ROSIO ESCOBAR MD Procedure(s): CHEST, 1V AP ONLY Report Number(s): [id number] Accession Number(s): [id number] cc: ROSIO ESCOBAR MD; DARY DONOHUE MD EXAM: Chest one view HISTORY: Sepsis COMPARISON: 12/23/2020 TECHNIQUE: Single view of the chest was performed FINDINGS: Bibasilar infiltrates and/or atelectasis. No large pleural effusion. No visible pneumothorax. The heart is normal in size. The mediastinal contour is normal. There are no acute abnormalities of the bones. IMPRESSION: Bibasilar pneumonia and/or atelectasis. Dictated By:EPIFANIO MACIEL KSigned By:EPIFANIO MACIEL MDDictated Date/Time: 01/24/21 1303Transcribed Date/Time: 01/24/21 1303 Vital Signs: Temp Pulse Resp BP Pulse Ox 01/24/21 11:55 99.1 F 88 18 97/48 L 97 Discharge Plan Discharge Patient Disposition: ADMITTED INPATIENT Discharge Problem: Sepsis Qualifiers: Sepsis type: sepsis due to unspecified organism Sepsis acute organ dysfunction status: with acute organ dysfunction Severe sepsis acute organ dysfunction type: unspecified Severe sepsis shock status: with septic shock Qualified Code(s): A41.9 - Sepsis, unspecified organism ED Provider: ROSIO ESCOBAR Condition: Serious Physician Progress Note: 89 year old male presents with decreased MS and lethargy, along with urinary incontinence from NH. No history of fever, chills or localizing sx. ED evaluation consistent with sepsis and septic shock, probably from PNA. Critical care time for 60 minutes. Patient stabilized with sepsis resuscitation protocol and discussed with Dr. Donohue He will be admitted here to the floor as he is a DNR.
[2021-01-24] MEDS ORDERED: LACTATED RINGERS 1,000 ML IV STA (11:58)
[2021-01-24 12:13] LABS: BASOPHILS % (AUTO) 0.2 % (0.0-3.0); HEMOGLOBIN 8.8 g/dl (14.0-18.0); IMMATURE GRANULOCYTE # (AUTO) 0.1 (0.0-1.0); IMMATURE GRANULOCYTE % (AUTO) 0.6 % (0.0-5.0); LYMPHOCYTES % (AUTO) 5.1 (10.0-50.0); MEAN CORPUSCULAR HGB CONC 33.8 (31.8-35.4); MEAN CORPUSCULAR VOLUME 82.8 fl (80.0-94.0); MONOCYTES # (AUTO) 1.3 K/uL (0.4-2.0); MONOCYTES % (AUTO) 6.6 (0-10); NEUTROPHILS % (AUTO) 87.5 % (42.2-75.2); PLATELET COUNT 152 10^3/uL (140-440); RDW COEFFICIENT OF VARIATION 16.4 % (11.6-14.8); RED BLOOD COUNT 3.14 10^6/ul (4.70-6.10); WHITE BLOOD COUNT 19.44 K/ul (4.2-10.2)
[2021-01-24] MEDS ORDERED: URO-JET MUCOUSMEMB STA (12:20)
[2021-01-24 12:24] LABS: ALANINE AMINOTRANSFERASE 35.1 U/L (0-50); ALBUMIN 2.64 g/dL (3.5-5.0); ALKALINE PHOSPHATASE 65.6 U/L (56-119); AMYLASE 40.9 U/L (30-110); ASPARTATE AMINO TRANSFERASE 41.8 U/L (17-59); BILIRUBIN,TOTAL 0.87 mg/dL (0.2-1.3); BLOOD UREA NITROGEN 33.1 mg/dL (9-20); CALCIUM 7.73 mg/dL (8.4-10.2); CARBON DIOXIDE 27.4 mmol/L (22-30.0); CHLORIDE 103.6 mmol/L (98-107); CREATINE KINASE 91.5 U/L (55-170); CREATININE 1.63 mg/dL (0.60-1.10); GLUCOSE 175.5 mg/dL (74-106); LIPASE 40.9 U/L (23-300); POTASSIUM 3.72 mmol/L (3.5-5.1); SODIUM 135.5 mmol/L (134.5-145); TOTAL PROTEIN 6.03 g/dL (6.3-8.2)
[2021-01-24 12:35] LABS: TROPONIN I 0.44 ng/ml (0.0000-0.120)
[2021-01-24] MEDS ORDERED: ROCEPHIN 1 GM/50 ML D5W 1 GM/50 ML BAG IV ONE (12:50)
[2021-01-24] MEDS ORDERED: VANCOMYCIN 1 GM in SODIUM CHLORIDE 250 ML IV ONE (12:50)
[2021-01-24 13:03] LABS: BILIRUBIN,URINE Negative (NEGATIVE); CLARITY,URINE Clear (CLEAR); COLOR,URINE Yellow (YELLOW); GLUCOSE, URINE (UA) Negative (NEGATIVE); KETONES,URINE Negative (NEGATIVE); LEUKOCYTE ESTERASE ,URINE Negative (NEGATIVE); NITRITE,URINE Negative (NEGATIVE); PH,URINE 5.5 (5-9); PROTEIN,URINE 1+ (NEGATIVE); URINE, BLOOD 2+ (NEGATIVE); UROBILINOGEN,URINE 0.2 (0.2)
[2021-01-24 13:06] LABS: BACTERIA,URINE TRACE (NOT PRESENT); SQUAMOUS EPITHELIAL CELL,UR NOT PRESENT (0-5); URINE WBC, MICROSCOPIC 0-2 (0-2)
--- NOTE | 2021-01-24 13:08 | DI ---
EXAM: Chest one view HISTORY: Sepsis COMPARISON: 12/23/2020 TECHNIQUE: Single view of the chest was performed FINDINGS: Bibasilar infiltrates and/or atelectasis. No large pleural effusion. No visible pneumoth orax. The heart is normal in size. The mediastinal contour is normal. There are no acute abnormali ties of the bones. IMPRESSION: Bibasilar pneumonia and/or atelectasis.
[2021-01-24 13:15] LABS: ABG O2 HGB 94.1 % (95-100); BEecf 5.7 (-2.0-3.0); COHb 3.2 (0.5-1.5); HCO3 28.7 (21-28); MetHb 1.2 (0-1.5); TCO2 29.8 (19-24); sO2 97.6 % (94-98); tHb 8.5 g/dl (11.7-17.4)
[2021-01-24 13:17] LABS: ABG PH 7.51 (7.35-7.45)
[2021-01-24 13:35] LABS: BORDETELLA PARAPERTUSSIS (PCR) NOT DETECTED (NOT DETECT); BORDETELLA PERTUSSIS (PCR) NOT DETECTED (NOT DETECT); CHLAMYDIA PNEUMONIAE (PCR) NOT DETECTED (NOT DETECT); CORONAVIRUS 229E (PCR) NOT DETECTED (NOT DETECT); CORONAVIRUS HKU1 (PCR) NOT DETECTED (NOT DETECT); CORONAVIRUS NL63 (PCR) NOT DETECTED (NOT DETECT); CORONAVIRUS OC43 (PCR) NOT DETECTED (NOT DETECT); HUMAN METAPNEUMOVIRUS (PCR) NOT DETECTED (NOT DETECT); HUMAN RHINOVIRUS/ENTEROV (PCR) NOT DETECTED (NOT DETECT); INFLUENZA B (PCR) NOT DETECTED (NOT DETECT); MYCOPLASMA PNEUMONIAE (PCR) NOT DETECTED (NOT DETECT); PARAINFLUENZA VIRUS 1 (PCR) NOT DETECTED (NOT DETECT); PARAINFLUENZA VIRUS 2 (PCR) NOT DETECTED (NOT DETECT); PARAINFLUENZA VIRUS 3 (PCR) NOT DETECTED (NOT DETECT); PARAINFLUENZA VIRUS 4 (PCR) NOT DETECTED (NOT DETECT); RESPIRATORY SYNCYTIAL V (PCR) NOT DETECTED (NOT DETECT); SARS_COV_2 (PCR) NOT DETECTED (NOT DETECT)
[2021-01-24 14:23] LABS: ADENOVIRUS (PCR) NOT DETECTED (NOT DETECT)
[2021-01-24 15:32] VITALS: BMI 25.4
[2021-01-24] MEDS ORDERED: VANCOMYCIN 500 MG in SODIUM CHLORIDE 100 ML IV ONE (16:30)
[2021-01-24] MEDS ORDERED: DECADRON IM ONE (16:55)
[2021-01-24] MEDS: DEXTROSE 5%-1/2NS IV SOLUTION 1,000 ML IV SCH (17:26)
[2021-01-24 21:03] LABS: TROPONIN I 0.336 ng/ml (0.0000-0.120)
[2021-01-24 21:06] LABS: CREATINE KINASE MB 2.91 ng/ml (0.0-2.38)
[2021-01-25] MEDS: DEXTROSE 5%-1/2NS IV SOLUTION 1,000 ML IV SCH ×3 (03:14→21:49)
[2021-01-25 04:40] LABS: BASOPHILS % (AUTO) 0.1 % (0.0-3.0); HEMOGLOBIN 8.6 g/dl (14.0-18.0); IMMATURE GRANULOCYTE # (AUTO) 0.1 (0.0-1.0); IMMATURE GRANULOCYTE % (AUTO) 0.4 % (0.0-5.0); LYMPHOCYTES % (AUTO) 7.5 (10.0-50.0); MEAN CORPUSCULAR HGB CONC 33.1 (31.8-35.4); MEAN CORPUSCULAR VOLUME 84.7 fl (80.0-94.0); MONOCYTES # (AUTO) 0.5 K/uL (0.4-2.0); MONOCYTES % (AUTO) 3.5 (0-10); NEUTROPHILS # (AUTO) 11.6 K/ul (2.0-6.9); NEUTROPHILS % (AUTO) 88.5 % (42.2-75.2); PLATELET COUNT 141 10^3/uL (140-440); RDW COEFFICIENT OF VARIATION 16.2 % (11.6-14.8); RED BLOOD COUNT 3.07 10^6/ul (4.70-6.10); WHITE BLOOD COUNT 13.11 K/ul (4.2-10.2)
[2021-01-25 04:52] LABS: CREATINE KINASE 91.2 U/L (55-170)
[2021-01-25 04:53] LABS: ALANINE AMINOTRANSFERASE 48.5 U/L (0-50); ALBUMIN 2.42 g/dL (3.5-5.0); ALKALINE PHOSPHATASE 59.2 U/L (56-119); ASPARTATE AMINO TRANSFERASE 54.4 U/L (17-59); BILIRUBIN,TOTAL 0.48 mg/dL (0.2-1.3); BLOOD UREA NITROGEN 32.6 mg/dL (9-20); CALCIUM 7.83 mg/dL (8.4-10.2); CARBON DIOXIDE 27.1 mmol/L (22-30.0); CHLORIDE 105.5 mmol/L (98-107); CREATININE 1.19 mg/dL (0.60-1.10); GLUCOSE 215.8 mg/dL (74-106); POTASSIUM 4.31 mmol/L (3.5-5.1); SODIUM 136.1 mmol/L (134.5-145); TOTAL PROTEIN 5.68 g/dL (6.3-8.2)
[2021-01-25 05:05] LABS: TROPONIN I 0.181 ng/ml (0.0000-0.120)
[2021-01-25] MEDS: MAXIPIME 2 GM/50 ML D5W 2 GM/50 ML BAG IV SCH ×2 (08:40→20:13)
[2021-01-25] MEDS ORDERED: DECADRON IM SCH (09:00)
[2021-01-25] MEDS ORDERED: VANCOMYCIN 1 GM in SODIUM CHLORIDE 250 ML IV SCH (09:00)
[2021-01-25] MEDS ORDERED: SODIUM CHLORIDE IV SCH (09:00)
[2021-01-25] MEDS ORDERED: LEVAQUIN 750 MG/150 ML D5W 750 MG/150 ML BAG IV SCH (09:00)
[2021-01-25] MEDS ORDERED: ROCEPHIN 1 GM/50 ML D5W 1 GM/50 ML BAG IV SCH (09:00)
[2021-01-25] MEDS ORDERED: VANCOMYCIN IV SCH (09:00)
[2021-01-25] MEDS: VANCOMYCIN 1.5 GRAM/300 ML PREMIX 1.5 GM/300 ML BAG IV SCH (09:58)
[2021-01-25] MEDS: NEURONTIN PO SCH ×3 (13:17→20:13)
[2021-01-25] MEDS: ZYLOPRIM PO SCH (13:17)
[2021-01-25] MEDS: ATIVAN PO PRN (13:17)
[2021-01-25] MEDS: FLOMAX PO SCH (13:17)
[2021-01-25] MEDS: COLESTID PO SCH (13:17)
[2021-01-25] MEDS: LASIX TAB PO SCH (13:17)
[2021-01-25] MEDS: ZOCOR PO SCH (13:17)
[2021-01-25] MEDS: NICODERM 21 MG TD SCH (13:18)
[2021-01-25] MEDS: PRILOSEC PO SCH (17:45)
[2021-01-26] MEDS: ATIVAN PO PRN (01:59)
[2021-01-26] MEDS ORDERED: VENTOLIN HFA (PER PUFF-WITH SPACER) IH PRN (02:35)
[2021-01-26] MEDS: DUONEB NEB SCH ×4 (04:45→22:42)
[2021-01-26 05:09] LABS: BASOPHILS % (AUTO) 0.1 % (0.0-3.0); HEMATOCRIT 23.3 % (42.0-52.0); HEMOGLOBIN 7.7 g/dl (14.0-18.0); IMMATURE GRANULOCYTE # (AUTO) 0.1 (0.0-1.0); IMMATURE GRANULOCYTE % (AUTO) 0.6 % (0.0-5.0); LYMPHOCYTES # (AUTO) 1.5 K/uL (0.60-3.4); LYMPHOCYTES % (AUTO) 8.7 (10.0-50.0); MEAN CORPUSCULAR HEMOGLOBIN 27.3 pg (27.0-31.0); MEAN CORPUSCULAR VOLUME 82.6 fl (80.0-94.0); MONOCYTES # (AUTO) 0.7 K/uL (0.4-2.0); MONOCYTES % (AUTO) 4.1 (0-10); NEUTROPHILS # (AUTO) 15.2 K/ul (2.0-6.9); NEUTROPHILS % (AUTO) 86.5 % (42.2-75.2); PLATELET COUNT 142 10^3/uL (140-440); RDW COEFFICIENT OF VARIATION 15.9 % (11.6-14.8); RED BLOOD COUNT 2.82 10^6/ul (4.70-6.10); WHITE BLOOD COUNT 17.57 K/ul (4.2-10.2)
[2021-01-26 05:27] LABS: ALANINE AMINOTRANSFERASE 59.9 U/L (0-50); ALBUMIN 2.33 g/dL (3.5-5.0); ALKALINE PHOSPHATASE 56.1 U/L (56-119); ASPARTATE AMINO TRANSFERASE 53.5 U/L (17-59); BILIRUBIN,TOTAL 0.33 mg/dL (0.2-1.3); BLOOD UREA NITROGEN 34.1 mg/dL (9-20); CALCIUM 7.65 mg/dL (8.4-10.2); CARBON DIOXIDE 25.3 mmol/L (22-30.0); CHLORIDE 104.5 mmol/L (98-107); CREATININE 1.16 mg/dL (0.60-1.10); GLUCOSE 138.7 mg/dL (74-106); POTASSIUM 4.16 mmol/L (3.5-5.1); SODIUM 132.1 mmol/L (134.5-145); TOTAL PROTEIN 5.47 g/dL (6.3-8.2)
[2021-01-26] MEDS: PRILOSEC PO SCH ×2 (05:43→16:08)
[2021-01-26] MEDS ORDERED: ATROVENT HFA INHALER (PER PUFF-WITH SPACER) IH SCH (06:00)
[2021-01-26] MEDS: DEXTROSE 5%-1/2NS IV SOLUTION 1,000 ML IV SCH ×2 (08:29→08:47)
[2021-01-26] MEDS: MAXIPIME 2 GM/50 ML D5W 2 GM/50 ML BAG IV SCH ×2 (08:45→20:08)
[2021-01-26] MEDS: COLESTID PO SCH (08:46)
[2021-01-26] MEDS: DECADRON IVP SCH (08:46)
[2021-01-26] MEDS: NEURONTIN PO SCH ×3 (08:46→20:08)
[2021-01-26] MEDS: FLOMAX PO SCH (08:46)
[2021-01-26] MEDS: ZOCOR PO SCH (08:46)
[2021-01-26] MEDS: ZYLOPRIM PO SCH (08:46)
[2021-01-26] MEDS: LASIX TAB PO SCH (08:47)
[2021-01-26] MEDS: NICODERM 21 MG TD SCH (08:47)
[2021-01-26] MEDS: MULTIVITAMIN TABLET PO SCH (08:47)
[2021-01-26] MEDS: VANCOMYCIN 1.5 GRAM/300 ML PREMIX 1.5 GM/300 ML BAG IV SCH (09:53)
[2021-01-26] MEDS ORDERED: LASIX IVP ONE (12:13)
[2021-01-26] MEDS ORDERED: DEXTROSE 5%-1/2NS IV SOLUTION 1,000 ML IV SCH (12:53)
[2021-01-26] MEDS ORDERED: LASIX IVP PRN (12:56)
[2021-01-26 19:47] LABS: HEMATOCRIT 26.6 % (42.0-52.0)
[2021-01-27] MEDS: DUONEB NEB SCH ×2 (04:50→12:50)
[2021-01-27 05:02] LABS: BASOPHILS % (AUTO) 0.1 % (0.0-3.0); EOSINOPHILS % (AUTO) 0.1 % (0.0-7.0); HEMOGLOBIN 8.7 g/dl (14.0-18.0); IMMATURE GRANULOCYTE # (AUTO) 0.1 (0.0-1.0); IMMATURE GRANULOCYTE % (AUTO) 0.5 % (0.0-5.0); LYMPHOCYTES # (AUTO) 1.7 K/uL (0.60-3.4); LYMPHOCYTES % (AUTO) 14.2 (10.0-50.0); MEAN CORPUSCULAR HGB CONC 33.5 (31.8-35.4); MEAN CORPUSCULAR VOLUME 83.6 fl (80.0-94.0); MONOCYTES # (AUTO) 0.8 K/uL (0.4-2.0); MONOCYTES % (AUTO) 6.4 (0-10); NEUTROPHILS # (AUTO) 9.3 K/ul (2.0-6.9); NEUTROPHILS % (AUTO) 78.7 % (42.2-75.2); PLATELET COUNT 159 10^3/uL (140-440); RDW COEFFICIENT OF VARIATION 15.9 % (11.6-14.8); RED BLOOD COUNT 3.11 10^6/ul (4.70-6.10); WHITE BLOOD COUNT 11.86 K/ul (4.2-10.2)
[2021-01-27 05:13] LABS: ALANINE AMINOTRANSFERASE 62.6 U/L (0-50); ALBUMIN 2.41 g/dL (3.5-5.0); ALKALINE PHOSPHATASE 57.8 U/L (56-119); ASPARTATE AMINO TRANSFERASE 44.9 U/L (17-59); BILIRUBIN,TOTAL 0.63 mg/dL (0.2-1.3); BLOOD UREA NITROGEN 37.6 mg/dL (9-20); CALCIUM 7.66 mg/dL (8.4-10.2); CARBON DIOXIDE 27.2 mmol/L (22-30.0); CHLORIDE 105.3 mmol/L (98-107); CREATININE 1.39 mg/dL (0.60-1.10); GLUCOSE 145.6 mg/dL (74-106); POTASSIUM 3.61 mmol/L (3.5-5.1); SODIUM 134.9 mmol/L (134.5-145); TOTAL PROTEIN 5.62 g/dL (6.3-8.2)
[2021-01-27] MEDS: PRILOSEC PO SCH (05:39)
[2021-01-27] MEDS: ZOCOR PO SCH (08:40)
[2021-01-27] MEDS: DECADRON IVP SCH (08:40)
[2021-01-27] MEDS: LASIX TAB PO SCH (08:40)
[2021-01-27] MEDS: COLESTID PO SCH (08:40)
[2021-01-27] MEDS: ZYLOPRIM PO SCH (08:40)
[2021-01-27] MEDS: NEURONTIN PO SCH ×3 (08:40→20:31)
[2021-01-27] MEDS: FLOMAX PO SCH (08:40)
[2021-01-27] MEDS: MULTIVITAMIN TABLET PO SCH (08:40)
[2021-01-27] MEDS: NICODERM 21 MG TD SCH (08:41)
[2021-01-27] MEDS: VANCOMYCIN 1.5 GRAM/300 ML PREMIX 1.5 GM/300 ML BAG IV SCH (08:46)
--- NOTE | 2021-01-27 09:27 | PCM.PROG ---
Attending Provider: ATTENDING PROVIDER: Dr. DARY CAROLINA This patient is seen with Winsome Licea, Nurse Practitioner. DATE OF SERVICE: 01/27/21 SUBJECTIVE: This 89 year old /WHITE M was hospitalized 01/24/21. The patient is lying in bed resting comfortably. Cough improved. No fever. He has started to eat better. Blood cultures gram positive, final report pending. REVIEW OF SYSTEMS: CONSTITUTIONAL: Weakness. No night sweats. No fatigue, malaise, lethargy. No fe cecelia or chills. HEENT: Eyes: No visual changes. No eye pain. No eye discharge. ENT: No runny nose. No epistaxis. No sinus pain. No odynophagia. No congestion. RESPIRATORY: Cough. No hemoptysis. No shortness of breath. CARDIOVASCULAR: No angina symptoms. No CHF symptoms. No atypical chest pain for CAD. No palpitations. No orthopnea.. GASTROINTESTINAL: No abdominal pain. No nausea or vomiting. No diarrhea or constipation. No hematemesis. No hematochezia. GENITOURINARY: No urgency. No frequency. No dysuria. No hematuria. No obstructive symptoms. No discharge. No pain. No significant abnormal bleeding. MUSCULOSKELETAL: No musculoskeletal pain; no joint swelling. NEUROLOGICAL: Awake, alert, oriented to time, place and person. No headache. No neck pain. No syncope. No seizures. No dizziness. PSYCHIATRIC: Not anxious. No depression. No suicidal thoughts. No homicidal thoughts. SKIN: No rash. No lesions. No wounds. ENDOCRINE: No unexplained weight loss. No weight gain. HEMATOLOGIC/LYMPHATIC: Anemia. No purpura. No petechiae. No prolonged or excessive bleeding. No palpable lymph nodes. PHYSICAL EXAMINATION: GENERAL: The patient is awake, alert and oriented, lying/sitting in bed in no distress. VITAL SIGNS: Temperature 98.2 F, Pulse 80, Respiratory Rate 18, BP 101/53, Pulse Ox 96% HEENT: Head normocephalic, atraumatic. Eyes: Extraocular muscles are intact. Pupils are equal, round and reactive to light and accommodation. Ears: No lesions. Nose appeared normal. Throat: No exudate or erythema. NECK: Supple. No JVD, no carotid bruit. No lymphadenopathy or thyromegaly. LUNGS: Diminished breath sounds. Clear to auscultation. Percussion note ruth ann l. Chest symmetrical. HEART: S1, S2, no S3. No murmurs. No cyanosis or clubbing. No ascites. P ulses: Dorsalis pedis and posterior tibial pulses +1 to +2 both sides. ABDOMEN: Soft. Non-tender. Bowel sounds active. No CVA tenderness. No mass felt. EXTREMITIES: No edema. Full range of motion of all extremities, equal. NEUROLOGIC: No focal deficit. Cranial nerves II through XII are grossly intact. No headache. No double vision. SKIN: Not dry. Intact. Turgor-normal. LYMPHATIC: No palpable lymph nodes/no lymphedema. MUSCULOSKELETAL: Normal joints with no swelling. Muscle tone is normal. LAB REVIEW: 01/27/21 04:50 01/27/21 04:50 01/27/21 04:50: Sodium 134.9, Potassium 3.61, Chloride 105.3, Carbon Dioxide 27.2, Anion Gap 6.01, BUN 37.6 H, Creatinine 1.39 H, Estimated GFR (MDRD) 48.00, BUN/Creatinine Ratio 27.05, Glucose 145.6 H, Calcium 7.66 L, Total Bilirubin 0.63, AST 44.9, ALT 62.6 H, Alkaline Phosphatase 57.8, Total Protein 5.62 L, Albumin 2.41 L, Globulin 3.21, Albumin/Globulin Ratio 0.75 01/27/21 04:50: WBC 11.86 H D, RBC 3.11 L, Hgb 8.7 L, Hct 26.0 L, MCV 83.6, MCH 28.0, MCHC 33.5, RDW Coeff of Shira 15.9 H, Plt Count 159, Immature Gran % (Auto) 0.5, Neut % (Auto) 78.7 H, Lymph % (Auto) 14.2, [place] % (Auto) 6.4, Eos % (Auto) 0.1, Baso % (Auto) 0.1, Neut # (Auto) 9.3 H, Lymph # (Auto) 1.7, [place] # (Auto) 0.8, Eos # (Auto) 0.0, Baso # (Auto) 0.0, Immature Gran # (Auto) 0.1 01/26/21 19:40: Hgb 9.0 L, Hct 26.6 L 01/26/21 13:10: Blood Type O POSITIVE, Antibody Screen Negative, Crossmatch (AHG) See Detail ASSESSMENT: Please see below. 1. Sepsis. 2. Gram positive blood culture. 3. Bibasilar pneumonia. 4. Severe COPD. 5. Anemia. 6. Chronic kidney disease, Stage 3. 7. Chronic respiratory failure. PLAN: 1. D/C IV fluids. Plan and coordination of the patient's care discussed in the presence of Calculating Machine Operator and nurse. CONDITION: Stable SCRIBED BY: CHENG TURNER Wellness Health Coach scribed while in presence of service performed by Dr. Carolina/Winsome Licea APRN on 01/27/21 ([id number])
[2021-01-27] MEDS ORDERED: DULCOLAX RC ONE (10:32)
[2021-01-27] MEDS: MAXIPIME 2 GM/50 ML D5W 2 GM/50 ML BAG IV SCH ×2 (10:42→20:32)
[2021-01-27 11:37] LABS: OCCULT BLOOD SAMPLE 1 POSITIVE (NEGATIVE); OCCULT BLOOD SAMPLE 2 NO SPECIMEN RECEIVED (NEGATIVE); OCCULT BLOOD SAMPLE 3 NO SPECIMEN RECEIVED (NEGATIVE)
[2021-01-27] MEDS: PROTONIX PO SCH ×2 (12:40→16:35)
[2021-01-27] MEDS ORDERED: DUONEB NEB PRN (14:59)
--- NOTE | 2021-01-27 15:48 | RS.PTINEVL ---
Subjective - Patient information Date of Evaluation: 01/27/21 Date of Arrival on Unit: 01/24/21 Admitted From:: [facility] Diagnosis: Sepsis, Pneumonia, altered mental status Usual Living Arrangement: [facility] Medical History Comments:: Aneurysm of infrarenal abdominal aorta, BPH, Chronic anemia, Chronic respiratory failure, CKD stage 3, COPD, Dementia, diverticulosis, Dyslipidemia,Falls, GERD, Gout, History of kidney cancer, HTN, Neuropathy, OA, bilateral TKA, RADHA, left nephrectomy Subjective Information/ Patient Comments:: Mr. Gonzalez states he has not been on his feet in a couple of days. Agrees to walk. Denies dizziness or lightheadedness. - Level of function Prior to this admission, the patient could do the following:: Partially Dependent Ambulation Current Level of Function: Partially Dependent Interventions - Objective Patient Orientation: Person, Place, Situation Current Interventions: Oxygen (3L) Range of Motion - ROM Right Upper Extremity AROM: WFL's Left Upper Extremity AROM: WFL's Right Lower Extremity AROM: WFL's Left Lower Extremity AROM: WFL's Muscle Strength - Muscle Strength Comments:: LE strength grossly 4-/5 of bilateral hips, knees, and ankles. Sensation - Sensation Comments: Reports sensation to light touch of bilateral LE's. Balance - Sitting Balance and Reactions Static Sitting Balance: Good Dynamic Sitting Balance: Good (-) Sitting Equilibrium Reactions: Delayed Left, Delayed Right Sitting Protective Reactions: Delayed Left, Delayed Right - Standing Balance and Reactions Static Standing Balance: Fair Dynamic Standing Balance: Poor (+) Standing Equilibrium Reactions: Delayed Left, Delayed Right Standing Protective Reactions: Delayed Left, Delayed Right Functional Mobility - Bed Mobility Comments:: Patient presents sitting up in chair at bedside. - Transfers Sit to Stand: Min Assist, Mod Assist, 1 person assist, Verbal Cues, Tactile Cues Stand to Sit: Min Assist, Mod Assist, 1 person assist, Verbal Cues Stand Pivot Transfers: Min Assist, Mod Assist, 1 person assist, Verbal Cues, Tactile Cues - Safety Awareness Safety Awareness: Poor VASILIY INDEX SCORE: NA Ambulation - Ambulation Weight Bearing Status: FWB Assistive Device Used: Standard Walker Distance: 50 feet Assistance needed with Ambulation: Min Assist, 1 person assist, Verbal Cues, Tactile Cues Quality of Ambulation: Demonstrates very forward flexed posture. Requires verbal cues and assistance to stay closer to walker. Gait Deviations: Shuffling gait, Step-to gait, Forward posture, Lacks step continuity Factors Affecting Ambulation: Decreased Balance, Breathing/O2 Saturation, Weakness, Decreased Safety, Limited Endurance Treatment time - Time with patient Length of Evaluation: 16 mins Total treatment time: 21 Assessment - Assessment Problem List:: Decreased level of function, Requires training/education, Decreased safety/Risk of falls, Weakness Rehab Potential: Good Further Therapy Indicated?: Yes Candidate for Swing Bed for Therapy Services?: would need to reassess at a later time if Swing Bed is considered. Evaluation Complexity: HISTORY: Medium, EXAM OF BODY SYSTEMS: Medium, CLINICAL PRESENTATION: Medium, CLINICAL DECISION MAKING: Medium Patient's Goal(s): His goal is to return home. Short Term Goals GOAL #1: pt demonstrate rolling and scooting in bed independently Goal to be met by: 01/30/21 GOAL #2: Pt to perform supine to/from sit with CGA X1. Goal to be met by: 01/30/21 GOAL #3: Sit to/from stand CGA with verbal cues. Goal to be met by: 01/30/21 GOAL #4: pt amb with rwx 75ft with CGA and O2. Goal to be met by: 01/30/21 Prison Goals GOAL #1: Pt will perform all transfers with SBA with good safety. Goal to be met by: 02/03/21 GOAL #2: Pt will amb. with RW with CGA 100 feet with good safety. Goal to be met by: 02/03/21 GOAL #3: All bed mobility independent. Goal to be met by: 02/03/21 Plan Plan of Care: Therapeutic EX, Neuromuscular Re-Educ, Therapeutic Activity, Self- Care/Home Management Frequency of Treatment: 1-2 X day, as tolerated Duration of Treatment: 1 Week Anticipated Discharge Destination: [facility] Treatment Diagnosis (ICD 10 Codes): R26.2 Difficulty walking, Z91.81 At risk for falls, M62.81 general weakness. Has the Physician been added for Co-signature?: Yes
--- NOTE | 2021-01-27 16:12 | RS.OTINEVL ---
Subjective - Patient information Date of Evaluation: 01/27/21 Date of Arrival on Unit: 01/24/21 Admitted From:: [facility] Diagnosis: Weakness, fall PRECAUTIONS: fall risk Usual Living Arrangement: [facility] Living Arrangement Comments: lives at [facility] Environment: Apartment, Level/No stairs Medical History: Hypertension, COPD, CHF, Arthritis Medical History Comments:: Aneurysm of infrarenal abdominal aorta, BPH, Chronic anemia, Chronic respiratory failure, CKD stage 3, COPD, Dementia, diverticulosis, Dyslipidemia,Falls, GERD, Gout, History of kidney cancer, HTN, Neuropathy, OA, bilateral TKA, RADHA, left nephrectomy LATEX ALLERGY?: No Surgical History: Knee Replacement (BTKR), Lumbar Spine Surgical History Comments:: B shld sx Medications: see chart Subjective Information/ Patient Comments:: "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 Pt required 2 people moderate assist to stand. Pt required assistance with dressing, bathing, and transfers. Pt is min A for self feeding. Pt required verbal cues to complete ADLS. Current Level of Function: Partially Dependent Current Equipment Used at Home: Rolling walker Pain Assessment - Pain Pain Score: 0 Interventions - Objective Patient Orientation: Person Current Interventions: IV's, Oxygen, Telemetry, Nance Catheter Observation: Pt stood from chair after the second try. Pt stood Min A -to CGA. Pt has full AROM of BUE. Pt has MMT of BUE 4/5. Interventions - ROM Right Upper Extremity AROM: WFL's Left Upper Extremity AROM: WFL's - Strength Right Upper Extremity Strength: Mild Weakness Left Upper Extremity Strength: Mild Weakness Balance - Sitting Balance Static Sitting Balance: Good Dynamic Sitting Balance: Good - Standing Balance Static Standing Balance: Good Dynamic Standing Balance: Good ADL Skills - Self Feeding Self Feeding: Independent - Grooming Grooming: Min Assist - Bathing Bathing UE: Min Assist Bathing LE: Min Assist - Dressing Dressing UE: Min Assist Dressing LE: Min Assist - Toilet Management Toileting Management: Min Assist Functional Mobility - Transfers Sit to Stand: Min Assist Stand to Sit: CGA Stand Pivot Transfers: Min Assist - Ambulation Weight Bearing Status: FWB Assistive Device Used: Rolling Walker Assistance needed with Ambulation: CGA - Safety Awareness Safety Awareness: Good VASILIY INDEX SCORE: . Additional Treatment Performed - Time with patient Length of Evaluation: 20 Total treatment time: 20 Activities Would you be interested in leaving your room for activities?: Yes Would you enjoy group activities?: Yes Do you have difficulty with your vision?: Yes Patient Interests:: Reading Books/Magazines, Watching Television Patient Education Patient Education: Home Exercise Program, Home Safety, Activity Modification, Education of Plan of Care Teaching Recipient: Patient Teaching Methods: Teach Back Method Used, Discussion Assessment Problem List:: Decreased level of function, Requires training/education, Decreased safety/Risk of falls, Weakness, Cognitive status limits abilities Rehab Potential: Good Further Therapy Indicated?: Yes Evaluation Complexity: HISTORY: Medium, EXAM OF BODY SYSTEMS: Medium, CLINICAL DECISION MAKING: Medium Patient's Goal(s): To get stronger and return home. Short Term Goals - Goals GOAL 1: pt to tolerate 10 mins of standing act to increase safety of TF's Goal to be met by: 02/03/21 GOAL 2: Increase dyn standing bal to F+ to increase ss ADL's Goal to be met by: 02/03/21 GOAL 3: Stength to 4/5 to increase I of dsg Goal to be met by: 02/10/21 GOAL 4: Increase I of toilet TF to SBA Goal to be met by: 09/17/20 Comments: Continued ed for safety/use of RW Order Entry Administrator Goals GOAL 1: Pt to be Mod-I with sink level ADLS. Goal to be met by: 02/06/21 GOAL 2: Pt to increase dyn. Std. balance to G-. Goal to be met by: 02/06/21 GOAL 3: Pt to be safe during ADLS with RW. Goal to be met by: 02/06/21 Plan Plan of Care: Therapeutic EX, Therapeutic Activity, Self-Care/Home Management Frequency of Treatment: 1-2 X day, as tolerated Duration of Treatment: 2 Weeks Anticipated Discharge Destination: [facility] Treatment Diagnosis (ICD 10 Codes): M62.81 General weakness Has the Physician been added for Co-signature?: Yes
[2021-01-27] MEDS: ATROVENT HFA INHALER (PER PUFF-WITH SPACER) IH SCH (19:55)
[2021-01-27] MEDS: VENTOLIN HFA (PER PUFF-WITH SPACER) IH SCH (19:55)
[2021-01-28 04:32] LABS: BASOPHILS % (AUTO) 0.2 % (0.0-3.0); EOSINOPHILS # (AUTO) 0.1 K/ul (0.0-0.7); EOSINOPHILS % (AUTO) 0.4 % (0.0-7.0); HEMATOCRIT 26.8 % (42.0-52.0); HEMOGLOBIN 8.7 g/dl (14.0-18.0); IMMATURE GRANULOCYTE # (AUTO) 0.1 (0.0-1.0); IMMATURE GRANULOCYTE % (AUTO) 0.6 % (0.0-5.0); LYMPHOCYTES % (AUTO) 16.5 (10.0-50.0); MEAN CORPUSCULAR HEMOGLOBIN 27.4 pg (27.0-31.0); MEAN CORPUSCULAR HGB CONC 32.5 (31.8-35.4); MEAN CORPUSCULAR VOLUME 84.3 fl (80.0-94.0); MONOCYTES # (AUTO) 1.2 K/uL (0.4-2.0); MONOCYTES % (AUTO) 9.8 (0-10); NEUTROPHILS % (AUTO) 72.5 % (42.2-75.2); PLATELET COUNT 175 10^3/uL (140-440); RED BLOOD COUNT 3.18 10^6/ul (4.70-6.10)
[2021-01-28] MEDS: ATROVENT HFA INHALER (PER PUFF-WITH SPACER) IH SCH ×3 (04:40→20:05)
[2021-01-28] MEDS: VENTOLIN HFA (PER PUFF-WITH SPACER) IH SCH ×3 (04:40→20:05)
[2021-01-28 04:47] LABS: ALANINE AMINOTRANSFERASE 45.9 U/L (0-50); ALBUMIN 2.52 g/dL (3.5-5.0); ALKALINE PHOSPHATASE 59.4 U/L (56-119); ASPARTATE AMINO TRANSFERASE 25.7 U/L (17-59); BILIRUBIN,TOTAL 0.57 mg/dL (0.2-1.3); CALCIUM 7.76 mg/dL (8.4-10.2); CARBON DIOXIDE 26.7 mmol/L (22-30.0); CHLORIDE 106.2 mmol/L (98-107); CREATININE 1.31 mg/dL (0.60-1.10); POTASSIUM 3.82 mmol/L (3.5-5.1); SODIUM 134.8 mmol/L (134.5-145); TOTAL PROTEIN 5.87 g/dL (6.3-8.2)
[2021-01-28] MEDS: PROTONIX PO SCH ×2 (05:58→17:27)
--- NOTE | 2021-01-28 08:47 | PCM.PROG ---
Attending Provider: ATTENDING PROVIDER: Dr. DARY CAROLINA This patient is seen with Winsome Licea, Nurse Practitioner. DATE OF SERVICE: 01/28/21 SUBJECTIVE: This 89 year old /WHITE M was hospitalized 01/24/21. The patient is resting comfortably in bed. He is more alert today. Blood culture positive for Enterococcus was positive before in August. No fever. REVIEW OF SYSTEMS: CONSTITUTIONAL: Weakness. No night sweats. No fatigue, malaise, lethargy. No fever or chills. HEENT: Eyes: No visual changes. No eye pain. No eye discharge. ENT: No runny nose. No epistaxis. No sinus pain. No odynophagia. No congestion. RESPIRATORY: No cough, no congestion. No hemoptysis. No shortness of breath. CARDIOVASCULAR: No angina symptoms. No CHF symptoms. No atypical chest pain for CAD. No palpitations. No orthopnea.. GASTROINTESTINAL: No abdominal pain. No nausea or vomiting. No diarrhea or constipation. No hematemesis. No hematochezia. GENITOURINARY: No urgency. No frequency. No dysuria. No hematuria. No obstructive symptoms. No discharge. No pain. No significant abnormal bleeding. MUSCULOSKELETAL: No musculoskeletal pain; no joint swelling. NEUROLOGICAL: Awake, alert, oriented to time, place and person. No headache. No neck pain. No syncope. No seizures. No dizziness. PSYCHIATRIC: Not anxious. No depression. No suicidal thoughts. No homicidal thoughts. SKIN: No rash. No lesions. No wounds. ENDOCRINE: No unexplained weight loss. No weight gain. HEMATOLOGIC/LYMPHATIC: Anemia. No purpura. No petechiae. No prolonged or excessive bleeding. No palpable lymph nodes. PHYSICAL EXAMINATION: GENERAL: The patient is awake, alert and oriented, lying/sitting in bed in no distress. VITAL SIGNS: Temperature 98.9 F, Pulse 64, Respiratory Rate 20, BP 106/55, Pulse Ox 98% HEENT: Head normocephalic, atraumatic. Eyes: Extraocular muscles are intact. Pupils are equal, round and reactive to light and accommodation. Ears: No lesions. Nose appeared normal. Throat: No exudate or erythema. NECK: Supple. No JVD, no carotid bruit. No lymphadenopathy or thyromegaly. LUNGS: Diminished breath sounds with bilateral inspiratory wheeze. Percussion note normal. Chest symmetrical. HEART: S1, S2, no S3. No murmurs. No cyanosis or clubbing. No ascites. Pulses: Dorsalis pedis and posterior tibial pulses +1 to +2 both sides. ABDOMEN: Soft. Non-tender. Bowel sounds active. No CVA tenderness. No mass felt. EXTREMITIES: No edema. Full range of motion of all extremities, equal. NEUROLOGIC: No focal deficit. Cranial nerves II through XII are grossly intact. No headache. No double vision. SKIN: Not dry. Intact. Turgor-normal. LYMPHATIC: No palpable lymph nodes/no lymphedema. MUSCULOSKELETAL: Normal joints with no swelling. Muscle tone is normal. LAB REVIEW: 01/28/21 04:18 01/28/21 04:18 01/28/21 04:18: Sodium 134.8, Potassium 3.82, Chloride 106.2, Carbon Dioxide 26.7, Anion Gap 5.72, BUN 33.0 H, Creatinine 1.31 H, Estimated GFR (MDRD) 52.00, BUN/Creatinine Ratio 25.19, Glucose 130.0 H, Calcium 7.76 L, Total Bilirubin 0.57, AST 25.7, ALT 45.9, Alkaline Phosphatase 59.4, Total Protein 5.87 L, Albumin 2.52 L, Globulin 3.35, Albumin/Globulin Ratio 0.75 01/28/21 04:18: WBC 12.40 H, RBC 3.18 L, Hgb 8.7 L, Hct 26.8 L, MCV 84.3, MCH 27.4, MCHC 32.5, RDW Coeff of Shira 16.0 H, Plt Count 175, Immature Gran % (Auto) 0.6, Neut % (Auto) 72.5, Lymph % (Auto) 16.5, [place] % (Auto) 9.8, Eos % (Auto) 0.4, Baso % (Auto) 0.2, Neut # (Auto) 9.0 H, Lymph # (Auto) 2.0, [place] # (Auto) 1.2, Eos # (Auto) 0.1, Baso # (Auto) 0.0, Immature Gran # (Auto) 0.1 01/27/21 11:26: Stl Occult Blood (IFOB) Positive, Stool Occult Blood #2 No specimen received, Stool Occult Blood #3 No specimen received ASSESSMENT: Please see below. 1. Sepsis positive Enterococcus. 2. Bilateral pneumonitis. 3. Anemia. 4. Chronic kidney disease, Stage 3. 5. Severe end-stage COPD. PLAN: 1. Symbicort 160 two puffs b.i.d. 2. Repeat UA and urine culture. Plan and coordination of the patient's care discussed in the presence of Gill Box Fixer and nurse. CONDITION: Stable SCRIBED BY: CHENG TURNER Equipment Planner scribed while in presence of service performed by Dr. Carolina/Winsome Licea APRN on 01/28/21 ([id number])
[2021-01-28] MEDS: LASIX TAB PO SCH (09:29)
[2021-01-28] MEDS: MULTIVITAMIN TABLET PO SCH (09:29)
[2021-01-28] MEDS: NEURONTIN PO SCH ×3 (09:29→21:06)
[2021-01-28] MEDS: MAXIPIME 2 GM/50 ML D5W 2 GM/50 ML BAG IV SCH ×2 (09:29→21:06)
[2021-01-28] MEDS: ZYLOPRIM PO SCH (09:29)
[2021-01-28] MEDS: NICODERM 21 MG TD SCH (09:30)
[2021-01-28] MEDS: ZOCOR PO SCH (09:30)
[2021-01-28] MEDS: COLESTID PO SCH (09:30)
[2021-01-28] MEDS: FLOMAX PO SCH (09:30)
--- NOTE | 2021-01-28 09:53 | HP ---
DATE OF SERVICE: 01/24/21 HISTORY OF PRESENT ILLNESS: This is an 89-year-old white female who is a resident at [facility]. He was brought to the emergency room for decrease in mental status and incontinence. This is a change from his baseline. PAST MEDICAL HISTORY: Severe end-stage COPD Recent hospitalization for colitis, dehydration, generalized weakness History of UTI Infrarenal abdominal aortic aneurysm 4.[address] 05/25 refuses vascular Recurrent gout Dizziness Oxygen dependent COPD Continue to be a heavy smoker Chronic respiratory failure Hypertension Neuropathy GERD Chronic kidney disease, Stage 3 History of left renal cancer with left nephrectomy, refuses to see urology Left sciatica Hand tremors CHF Dyslipidemia History of noncompliance with medications, diet, lifestyle, recommendations and followup PAST SURGICAL HISTORY: Left nephrectomy Spine surgery times three Bilateral total knee replacement Status post cholecystectomy Status post appendectomy REVIEW OF SYSTEMS: CONSTITUTIONAL: Fatigue, lethargy. No night sweats. No malaise. No fever or chills. HEENT: Eyes: No visual changes. No eye pain. No eye discharge. ENT: No runny nose. No epistaxis. No sinus pain. No sore throat. No odynophagia. No ear pain. No congestion. RESPIRATORY: No cough, no congestion. No hemoptysis. No shortness of breath. CARDIOVASCULAR: No angina symptoms. No CHF symptoms. No atypical chest pain for CAD. No palpitations. No PND. No orthopnea. GASTROINTESTINAL: No abdominal pain. No nausea or vomiting. No diarrhea or constipation. No hematemesis. No hematochezia. GENITOURINARY: No urgency. No frequency. No dysuria. No hematuria. No obstructive symptoms. No discharge. No pain. No significant abnormal bleeding. MUSCULOSKELETAL: Positive for generalized weakness. No musculoskeletal pain. No joint swelling. No arthritis. NEUROLOGICAL: Increased confusion. No headache. No neck pain. No syncope. No seizures. No dizziness. PSYCHIATRIC: Not anxious. No depression. No suicidal thoughts. No homicidal thoughts. SKIN: No rash. No lesions. No wounds. ENDOCRINE: No unexplained weight loss. No weight gain. HEMATOLOGIC/LYMPHATIC: No anemia. No purpura. No petechiae. No prolonged or excessive bleeding. No palpable lymph nodes. PERSONAL/FAMILY/SOCIAL HISTORY: He is , continues to be a heavy smoker one pack per day, oxygen dependent. He had been living at assisted living until he went to [facility] a few weeks ago after hospitalization. No alcohol or ilicit drug use. MEDICATIONS: Ipratropium - Albuterol 0.5 mg - 3 mg q.6h p.r.n. Simvastatin 20 mg p.o. daily Tamsulosin 0.4 mg p.o. daily Omeprazole 20 mg p.o. b.i.d. Furosemide 20 mg p.o. daily Gabapentin 300 mg p.o. t.i.d. Multivitamin one tab p.o. daily Allopurinol 300 mg p.o. daily Colestipol 1 gm p.o. daily Daliresp 500 mcg p.o. daily ALLERGIES: PENICILLINS, (FLU VACCINE) PHYSICAL EXAMINATION: GENERAL: The patient is lethargic, confused. VITAL SIGNS: Temperature 99.1, heart rate 88, respirations 18, BP 97/48, pulse ox 97%. HEENT: Head normocephalic, atraumatic. Eyes: Extraocular muscles are intact. Pupils are equal, round and reactive to light and accommodation. Ears: No lesions. Nose appeared normal. Throat: No exudate or erythema. NECK: Supple. No JVD, no carotid bruit. No lymphadenopathy or thyromegaly. LUNGS: Diminished breath sounds. Clear to auscultation. Percussion note normal. Chest symmetrical. HEART: S1, S2, no S3. No murmur. No cyanosis or clubbing. No ascites. Pulses: Dorsalis pedis and posterior tibial pulses +1 to +2 bilaterally. ABDOMEN: Soft. Nontender. Bowel sounds active. No CVA tenderness. No mass felt. EXTREMITIES: No edema. Full range of motion of all extremities, equal. NEUROLOGIC: No focal deficit. Cranial nerves II through XII are grossly intact. No headache, no double vision or headache. SKIN: Not dry. Intact. Turgor - normal. LYMPHATIC: No palpable lymph nodes/no lymphedema. MUSCULOSKELETAL: Normal joints with no swelling. Muscle tone is normal. White count 18.6, hemoglobin 8.2, hematocrit 23.9, platelets 138. Sodium 135, potassium 3.7, BUN 32, creatinine 1.55, glucose 183. Urine 1+ protein, 2+ blood. Trce bacteria. ABGs on 2L 02 sat 97.6, pH 7.51, pc02 36, p02 88, bicarb 28.7, total c02 29. CK-MB 2.9, CK-MB % 1.9, troponin 0.33, respiratory panel by PCR is negative. Chest x-ray states bibasilar pneumonia and/or atelectasis. ASSESSMENT: 1. SEPSIS 2. HYPOTENSION 3. BIBASILAR PNEUMONIA 4. POSSIBLE UTI WITH CULTURE PENDING 5. SEVERE END-STAGE COPD 6. FEVER PLAN: 1. We will admit. 2. Routine telemetry orders. 3. CBC, CMP daily. 4. Continue home medications. 5. NS IV at 75 cc/hr. 6. Urine culture. 7. Blood cultures times two. 8. Oxygen at 2 to 3L via nasal cannula. 9. Start Rocephin 1 gm IV daily along with Vancomycin 1 gm IV q.12hr. 10. Decadron 2 mg IM daily. 11. Will follow closely. TIME SPENT: More than 70 minutes. MTDD
[2021-01-28 09:54] LABS: BILIRUBIN,URINE Negative (NEGATIVE); CLARITY,URINE Slightly (CLEAR); COLOR,URINE Yellow (YELLOW); GLUCOSE, URINE (UA) Negative (NEGATIVE); KETONES,URINE Negative (NEGATIVE); LEUKOCYTE ESTERASE ,URINE Negative (NEGATIVE); NITRITE,URINE Negative (NEGATIVE); PH,URINE 5.5 (5-9); PROTEIN,URINE 1+ (NEGATIVE); URINE, BLOOD 2+ (NEGATIVE); UROBILINOGEN,URINE 0.2 (0.2)
[2021-01-28 10:02] LABS: HYALINE CASTS, URINE 0-2 (NOT PRESENT); MUCUS,URINE TRACE (NOT PRESENT)
[2021-01-28] MEDS: DECADRON IVP SCH (10:31)
[2021-01-28] MEDS: SYMBICORT 160-4.5 MCG INHALER IH SCH ×2 (11:00→22:16)
[2021-01-28] MEDS: DALIRESP PO SCH (11:16)
[2021-01-28] MEDS: VANCOMYCIN 1.5 GRAM/300 ML PREMIX 1.5 GM/300 ML BAG IV SCH (11:18)
--- NOTE | 2021-01-28 13:19 | PN ---
DATE OF SERVICE: 01/28/2021 SUBJECTIVE: The patient was seen and examined with the Nurse Practitioner. The patient's condition is stable. He is on double antibiotics. He has enterococcus growing from the blood. Previous the patient had blood cultures positive on enterococcus. A couple of echocardiograms were done in order to look for endocarditis or vegetations. The patient is not candidate for LANE, transesophageal echocardiogram. Overall respiratory status and conditions are not stable enough for him to undergo this test. TIME SPENT: More than 30 minutes. Plan and coordination of the patient's care discussed in the presence of nurse. KAYLEY
--- NOTE | 2021-01-28 13:24 | PN ---
DATE OF SERVICE: 01/27/2021 SUBJECTIVE: The patient was seen and examined with the Nurse Practitioner. The patient's condition is stable. His septicemia seems to be under control with double antibiotics. His appetite seems to have improved some. His oral intake is acceptable. He was given 1 unit of packed red cell. There is no evidence of active GI bleed. TIME SPENT: More than 30 minutes. Plan and coordination of the patient's care discussed in the presence of nurse. KAYLEY
[2021-01-29] MEDS: VENTOLIN HFA (PER PUFF-WITH SPACER) IH SCH ×3 (04:50→19:35)
[2021-01-29] MEDS: ATROVENT HFA INHALER (PER PUFF-WITH SPACER) IH SCH ×3 (04:50→19:35)
[2021-01-29 05:29] LABS: BASOPHILS % (AUTO) 0.2 % (0.0-3.0); EOSINOPHILS # (AUTO) 0.1 K/ul (0.0-0.7); EOSINOPHILS % (AUTO) 0.4 % (0.0-7.0); HEMATOCRIT 25.6 % (42.0-52.0); HEMOGLOBIN 8.5 g/dl (14.0-18.0); IMMATURE GRANULOCYTE # (AUTO) 0.1 (0.0-1.0); IMMATURE GRANULOCYTE % (AUTO) 0.8 % (0.0-5.0); LYMPHOCYTES # (AUTO) 2.1 K/uL (0.60-3.4); LYMPHOCYTES % (AUTO) 13.5 (10.0-50.0); MEAN CORPUSCULAR HEMOGLOBIN 28.3 pg (27.0-31.0); MEAN CORPUSCULAR HGB CONC 33.2 (31.8-35.4); MEAN CORPUSCULAR VOLUME 85.3 fl (80.0-94.0); MONOCYTES % (AUTO) 6.2 (0-10); NEUTROPHILS % (AUTO) 78.9 % (42.2-75.2); PLATELET COUNT 169 10^3/uL (140-440); RDW COEFFICIENT OF VARIATION 16.3 % (11.6-14.8); WHITE BLOOD COUNT 15.23 K/ul (4.2-10.2)
[2021-01-29 05:41] LABS: ALANINE AMINOTRANSFERASE 33.9 U/L (0-50); ALBUMIN 2.57 g/dL (3.5-5.0); ALKALINE PHOSPHATASE 58.6 U/L (56-119); ASPARTATE AMINO TRANSFERASE 18.5 U/L (17-59); BILIRUBIN,TOTAL 0.62 mg/dL (0.2-1.3); BLOOD UREA NITROGEN 35.5 mg/dL (9-20); CALCIUM 7.79 mg/dL (8.4-10.2); CHLORIDE 104.7 mmol/L (98-107); CREATININE 1.37 mg/dL (0.60-1.10); GLUCOSE 137.8 mg/dL (74-106); POTASSIUM 4.13 mmol/L (3.5-5.1); SODIUM 133.9 mmol/L (134.5-145); TOTAL PROTEIN 6.01 g/dL (6.3-8.2)
[2021-01-29] MEDS: LASIX TAB PO SCH (05:49)
[2021-01-29] MEDS: PROTONIX PO SCH ×2 (06:26→17:17)
--- NOTE | 2021-01-29 08:33 | PN ---
DATE OF SERVICE: 01/24/2021 ADMIT NOTE SUBJECTIVE: The patient was hospitalized through the emergency room. He was sent from the half-way. He is obtunded. Respiratory status judged from arterial blood gasses seems to be okay but has bilateral pneumonia on CT scan. Also has abnormal U/A. UTI with septicemia. This patient has likely septicemia. He is going on Vancomycin and Cefepime. Should cover Klebsiella, Pseudomonas and other spectrum. Considering a broad spectrum we will cover most of the gram negative and positive cocci. The patient is a DNR. His hgb is 8.2. We will type and cross match two units. IV fluids with 1000cc D5 1/2 normal saline to be given 125cc per hour. The BUN and creatinine is mildly abnormal with dehydration and is moving all his extremities. The patient's other problems are coronary artery disease end stage, Chronic lung disease and dementia. CONDITION: Poor TIME SPENT: More than 30 minutes. Plan and coordination of the patient's care discussed in the presence of nurse. KAYLEY
[2021-01-29] MEDS: MAXIPIME 2 GM/50 ML D5W 2 GM/50 ML BAG IV SCH ×2 (08:43→20:28)
[2021-01-29] MEDS: NEURONTIN PO SCH ×3 (08:46→20:27)
[2021-01-29] MEDS: FLOMAX PO SCH (08:46)
[2021-01-29] MEDS: MULTIVITAMIN TABLET PO SCH (08:46)
[2021-01-29] MEDS: ZOCOR PO SCH (08:47)
[2021-01-29] MEDS: COLESTID PO SCH (08:47)
[2021-01-29] MEDS: DALIRESP PO SCH (08:47)
[2021-01-29] MEDS: ZYLOPRIM PO SCH (08:47)
[2021-01-29] MEDS: SYMBICORT 160-4.5 MCG INHALER IH SCH ×2 (08:48→20:27)
[2021-01-29] MEDS: NICODERM 21 MG TD SCH (08:48)
[2021-01-29] MEDS: DECADRON IVP SCH (08:49)
[2021-01-29] MEDS: VANCOMYCIN 1.5 GRAM/300 ML PREMIX 1.5 GM/300 ML BAG IV SCH (09:30)
[2021-01-29] MEDS: MORPHINE 2 MG/ML SYRINGE IVP PRN (21:39)
[2021-01-30] MEDS: ATROVENT HFA INHALER (PER PUFF-WITH SPACER) IH SCH ×3 (04:55→19:48)
[2021-01-30] MEDS: VENTOLIN HFA (PER PUFF-WITH SPACER) IH SCH ×3 (04:55→19:48)
[2021-01-30 05:26] LABS: BASOPHILS # (AUTO) 0.1 K/uL (0-0.2); BASOPHILS % (AUTO) 0.4 % (0.0-3.0); EOSINOPHILS # (AUTO) 0.2 K/ul (0.0-0.7); HEMATOCRIT 26.8 % (42.0-52.0); HEMOGLOBIN 8.7 g/dl (14.0-18.0); IMMATURE GRANULOCYTE # (AUTO) 0.2 (0.0-1.0); IMMATURE GRANULOCYTE % (AUTO) 1.2 % (0.0-5.0); LYMPHOCYTES % (AUTO) 13.8 (10.0-50.0); MEAN CORPUSCULAR HGB CONC 32.5 (31.8-35.4); MEAN CORPUSCULAR VOLUME 86.2 fl (80.0-94.0); MONOCYTES # (AUTO) 1.2 K/uL (0.4-2.0); MONOCYTES % (AUTO) 7.8 (0-10); NEUTROPHILS # (AUTO) 11.2 K/ul (2.0-6.9); NEUTROPHILS % (AUTO) 75.8 % (42.2-75.2); PLATELET COUNT 229 10^3/uL (140-440); RED BLOOD COUNT 3.11 10^6/ul (4.70-6.10); WHITE BLOOD COUNT 14.81 K/ul (4.2-10.2)
[2021-01-30 05:38] LABS: ALANINE AMINOTRANSFERASE 31.5 U/L (0-50); ALBUMIN 2.75 g/dL (3.5-5.0); ALKALINE PHOSPHATASE 58.4 U/L (56-119); ASPARTATE AMINO TRANSFERASE 19.9 U/L (17-59); BILIRUBIN,TOTAL 0.56 mg/dL (0.2-1.3); BLOOD UREA NITROGEN 35.6 mg/dL (9-20); CALCIUM 7.91 mg/dL (8.4-10.2); CARBON DIOXIDE 23.8 mmol/L (22-30.0); CREATININE 1.39 mg/dL (0.60-1.10); GLUCOSE 114.6 mg/dL (74-106); POTASSIUM 4.14 mmol/L (3.5-5.1); SODIUM 135.5 mmol/L (134.5-145); TOTAL PROTEIN 6.31 g/dL (6.3-8.2)
[2021-01-30] MEDS: PROTONIX PO SCH ×2 (05:43→17:23)
[2021-01-30] MEDS: LASIX TAB PO SCH (05:43)
[2021-01-30] MEDS: MORPHINE 2 MG/ML SYRINGE IVP PRN (05:49)
[2021-01-30] MEDS ORDERED: ULTRAM PO SCH (09:00)
--- NOTE | 2021-01-30 09:16 | PCM.PROG ---
Attending Provider: ATTENDING PROVIDER: Dr. DARY CAROLINA This patient is seen with Winsome Licea, Nurse Practitioner. DATE OF SERVICE: 01/30/21 SUBJECTIVE: This 89 year old /WHITE M was hospitalized 01/24/21. The patient is resting comfortably. He seemed to have more weakness yesterday. He has hip pain with no trauma. Hemoglobin slightly improved along with white count. Kidney function stable. REVIEW OF SYSTEMS: CONSTITUTIONAL: Weakness. No night sweats. No fatigue, malaise, lethargy. No fever or chills. HEENT: Eyes: No visual changes. No eye pain. No eye discharge. ENT: No runny nose. No epistaxis. No sinus pain. No odynophagia. No congestion. RESPIRATORY: No cough, no congestion. No hemoptysis. No shortness of breath. CARDIOVASCULAR: No angina symptoms. No CHF symptoms. No atypical chest pain for CAD. No palpitations. No orthopnea.. GASTROINTESTINAL: No abdominal pain. No nausea or vomiting. No diarrhea or constipation. No hematemesis. No hematochezia. GENITOURINARY: No urgency. No frequency. No dysuria. No hematuria. No obstructive symptoms. No discharge. No pain. No significant abnormal bleeding. MUSCULOSKELETAL: Hip pain. NEUROLOGICAL: Awake, alert, oriented to time, place and person. No headache. No neck pain. No syncope. No seizures. No dizziness. PSYCHIATRIC: Not anxious. No depression. No suicidal thoughts. No homicidal thoughts. SKIN: No rash. No lesions. No wounds. ENDOCRINE: No unexplained weight loss. No weight gain. HEMATOLOGIC/LYMPHATIC: Anemia. No purpura. No petechiae. No prolonged or excessive bleeding. No palpable lymph nodes. PHYSICAL EXAMINATION: GENERAL: The patient is awake, alert and oriented, lying/sitting in bed in no distress. VITAL SIGNS: Temperature 98.4 F, Pulse 68, Respiratory Rate 16, BP 91/49, Pulse Ox 98% HEENT: Head normocephalic, atraumatic. Eyes: Extraocular muscles are intact. Pupils are equal, round and reactive to light and accommodation. Ears: No lesions. Nose appeared normal. Throat: No exudate or erythema. NECK: Supple. No JVD, no carotid bruit. No lymphadenopathy or thyromegaly. LUNGS: Diminished breath sounds. Clear to auscultation. Percussion note normal. Chest symmetrical. HEART: S1, S2, no S3. Grade II systolic murmur. No cyanosis or clubbing. No ascites. Pulses: Dorsalis pedis and posterior tibial pulses +1 to +2 both sides. ABDOMEN: Soft. Non-tender. Bowel sounds active. No CVA tenderness. No mass felt. EXTREMITIES: No edema. Full range of motion of all extremities, equal. NEUROLOGIC: No focal deficit. Cranial nerves II through XII are grossly intact. No headache. No double vision. SKIN: Not dry. Intact. Turgor-normal. LYMPHATIC: No palpable lymph nodes/no lymphedema. MUSCULOSKELETAL: Normal joints with no swelling. Muscle tone is normal. LAB REVIEW: 01/30/21 04:44 01/30/21 04:44 01/30/21 04:44: Sodium 135.5, Potassium 4.14, Chloride 108.0 H, Carbon Dioxide 23.8, Anion Gap 7.84, BUN 35.6 H, Creatinine 1.39 H, Estimated GFR (MDRD) 48.00, BUN/Creatinine Ratio 25.61, Glucose 114.6 H, Calcium 7.91 L, Total Bilirubin 0.56, AST 19.9, ALT 31.5, Alkaline Phosphatase 58.4, Total Protein 6.31, Albumin 2.75 L, Globulin 3.56, Albumin/Globulin Ratio 0.77 01/30/21 04:44: WBC 14.81 H, RBC 3.11 L, Hgb 8.7 L, Hct 26.8 L, MCV 86.2, MCH 28.0, MCHC 32.5, RDW Coeff of Shira 17.0 H, Plt Count 229 D, Immature Gran % (Auto) 1.2, Neut % (Auto) 75.8 H, Lymph % (Auto) 13.8, [place] % (Auto) 7.8, Eos % (Auto) 1.0, Baso % (Auto) 0.4, Neut # (Auto) 11.2 H, Lymph # (Auto) 2.0, [place] # (Auto) 1.2, Eos # (Auto) 0.2, Baso # (Auto) 0.1, Immature Gran # (Auto) 0.2 ASSESSMENT: Please see below. 1. Sepsis, positive Enterococcus. 2. Anemia. 3. Chronic kidney disease, Stage 3. 4. Severe end-stage COPD. 5. Chronic respiratory failure. PLAN: 1. Continue IV Vancomycin. 2. Continue PT/OT. 3. Tramadol 50 mg b.i.d. p.r.n. Plan and coordination of the patient's care discussed in the presence of Sharebroker and nurse. CONDITION: Stable SCRIBED BY: CHENG TURNER Instructor Tap Dancing scribed while in presence of service performed by Dr. Carolina/Winsome Licea APRN on 01/30/21 ([id number])
[2021-01-30] MEDS: SYMBICORT 160-4.5 MCG INHALER IH SCH ×2 (09:18→20:42)
[2021-01-30] MEDS: NICODERM 21 MG TD SCH (09:18)
[2021-01-30] MEDS: DALIRESP PO SCH (09:19)
[2021-01-30] MEDS: MULTIVITAMIN TABLET PO SCH (09:19)
[2021-01-30] MEDS: ZOCOR PO SCH (09:19)
[2021-01-30] MEDS: COLESTID PO SCH (09:20)
[2021-01-30] MEDS: NEURONTIN PO SCH ×3 (09:20→20:38)
[2021-01-30] MEDS: FLOMAX PO SCH (09:20)
[2021-01-30] MEDS: ZYLOPRIM PO SCH (09:20)
[2021-01-30] MEDS ORDERED: ULTRAM PO PRN (10:00)
[2021-01-30] MEDS: VANCOMYCIN 1.5 GRAM/300 ML PREMIX 1.5 GM/300 ML BAG IV SCH (10:19)
[2021-01-30] MEDS: DECADRON IVP SCH (10:20)
--- NOTE | 2021-01-30 11:55 | PN ---
DATE OF SERVICE: 01/25/21 SUBJECTIVE: 89-year-old white male hospitalized with sepsis and pneumonia. The patient's condition has improved remarkably. He is awake. He is oriented to person, maybe place. REVIEW OF SYSTEMS: (the patient is unable to give more history but he is alert, somewhat confused but talkative as usual) CONSTITUTIONAL: No night sweats. No fatigue, malaise, lethargy. No fever or chills. HEENT: Eyes: No visual changes. No eye pain. No eye discharge. ENT: No runny nose. No epistaxis. No sinus pain. No sore throat. No odynophagia. No congestion. RESPIRATORY: No cough, no congestion. No hemoptysis. No shortness of breath. CARDIOVASCULAR: No angina symptoms. No CHF symptoms. No atypical chest pain for CAD. No palpitations. No PND. No orthopnea. GASTROINTESTINAL: Appetite is not up to par. No vomiting. No abdominal pain. No diarrhea or constipation. No hematemesis. No hematochezia. GENITOURINARY: No urgency. No frequency. No dysuria. No hematuria. No obstructive symptoms. No discharge. No pain. No significant abnormal bleeding. MUSCULOSKELETAL: No musculoskeletal pain; no joint swelling. NEUROLOGICAL: No headache. No neck pain. No syncope. No seizures. No dizziness. PSYCHIATRIC: Not anxious. No depression. No suicidal thoughts. No homicidal thoughts. SKIN: No rash. No lesions. No wounds. ENDOCRINE: No unexplained weight loss. No weight gain. HEMATOLOGIC/LYMPHATIC: No anemia. No purpura. No petechiae. No prolonged or excessive bleeding. No palpable lymph nodes. PHYSICAL EXAMINATION: GENERAL: The patient is alert but somewhat confused, talkative, no distress. VITAL SIGNS: Temperature 97.2, pulse 68, respiratory rate 18, BP 96/45, pulse ox 97%. HEENT: Head normocephalic, atraumatic. Eyes: Extraocular muscles are intact. Pupils are equal, round and reactive to light and accommodation. Ears: No lesions. Nose appeared normal. Throat: No exudate or erythema. NECK: Supple. No JVD, no carotid bruit. No lymphadenopathy or thyromegaly. LUNGS: Decreased breath sounds with mild wheeze. Percussion note normal. Chest symmetrical. HEART: S1, S2, no S3. No murmurs. No cyanosis or clubbing. No ascites. Pulses: Dorsalis pedis and posterior tibial pulses +1 to +2 bilaterally. ABDOMEN: Soft. Nontender. Bowel sounds active. No CVA tenderness. No mass felt. EXTREMITIES: No edema. Full range of motion of all extremities, equal. NEUROLOGIC: No focal deficit. Cranial nerves II through XII are grossly intact. No headache. No double vision. SKIN: Not dry. Intact. Turgor - normal. LYMPHATIC: No palpable lymph nodes/no lymphedema. MUSCULOSKELETAL: Normal joints with no swelling. Muscle tone is normal. LABS: Hemoglobin 8.6, hematocrit 26, WBC 13,000, normal differential. Creatinine 1.1, BUN 32, potassium 4.3. ASSESSMENT/PLAN: 1. Sepsis likely from UTI seems to be under control. The patient's condition has improved remarkably. 2. Bilateral pneumonia could be atelectasis but in any case, the patient has been on Cefepime and Vancomycin seems to be improving. 3. The patient's blood cultures growing gram positive cocci. Will see what it turns out to be but the patient is on broad spectrum antibiotic that should cover. In fact, the patient is clinically so much better that I would be afraid to change his medication for now. CONDITION: Stable. Prognosis is guarded. Of Note: The patient's hemoglobin/hematocrit is stable. Will watch it, if it goes below 8 may give him a couple units of packed red cells. TIME SPENT: More than 30 minutes. Plan and coordination of the patient's care discussed in the presence of nurse. KAYLEY
--- NOTE | 2021-01-30 12:01 | PN ---
DATE OF SERVICE: 01/26/21 SUBJECTIVE: The patient was seen and examined today. The patient's condition seems to be stable, improved, oriented to person. He recognized me as a doctor. Appetite is improving. He ate satisfactorily. The patient had an episode of shortness of breath and he was moist with wet sounding lungs. The patient's IV fluids were decreased and he was given Ativan and settled down. REVIEW OF SYSTEMS: CONSTITUTIONAL: No night sweats. No fatigue, malaise, lethargy. No fever or chills. HEENT: Eyes: No visual changes. No eye pain. No eye discharge. ENT: No runny nose. No epistaxis. No sinus pain. No sore throat. No odynophagia. No congestion. RESPIRATORY: Mildly short of breath. No cough, no congestion. No hemoptysis. CARDIOVASCULAR: No angina symptoms. No CHF symptoms. No atypical chest pain for CAD. No palpitations. No PND. No orthopnea. GASTROINTESTINAL: No abdominal pain. No nausea or vomiting. No diarrhea or constipation. No hematemesis. No hematochezia. GENITOURINARY: No urgency. No frequency. No dysuria. No hematuria. No obstructive symptoms. No discharge. No pain. No significant abnormal bleeding. MUSCULOSKELETAL: No musculoskeletal pain; no joint swelling. NEUROLOGICAL: No headache. No neck pain. No syncope. No seizures. No dizziness. PSYCHIATRIC: Not anxious. No depression. No suicidal thoughts. No homicidal thoughts. SKIN: No rash. No lesions. No wounds. ENDOCRINE: No unexplained weight loss. No weight gain. HEMATOLOGIC/LYMPHATIC: No anemia. No purpura. No petechiae. No prolonged or excessive bleeding. No palpable lymph nodes. PHYSICAL EXAMINATION: HEENT: Head normocephalic, atraumatic. Eyes: Extraocular muscles are intact. Pupils are equal, round and reactive to light and accommodation. Ears: No lesions. Nose appeared normal. Throat: No exudate or erythema. NECK: Supple. No JVD, no carotid bruit. No lymphadenopathy or thyromegaly. LUNGS: Few crepitations at the bases. Percussion note normal. Chest symmetrical. HEART: S1, S2, questionable S3. No murmurs. No cyanosis or clubbing. No ascites. Pulses: Dorsalis pedis and posterior tibial pulses +1 to +2 bilaterally. ABDOMEN: Soft. Nontender. Bowel sounds active. No CVA tenderness. No mass felt. EXTREMITIES: No pedal edema. Full range of motion of all extremities, equal. NEUROLOGIC: No focal deficit. Cranial nerves II through XII are grossly intact. No headache. No double vision. SKIN: Not dry. Intact. Turgor - normal. LYMPHATIC: No palpable lymph nodes/no lymphedema. MUSCULOSKELETAL: Normal joints with no swelling. Muscle tone is normal. ASSESSMENT: 1. Possibility of fluid overload with CHF, septicemia. 2. The patient has anemia with hemoglobin of 7.7. He is becoming symptomatic with shortness of breath, CHF. PLAN: 1. Give IV Lasix times 24 hours for any shortness of breath and also Morphine Sulfate to be added 3 mg q.6hr for shortness of breath. 2. Cut down IV fluids to 50 cc. 3. The patient will be given 1 unit of packed red cells. 4. Continue antibiotics, Cefepime and Vancomycin. CONDITION: Guarded/improving/Stable. TIME SPENT: More than 30 minutes. Plan and coordination of the patient's care discussed in the presence of nurse. KAYLEY
[2021-01-31] MEDS: VENTOLIN HFA (PER PUFF-WITH SPACER) IH SCH ×3 (04:50→19:55)
[2021-01-31] MEDS: ATROVENT HFA INHALER (PER PUFF-WITH SPACER) IH SCH ×3 (04:50→19:55)
[2021-01-31 04:57] LABS: BASOPHILS % (AUTO) 0.1 % (0.0-3.0); EOSINOPHILS # (AUTO) 0.1 K/ul (0.0-0.7); EOSINOPHILS % (AUTO) 0.6 % (0.0-7.0); HEMATOCRIT 27.2 % (42.0-52.0); HEMOGLOBIN 8.8 g/dl (14.0-18.0); IMMATURE GRANULOCYTE # (AUTO) 0.1 (0.0-1.0); LYMPHOCYTES # (AUTO) 1.6 K/uL (0.60-3.4); LYMPHOCYTES % (AUTO) 11.8 (10.0-50.0); MEAN CORPUSCULAR HEMOGLOBIN 27.9 pg (27.0-31.0); MEAN CORPUSCULAR HGB CONC 32.4 (31.8-35.4); MEAN CORPUSCULAR VOLUME 86.3 fl (80.0-94.0); MONOCYTES # (AUTO) 0.7 K/uL (0.4-2.0); MONOCYTES % (AUTO) 5.4 (0-10); NEUTROPHILS % (AUTO) 81.1 % (42.2-75.2); PLATELET COUNT 238 10^3/uL (140-440); RDW COEFFICIENT OF VARIATION 17.4 % (11.6-14.8); RED BLOOD COUNT 3.15 10^6/ul (4.70-6.10); WHITE BLOOD COUNT 13.59 K/ul (4.2-10.2)
[2021-01-31 05:10] LABS: ALANINE AMINOTRANSFERASE 26.4 U/L (0-50); ALBUMIN 2.71 g/dL (3.5-5.0); ALKALINE PHOSPHATASE 68.3 U/L (56-119); BILIRUBIN,TOTAL 0.37 mg/dL (0.2-1.3); BLOOD UREA NITROGEN 34.7 mg/dL (9-20); CALCIUM 8.01 mg/dL (8.4-10.2); CARBON DIOXIDE 27.7 mmol/L (22-30.0); CHLORIDE 106.7 mmol/L (98-107); CREATININE 1.34 mg/dL (0.60-1.10); GLUCOSE 134.3 mg/dL (74-106); POTASSIUM 4.25 mmol/L (3.5-5.1); SODIUM 138.3 mmol/L (134.5-145); TOTAL PROTEIN 6.37 g/dL (6.3-8.2)
[2021-01-31] MEDS: PROTONIX PO SCH ×2 (05:46→16:31)
[2021-01-31] MEDS: LASIX TAB PO SCH (05:46)
[2021-01-31] MEDS: DECADRON IVP SCH (09:09)
[2021-01-31] MEDS: DALIRESP PO SCH (09:10)
[2021-01-31] MEDS: ZOCOR PO SCH (09:10)
[2021-01-31] MEDS: ZYLOPRIM PO SCH (09:10)
[2021-01-31] MEDS: NEURONTIN PO SCH ×3 (09:10→20:49)
[2021-01-31] MEDS: COLESTID PO SCH (09:10)
[2021-01-31] MEDS: MULTIVITAMIN TABLET PO SCH (09:10)
[2021-01-31] MEDS: SYMBICORT 160-4.5 MCG INHALER IH SCH ×2 (09:11→20:50)
[2021-01-31] MEDS: NICODERM 21 MG TD SCH (09:11)
[2021-01-31] MEDS: FLOMAX PO SCH (09:11)
--- NOTE | 2021-01-31 09:48 | PCM.PROG ---
Attending Provider: ATTENDING PROVIDER: Dr. DARY CAROLINA DATE OF SERVICE: 01/31/21 SUBJECTIVE: This 89 year old /WHITE M was hospitalized 01/24/21 with pneumonia and sepsis. The patient's condition improved. He is alert but confused. REVIEW OF SYSTEMS: CONSTITUTIONAL: No night sweats. No fatigue, malaise, lethargy. No fever or chills. HEENT: Eyes: No visual changes. No eye pain. No eye discharge. ENT: No runny nose. No epistaxis. No sinus pain. No odynophagia. No congestion. RESPIRATORY: No cough, no congestion. No hemoptysis. No shortness of breath. CARDIOVASCULAR: No angina symptoms. No CHF symptoms. No atypical chest pain for CAD. No palpitations. No orthopnea.. GASTROINTESTINAL: Appetite improved. No abdominal pain. No nausea or vomiting. No diarrhea or constipation. No hematemesis. No hematochezia. GENITOURINARY: No urgency. No frequency. No dysuria. No hematuria. No obstructive symptoms. No discharge. No pain. No significant abnormal bleeding. MUSCULOSKELETAL: No musculoskeletal pain; no joint swelling. NEUROLOGICAL: Awake, alert but confused. No headache. No neck pain. No syncope. No seizures. No dizziness. PSYCHIATRIC: Not anxious. No depression. No suicidal thoughts. No homicidal thoughts. SKIN: No rash. No lesions. No wounds. ENDOCRINE: No unexplained weight loss. No weight gain. HEMATOLOGIC/LYMPHATIC: No anemia. No purpura. No petechiae. No prolonged or excessive bleeding. No palpable lymph nodes. PHYSICAL EXAMINATION: GENERAL: The patient is awake, alert but confused lying/sitting in bed in no distress. VITAL SIGNS: Temperature 98.0 F, Pulse 59, Respiratory Rate 24, BP 118/50, Pulse Ox 91% HEENT: Head normocephalic, atraumatic. Eyes: Extraocular muscles are intact. Pupils are equal, round and reactive to light and accommodation. Ears: No lesions. Nose appeared normal. Throat: No exudate or erythema. NECK: Supple. No JVD, no carotid bruit. No lymphadenopathy or thyromegaly. LUNGS: Clear to auscultation. Percussion note normal. Chest symmetrical. HEART: S1, S2, no S3. Systolic murmur I to II/ over apex and aortic area. No cyanosis or clubbing. No ascites. Pulses: Dorsalis pedis and posterior tibial pulses +1 to +2 both sides. ABDOMEN: Soft. Non-tender. Bowel sounds active. No CVA tenderness. No mass felt. EXTREMITIES: No edema. Full range of motion of all extremities, equal. NEUROLOGIC: No focal deficit. Cranial nerves II through XII are grossly intact. No headache, no double vision or headache. SKIN: Warm and dry. Intact. Turgor-normal. LYMPHATIC: No palpable lymph nodes/no lymphedema. MUSCULOSKELETAL: Normal joints with no swelling. Muscle tone is normal. LAB REVIEW: 01/31/21 04:33 01/31/21 04:33 01/31/21 04:33: Sodium 138.3, Potassium 4.25, Chloride 106.7, Carbon Dioxide 27.7, Anion Gap 8.15, BUN 34.7 H, Creatinine 1.34 H, Estimated GFR (MDRD) 50.00, BUN/Creatinine Ratio 25.89, Glucose 134.3 H, Calcium 8.01 L, Total Bilirubin 0.3 7, AST 25.0, ALT 26.4, Alkaline Phosphatase 68.3, Total Protein 6.37, Albumin 2.71 L, Globulin 3.66, Albumin/Globulin Ratio 0.74 01/31/21 04:33: WBC 13.59 H, RBC 3.15 L, Hgb 8.8 L, Hct 27.2 L, MCV 86.3, MCH 27.9, MCHC 32.4, RDW Coeff of Shira 17.4 H, Plt Count 238, Immature Gran % (Auto) 1.0, Neut % (Auto) 81.1 H, Lymph % (Auto) 11.8, [place] % (Auto) 5.4, Eos % (Auto) 0.6, Baso % (Auto) 0.1, Neut # (Auto) 11.0 H, Lymph # (Auto) 1.6, [place] # (Auto) 0.7, Eos # (Auto) 0.1, Baso # (Auto) 0.0, Immature Gran # (Auto) 0.1 ASSESSMENT: Please see below. 1. Pneumonia seems to have resolved clinically. 2. 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 3. End-stage COPD. 4. CHF. 5. Dementia. PLAN: 1. Continue antibiotics and Vancomycin. Plan and coordination of the patient's care discussed in the presence of Process Safety Engineer and nurse. CONDITION: Stable SCRIBED BY: CHENG TURNER Director Of Sales And Marketing scribed while in presence of service performed by Dr. DARY CAROLINA on 01/31/21 ([id number])
[2021-01-31] MEDS: VANCOMYCIN 1.5 GRAM/300 ML PREMIX 1.5 GM/300 ML BAG IV SCH (10:10)
--- NOTE | 2021-01-31 15:14 | PN ---
DATE OF SERVICE: 01/29/21 SUBJECTIVE: 89-year-old white male hospitalized with sepsis pneumonia. The patient's blood cultures positive for enterococcus which has been like this for several months. REVIEW OF SYSTEMS: CONSTITUTIONAL: No night sweats. No fatigue, malaise, lethargy. No fever or chills. HEENT: Eyes: No visual changes. No eye pain. No eye discharge. ENT: No runny nose. No epistaxis. No sinus pain. No sore throat. No odynophagia. No congestion. RESPIRATORY: No cough, no congestion. No hemoptysis. No shortness of breath. CARDIOVASCULAR: No angina symptoms. No CHF symptoms. No atypical chest pain for CAD. No palpitations. No PND. No orthopnea. GASTROINTESTINAL: No abdominal pain. No nausea or vomiting. No diarrhea or constipation. No hematemesis. No hematochezia. GENITOURINARY: No urgency. No frequency. No dysuria. No hematuria. No obstructive symptoms. No discharge. No pain. No significant abnormal bleeding. MUSCULOSKELETAL: No musculoskeletal pain; no joint swelling. NEUROLOGICAL: Confused but alert. No headache. No neck pain. No syncope. No seizures. No dizziness. PSYCHIATRIC: Not anxious. No depression. No suicidal thoughts. No homicidal thoughts. SKIN: No rash. No lesions. No wounds. ENDOCRINE: No unexplained weight loss. No weight gain. HEMATOLOGIC/LYMPHATIC: No anemia. No purpura. No petechiae. No prolonged or excessive bleeding. No palpable lymph nodes. PHYSICAL EXAMINATION: GENERAL: The patient is confused but alert, in no distress. VITAL SIGNS: Temperature 98.2, pulse 47, respiratory rate 18, BP 86/49, pulse ox 99%. HEENT: Head normocephalic, atraumatic. Eyes: Extraocular muscles are intact. Pupils are equal, round and reactive to light and accommodation. Ears: No lesions. Nose appeared normal. Throat: No exudate or erythema. NECK: Supple. No JVD, no carotid bruit. No lymphadenopathy or thyromegaly. LUNGS: Clear to auscultation. Percussion note normal. Chest symmetrical. HEART: S1, S2, no S3. Grade I to II/ systolic murmur at the apex in the axillary area also in the aortic area. No cyanosis or clubbing. No ascites. Pulses: Dorsalis pedis and posterior tibial pulses +1 to +2 bilaterally. ABDOMEN: Soft. Nontender. Bowel sounds active. No CVA tenderness. No mass felt. EXTREMITIES: No edema. Full range of motion of all extremities, equal. NEUROLOGIC: No focal deficit. Cranial nerves II through XII are grossly intact. No headache. No double vision. SKIN: Not dry. Intact. Turgor - normal. LYMPHATIC: No palpable lymph nodes/no lymphedema. MUSCULOSKELETAL: Normal joints with no swelling. Muscle tone is normal. LABS: Hemoglobin 8.7, hematocrit 26, WBC 12,000, normal differential. Creatinine 1.3, BUN 33, potassium 3.8. SARS negative. ASSESSMENT: 1. Enterococcus septicemia likely from endocarditis. The patient had a couple of echocardiograms done. He is not in the shape to undergo LANE. The patient is demented and advanced dementia is present. 2. Hemoglobin and hematocrit are stable. Anemia could be from septicemia. 3. Pneumonia seems to be improving clinically. 4. Appetite has improved. He has improved quite a bit after his hospitalization. PLAN: 1. Continue all the antibiotics. 2. Echocardiogram. TIME SPENT: More than 30 minutes. Plan and coordination of the patient's care discussed in the presence of nurse. KAYLEY
--- NOTE | 2021-01-31 15:19 | PN ---
DATE OF SERVICE: 01/30/21 SUBJECTIVE: The patient had an echocardiogram done which did not show clear-cut evidence of any vegetation type of echoes involving the aortic valves, tricuspid valves or aortic valves. LV contractility is normal. LV cavity is normal size with enlarged LV cavity. Another echocardiogram was done several months ago which probably has shown similar type of findings with no evidence of vegetations. In any case, the patient is being treated with Cefepime and Vancomycin. Clinically is better. He is afebrile. The patient is not a candidate for any procedure like LANE - transesphageal echocardiogram. TIME SPENT: More than 30 minutes. Plan and coordination of the patient's care discussed in the presence of nurse. KAYLEY
[2021-02-01] MEDS: ATROVENT HFA INHALER (PER PUFF-WITH SPACER) IH SCH ×3 (04:50→20:15)
[2021-02-01] MEDS: VENTOLIN HFA (PER PUFF-WITH SPACER) IH SCH ×3 (04:50→20:15)
[2021-02-01 05:24] LABS: BASOPHILS % (AUTO) 0.2 % (0.0-3.0); EOSINOPHILS # (AUTO) 0.1 K/ul (0.0-0.7); EOSINOPHILS % (AUTO) 0.9 % (0.0-7.0); HEMATOCRIT 26.9 % (42.0-52.0); HEMOGLOBIN 8.6 g/dl (14.0-18.0); IMMATURE GRANULOCYTE # (AUTO) 0.1 (0.0-1.0); IMMATURE GRANULOCYTE % (AUTO) 0.6 % (0.0-5.0); LYMPHOCYTES # (AUTO) 1.9 K/uL (0.60-3.4); LYMPHOCYTES % (AUTO) 17.2 (10.0-50.0); MEAN CORPUSCULAR HEMOGLOBIN 28.2 pg (27.0-31.0); MEAN CORPUSCULAR VOLUME 88.2 fl (80.0-94.0); MONOCYTES # (AUTO) 0.6 K/uL (0.4-2.0); MONOCYTES % (AUTO) 5.5 (0-10); NEUTROPHILS # (AUTO) 8.3 K/ul (2.0-6.9); NEUTROPHILS % (AUTO) 75.6 % (42.2-75.2); PLATELET COUNT 242 10^3/uL (140-440); RDW COEFFICIENT OF VARIATION 17.6 % (11.6-14.8); RED BLOOD COUNT 3.05 10^6/ul (4.70-6.10); WHITE BLOOD COUNT 11.02 K/ul (4.2-10.2)
[2021-02-01 05:40] LABS: ALANINE AMINOTRANSFERASE 28.5 U/L (0-50); ALBUMIN 2.88 g/dL (3.5-5.0); ALKALINE PHOSPHATASE 66.8 U/L (56-119); ASPARTATE AMINO TRANSFERASE 27.8 U/L (17-59); BILIRUBIN,TOTAL 0.34 mg/dL (0.2-1.3); CALCIUM 8.46 mg/dL (8.4-10.2); CARBON DIOXIDE 27.2 mmol/L (22-30.0); CHLORIDE 104.6 mmol/L (98-107); CREATININE 1.55 mg/dL (0.60-1.10); GLUCOSE 139.8 mg/dL (74-106); POTASSIUM 4.67 mmol/L (3.5-5.1); SODIUM 137.2 mmol/L (134.5-145); TOTAL PROTEIN 6.8 g/dL (6.3-8.2)
[2021-02-01] MEDS: PROTONIX PO SCH ×2 (06:06→16:10)
[2021-02-01] MEDS: LASIX TAB PO SCH (06:06)
[2021-02-01] MEDS: ZOCOR PO SCH (09:32)
[2021-02-01] MEDS: COLESTID PO SCH (09:33)
[2021-02-01] MEDS: FLOMAX PO SCH (09:33)
[2021-02-01] MEDS: DALIRESP PO SCH (09:33)
[2021-02-01] MEDS: ZYLOPRIM PO SCH (09:33)
[2021-02-01] MEDS: MULTIVITAMIN TABLET PO SCH (09:33)
[2021-02-01] MEDS: NICODERM 21 MG TD SCH (09:34)
[2021-02-01] MEDS: VANCOMYCIN 1.5 GRAM/300 ML PREMIX 1.5 GM/300 ML BAG IV SCH (09:34)
[2021-02-01] MEDS: NEURONTIN PO SCH ×3 (09:34→20:28)
[2021-02-01] MEDS: SYMBICORT 160-4.5 MCG INHALER IH SCH ×2 (09:35→20:29)
[2021-02-01] MEDS: DECADRON IVP SCH (10:25)
[2021-02-02] MEDS: ATROVENT HFA INHALER (PER PUFF-WITH SPACER) IH SCH ×3 (04:50→20:05)
[2021-02-02] MEDS: VENTOLIN HFA (PER PUFF-WITH SPACER) IH SCH ×3 (04:50→20:05)
[2021-02-02 05:12] LABS: BASOPHILS % (AUTO) 0.3 % (0.0-3.0); EOSINOPHILS # (AUTO) 0.1 K/ul (0.0-0.7); HEMATOCRIT 24.9 % (42.0-52.0); HEMOGLOBIN 8.3 g/dl (14.0-18.0); IMMATURE GRANULOCYTE # (AUTO) 0.1 (0.0-1.0); IMMATURE GRANULOCYTE % (AUTO) 0.8 % (0.0-5.0); LYMPHOCYTES # (AUTO) 1.9 K/uL (0.60-3.4); MEAN CORPUSCULAR HEMOGLOBIN 28.5 pg (27.0-31.0); MEAN CORPUSCULAR HGB CONC 33.3 (31.8-35.4); MEAN CORPUSCULAR VOLUME 85.6 fl (80.0-94.0); MONOCYTES # (AUTO) 0.6 K/uL (0.4-2.0); MONOCYTES % (AUTO) 6.8 (0-10); NEUTROPHILS % (AUTO) 69.1 % (42.2-75.2); PLATELET COUNT 240 10^3/uL (140-440); RDW COEFFICIENT OF VARIATION 17.6 % (11.6-14.8); RED BLOOD COUNT 2.91 10^6/ul (4.70-6.10); WHITE BLOOD COUNT 8.72 K/ul (4.2-10.2)
[2021-02-02 05:32] LABS: ALANINE AMINOTRANSFERASE 30.1 U/L (0-50); ALBUMIN 2.78 g/dL (3.5-5.0); ALKALINE PHOSPHATASE 63.3 U/L (56-119); ASPARTATE AMINO TRANSFERASE 31.3 U/L (17-59); BILIRUBIN,TOTAL 0.32 mg/dL (0.2-1.3); BLOOD UREA NITROGEN 41.3 mg/dL (9-20); CALCIUM 8.21 mg/dL (8.4-10.2); CHLORIDE 106.7 mmol/L (98-107); CREATININE 1.34 mg/dL (0.60-1.10); GLUCOSE 125.3 mg/dL (74-106); POTASSIUM 4.12 mmol/L (3.5-5.1); SODIUM 136.9 mmol/L (134.5-145); TOTAL PROTEIN 6.48 g/dL (6.3-8.2)
[2021-02-02] MEDS: PROTONIX PO SCH ×2 (05:54→16:16)
[2021-02-02] MEDS: LASIX TAB PO SCH (05:54)
[2021-02-02] MEDS: DALIRESP PO SCH (09:15)
[2021-02-02] MEDS: NICODERM 21 MG TD SCH (09:15)
[2021-02-02] MEDS: MULTIVITAMIN TABLET PO SCH (09:16)
[2021-02-02] MEDS: ZYLOPRIM PO SCH (09:16)
[2021-02-02] MEDS: ZOCOR PO SCH (09:16)
[2021-02-02] MEDS: FLOMAX PO SCH (09:16)
[2021-02-02] MEDS: COLESTID PO SCH (09:16)
[2021-02-02] MEDS: DECADRON IVP SCH (09:16)
[2021-02-02] MEDS: NEURONTIN PO SCH ×3 (09:16→20:41)
[2021-02-02] MEDS: VANCOMYCIN 1.5 GRAM/300 ML PREMIX 1.5 GM/300 ML BAG IV SCH (09:19)
[2021-02-02] MEDS: SYMBICORT 160-4.5 MCG INHALER IH SCH ×2 (09:21→20:41)
[2021-02-03 05:01] LABS: BASOPHILS % (AUTO) 0.4 % (0.0-3.0); EOSINOPHILS # (AUTO) 0.1 K/ul (0.0-0.7); EOSINOPHILS % (AUTO) 1.3 % (0.0-7.0); HEMATOCRIT 26.1 % (42.0-52.0); HEMOGLOBIN 8.4 g/dl (14.0-18.0); IMMATURE GRANULOCYTE % (AUTO) 0.5 % (0.0-5.0); LYMPHOCYTES # (AUTO) 1.9 K/uL (0.60-3.4); LYMPHOCYTES % (AUTO) 25.5 (10.0-50.0); MEAN CORPUSCULAR HEMOGLOBIN 27.7 pg (27.0-31.0); MEAN CORPUSCULAR HGB CONC 32.2 (31.8-35.4); MEAN CORPUSCULAR VOLUME 86.1 fl (80.0-94.0); MONOCYTES # (AUTO) 0.6 K/uL (0.4-2.0); MONOCYTES % (AUTO) 7.8 (0-10); NEUTROPHILS # (AUTO) 4.9 K/ul (2.0-6.9); NEUTROPHILS % (AUTO) 64.5 % (42.2-75.2); PLATELET COUNT 224 10^3/uL (140-440); RDW COEFFICIENT OF VARIATION 17.9 % (11.6-14.8); RED BLOOD COUNT 3.03 10^6/ul (4.70-6.10); WHITE BLOOD COUNT 7.58 K/ul (4.2-10.2)
[2021-02-03 05:14] LABS: ALANINE AMINOTRANSFERASE 31.5 U/L (0-50); ALBUMIN 2.77 g/dL (3.5-5.0); ALKALINE PHOSPHATASE 61.5 U/L (56-119); ASPARTATE AMINO TRANSFERASE 27.1 U/L (17-59); BILIRUBIN,TOTAL 0.42 mg/dL (0.2-1.3); BLOOD UREA NITROGEN 45.1 mg/dL (9-20); CALCIUM 8.25 mg/dL (8.4-10.2); CARBON DIOXIDE 25.4 mmol/L (22-30.0); CHLORIDE 108.5 mmol/L (98-107); CREATININE 1.25 mg/dL (0.60-1.10); GLUCOSE 103.3 mg/dL (74-106); POTASSIUM 4.31 mmol/L (3.5-5.1); SODIUM 137.4 mmol/L (134.5-145); TOTAL PROTEIN 6.46 g/dL (6.3-8.2)
[2021-02-03] MEDS: ATROVENT HFA INHALER (PER PUFF-WITH SPACER) IH SCH ×3 (05:35→19:50)
[2021-02-03] MEDS: VENTOLIN HFA (PER PUFF-WITH SPACER) IH SCH ×3 (05:35→19:50)
[2021-02-03] MEDS: LASIX TAB PO SCH (05:51)
[2021-02-03] MEDS: PROTONIX PO SCH ×2 (05:51→17:13)
--- NOTE | 2021-02-03 09:14 | PCM.PROG ---
Attending Provider: ATTENDING PROVIDER: Dr. DARY CAROLINA This patient is seen with Winsome Licea, Nurse Practitioner. DATE OF SERVICE: 02/03/21 SUBJECTIVE: This 89 year old /WHITE M was hospitalized 01/24/21. The patient is resting comfortably. States he is ready to leave. Eating well, hgb is stable. WBC has improved. No fever. REVIEW OF SYSTEMS: CONSTITUTIONAL: No night sweats. No fatigue, malaise, lethargy. No fever or chills. Weakness. HEENT: Eyes: No visual changes. No eye pain. No eye discharge. ENT: No runny nose. No epistaxis. No sinus pain. No odynophagia. No congestion. RESPIRATORY: Cough, no congestion. No hemoptysis. No shortness of breath. CARDIOVASCULAR: No angina symptoms. No CHF symptoms. No atypical chest pain for CAD. No palpitations. No orthopnea.. GASTROINTESTINAL: No abdominal pain. No nausea or vomiting. No diarrhea or constipation. No hematemesis. No hematochezia. GENITOURINARY: No urgency. No frequency. No dysuria. No hematuria. No obstructive symptoms. No discharge. No pain. No significant abnormal bleeding. MUSCULOSKELETAL: No musculoskeletal pain; no joint swelling. NEUROLOGICAL: Awake, alert, oriented to time, place and person. No headache. No neck pain. No syncope. No seizures. No dizziness. PSYCHIATRIC: Not anxious. No depression. No suicidal thoughts. No homicidal thoughts. SKIN: No rash. No lesions. No wounds. ENDOCRINE: No unexplained weight loss. No weight gain. HEMATOLOGIC/LYMPHATIC:Anemia. No purpura. No petechiae. No prolonged or excessive bleeding. No palpable lymph nodes. PHYSICAL EXAMINATION: GENERAL: The patient is awake, alert, lying in bed in no distress. VITAL SIGNS: Temperature 97.8 F, Pulse 57, Respiratory Rate 18, BP 109/52, Pulse Ox 98% HEENT: Head normocephalic, atraumatic. Eyes: Extraocular muscles are intact. Pupils are equal, round and reactive to light and accommodation. Ears: No lesions. Nose appeared normal. Throat: No exudate or erythema. NECK: Supple. No JVD, no carotid bruit. No lymphadenopathy or thyromegaly. LUNGS: Diminished breath sounds. Clear to auscultation. Percussion note normal. Chest symmetrical. HEART: S1, S2, no S3. No murmurs. No cyanosis or clubbing. No ascites. Pulses: Dorsalis pedis and posterior tibial pulses +1 to +2 both sides. ABDOMEN: Soft. Non-tender. Bowel sounds active. No CVA tenderness. No mass felt. EXTREMITIES: No edema. Full range of motion of all extremities, equal. NEUROLOGIC: No focal deficit. Cranial nerves II through XII are grossly intact. No headache. No double vision. SKIN: Not dry. Intact. Turgor-normal. LYMPHATIC: No palpable lymph nodes/no lymphedema. MUSCULOSKELETAL: Normal joints with no swelling. Muscle tone is normal. LAB REVIEW: 02/03/21 04:40 02/03/21 04:40 02/03/21 04:40: Sodium 137.4, Potassium 4.31, Chloride 108.5 H, Carbon Dioxide 25.4, Anion Gap 7.81, BUN 45.1 H, Creatinine 1.25 H, Estimated GFR (MDRD) 55.00, BUN/Creatinine Ratio 36.08, Glucose 103.3, Calcium 8.25 L, Total Bilirubin 0.42, AST 27.1, ALT 31.5, Alkaline Phosphatase 61.5, Total Protein 6.46, Albumin 2.77 L, Globulin 3.69, Albumin/Globulin Ratio 0.75 02/03/21 04:40: WBC 7.58, RBC 3.03 L, Hgb 8.4 L, Hct 26.1 L, MCV 86.1, MCH 27.7, MCHC 32.2, RDW Coeff of Shira 17.9 H, Plt Count 224, Immature Gran % (Auto) 0.5, Neut % (Auto) 64.5, Lymph % (Auto) 25.5, [place] % (Auto) 7.8, Eos % (Auto) 1.3, Baso % (Auto) 0.4, Neut # (Auto) 4.9, Lymph # (Auto) 1.9, [place] # (Auto) 0.6, Eos # (Auto) 0.1, Baso # (Auto) 0.0, Immature Gran # (Auto) 0.0 ASSESSMENT: Please see below. 1. Sepsis, positive enterococcus 2. Severe COPD 3. Anemia 4. Renal Azotemia PLAN: 1. Continue IV Vancomycin Plan and coordination of the patient's care discussed in the presence of Schedule Clerk and nurse. SCRIBED BY: TOBI WADSWORTH Central Processing Technician scribed while in presence of service performed by Dr. Carolina/Winsome Licea APRN on 02/03/21 (0800)
[2021-02-03] MEDS: ZOCOR PO SCH (09:44)
[2021-02-03] MEDS: FLOMAX PO SCH (09:44)
[2021-02-03] MEDS: MULTIVITAMIN TABLET PO SCH (09:44)
[2021-02-03] MEDS: DALIRESP PO SCH (09:44)
[2021-02-03] MEDS: ZYLOPRIM PO SCH (09:44)
[2021-02-03] MEDS: COLESTID PO SCH (09:44)
[2021-02-03] MEDS: NEURONTIN PO SCH ×3 (09:44→20:48)
[2021-02-03] MEDS: NICODERM 21 MG TD SCH (09:45)
[2021-02-03] MEDS: SYMBICORT 160-4.5 MCG INHALER IH SCH ×2 (09:46→20:49)
[2021-02-03] MEDS: DECADRON IVP SCH (09:59)
[2021-02-03] MEDS: VANCOMYCIN 1.5 GRAM/300 ML PREMIX 1.5 GM/300 ML BAG IV SCH (10:49)
--- NOTE | 2021-02-03 11:45 | ECHO2D ---
Date of Exam: 01/30/2021 Ordering Physician: DR. DARY CAROLINA Room #: 103 Reason for Echo: CHF, SOA, SEPTICEMIA, HTN, COPD M-Mode Normal Adult Results LV Dimensions Normal Adult Results AoV Opening excursions >1.6 >1.6 LVEDD-base- 3.5-5.8 5.5 Ao root dimensions 2.0-3.7 4.1 LVESD-base- 3.1-4.6 L. Atrium dimensions 1.9-3.8 5.6 Post. Wall thickness 0.8-1.1 1.1 IV septum (thickness) 0.7-1.2 1.3 Post. Wall excursion 0.72-1.3 NORMAL Septal motion NORMAL Systolic motion R. 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 CALCIFIC MITRAL VALVE ANNULUS 2. CALCIFIC AORTIC VALVE LEAFLETS 3. LEFT VENTRICULAR HYPERTROPHY WITH ENLARGED LEFT ATRIAL CAVITY 4. ENLARGED RIGHT VENTRICLE CAVITY 5. NORMAL LEFT VENTRICLE CONTRACTILITY 6. NO ECHOGENIC AREAS SUSPICIOUS FOR VEGETATION MTDD
--- NOTE | 2021-02-03 14:34 | PN ---
DATE OF SERVICE: 02/02/2021 SUBJECTIVE: 89 year old white male hospitalized with sepsis enterococci and pneumonia. Pneumonia has resolved. The patient has history of enterococcus, septicemia for a long time. 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 The patient had an echocardiogram done transthoracic which did not show any evidence of any vegetations on the valves. Of course the valve are very difficult to evaluate because of calcifications. The patient is not a candidate for LANE. The family doesn't want anything to be done. The patient is DNR. He has dementia with end stage chronic lung disease. REVIEW OF SYSTEMS: CONSTITUTIONAL: No night sweats. No fatigue, malaise, lethargy. No fever or chills. HEENT: Eyes: No visual changes. No eye pain. No eye discharge. ENT: No runny nose. No epistaxis. No sinus pain. No sore throat. No odynophagia. No congestion. RESPIRATORY: No cough, no congestion. No hemoptysis. No shortness of breath. CARDIOVASCULAR: No angina symptoms. No CHF symptoms. No atypical chest pain for CAD. No palpitations. No PND. No orthopnea. GASTROINTESTINAL: No abdominal pain. No nausea or vomiting. No diarrhea or constipation. No hematemesis. No hematochezia. GENITOURINARY: No urgency. No frequency. No dysuria. No hematuria. No obstructive symptoms. No discharge. No pain. No significant abnormal bleeding. MUSCULOSKELETAL: No musculoskeletal pain; no joint swelling. NEUROLOGICAL: No headache. No neck pain. No syncope. No seizures. No dizziness. Dementia. PSYCHIATRIC: Not anxious. No depression. No suicidal thoughts. No homicidal thoughts. SKIN: No rash. No lesions. No wounds. ENDOCRINE: No unexplained weight loss. No weight gain. HEMATOLOGIC/LYMPHATIC: No anemia. No purpura. No petechiae. No prolonged or excessive bleeding. No palpable lymph nodes. PHYSICAL EXAMINATION: VITAL SIGNS: Temperature 97.9, pulse 58, respiratory rate 18, blood pressure 106/57 and pulse ox 98%. HEENT: Head normocephalic, atraumatic. Eyes: Extraocular muscles are intact. Pupils are equal, round and reactive to light and accommodation. Ears: No lesions. Nose appeared normal. Throat: No exudate or erythema. NECK: Supple. No JVD, no carotid bruit. No lymphadenopathy or thyromegaly. LUNGS: Decreased breath sounds but clear to auscultation. Percussion note normal. Chest symmetrical. HEART: S1, S2, no S3. Grade I/ systolic murmurs. No cyanosis or clubbing. No ascites. Pulses: Dorsalis pedis and posterior tibial pulses +1 to +2 bilaterally. ABDOMEN: Soft. Nontender. Bowel sounds active. No CVA tenderness. No mass felt. EXTREMITIES: No edema. Full range of motion of all extremities, equal. NEUROLOGIC: No focal deficit. Cranial nerves II through XII are grossly intact. No headache. No double vision. SKIN: Not dry. Intact. Turgor - normal. LYMPHATIC: No palpable lymph nodes/no lymphedema. MUSCULOSKELETAL: Normal joints with no swelling. Muscle tone is normal. ASSESSMENT: 1. Septicemia with enterococcus being treated with Vancomycin seems to be under control 2. Pneumonia, resolved 3. Chronic anemia 4. Chronic kidney disease 5. Dementia PLAN: 1. Continue Vancomycin 2. If the patient is discharged he is going to have to be on antibiotics for awhile. CONDITION: Otherwise stable. PROGNOSIS: POOR TIME SPENT: More than 30 minutes. Plan and coordination of the patient's care discussed in the presence of nurse. KAYLEY
[2021-02-04] MEDS: ATROVENT HFA INHALER (PER PUFF-WITH SPACER) IH SCH (04:55)
[2021-02-04] MEDS: VENTOLIN HFA (PER PUFF-WITH SPACER) IH SCH (04:55)
[2021-02-04 05:42] VITALS: BP 99/39; TEMP 98
[2021-02-04] MEDS: PROTONIX PO SCH (05:47)
[2021-02-04] MEDS: LASIX TAB PO SCH (05:47)
[2021-02-04 08:01] LABS: BASOPHILS % (AUTO) 0.2 % (0.0-3.0); EOSINOPHILS # (AUTO) 0.2 K/ul (0.0-0.7); EOSINOPHILS % (AUTO) 1.9 % (0.0-7.0); HEMATOCRIT 25.5 % (42.0-52.0); HEMOGLOBIN 8.4 g/dl (14.0-18.0); IMMATURE GRANULOCYTE # (AUTO) 0.1 (0.0-1.0); IMMATURE GRANULOCYTE % (AUTO) 0.6 % (0.0-5.0); LYMPHOCYTES # (AUTO) 2.1 K/uL (0.60-3.4); LYMPHOCYTES % (AUTO) 23.3 (10.0-50.0); MEAN CORPUSCULAR HEMOGLOBIN 28.8 pg (27.0-31.0); MEAN CORPUSCULAR HGB CONC 32.9 (31.8-35.4); MEAN CORPUSCULAR VOLUME 87.3 fl (80.0-94.0); MONOCYTES # (AUTO) 0.6 K/uL (0.4-2.0); MONOCYTES % (AUTO) 6.9 (0-10); NEUTROPHILS % (AUTO) 67.1 % (42.2-75.2); PLATELET COUNT 192 10^3/uL (140-440); RDW COEFFICIENT OF VARIATION 17.8 % (11.6-14.8); RED BLOOD COUNT 2.92 10^6/ul (4.70-6.10); WHITE BLOOD COUNT 8.87 K/ul (4.2-10.2)
[2021-02-04 08:19] LABS: ALBUMIN 2.84 g/dL (3.5-5.0); ALKALINE PHOSPHATASE 64.9 U/L (56-119); ASPARTATE AMINO TRANSFERASE 28.9 U/L (17-59); BILIRUBIN,TOTAL 0.5 mg/dL (0.2-1.3); BLOOD UREA NITROGEN 42.1 mg/dL (9-20); CALCIUM 8.19 mg/dL (8.4-10.2); CHLORIDE 105.4 mmol/L (98-107); CREATININE 1.32 mg/dL (0.60-1.10); GLUCOSE 95.9 mg/dL (74-106); POTASSIUM 4.27 mmol/L (3.5-5.1); SODIUM 136.2 mmol/L (134.5-145); TOTAL PROTEIN 6.52 g/dL (6.3-8.2)
[2021-02-04] MEDS: DECADRON IVP SCH (08:59)
[2021-02-04] MEDS ORDERED: VANCOMYCIN 1 GM in SODIUM CHLORIDE 250 ML IV SCH (09:00)
--- NOTE | 2021-02-04 09:10 | PCM.PROG ---
Attending Provider: ATTENDING PROVIDER: Dr. DARY CAROLINA This patient is seen with Winsome Licea, Nurse Practitioner. DATE OF SERVICE: 02/04/21 SUBJECTIVE: This 89 year old /WHITE M was hospitalized 01/24/21. The patient is resting comfortably in bed. Will plan on discharge back to [place] today after labs come back - as long as they are stable. Will continue antibiotics at assisted. REVIEW OF SYSTEMS: CONSTITUTIONAL: Weakness. Hard of hearing. No night sweats. No fatigue, malaise, lethargy. No fever or chills. HEENT: Eyes: No visual changes. No eye pain. No eye discharge. ENT: No runny nose. No epistaxis. No sinus pain. No odynophagia. No congestion. RESPIRATORY: No cough, no congestion. No hemoptysis. No shortness of breath. CARDIOVASCULAR: No angina symptoms. No CHF symptoms. No atypical chest pain for CAD. No palpitations. No orthopnea.. GASTROINTESTINAL: No abdominal pain. No nausea or vomiting. No diarrhea or constipation. No hematemesis. No hematochezia. GENITOURINARY: No urgency. No frequency. No dysuria. No hematuria. No obstructive symptoms. No discharge. No pain. No significant abnormal bleeding. MUSCULOSKELETAL: No musculoskeletal pain; no joint swelling. NEUROLOGICAL: Awake, alert, oriented to time, place and person. No headache. No neck pain. No syncope. No seizures. No dizziness. PSYCHIATRIC: Not anxious. No depression. No suicidal thoughts. No homicidal thoughts. SKIN: No rash. No lesions. No wounds. ENDOCRINE: No unexplained weight loss. No weight gain. HEMATOLOGIC/LYMPHATIC: No anemia. No purpura. No petechiae. No prolonged or excessive bleeding. No palpable lymph nodes. PHYSICAL EXAMINATION: GENERAL: The patient is awake, alert and oriented, lying/sitting in bed in no distress. VITAL SIGNS: Temperature 98 F, Pulse 57, Respiratory Rate 20, BP 99/39, Pulse Ox 96% HEENT: Head normocephalic, atraumatic. Eyes: Extraocular muscles are intact. Pupils are equal, round and reactive to light and accommodation. Ears: No lesions. Nose appeared normal. Throat: No exudate or erythema. NECK: Supple. No JVD, no carotid bruit. No lymphadenopathy or thyromegaly. LUNGS: Diminished breath sounds. Clear to auscultation. Percussion note normal. Chest symmetrical. HEART: S1, S2, no S3. Grade I murmur. No cyanosis or clubbing. No ascites. Pulses: Dorsalis pedis and posterior tibial pulses +1 to +2 both sides. ABDOMEN: Soft. Non-tender. Bowel sounds active. No CVA tenderness. No mass felt. EXTREMITIES: Trace leg edema. Full range of motion of all extremities, equal. NEUROLOGIC: No focal deficit. Cranial nerves II through XII are grossly intact. No headache. No double vision. SKIN: Not dry. Intact. Turgor-normal. LYMPHATIC: No palpable lymph nodes/no lymphedema. MUSCULOSKELETAL: Normal joints with no swelling. Muscle tone is normal. LAB REVIEW: 02/03/21 04:40 02/03/21 04:40 02/03/21 08:25: Vancomycin Trough 22.230 H* ASSESSMENT: Please see below. 1. Sepsis, positive Enterococcus. 2. Bilateral pneumonia. 3. Severe COPD. PLAN: 1. D/C Decadron. 2. Prednisone 10 mg b.i.d. times 5 days. 3. Anticipate d/c back to assisted today. 4. Continue Symbicort and Albuterol. 5. Lasix three times a week. 6. CBC, CMP Wednesday, then call Winsome. Plan and coordination of the patient's care discussed in the presence of Lift Builder Whole and nurse. CONDITION: Stable SCRIBED BY: CHENG TURNER Wagon Driver Salesperson scribed while in presence of service performed by Dr. Carolina/Winsome Licea APRN on 02/04/21 (95)
[2021-02-04] MEDS: ZOCOR PO SCH (09:14)
[2021-02-04] MEDS: COLESTID PO SCH (09:14)
[2021-02-04] MEDS: DALIRESP PO SCH (09:14)
[2021-02-04] MEDS: MULTIVITAMIN TABLET PO SCH (09:15)
[2021-02-04] MEDS: ZYLOPRIM PO SCH (09:15)
[2021-02-04] MEDS: FLOMAX PO SCH (09:16)
[2021-02-04] MEDS: SYMBICORT 160-4.5 MCG INHALER IH SCH (09:16)
[2021-02-04] MEDS: NEURONTIN PO SCH (09:16)
[2021-02-04] MEDS: NICODERM 21 MG TD SCH (09:17)
--- NOTE | 2021-02-04 12:07 | CM.DICTOOL ---
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 - CT 05/2020 - REFUSES VASCULAR REFERRAL RECURRENT DIZZINESS- CAROTID/MRI 02/2020 COPD - O2 DEPENDENT CONTINUED TO BE A HEAVY SMOKER CHRONIC RESPIRATORY FAILURE HTN NEUROPATHY RECURRENT GOUT GERD CKD STAGE 2-3 SEPSIS - POSITIVE ENTEROCCOCUS- 06/2020 LT RENAL CA - REFUSES FURTHER CONSULTATION LT SCIATICA HAND TREMORS NON- COMPLIANCE WITH LIFESTYLE, MEDICATIONS, DIET AND FOLLOW-UP SURGICAL HISTORY: 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 SPINE SURGERY X 3 BILATERAL KNEE REPLACEMENT STATUS POST CHOLECYSTECTOMY STATUS POST APPENDECTOMY LAST VITALS Temp Pulse Resp BP Pulse Ox 98 F 71 20 99/39 L 94 L 02/04/21 05:38 02/04/21 08:00 02/04/21 05:38 02/04/21 05:38 02/04/21 10:00 TAKE THESE MEDICATIONS AT HOME Albuterol Sulfate (Albuterol Sulfate (Ventolin Hfa) 18 Gm 1 Puff With Spacer) 2 puff [facility]H RTTID [facility] Last Admin: 02/04/21 04:55 Dose: 2 puff Documented by: Albuterol/Ipratropium (Ipratropium/Albuterol Vial.Neb) 3 ml NEB RTQ6H PRN PRN Reason: SHORT OF BREATH Allopurinol (Allopurinol 100 Mg Tablet) 300 mg PO DAILY [facility] Last Admin: 02/04/21 09:15 Dose: 300 mg Documented by: Budesonide/Formoterol Fumarate (Budesonide/Formoterol Fumarate 160/4.5 Mcg Inhaler) 2 puff IH BID [facility] Last Admin: 02/04/21 09:16 Dose: 2 puff Documented by: Colestipol HCl (Colestipol Hcl 1 Gm Tablet) 1 gm PO DAILY [facility] Last Admin: 02/04/21 09:14 Dose: 1 gm Documented by: Furosemide (Furosemide 20 Mg Tablet) 20 mg PO MoWeFr@0630 [facility] Gabapentin (Gabapentin 300 Mg Capsule) 300 mg PO TID [facility] Last Admin: 02/04/21 09:16 Dose: 300 mg Documented by: Vancomycin HCl 1 gm/ Sodium (Chloride) 250 mls @ 250 mls/hr IV DAILY [facility] X 6 WEEKS Stop: 02/07/21 08:59 Last Admin: 02/04/21 09:14 Dose: 250 mls/hr Documented by: Ipratropium [place] (Ipratropium [place] 12.9 Gm Hfa Inhaler Per Puff With Spacer) 2 puff IH RTTID [facility] Last Admin: 02/04/21 04:55 Dose: 2 puff Documented by: Multivitamins (Multivitamin 1 Tab) 1 tab PO DAILY [facility] Last Admin: 02/04/21 09:15 Dose: 1 tab Documented by: Nicotine (Nicotine 21 Mg Patch.Td24) 1 patch TD DAILY [facility] PRN IF NOT SMOKING Last Admin: 02/04/21 09:17 Dose: 1 patch Documented by: Pantoprazole Sodium (Pantoprazole Sodium 40 Mg Tablet.) 40 mg PO BIDAC [facility] Last Admin: 02/04/21 05:47 Dose: 40 mg Documented by: Prednisone (Prednisone 10 Mg Tablet) 10 mg PO BIDWM [facility] X 5 DAYS, START 02/05/2021 Stop: 02/09/21 08:31 Roflumilast (Roflumilast 500 Mcg Tablet) 500 mcg PO DAILY [facility] Last Admin: 02/04/21 09:14 Dose: 500 mcg Documented by: Simvastatin (Simvastatin 10 Mg Tablet) 20 mg PO DAILY [facility] Last Admin: 02/04/21 09:14 Dose: 20 mg Documented by: Sodium Chloride (0.9% Sodium Chloride 10 Ml Disp.Syrin) 1 syr IVF EVERY 8 HOURS , BEFORE AND AFTER EACH IV MEDICATION AND PRN PRN Reason: To flush IV Last Admin: 02/02/21 05:54 Dose: 1 syr Documented by: Tamsulosin HCl (Tamsulosin Hcl 0.4 Mg Cap.Er.24h) 0.4 mg PO DAILY [facility] Last Admin: 02/04/21 09:16 Dose: 0.4 mg Documented by: Tramadol HCl (Tramadol Hcl 50 Mg Tablet) 50 mg PO BID PRN PRN Reason: Pain Last Admin: 01/30/21 20:38 Dose: 50 mg Documented by: ALLERGIES Penicillins Adverse Reaction (Severe, Verified 01/24/21 12:02) Unknown flu Vaccine Adverse Reaction (Uncoded 11/12/20 09:46) Unknown DISCONTINUED MEDICATIONS Furosemide 20 mg PO QDAC AR Omeprazole 20 mg PO BIDAC [facility] NEW PRESCRIPTIONS: ALBUTEROL SULFATE 18 GRAM 2 puff IH RTTID AR SYMBICORT 160/4.5 MCG 2 puff IH BID AR IPRATROPIUM BROMIDE 12.9 GRAM 2 puff I[facility] RTTID [facility] LASIX 20 mg PO MoWeFr@0630 AR VANCOMYCIN HCl 1 gm/ Sodium (Chloride) 250 mls @ 250 mls/hr IV DAILY AR X 6 WEEKS NICOTINE (Nicotine 21 Mg Patch.Td24) 1 patch TD DAILY AR PRN IF NOT SMOKING PROTONIX (Pantoprazole Sodium) 40 mg PO BIDAC AR PREDNISONE 10 mg PO BIDWM AR X 5 DAYS, START 02/05/2021 NACL (0.9% Sodium Chloride 10 Ml Disp.Syrin) 1 syr IVF EVERY 8 HOURS , BEFORE AND AFTER EACH IV MEDICATION AND PRN SMOKING: SMOKING CESSATION DISEASE SPECIFIC EDUCATION: SEPSIS OXYGEN SAFETY FALL PRECAUTIONS PANDEMIC PRECAUTIONS LAB REVIEW: 02/04/21 07:55 02/04/21 07:55 02/04/21 07:55: Sodium 136.2, Potassium 4.27, Chloride 105.4, Carbon Dioxide 30.0, Anion Gap 5.07, BUN 42.1 H, Creatinine 1.32 H, Estimated GFR (MDRD) 51.00, BUN/Creatinine Ratio 31.89, Glucose 95.9, Calcium 8.19 L, Total Bilirubin 0.50, AST 28.9, ALT 29.0, Alkaline Phosphatase 64.9, Total Protein 6.52, Albumin 2.84 L, Globulin 3.68, Albumin/Globulin Ratio 0.77 02/04/21 07:55: WBC 8.87, RBC 2.92 L, Hgb 8.4 L, Hct 25.5 L, MCV 87.3, MCH 28.8, MCHC 32.9, RDW Coeff of Shira 17.8 H, Plt Count 192, Immature Gran % (Auto) 0.6, Neut % (Auto) 67.1, Lymph % (Auto) 23.3, Baxter % (Auto) 6.9, Eos % (Auto) 1.9, Baso % (Auto) 0.2, Neut # (Auto) 6.0, Lymph # (Auto) 2.1, Baxter # (Auto) 0.6, Eos # (Auto) 0.2, Baso # (Auto) 0.0, Immature Gran # (Auto) 0.1 PLAN: DISCHARGE : TODAY 02/04/2021 TO [facility] ACTIVITY: PT AND OT TO EVAL AND TREAT AT THE FACILITY, UP TOLERATED WITH WALKER AND DIRECTED PER THERAPY DEPARTMENT NO STRENUOUS ACTIVITY, FOLLOW PANDEMIC GUIDELINES, FALL RISK AND OXYGEN SAFETY, SMOKING SAFETY AND CESSATION IF POSSIBLE INCONTINENT CARE, DECUBITIS PREVENTION, OFF LOAD WHILE SITTING DIET: REGULAR WITH ADEQUATE FLUIDS 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 VITAL SIGNS EVERY SHIFT X ONE WEEK THEN FACILITY PROTOCOL AND WEIGHTS DAILY X ONE WEEK THEN PER FACILITY PROTOCOL LABS: CBC AND CMP ON WEDNESDAY AND REPORT TO ALIA KING APRN. THEN CBC,CMP AND VANCOMYCIN TROUGH WEEKLY ( FACILITY PHARMACY CAN DETERMINE IF MORE FREQUENT TROUGHS ARE NEEDED) LIPIDS, TSH, FREE T4 AND AIC EVERY 6 MONTHS PERIPHERAL IV ACCESS: PLACEMENT AND CARE, CHANGE SITE EVERY 3 DAYS AND PRN MAINTAIN PATENCY OF SITE WITH NACL 0.9 % FLUSHES 3-5 ML EVERY 8 HOURS AND PRN CODE STATUS: DO NOT RESUSCITATE MR. MACK IS ALERT AND ORIENTED TO SELF AND CERTAIN ASPECTS. HE DOES GET INPATIENT AT TIMES. SOA WITH ACTIVITY. USES OXYGEN PER N/C. XIAO CATHETER WAS REMOVED AND HE IS VOIDING AND CONTINENT OF BOWEL AND BLADDER AT THIS TIME. HAS INTERMITTENT HISTORY OF INCONTINENCE OF BOWEL AND BLADDER. SKIN WARM DRY AND INTACT. USUAL AGING SPOTS AND SCATTERED ECCYHMOSIS TO ARMS. +1 EDEMA TO LEGS, CHRONIC. NUTRITIONAL INTAKE AT 75-100% AND AT TIMES 100% ON CERTAIN DAYS. HE GETS UP WITH SBA X 1 AND RWX. SOME DAYS HE WALKS AND OTHER DAYS HE DOES NOT AND IS CONFINED TO A W/C. HE IS NOT CONSISTENT WITH OXYGEN USE AT [facility]. HE PREFERS TO GO OUT TO DESIGNATED SMOKING AREA WITH ASSIST. HE LIVES AT [facility] NOW. MD ALIA CHARLES APRN ALYCE HANNAN, APRN
[2021-02-05] MEDS ORDERED: LASIX TAB PO SCH (06:30)
[2021-02-05] MEDS ORDERED: PREDNISONE PO SCH (08:00)
--- NOTE | 2021-02-05 08:26 | PN ---
DATE OF SERVICE: 02/04/2021 SUBJECTIVE: The patient was seen and examined with the Nurse Practitioner. The patient's condition is stable. He is going to be discharged with Vancomycin to be given 6 weeks IV. Trough level will be done every week. The patient was seen and examined with Nurse Practitioner. The patient's family doesn't want any further workup especially involving LANE transesophageal echocardiogram for the evaluation by liner replacer. Source of septicemia likely endocarditis but difficult to confirm it since COPD is end stage and dementia is also fairly advanced. TIME SPENT: More than 30 minutes. Plan and coordination of the patient's care discussed in the presence of nurse. KAYLEY
--- NOTE | 2021-02-05 13:41 | OTDC ---
Date of Evaluation:01/24/21 Diagnosis:[Sepsis, Pneumonia] Number of visits:[5] Last Date of Service:[02/03/21] Reason For Discharge:[Pt discharged to group home facility for rehab.] Discharge Summary:[Pt requires more help at this time and is not able to go home. ] KAYLEY
--- NOTE | 2021-02-05 13:55 | PN ---
DATE OF SERVICE: 02/01/21 SUBJECTIVE: 89-year-old white male hospitalized with sepsis, pneumonia. The patient's condition is stable. He is afebrile, eating much better. Still confused. REVIEW OF SYSTEMS: CONSTITUTIONAL: No night sweats. No fatigue, malaise, lethargy. No fever or chills. HEENT: Eyes: No visual changes. No eye pain. No eye discharge. ENT: No runny nose. No epistaxis. No sinus pain. No sore throat. No odynophagia. No congestion. RESPIRATORY: No cough, no congestion. No hemoptysis. No shortness of breath. CARDIOVASCULAR: No angina symptoms. No CHF symptoms. No atypical chest pain for CAD. No palpitations. No PND. No orthopnea. GASTROINTESTINAL: No abdominal pain. No nausea or vomiting. No diarrhea or constipation. No hematemesis. No hematochezia. GENITOURINARY: No urgency. No frequency. No dysuria. No hematuria. No obstructive symptoms. No discharge. No pain. No significant abnormal bleeding. MUSCULOSKELETAL: No musculoskeletal pain; no joint swelling. NEUROLOGICAL: No headache. No neck pain. No syncope. No seizures. No dizziness. PSYCHIATRIC: Not anxious. No depression. No suicidal thoughts. No homicidal thoughts. SKIN: No rash. No lesions. No wounds. ENDOCRINE: No unexplained weight loss. No weight gain. HEMATOLOGIC/LYMPHATIC: No anemia. No purpura. No petechiae. No prolonged or excessive bleeding. No palpable lymph nodes. PHYSICAL EXAMINATION: VITAL SIGNS: Temperature 98, pulse 57, respiratory rate 16, blood pressure 105/55, pulse ox 96%. HEENT: Head normocephalic, atraumatic. Eyes: Extraocular muscles are intact. Pupils are equal, round and reactive to light and accommodation. Ears: No lesions. Nose appeared normal. Throat: No exudate or erythema. NECK: Supple. No JVD, no carotid bruit. No lymphadenopathy or thyromegaly. LUNGS: Decreased breath sounds but clear to auscultation. Percussion note normal. Chest symmetrical. HEART: S1, S2, no S3. Grade I/ systolic murmur. No cyanosis or clubbing. No ascites. Pulses: Dorsalis pedis and posterior tibial pulses +1 to +2 bilaterally. ABDOMEN: Soft. Nontender. Bowel sounds active. No CVA tenderness. No mass felt. EXTREMITIES: No edema. Full range of motion of all extremities, equal. NEUROLOGIC: No focal deficit. Cranial nerves II through XII are grossly intact. No headache. No double vision. SKIN: Not dry. Intact. Turgor - normal. LYMPHATIC: No palpable lymph nodes/no lymphedema. MUSCULOSKELETAL: Normal joints with no swelling. Muscle tone is normal. LABS: Hemoglobin 1.5, hematocrit 40, WBC 11,000, normal differential. Creatinine 1.5, BUN 40, potassium 4.6. ASSESSMENT: 1. Pneumonia clinically has resolved. 2. Sepsis, no evidence of it at the present time. The patient had Enterococci likely source could be endocarditis. PLAN: 1. The patient is going to be continued on Vancomycin, Dexamethasone, Lasix, Colestipol, Morphine Sulfate p.r.n. and nebs. TIME SPENT: More than 30 minutes. Plan and coordination of the patient's care discussed in the presence of nurse. KAYLEY
--- NOTE | 2021-02-05 14:32 | PN ---
DATE OF SERVICE: 02/03/21 SUBJECTIVE: The patient was seen and examined with the nurse practitioner. The patient is afebrile, feeling well, eating well, confused as usual. The patient has end- stage chronic lung disease. The patient smokes still any chance he gets. TIME SPENT: More than 30 minutes. Plan and coordination of the patient's care discussed in the presence of nurse. KAYLEY
--- NOTE | 2021-02-07 13:20 | DS ---
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 - CT 05/2020 - REFUSES VASCULAR REFERRAL RECURRENT DIZZINESS- CAROTID/MRI 02/2020 COPD - O2 DEPENDENT CONTINUED TO BE A HEAVY SMOKER CHRONIC RESPIRATORY FAILURE HYPERTENSION NEUROPATHY RECURRENT GOUT GERD Chronic kidney disease, STAGE 2-3 SEPSIS - POSITIVE ENTEROCCOCUS- 06/2020 LT RENAL CA - REFUSES FURTHER CONSULTATION LT SCIATICA HAND TREMORS NON- COMPLIANCE WITH LIFESTYLE, MEDICATIONS, DIET AND FOLLOW-UP SURGICAL HISTORY: 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 SPINE SURGERY X 3 BILATERAL KNEE REPLACEMENT STATUS POST CHOLECYSTECTOMY STATUS POST APPENDECTOMY LAST VITALS: Temp Pulse Resp BP Pulse Ox 98 F 71 20 99/39 L 94 L 02/04/21 05:38 02/04/21 08:00 02/04/21 05:38 02/04/21 05:38 02/04/21 10:00 DISCHARGE INSTRUCTIONS: DISCHARGE : TODAY 02/04/2021 TO [facility]. O2 SATURATIONS: PER PULSE OX EVERY SHIFT. VITAL SIGNS EVERY SHIFT X ONE WEEK THEN FACILITY PROTOCOL AND WEIGHTS DAILY X ONE WEEK THEN PER FACILITY PROTOCOL. LABS: CBC AND CMP ON WEDNESDAY AND REPORT TO ALIA KING APRN. THEN CBC,CMP AND VANCOMYCIN TROUGH WEEKLY ( FACILITY PHARMACY CAN DETERMINE IF MORE FREQUENT TROUGHS ARE NEEDED) LIPIDS, TSH, FREE T4 AND AIC EVERY 6 MONTHS. PERIPHERAL IV ACCESS: PLACEMENT AND CARE, CHANGE SITE EVERY 3 DAYS AND PRN. MAINTAIN PATENCY OF SITE WITH NACL 0.9 % FLUSHES 3-5 ML EVERY 8 HOURS AND PRN. CODE STATUS: DO NOT RESUSCITATE. MD FOLLOW -UP: DR CAROLINA/ ALIA KING APRN/ MONICA AVILA APRN WILL SEE ON ROUNDS. OXYGEN: 2-3 LITERS A MINUTE PER NASAL CANNULA CONTINUOUS TO KEEP SATURATIONS. BETWEEN 90 - 95% DUE TO CO2 RETAINER. TAKE THESE MEDICATIONS AT HOME: Albuterol Sulfate (Albuterol Sulfate (Ventolin Hfa) 18 Gm 1 Puff With Spacer) 2 puff IH RTTID [facility] Last Admin: 02/04/21 04:55 Dose: 2 puff Documented by: Albuterol/Ipratropium (Ipratropium/Albuterol Vial.Neb) 3 ml NEB RTQ6H PRN PRN Reason: SHORT OF BREATH Allopurinol (Allopurinol 100 Mg Tablet) 300 mg PO DAILY [facility] Last Admin: 02/04/21 09:15 Dose: 300 mg Documented by: Budesonide/Formoterol Fumarate (Budesonide/Formoterol Fumarate 160/4.5 Mcg Inhaler) 2 puff IH BID [facility] Last Admin: 02/04/21 09:16 Dose: 2 puff Documented by: Colestipol HCl (Colestipol Hcl 1 Gm Tablet) 1 gm PO DAILY [facility] Last Admin: 02/04/21 09:14 Dose: 1 gm Documented by: Furosemide (Furosemide 20 Mg Tablet) 20 mg PO MoWeFr@30 AR Gabapentin (Gabapentin 300 Mg Capsule) 300 mg PO TID [facility] Last Admin: 02/04/21 09:16 Dose: 300 mg Documented by: Vancomycin HCl 1 gm/ Sodium (Chloride) 250 mls @ 250 mls/hr IV DAILY [facility] X 6 WEEKS Stop: 02/07/21 08:59 Last Admin: 02/04/21 09:14 Dose: 250 mls/hr Documented by: Ipratropium [place] (Ipratropium [place] 12.9 Gm Hfa Inhaler Per Puff With Spacer) 2 puff IH RTTID [facility] Last Admin: 02/04/21 04:55 Dose: 2 puff Documented by: Multivitamins (Multivitamin 1 Tab) 1 tab PO DAILY [facility] Last Admin: 02/04/21 09:15 Dose: 1 tab Documented by: Nicotine (Nicotine 21 Mg Patch.Td24) 1 patch TD DAILY [facility] PRN IF NOT SMOKING Last Admin: 02/04/21 09:17 Dose: 1 patch Documented by: Pantoprazole Sodium (Pantoprazole Sodium 40 Mg Tablet.) 40 mg PO BIDAC [facility] Last Admin: 02/04/21 05:47 Dose: 40 mg Documented by: Prednisone (Prednisone 10 Mg Tablet) 10 mg PO BIDWM [facility] X 5 DAYS, START 02/05/2021 Stop: 02/09/21 08:31 Roflumilast (Roflumilast 500 Mcg Tablet) 500 mcg PO DAILY [facility] Last Admin: 02/04/21 09:14 Dose: 500 mcg Documented by: Simvastatin (Simvastatin 10 Mg Tablet) 20 mg PO DAILY [facility] Last Admin: 02/04/21 09:14 Dose: 20 mg Documented by: Sodium Chloride (0.9% Sodium Chloride 10 Ml Disp.Syrin) 1 syr IVF EVERY 8 HOURS , BEFORE AND AFTER EACH IV MEDICATION AND PRN PRN Reason: To flush IV Last Admin: 02/02/21 05:54 Dose: 1 syr Documented by: Tamsulosin HCl (Tamsulosin Hcl 0.4 Mg Cap.Er.24h) 0.4 mg PO DAILY [facility] Last Admin: 02/04/21 09:16 Dose: 0.4 mg Documented by: Tramadol HCl (Tramadol Hcl 50 Mg Tablet) 50 mg PO BID PRN PRN Reason: Pain Last Admin: 01/30/21 20:38 Dose: 50 mg Documented by: ALLERGIES: Penicillins Adverse Reaction (Severe, Verified 01/24/21 12:02) Unknown flu Vaccine Adverse Reaction (Uncoded 11/12/20 09:46) Unknown DISCONTINUED MEDICATIONS: Furosemide 20 mg PO QDAC [facility] Omeprazole 20 mg PO BIDAC [facility] NEW PRESCRIPTIONS: ALBUTEROL SULFATE 18 GRAM 2 puff IH RTTID [facility] SYMBICORT 160/4.5 MCG 2 puff IH BID [facility] IPRATROPIUM BROMIDE 12.9 GRAM 2 puff IH RTTID [facility] LASIX 20 mg PO MoWeFr@0630 [facility] VANCOMYCIN HCl 1 gm/ Sodium (Chloride) 250 mls @ 250 mls/hr IV DAILY [facility] X 6 WEEKS NICOTINE (Nicotine 21 Mg Patch.Td24) 1 patch TD DAILY [facility] PRN IF NOT SMOKING PROTONIX (Pantoprazole Sodium) 40 mg PO BIDAC [facility] PREDNISONE 10 mg PO BIDWM [facility] X 5 DAYS, START 02/05/2021 NACL (0.9% Sodium Chloride 10 Ml Disp.Syrin) 1 syr IVF EVERY 8 HOURS , BEFORE AND AFTER EACH IV MEDICATION AND PRN SMOKING: SMOKING CESSATION DISEASE SPECIFIC EDUCATION: SEPSIS OXYGEN SAFETY FALL PRECAUTIONS PANDEMIC PRECAUTIONS LAB REVIEW: 02/04/21 07:55 02/04/21 07:55 02/04/21 07:55: Sodium 136.2, Potassium 4.27, Chloride 105.4, Carbon Dioxide 30.0, Anion Gap 5.07, BUN 42.1 H, Creatinine 1.32 H, Estimated GFR (MDRD) 51.00, BUN/Creatinine Ratio 31.89, Glucose 95.9, Calcium 8.19 L, Total Bilirubin 0.50, AST 28.9, ALT 29.0, Alkaline Phosphatase 64.9, Total Protein 6.52, Albumin 2.84 L, Globulin 3.68, Albumin/Globulin Ratio 0.77 02/04/21 07:55: WBC 8.87, RBC 2.92 L, Hgb 8.4 L, Hct 25.5 L, MCV 87.3, MCH 28.8, MCHC 32.9, RDW Coeff of Shira 17.8 H, Plt Count 192, Immature Gran % (Auto) 0.6, Neut % (Auto) 67.1, Lymph % (Auto) 23.3, [place] % (Auto) 6.9, Eos % (Auto) 1.9, Baso % (Auto) 0.2, Neut # (Auto) 6.0, Lymph # (Auto) 2.1, [place] # (Auto) 0.6, Eos # (Auto) 0.2, Baso # (Auto) 0.0, Immature Gran # (Auto) 0.1 ACTIVITY: PT AND OT TO EVAL AND TREAT AT THE FACILITY, UP TOLERATED WITH WALKER AND DIRECTED PER THERAPY DEPARTMENT NO STRENUOUS ACTIVITY, FOLLOW PANDEMIC GUIDELINES, FALL RISK AND OXYGEN SAFETY, SMOKING SAFETY AND CESSATION IF POSSIBLE INCONTINENT CARE, DECUBITIS PREVENTION, OFF LOAD WHILE SITTING DIET: REGULAR WITH ADEQUATE FLUIDS 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 CT chest revealed that he had bibasilar pneumonia. He had fever of 107 upon admission. He is coughing and more weak and had fallen at home. He does have a history of chronic respiratory failure. Blood cultures were drawn in the ER as well as a urine. Blood cultures ended up being positive for enterococcus. Urine was normal. Culture was negative. He does have a history of sepsis with enterococcus. It was positive back in June. He was treated with Vancomycin. Sensitivity showed Vancomycin was sensitive on this hospitalization as well. He was initially on Rocephin and then we switched him to Vancomycin which he has been getting for the past 9 days. He had an echo back in the last hospitalization which did not show any vegetation on the valves indicating endocarditis. However, it was difficult to get good imagining due to the size of his chest and COPD. Repeat echo was also done at this hospitalization by Dr. Carolina no vegetations were seen. His urine although was negative. He has responded well with the Vancomycin. His kidney function has remained stable. 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 Pharmacy dosed the Vancomycin. He has seemed to tolerate this well. Breathing status has remained the same. ABG were normal for him. He has chronic respiratory failure and they were normal on admission and have remained normal. He did received Decadron 2mg daily for the past several days then he was switched to Prednisone 10mg PO BID which he will finish out for the next 5 days. We are going to continue the Vancomycin for the next 6 weeks. We will continue with weekly labs. CBC and CMP, Peak and trough weekly. Pharmacy at [facility] can adjust the dose and we will monitor this as well. We have discussed in detail the recurrence of this sepsis and the needs for fdc antibiotics. The patient is in agreeance. He is going to return to the senior living and they will continue these antibiotics. He has been fever free for about the past week. He has been up and about with therapy. Again, he does have end stage COPD and is oxygen dependent but his respiratory status has remained stable. He does have a history of an aortic infrarenal aortic aneurysm which he has refused a vascular referral. He has a history of left renal cancer which he refuses referral to continue to follow with nephrology. He has a long history of noncompliance with medications, recommendations and followups. We will send him back to the senior living in stable condition and followup with him out there. TIME SPENT: More than 60 minutes. KAYLEY
== END 2021-02-04 12:45 | DRG 189 ==
LOC: ED 11:26 → MEDSURG A 14:40
PROVIDERS: ADMIT Internal Medicine; ATTEND Internal Medicine
DX: R06.02 Shortness of breath; E87.70 Fluid overload, unspecified; D64.9 Anemia, unspecified; N18.30 Chronic kidney disease, stage 3 unspecified; N39.0 Urinary tract infection, site not specified; F03.90 Unspecified dementia, unspecified severity, without behavioral disturbance, psychotic disturbance, mood disturbance, and anxiety; J96.10 Chronic respiratory failure, unspecified whether with hypoxia or hypercapnia; J98.11 Atelectasis; Z20.822 Contact with and (suspected) exposure to COVID-19; R41.82 Altered mental status, unspecified; I50.9 Heart failure, unspecified; R53.1 Weakness; R32 Unspecified urinary incontinence; R50.9 Fever, unspecified; J44.9 Chronic obstructive pulmonary disease, unspecified; R79.89 Other specified abnormal findings of blood chemistry; B95.2 Enterococcus as the cause of diseases classified elsewhere; I95.9 Hypotension, unspecified; J18.9 Pneumonia, unspecified organism